=== PATIENT | female | born 1935 | race Caucasian/White ===

== ENCOUNTER 2017-03-22 10:17 | Inpatient (IN) | payer MEDICARE ==
[~2017-03-22] VITALS: Ht 162.6 cm; Wt 59.9 kg
[2017-03-22] MEDS ORDERED: CARV3.12 PO (10:32)
[2017-03-22] MEDS ORDERED: LISI20TA PO (10:32)
[2017-03-22] MEDS ORDERED: ALLO100T PO (10:32)
[2017-03-22] MEDS ORDERED: FAMO20TA PO (10:32)
[2017-03-22] MEDS ORDERED: SANT250O8 TOP (10:32)
[2017-03-22] MEDS ORDERED: MAGN64TASA PO (10:32)
[2017-03-22] MEDS ORDERED: ONDANSETRON 4MG/2ML VIAL (J2405) IV ONE (10:45)
[2017-03-22] MEDS ORDERED: MORPHINE 2 MG/ML 1ML SYRINGE IV PRN ×2 (10:45→13:45)
[2017-03-22 10:54] LABS: BASO # 0.1 10^3/uL (0.0-0.2); BASO % 0.7 % (0.0-1.0); EOS # 0.1 10^3/uL (0.0-0.50); IMMATURE GRANULOCYTE % 0.1 % (0-0); LYMPH # 0.9 10^3/uL (1.5-4.5); LYMPH % 12.7 % (24.0-44.0); MEAN CORPUSCULAR HGB CONC 32.1 g/dl (32.0-36.5); MEAN CORPUSCULAR VOLUME 99.5 fl (80.0-96.0); MONO # 0.7 10^3/uL (0.0-0.8); MONO % 9.9 % (0.0-5.0); NEUTROPHILS # 5.1 10^3/uL (1.8-7.7); NEUTROPHILS % 75.6 % (36.0-66.0); PLATELET COUNT, AUTOMATED 283 10^3/uL (150-450); RED CELL DISTRIBUTION WIDTH 14.6 % (11.5-14.5); WHITE BLOOD COUNT 6.8 10^3/uL (4.0-10.0)
[2017-03-22 11:12] LABS: INR 0.99
[2017-03-22 11:23] LABS: ANION GAP 4 MEQ/L (8-16); BLOOD UREA NITROGEN 21 MG/DL (7-18); CALCIUM LEVEL 9.1 MG/DL (8.8-10.2); CARBON DIOXIDE LEVEL 34 MEQ/L (21-32); CHLORIDE LEVEL 100 MEQ/L (98-107); CREATININE FOR GFR 0.81 MG/DL (0.55-1.02); GLOMERULAR FILTRATION RATE > 60.0 (>32); GLUCOSE, FASTING 150 MG/DL (83-110); POTASSIUM SERUM 4.2 MEQ/L (3.5-5.1); SODIUM LEVEL 138 MEQ/L (136-145)
--- NOTE | 2017-03-22 11:30 | REP ---
Chest x-ray: Single AP view. History: Trauma. Comparison study: April 02, 2007. Findings: The lungs are well inflated and free of infiltrate. The heart is enlarged. Aorta is calcific and somewhat tortuous. There are old healed rib fractures noted bilaterally. There is diffuse osteoporosis. Pulmonary vasculature is not increased. There is no evidence of pleural effusion, infiltrate, or pulmonary edema. Impression: Moderate cardiac enlargement. Diffuse osteoporosis, old healed rib fractures bilaterally, and thoracolumbar scoliotic curve. Signed by Thien Alvarado MD 03/22/2017 03:50 P
[2017-03-22] MEDS ORDERED: ACET1TAB17 PO (11:44)
[2017-03-22] MEDS ORDERED: ADVI200C PO (11:44)
--- NOTE | 2017-03-22 11:46 | REP ---
Pelvis/left hip: Three views. History: Trauma. Findings: AP view of the pelvis and AP and lateral views of the left hip demonstrate a basicervical fracture of the left hip in varus. Bony pelvic ring is intact. No other fracture is seen. There is diffuse osteopenia. Degenerative changes are seen at the lumbosacral junction. Impression: Basicervical fracture left hip in varus. Signed by Thien Alvarado MD 03/22/2017 03:50 P
[2017-03-22] MEDS ORDERED: METOPROLOL TART 25 MG TABLET PO SCH (12:00)
[2017-03-22] MEDS ORDERED: METOPROLOL TART 25 MG TABLET PO ONE (12:30)
--- NOTE | 2017-03-22 12:43 | HPEPDOC ---
[facility] Medical History & Physical Date of Admission Mar 22, 2017 History and Physical ATTENDING: Dr. Eastman PCP: Alfredo Pedersen MD CC: S/P Fall HPI: 82yoF with a past medical history significant for unsteady gait, pt has a walker, who states she was ambulating to the bathroom from the living room without her walker this AM at 09:20 and fell. Denies dizziness, lightheadedness , LOC. Pt states she hit the left side of her head when she fell, no pain currently. EKG in ED noted to be Afib with RVR. No known h/o Afib. No reported palpitations. Denies any fevers, chills, weakness, fatigue, GUAD[place]AMA, CP, SOB, cough, palpitations, abdominal pain, N/V/D or changes in bowel or bladder habits. 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 Pt is able to do ADLs on her own and dress on her own. Has had help with laundry, cooking, cleaning. She does not do her own shopping. Walks around her home. Upon presentation to the hospital the patient was found to have left hip fracture, thus the hospitalist team was consulted. PMHx: HTN HLD COPD GERD Gout hypomagnesemia unsteady gait/walker decreased hearing/aids osteoporosis/Scoliosis insomnia Chronic wound Rt ankle. Uses Santyl. Following with Keerthi. Wound Care mgmt appt pending. H/O Atrial arrhythmia per chart H/O alcohol use, none currently PSHX: EGD/colonoscopy 2007. Gastritis/ Hyperplastic polyp. Reindl SOCHX: Resides in: [facility] Marital Status: single, lives alone Kids: 2 Employment: retired Tobacco use: 1 ppd x 60 years, has cut down to 4 per day ETOH: denies Illicit Drugs: Denies Recent travel: denies Advanced directives: HCP Sister Carolyne Bee [phone] FAMHX: Siblings: Alive, well Children: Alive, well ROS: As noted in HPI, otherwise 11pt ROS of systems reviewed and remarkable only for Rt ankle wound that was previously addressed as per Dr Pendleton. She was referred to Wound Clinic, appt pending. Pt has been applying Santyl to wound as per Podiatry. Recently her VIDEO MACHINES MECHANIC noticed an open wound on the right heel as well. She belives it is from rubbing her foot in bed. Pt has erythema of her great toes B/ L, pt attributes this to Gout and states they wax and wane and has been chronic. PE: GEN: 82yoF, appears stated age. Thin appearing. No acute distress. Alert and oriented x 3. Pleasant, interactive. HEENT: Normocephalic, atraumatic. Pupils are equal, round, and reactive to light. Extraocular movements are intact. No nystagmus appreciated. Sclera are nonicteric. Conjunctiva without injection. Nose midline. Nasal turbinates without bogginess. No facial asymmetry. Moist mucous membranes. Dentition fair. Pharynx pink and moist, no cobblestoning. Neck supple, trachea midline. No lymphadenopathy or thyromegaly appreciated. CHEST: +S1, +S2 tachycardic LUNGS: Clear to auscultation bilaterally. No wheezes, rales, or rhonchi. Breathing appears symmetric and easy. Patient is speaking in full sentences. No accessory muscle use. ABD: Flat, soft, non-tender, non-distended. +Bowel sounds throughout. No rebound or guarding. No costovertebral angle tenderness. EXT: No lower extremity edema appreciated. Erythema is noted of the great toes B /L. Open wound is noted at the lateral Rt ankle with yellowish drainage and wound of Rt heel. Small Skin tears noted Left forearm. SKIN: [place], dry, warm.No rashes. NEURO: Alert and oriented x 3. Cranial nerves III-XII are intact. No focal deficits appreciated. CXR: Moderate cardiac enlargement. Diffuse osteoporosis, old healed rib fractures bilaterally, and thoracolumbar scoliotic curve XR hip Basicervical fracture left hip in varus Femur XR There is an intertrochanteric fracture of the left hip. There is no dislocation. No other fracture of the left femur is identified. There is diffuse demineralization. There is osteoarthritis at the knee. EKG: A fib PVC, RVR 111 bpm, mod IVCD. A&P: 82yoF with a past medical history significant for unsteady gait, pt has a walker, who states she was ambulating to the bathroom from the living room without her walker this AM at 09:20 and fell. Denies dizziness, lightheadedness , LOC. EKG in ED noted to be Afib with RVR. No known h/o Afib. No reported palpitations. 1. The patient will be admitted to PCU for at least [address] Eastman's service. Pt is discussed with Dr Pool. 2. S/P Fall/Left hip fracture. Orthopedics, Dr Holt consulted and will evaluate Pt. Activity level <4 METS. TTE pending. Serial CIP/Troponin pending. CT head pending. Preoperative clearance pending further testing at this time. 3. Afib with RVR. PCU/TM. Add TSH to labs. Serial CIP/Troponin. Request TTE. (request any previous records from PCP/prevous TTE) Lopressor po 25mg x 1 dose in ED. Continue Lopressor 25 mg Q6 with hold parameters for rate control. No anticoagulation at this time. [id number] score 4. 4. HTN. Hold HCTZ, Hold ACEI. Lopressor po x 1 dose 25 mg in ED. Continue with po Lopressor 25 mg Q6 with hold parameters. BP 118/87. 5. HLD. Update fasting lipids. No meds as outpt. 6. Gout. Cont allopurinol. Add uric acid level. 7. GERD. Cont Pepcid. 8. hypomagnesemia. Cont supplement. Add level to admission labs. 9. Chronic Rt Ankle wound. Pt uses Santyl on wound. Seen by podiatry previously. Wound care mgmt consult requested. DVT prophylaxis. SQ heparin Q8 The patient is a Full code Subsequently, Dr Pool spoke with Dr Mayfield re Pt's preoperative clearance. Dr Mayfield feels the Pt can proceed with surgical procedure at this time, Surgical risk would be considered moderate. STAT CIP/Troponin x 1 now. No additional recommendations to reduce the pt's perioperative risk at this time. TTE could be completed after surgical procedure. Pt made NPO, IVF x 50cc/hr, SQ heparin d/cd. Orthopedic svc notified. Vital Signs Vital Signs Date Time Temp Pulse Resp B/P (MAP) Pulse Ox O2 Delivery O2 Flow Rate FiO2 03/22/17 11:55 18 03/22/17 11:47 108 91 03/22/17 11:41 118/87 (97) 03/22/17 10:30 98.3 Room Air Laboratory Data Labs 24H Laboratory Tests 2 03/22/17 10:39: Immature Granulocyte % (Auto) 0.1H, White Blood Count 6.8, Red Blood Count 4.10 , Hemoglobin 13.1, Hematocrit 40.8, Mean Corpuscular Volume 99.5H, Mean Corpuscular Hemoglobin 32.0, Mean Corpuscular Hemoglobin Concent 32.1, Red Cell Distribution Width 14.6H, Platelet Count 283, Neutrophils (%) (Auto) 75.6H, Lymphocytes (%) (Auto) 12.7L, Monocytes (%) (Auto) 9.9H, Eosinophils (%) (Auto) 1.0, Basophils (%) (Auto) 0.7, Neutrophils # (Auto) 5.1, Lymphocytes # (Auto) 0.9L, Monocytes # (Auto) 0.7, Eosinophils # (Auto) 0.1, Basophils # (Auto) 0.1, Immature Granulocyte # (Auto) 0.0, Nucleated Red Blood Cells % (auto) 0.0, Prothrombin Time 13.2, Prothromb Time International Ratio 0.99, Activated Partial Thromboplast Time 30.7, Anion Gap 4L, Glomerular Filtration Rate > 60.0 , Blood Urea Nitrogen 21H, Creatinine 0.81, Sodium Level 138, Potassium Level 4.2, Chloride Level 100, Carbon Dioxide Level 34H, Calcium Level 9.1, Total Creatine Kinase 118, Creatine Kinase MB 3.6, Creatine Kinase MB Relative Index 3.05, Troponin I 0.07 CBC/BMP Laboratory Tests 03/22/17 10:39 Red Blood Count 4.10, Mean Corpuscular Volume 99.5 H, Mean Corpuscular Hemoglobin 32.0, Mean Corpuscular Hemoglobin Concent 32.1, Red Cell Distribution Width 14.6 H, Neutrophils (%) (Auto) 75.6 H, Lymphocytes (%) (Auto ) 12.7 L, Monocytes (%) (Auto) 9.9 H, Eosinophils (%) (Auto) 1.0, Basophils (%) (Auto) 0.7, Neutrophils # (Auto) 5.1, Lymphocytes # (Auto) 0.9 L, Monocytes # ( Auto) 0.7, Eosinophils # (Auto) 0.1, Basophils # (Auto) 0.1, Calcium Level 9.1, Total Creatine Kinase 118 Home Medications Scheduled (Lisinopril/Hydrochlorothi 20-12.5 mg) 1 Tab Tab, 1 TAB PO DAILY Allopurinol (Allopurinol) 100 Mg Tab, 100 MG PO DAILY Carvedilol (Carvedilol) 3.125 Mg Tab, 3.125 MG PO BID Collagenase (Santyl) 250 Unit/Gm Oin, 1 DOSE TOP DAILY APPLIES TO WOUND ON RIGHT ANKLE Magnesium Chloride (Mag64) 64 Mg Tabcr, 64 MG PO BID Scheduled PRN (Advil Pm 200-25 mg) 1 Cap Cap, 1 CAP PO QHS PRN for PAIN Acetaminophen (Acetaminophen) 325 Mg Tab, 650 MG PO Q6H PRN for PAIN Famotidine (Pepcid) 20 Mg Tab, 20 MG PO BID PRN for HEARTBURN Allergies Coded Allergies: Clarithromycin (Verified Allergy, Unknown, 09/18/12) Stella Cheatham Mar 22, 2017 12:42
--- NOTE | 2017-03-22 13:22 | REP ---
Left femur four views AP and lateral projections: There is an intertrochanteric fracture of the left hip. There is no dislocation. No other fracture of the left femur is identified. There is diffuse demineralization. There is osteoarthritis at the knee. Signed by Roberth Pace MD 03/22/2017 01:13 P
[2017-03-22 13:42] LABS: MAGNESIUM LEVEL 1.9 MG/DL (1.8-2.4)
[2017-03-22] MEDS ORDERED: HEPARIN SOD (PORCINE) 5000 UNITS/ML VIAL SC SCH (14:00)
--- NOTE | 2017-03-22 14:11 | REP ---
CT Head without contrast HISTORY: Fall COMPARISON: None Areas of decreased attenuation are present in the periventricular white matter. This represents small-vessel ischemic disease. There is no intraparenchymal hemorrhage, acute infarct, mass or midline shift. The ventricular system and cortical sulci as well as subarachnoid space in the posterior fossa are dilated consistent with mild volume loss. There is no extra cerebral collection. There is no fracture. The visualized sinuses are clear. Mucosal thickening is present in the right mastoid air cells. IMPRESSION: 1. Small vessel ischemic disease. 2. Mild volume loss. Signed by Monty Sung MD 03/22/2017 02:03 P
[2017-03-22] MEDS ORDERED: NS 1,000 ML IV SCH (14:39)
[2017-03-22 15:24] LABS: AST/SGOT 29 U/L (15-37)
[2017-03-22 15:25] LABS: ALBUMIN 3.1 GM/DL (3.2-5.2); ALKALINE PHOSPHATASE 96 U/L (45-117); ALT/SGPT 27 U/L (12-78); BILIRUBIN,DIRECT 0.2 MG/DL (0.0-0.2); BILIRUBIN,TOTAL 0.4 MG/DL (0.2-1.0); CHOLESTEROL LEVEL 168 MG/DL (<200); TOTAL PROTEIN 6.2 GM/DL (6.4-8.2); TRIGLYCERIDES LEVEL 76 MG/DL (<150); URIC ACID 6.8 MG/DL (2.6-6.0)
[2017-03-22 17:25] VITALS: BP 136/79
[2017-03-22] MEDS: METOPROLOL TART 25 MG TABLET PO SCH (18:02)
[2017-03-22] MEDS ORDERED: DIGOXIN INJ 0.5 MG/2 ML AMP (J1160) IV STA (19:35)
[2017-03-22 20:00] VITALS: BP 93/54
[2017-03-22 20:35] VITALS: BP 98/56
[2017-03-22] MEDS: DOCUSATE SODIUM 100 MG CAP PO SCH (20:50)
[2017-03-22] MEDS ORDERED: MAGNESIUM CHLORIDE 64 MG TABCR (SLO MAG) PO SCH (21:00)
[2017-03-22 21:55] VITALS: BP 100/60
[2017-03-22] MEDS: PERCOCET 5MG/325MG TAB PO PRN (22:00)
[2017-03-22 23:59] VITALS: BP 91/53
[2017-03-23] VITALS (14 sets, daily range): BP systolic 88–121; BP diastolic 40–70; O2SAT 93–98
[2017-03-23] MEDS: PERCOCET 5MG/325MG TAB PO PRN ×3 (04:13→22:26)
--- NOTE | 2017-03-23 05:37 | ECGEPIP ---
Stationary ECG Study [facility] - ED Test Date: 2017-03-22 Pat Name: GIN DEVINE Department: Room: - Gender: F Business Support: tonio : 1935 Requested By: Ricco Vaughan Order Number: [id number] Reading MD: Ricco Mari Measurements Intervals [place] Rate: 111 P: PA: 0 QRS: 76 QRSD: 114 T: 66 QT: 300 QTc: 409 Interpretive Statements ATRIAL FIBRILLATION WITH RAPID VENTRICULAR RESPONSE WITH ABERRANT CONDUCTION OR VENTRICULAR PREMATURE COMPLEXES MODERATE INTRAVENTRICULAR CONDUCTION DELAY NO PRIORS Electronically Signed On 03-23-2017 5:37:04 EDT by Ricco Mari
[2017-03-23 05:43] LABS: BASO % 0.7 % (0.0-1.0); EOS % 0.3 % (0.0-3.0); IMMATURE GRANULOCYTE % 0.3 % (0-0); LYMPH % 16.4 % (24.0-44.0); MEAN CORPUSCULAR HEMOGLOBIN 31.5 pg (27.0-33.0); MEAN CORPUSCULAR HGB CONC 31.4 g/dl (32.0-36.5); MEAN CORPUSCULAR VOLUME 100.3 fl (80.0-96.0); MONO # 0.7 10^3/uL (0.0-0.8); MONO % 12.2 % (0.0-5.0); NEUTROPHILS # 4.2 10^3/uL (1.8-7.7); NEUTROPHILS % 70.1 % (36.0-66.0); PLATELET COUNT, AUTOMATED 234 10^3/uL (150-450); RED CELL DISTRIBUTION WIDTH 14.4 % (11.5-14.5)
[2017-03-23] MEDS: METOPROLOL TART 25 MG TABLET PO SCH ×4 (06:00→18:00)
[2017-03-23 06:16] LABS: ALBUMIN 2.6 GM/DL (3.2-5.2); ALBUMIN/GLOBULIN RATIO 0.81 (1.00-1.93); ALKALINE PHOSPHATASE 74 U/L (45-117); ALT/SGPT 22 U/L (12-78); ANION GAP 7 MEQ/L (8-16); AST/SGOT 25 U/L (15-37); BILIRUBIN,TOTAL 0.5 MG/DL (0.2-1.0); BLOOD UREA NITROGEN 26 MG/DL (7-18); CALCIUM LEVEL 8.5 MG/DL (8.8-10.2); CARBON DIOXIDE LEVEL 26 MEQ/L (21-32); CHLORIDE LEVEL 102 MEQ/L (98-107); CREATININE FOR GFR 0.85 MG/DL (0.55-1.02); GLOMERULAR FILTRATION RATE > 60.0 (>32); GLUCOSE, FASTING 87 MG/DL (83-110); MAGNESIUM LEVEL 1.7 MG/DL (1.8-2.4); POTASSIUM SERUM 4.9 MEQ/L (3.5-5.1); SODIUM LEVEL 135 MEQ/L (136-145); TOTAL PROTEIN 5.8 GM/DL (6.4-8.2)
[2017-03-23] MEDS: DIGOXIN 0.125 MG TAB PO SCH (07:52)
[2017-03-23] MEDS ORDERED: ceFAZolin 2 GM/D5W 50 ML IV BAG (J0690) As Ordered ONE (08:29)
[2017-03-23] MEDS: hydroCHLOROthiazide 12.5 MG CAPSULE PO SCH (09:00)
[2017-03-23] MEDS: LISINOPRIL 20 MG TAB PO SCH (09:00)
[2017-03-23] MEDS ORDERED: PHENYLEPHRINE INJ 10MG/ML VIAL (J2370) As Ordered ONE (09:24)
[2017-03-23] MEDS ORDERED: KETAMINE HCL 200 MG/20 ML VIAL As Ordered ONE (09:24)
[2017-03-23] MEDS ORDERED: fentaNYL 100 MCG/2 ML INJECTION (J3010) As Ordered ONE ×2 (09:24→10:32)
[2017-03-23] MEDS ORDERED: MIDAZOLAM INJ 2 MG/2 ML VIAL (J2250) As Ordered ONE (09:24)
[2017-03-23] MEDS ORDERED: dexameTHASONE 4 MG/ML 1ML VIAL (J1100) As Ordered ONE (09:24)
[2017-03-23] MEDS ORDERED: ONDANSETRON 4MG/2ML VIAL (J2405) As Ordered ONE (09:25)
[2017-03-23] MEDS ORDERED: ETOMIDATE INJ 20MG/10ML VIAL As Ordered ONE (09:26)
[2017-03-23] MEDS ORDERED: ROCURONIUM BROMIDE 50 MG/5 ML VIAL/SYRINGE As Ordered ONE (09:26)
[2017-03-23] MEDS ORDERED: NEOSTIGMINE 10 MG/10 ML VIAL (J2710) As Ordered ONE (09:45)
[2017-03-23] MEDS ORDERED: GLYCOPYRROLATE INJ 0.2 MG/ML 2 ML VIAL As Ordered ONE (09:45)
[2017-03-23] MEDS: fentaNYL 100 MCG/2 ML INJECTION (J3010) IV PRN ×4 (10:34→11:15)
[2017-03-23] MEDS ORDERED: LR 1,000 ML IV SCH (10:45)
[2017-03-23] MEDS ORDERED: ONDANSETRON 4MG/2ML VIAL (J2405) IV PRN ×2 (10:45→11:15)
[2017-03-23] MEDS ORDERED: PERCOCET 5MG/325MG TAB As Ordered ONE (10:50)
--- NOTE | 2017-03-23 11:07 | REP ---
REASON: ORIF previously described hip fracture. 15 images were obtained along with 2 minutes and 26 seconds of fluoroscopy time provided to Dr. Osmany Holt for left hip ORIF. The alignment is near anatomical. The tip of the lag screw does not breech the joint space. Signed by Brandon Samayoa DO 03/23/2017 11:21 A
[2017-03-23] MEDS: LR 1,000 ML IV SCH ×2 (11:15→20:02)
--- NOTE | 2017-03-23 13:41 | ECHO ---
DATE OF PROCEDURE: 03/22/2017 DATE OF : 1935 AGE: 82 REFERRING PROVIDER: Dr. Felicia Pool PATIENT LOCATION: Room 3223 REASON FOR THE ECHOCARDIOGRAM: Abnormal EKG. 2D MEASUREMENTS: IVS: 0.9 cm LV: 3.6 cm LVPW: 0.9 cm LA: 4.4 cm Aorta: 2.4 cm IVC: 2.2 cm DOPPLER MEASUREMENTS: Peak velocity across the aortic valve: 0.83 m/s Peak velocity across the LVOT: 0.45 m/s Mitral E: 0.69 Maximum tricuspid valve velocity: 3.3 m/s 2D COMMENTS: 1. Normal left ventricular size, wall thickness, and normal global left ventricular systolic function. The estimated left ventricular systolic ejection fraction is 65-70%. 2. Mildly enlarged left atrium. The right atrium appeared to be moderately enlarged. Normal right ventricle. 3. The atrial septum appeared to be normal without evidence of defect or shunt. 4. Normal aortic root. 5. No pericardial effusion seen. 6. Mildly calcified aortic valve with normal leaflet excursion. Mildly calcified mitral annulus. Could not rule out prolapse of the posterior mitral valve leaflet. Normal tricuspid valve. The pulmonic valve appeared to be normal in limited views. The proximal pulmonary artery branches were not well visualized. 7. The inferior vena cava was dilated, central venous pressure is probably elevated. DOPPLER: It detects moderately severe mitral regurgitation and severe tricuspid regurgitation. The calculated pulmonary artery systolic pressure varied between 50-60 mmHg. Assessment of the left ventricular diastolic function was limited, patient seems to be in atrial fibrillation during the test but with a controlled ventricular rate. IMPRESSION: 1. Normal global left ventricular systolic function. 2. Aortic valve sclerosis without stenosis or aortic regurgitation. 3. Moderately severe mitral regurgitation with mildly enlarged left atrium. Could not rule out prolapse of the posterior mitral valve leaflet. The mitral valve annulus is also mildly calcified. 4. Severe tricuspid regurgitation with dilated right atrium and moderately severe pulmonary hypertension. 5. There were features of elevated central venous pressure. MTDD
[2017-03-23] MEDS: DOCUSATE SODIUM 100 MG CAP PO SCH ×2 (14:02→20:02)
[2017-03-23] MEDS: ALLOPURINOL 100 MG TAB PO SCH (14:02)
--- NOTE | 2017-03-23 15:44 | CR ---
DATE OF CONSULTATION: 03/23/2017 CHIEF COMPLAINT: Left hip fracture. HISTORY OF PRESENT ILLNESS: Geraldine is an 82-year-old walker ambulator who suffered a mechanical fall on 03/22/2017 and landed on her left side. She had immediate pain and was unable to bear weight. She was brought to [facility], where x-rays revealed a displaced hip fracture. She was found to be in new-onset atrial fibrillation and was admitted to the medical team. As of yesterday afternoon she had been evaluated by the hospitalist and cardiology, and the regulatory submissions specialist had stated to the hospitalist that she was medically optimized and could get an echocardiogram postoperatively. PAST MEDICAL HISTORY: 1. Hypertension. 2. High cholesterol. 3. Chronic obstructive pulmonary disease (COPD). 4. Acid reflux. 5. Gout. PAST SURGICAL HISTORY: 1. Gout tophus debridement, right ankle. 2. Colonoscopy. SOCIAL HISTORY: Patient lives alone in [place]. Her sister was at bedside. Patient smokes four cigarettes a day. Does not abuse alcohol or illicit drugs. Healthcare proxy is her sister, Corin Bee, phone number . For the patient's allergies and medications, please see the patient intake. REVIEW OF SYSTEMS: Please see the patient's intake. PHYSICAL EXAMINATION: Reveal a well-appearing female in no distress. Alert and oriented times three. NEUROLOGIC: Appropriate mood and pleasant affect. CARDIOVASCULAR: Dorsalis pedis pulse 2+ with an irregular rate. PULMONARY: Regular nonlabored breathing. SKIN: Skin in left foot reveals gouty tophi in the foot. Skin at the knee reveals a healed remote laceration over the patella and medial soft tissues. Skin at the hip is intact. MUSCULOSKELETAL: Patient's left leg is significantly shortened and externally rotated. She has severe tenderness to palpation at the greater trochanter. Log roll deferred. No tenderness at the knee. RADIOLOGY: X-rays of the hip and femur were obtained, available for my review. There is a displaced 3-part intertrochanteric femur fracture. ASSESSMENT AND PLAN: Geraldine is an 82-year-old female with left proximal femur fracture. She has been admitted to the hospitalist and deemed medically optimized. Plan is to proceed with surgery in the morning, on 03/23/2017.
[2017-03-23] MEDS ORDERED: FAMOTIDINE 20 MG TAB PO PRN (17:00)
--- NOTE | 2017-03-23 17:03 | IPNPDOC ---
Subjective Date Seen The patient was seen on 03/23/17. Subjective Chief Complaint/HPI Patient seen and examined at bedside. If that she is feeling relatively comfortable following surgery this morning. Denies any acute complaints this time. Objective Physical Examination General Exam: Positive: Alert, Cooperative, No Acute Distress ENT Exam: Positive: Atraumatic, Mucous membr. moist/pink Neck Exam: Negative: JVD Chest Exam: Positive: Clear to auscultation, Normal air movement Heart Exam: Positive: Irregular Rhythm Telemetry: Positive: Atrial fibrillation Abdomen Exam: Positive: Soft, Negative: Tenderness Extremity Exam: Positive: Other (Left hip wrapped in surgical dressing. ROM limited 2/2 recent surgery. Patient noted to have gauze/dressing on right foot.) Psych Exam: Positive: Oriented x 3 Assessment /Plan Plan/VTE VTE Prophylaxis Ordered?: Yes Plan Left Hip fracture 2/2 Fall, s/p Repair DVT Prophylaxis and Pain Mgmt as per Ortho Atrial Fibrillation Rate Controlled on Metoprolol 25mg q6h The patient will need to be on Anticoagulation, however we will start AC with input from Orthopedic surgery--once the patient is stable from a post-operative perspective 2D ECHO notable for preserved EF HTN. Cont Lisinopril, HCTZ with holding parameters Gout Cont allopurinol GERD Cont Pepcid. Chronic Rt Ankle wound Wound Care on board DVT prophylaxis As per Ortho Dispo--pending PT eval. VS, I&O, 24H, Fishbone Vital Signs/I&O Vital Signs Date Time Temp Pulse Resp B/P (MAP) Pulse Ox O2 Delivery O2 Flow Rate FiO2 03/23/17 16:18 97.6 84 20 121/56 (77) 98 Nasal Cannula 1.0 I&O- Last 24 Hours up to 6 AM 03/24/17 06:00 Intake Total 1275 ml Output Total 230 ml Balance 1045 ml Laboratory Data 24H LABS Laboratory Tests 2 03/22/17 18:02: Total Creatine Kinase 145, Creatine Kinase MB 5.0H, Creatine Kinase MB Relative Index 3.44, Troponin I 0.20#H 03/23/17 02:02: Total Creatine Kinase 107, Creatine Kinase MB 2.8, Creatine Kinase MB Relative Index 2.61, Troponin I 0.12#H 03/23/17 05:31: Immature Granulocyte % (Auto) 0.3H, White Blood Count 6.0, Red Blood Count 3.59L , Hemoglobin 11.3L, Hematocrit 36.0, Mean Corpuscular Volume 100.3H, Mean Corpuscular Hemoglobin 31.5, Mean Corpuscular Hemoglobin Concent 31.4L, Red Cell Distribution Width 14.4, Platelet Count 234, Neutrophils (%) (Auto) 70.1H, Lymphocytes (%) (Auto) 16.4L, Monocytes (%) (Auto) 12.2H, Eosinophils (%) (Auto ) 0.3, Basophils (%) (Auto) 0.7, Neutrophils # (Auto) 4.2, Lymphocytes # (Auto) 1.0L, Monocytes # (Auto) 0.7, Eosinophils # (Auto) 0.0, Basophils # (Auto) 0.0, Immature Granulocyte # (Auto) 0.0, Nucleated Red Blood Cells % (auto) 0.0, Anion Gap 7L, Glomerular Filtration Rate > 60.0, Blood Urea Nitrogen 26H, Creatinine 0.85, Sodium Level 135L, Potassium Level 4.9, Chloride Level 102, Carbon Dioxide Level 26, Calcium Level 8.5L, Aspartate Amino Transf (AST/SGOT) 25, Alanine Aminotransferase (ALT/SGPT) 22, Alkaline Phosphatase 74, Total Bilirubin 0.5, Total Protein 5.8L, Albumin 2.6L, Magnesium Level 1.7L, Albumin/ Globulin Ratio 0.81L 03/23/17 11:53: Total Creatine Kinase 160, Creatine Kinase MB 3.9H, Creatine Kinase MB Relative Index 2.43, Troponin I 0.10 CBC/BMP Laboratory Tests 03/23/17 05:31 Red Blood Count 3.59 L, Mean Corpuscular Volume 100.3 H, Mean Corpuscular Hemoglobin 31.5, Mean Corpuscular Hemoglobin Concent 31.4 L, Red Cell Distribution Width 14.4, Neutrophils (%) (Auto) 70.1 H, Lymphocytes (%) (Auto) 16.4 L, Monocytes (%) (Auto) 12.2 H, Eosinophils (%) (Auto) 0.3, Basophils (%) ( Auto) 0.7, Neutrophils # (Auto) 4.2, Lymphocytes # (Auto) 1.0 L, Monocytes # ( Auto) 0.7, Eosinophils # (Auto) 0.0, Basophils # (Auto) 0.0, Calcium Level 8.5 L , Aspartate Amino Transf (AST/SGOT) 25, Alanine Aminotransferase (ALT/SGPT) 22, Alkaline Phosphatase 74, Total Bilirubin 0.5, Total Protein 5.8 L, Albumin 2.6 L YADIRA LAMAR MD Mar 23, 2017 17:03
[2017-03-24] VITALS (12 sets, daily range): BP systolic 84–120; BP diastolic 42–84; O2SAT 93–97
[2017-03-24] MEDS: PERCOCET 5MG/325MG TAB PO PRN ×2 (03:34→10:27)
[2017-03-24 05:42] LABS: BASO % 0.1 % (0.0-1.0); EOS % 0.1 % (0.0-3.0); IMMATURE GRANULOCYTE % 0.4 % (0-0); LYMPH # 0.9 10^3/uL (1.5-4.5); LYMPH % 11.9 % (24.0-44.0); MEAN CORPUSCULAR HEMOGLOBIN 31.7 pg (27.0-33.0); MEAN CORPUSCULAR HGB CONC 31.5 g/dl (32.0-36.5); MEAN CORPUSCULAR VOLUME 100.6 fl (80.0-96.0); MONO % 13.6 % (0.0-5.0); NEUTROPHILS # 5.7 10^3/uL (1.8-7.7); NEUTROPHILS % 73.9 % (36.0-66.0); PLATELET COUNT, AUTOMATED 235 10^3/uL (150-450); RED CELL DISTRIBUTION WIDTH 14.4 % (11.5-14.5); WHITE BLOOD COUNT 7.7 10^3/uL (4.0-10.0)
[2017-03-24 06:02] LABS: ALBUMIN 2.2 GM/DL (3.2-5.2); ALBUMIN/GLOBULIN RATIO 0.69 (1.00-1.93); ALKALINE PHOSPHATASE 67 U/L (45-117); ALT/SGPT 19 U/L (12-78); ANION GAP 4 MEQ/L (8-16); AST/SGOT 23 U/L (15-37); BILIRUBIN,TOTAL 0.2 MG/DL (0.2-1.0); BLOOD UREA NITROGEN 23 MG/DL (7-18); CALCIUM LEVEL 8.5 MG/DL (8.8-10.2); CARBON DIOXIDE LEVEL 32 MEQ/L (21-32); CHLORIDE LEVEL 101 MEQ/L (98-107); CREATININE FOR GFR 0.75 MG/DL (0.55-1.02); GLOMERULAR FILTRATION RATE > 60.0 (>32); GLUCOSE, FASTING 125 MG/DL (83-110); MAGNESIUM LEVEL 1.7 MG/DL (1.8-2.4); POTASSIUM SERUM 4.6 MEQ/L (3.5-5.1); SODIUM LEVEL 137 MEQ/L (136-145); TOTAL PROTEIN 5.4 GM/DL (6.4-8.2)
[2017-03-24] MEDS: METOPROLOL TART 25 MG TABLET PO SCH ×3 (06:48→12:00)
[2017-03-24] MEDS: DOCUSATE SODIUM 100 MG CAP PO SCH ×2 (08:57→21:35)
[2017-03-24] MEDS: ALLOPURINOL 100 MG TAB PO SCH (08:57)
[2017-03-24] MEDS: LISINOPRIL 20 MG TAB PO SCH (08:57)
[2017-03-24] MEDS: hydroCHLOROthiazide 12.5 MG CAPSULE PO SCH (08:58)
[2017-03-24] MEDS: DIGOXIN 0.125 MG TAB PO SCH (08:58)
[2017-03-24] MEDS: MIRALAX *UNIT DOSE* 17GM PACKET PO SCH (08:58)
[2017-03-24] MEDS ORDERED: ENOXAPARIN 30 MG/0.3 ML SYR (J1650) SC SCH (09:00)
--- NOTE | 2017-03-24 10:11 | IPNPDOC ---
Subjective Date Seen The patient was seen on 03/24/17. Subjective Chief Complaint/HPI Patient seen and examined at the bedside. States she is feeling well, and that the pain in her left hip is still well controlled. Denies any acute complaints or overnight events. Objective Physical Examination General Exam: Positive: Alert, Cooperative, No Acute Distress ENT Exam: Positive: Atraumatic, Mucous membr. moist/pink Neck Exam: Negative: JVD Chest Exam: Positive: Clear to auscultation, Normal air movement Heart Exam: Positive: Irregular Rhythm Telemetry: Positive: Atrial fibrillation Abdomen Exam: Positive: Soft, Negative: Tenderness Extremity Exam: Positive: Other (Left hip wrapped in surgical dressing. ROM limited 2/2 recent surgery. Patient noted to have gauze/dressing on right foot.) Psych Exam: Positive: Oriented x 3 Assessment /Plan Plan/VTE VTE Prophylaxis Ordered?: Yes Plan Atrial Fibrillation Rate Controlled on Metoprolol 25mg q6h I did discuss the need for AC with Ortho this morning, and the patient can be started on AC from their post-operative perspective I also discussed the need for AC with the patient this AM, who states that she would like to discuss it with her family first--Risks, Benefits, and Alternative therapies were discussed with the patient who verbalized understanding of the same, and notes that she makes her own health care decisions. We will start the patient on Eliquis 2.5mg BID if she decides to choose AC-- discussed with Dr. Loyd who agrees 2D ECHO notable for preserved EF, moderate MR Left Hip fracture 2/2 Fall, s/p Repair Pain Mgmt as per Ortho HTN. Cont Lisinopril, HCTZ with holding parameters Gout Cont allopurinol GERD Cont Pepcid. Chronic Rt Ankle wound Wound Care on board DVT prophylaxis Lovenox SC for now Dispo--pending PT eval. VS, I&O, 24H, Fishbone Vital Signs/I&O Vital Signs Date Time Temp Pulse Resp B/P (MAP) Pulse Ox O2 Delivery O2 Flow Rate FiO2 03/24/17 08:58 90 03/24/17 08:57 114/64 03/24/17 08:25 98.2 19 95 Nasal Cannula 1.0 I&O- Last 24 Hours up to 6 AM 03/25/17 06:00 Intake Total 0 ml Output Total 0 ml Balance 0 ml Laboratory Data 24H LABS Laboratory Tests 2 03/23/17 11:53: Total Creatine Kinase 160, Creatine Kinase MB 3.9H, Creatine Kinase MB Relative Index 2.43, Troponin I 0.10 03/24/17 04:56: Immature Granulocyte % (Auto) 0.4H, White Blood Count 7.7, Red Blood Count 3.09L , Hemoglobin 9.8L, Hematocrit 31.1L, Mean Corpuscular Volume 100.6H, Mean Corpuscular Hemoglobin 31.7, Mean Corpuscular Hemoglobin Concent 31.5L, Red Cell Distribution Width 14.4, Platelet Count 235, Neutrophils (%) (Auto) 73.9H, Lymphocytes (%) (Auto) 11.9L, Monocytes (%) (Auto) 13.6H, Eosinophils (%) (Auto ) 0.1, Basophils (%) (Auto) 0.1, Neutrophils # (Auto) 5.7, Lymphocytes # (Auto) 0.9L, Monocytes # (Auto) 1.0H, Eosinophils # (Auto) 0.0, Basophils # (Auto) 0.0 , Immature Granulocyte # (Auto) 0.0, Nucleated Red Blood Cells % (auto) 0.0, Anion Gap 4L, Glomerular Filtration Rate > 60.0, Blood Urea Nitrogen 23H, Creatinine 0.75, Sodium Level 137, Potassium Level 4.6, Chloride Level 101, Carbon Dioxide Level 32, Calcium Level 8.5L, Aspartate Amino Transf (AST/SGOT) 23, Alanine Aminotransferase (ALT/SGPT) 19, Alkaline Phosphatase 67, Total Bilirubin 0.2#, Total Protein 5.4L, Albumin 2.2L, Magnesium Level 1.7L, Albumin/ Globulin Ratio 0.69L CBC/BMP Laboratory Tests 03/24/17 04:56 Red Blood Count 3.09 L, Mean Corpuscular Volume 100.6 H, Mean Corpuscular Hemoglobin 31.7, Mean Corpuscular Hemoglobin Concent 31.5 L, Red Cell Distribution Width 14.4, Neutrophils (%) (Auto) 73.9 H, Lymphocytes (%) (Auto) 11.9 L, Monocytes (%) (Auto) 13.6 H, Eosinophils (%) (Auto) 0.1, Basophils (%) ( Auto) 0.1, Neutrophils # (Auto) 5.7, Lymphocytes # (Auto) 0.9 L, Monocytes # ( Auto) 1.0 H, Eosinophils # (Auto) 0.0, Basophils # (Auto) 0.0, Calcium Level 8.5 L, Aspartate Amino Transf (AST/SGOT) 23, Alanine Aminotransferase (ALT/SGPT ) 19, Alkaline Phosphatase 67, Total Bilirubin 0.2 #, Total Protein 5.4 L, Albumin 2.2 L YADIRA LAAMR MD Mar 24, 2017 10:11
[2017-03-24] MEDS ORDERED: ENOXAPARIN 30 MG/0.3 ML SYR (J1650) SC ONE (10:15)
--- NOTE | 2017-03-24 11:39 | RO ---
DATE OF PROCEDURE: 03/23/2017 PREOPERATIVE DIAGNOSIS: Left three-part proximal femur fracture. POSTOPERATIVE DIAGNOSIS: Left three-part proximal femur fracture. PROCEDURE: Open reduction, internal fixation left femur with a cephalomedullary nail. SURGEON: Dr. Osmany Holt HOUSEFELLOW: None ANESTHESIA: General. IV FLUIDS: Lactated Ringers. ESTIMATED BLOOD LOSS: 50 mL. IMPLANTS: Synthes intermediate TFN 235 x 11, 125 degree neck angle, 90 mm helical blade, 36 mm distal locking screw. Closure sandi. INDICATIONS: Geraldine is an 82-year-old female who suffered a mechanical fall on 03/22/2017. X-rays revealed a displaced three-part proximal femur fracture. She was admitted to the hospitalist service and medically optimized. Had a discussion with her about the risks and benefits of open reduction, internal fixation with a cephalomedullary nail as well as the rationale for nonoperative treatment and we both agreed to proceed with surgery. Patient was completely alert and her healthcare proxy, her sister was present was present for that conversation as well. She understood the risks included but were not limited to bleeding, infection, damage to adjacent neurovascular structure, deep vein thrombosis (DVT)/pulmonary embolism (PE), stiffness, malunion, nonunion, hardware irritation, hardware failure, stiffness, weakness, failure to return to pre-injury activity level, risk of anesthesia including , and need for additional surgery. Written informed consent obtained. DESCRIPTION OF PROCEDURE: The patient was identified in the preoperative holding area and the left leg signed by myself. She was brought to the operating room, where a Lockwood catheter was placed. General anesthesia was induced. She was transferred supine onto the fracture table. All bony prominences well padded. The left leg was placed into the traction boot and secured with coban. The right leg was well padded and secured to the central beam. Preliminary time-out performed per hospital protocol. She received appropriate IV antibiotics within 1 hour of incision. I then proceeded with a preliminary closed reduction with traction, internal rotation and adduction. Successful reduction confirmed on AP and lateral views. There was extensive comminution. Again, this is a three-part fracture. The left leg was then prepped and draped in the normal sterile fashion. Prior to incision, a time-out was performed in which myself and all operating room (OR) staff confirmed the patient's name, medical record number, date of , and the correct side, site and procedure. A 3 cm longitudinal incision was made with a #10 blade just proximal to the tip of the greater trochanter. Electrocautery for hemostasis. Curved Kellogg scissors to open the tensor fascia to gain access to the greater trochanter. With palpation there was extensive comminution of the greater trochanter. A threaded guidewire was placed at the appropriate start point and confirmed on AP and lateral views using fluoroscopy. The guidewire was advanced by hand down to the lesser trochanter and again position confirmed on C-arm both views. The opening reamer was then used over the threaded guidewire to create an opening of the proximal femur. The patient did have some issues with hypotension on induction, and therefore, I elected the patient proceed with an intermediate nail instead of a long nail. The ball-tip guidewire was placed down the femur and after confirming appropriate position on both views the 12.5 cannulated reamer was placed. I then seated the 11 x 235 intermediate TFN over the guidewire. Checking position on AP and lateral views there was some loss of reduction so the guidewire was removed and then I used the al to carefully rasp out some bone from the basicervical fragment, which was getting kicked off as the nail was passed. The nail was passed. The nail was replaced slowly with position and reduction maintained on AP and lateral views using fluoroscopy. The test architect handle was used to assist with the reduction. Then, the guidewire was placed through the targeting arm for the helical blade. A size 90 helical blade was felt to be most important. Reamer was used over the guidewire and then the helical blade was malleted into position. Appropriate position of that blade confirmed on AP, lateral and oblique views. The nail was locked proximally and then position rechecked and deemed to be a successful reduction. The targeting arm was then used to place a single static distal interlocking screw per routine. There was excellent bite on that screw. Final position with the targeting arm removed showed successful open reduction, internal fixation with an intermediate cephalomedullary nail. All incisions were extensively irrigated. There was very little blood loss, 50 mL at most. Deep fascia was closed with [id number] #0 Vicryl sutures, superficial fascia with #2-0 Vicryl and then sandi for the skin. Sterile bandage applied. All counts correct times two. Complications none. DISPOSITION: The patient was extubated and transferred to the postanesthesia care unit (PACU) in stable condition. She will remain under the care of the hospitalist service. 24 hours of antibiotic prophylaxis and she will need deep venous thrombosis (DVT) prophylaxis starting postoperative day #1.
--- NOTE | 2017-03-24 11:41 | REP ---
REASON: Followup fracture. COMPARISON: 2 days ago. The intramedullary roly is seen affixing a previously described left hip fracture. The tip does not breech the hip joint space. Alignment is near anatomical. The bone are demineralized and the edges of the fracture are fully defined. I cannot rule out the possibility of a pathologic fracture. I do not know the patient's history. IMPRESSION: As above. Signed by Brandon Samayoa DO 03/24/2017 10:00 A
[2017-03-24] MEDS ORDERED: NS 500 ML IV ONE (13:45)
[2017-03-24] MEDS: LR 1,000 ML IV SCH (16:30)
[2017-03-24] MEDS: ACETAMINOPHEN TAB 650MG DOSE (2X325MG) PO PRN (21:36)
[2017-03-25] VITALS: BP 106/56
[2017-03-25 04:00] VITALS: BP 111/65
[2017-03-25 05:20] LABS: BASO % 0.3 % (0.0-1.0); EOS # 0.1 10^3/uL (0.0-0.50); EOS % 1.9 % (0.0-3.0); IMMATURE GRANULOCYTE % 0.6 % (0-0); LYMPH # 1.5 10^3/uL (1.5-4.5); LYMPH % 21.8 % (24.0-44.0); MEAN CORPUSCULAR HEMOGLOBIN 31.9 pg (27.0-33.0); MEAN CORPUSCULAR HGB CONC 31.5 g/dl (32.0-36.5); MEAN CORPUSCULAR VOLUME 101.4 fl (80.0-96.0); MONO # 0.6 10^3/uL (0.0-0.8); MONO % 9.2 % (0.0-5.0); NEUTROPHILS # 4.6 10^3/uL (1.8-7.7); NEUTROPHILS % 66.2 % (36.0-66.0); PLATELET COUNT, AUTOMATED 237 10^3/uL (150-450); RED CELL DISTRIBUTION WIDTH 14.6 % (11.5-14.5)
[2017-03-25] MEDS: LR 1,000 ML IV SCH (05:38)
[2017-03-25 05:49] LABS: ALBUMIN 2.2 GM/DL (3.2-5.2); ALBUMIN/GLOBULIN RATIO 0.71 (1.00-1.93); ALKALINE PHOSPHATASE 68 U/L (45-117); ALT/SGPT 19 U/L (12-78); ANION GAP 3 MEQ/L (8-16); AST/SGOT 36 U/L (15-37); BILIRUBIN,TOTAL 0.3 MG/DL (0.2-1.0); BLOOD UREA NITROGEN 26 MG/DL (7-18); CALCIUM LEVEL 8.3 MG/DL (8.8-10.2); CARBON DIOXIDE LEVEL 33 MEQ/L (21-32); CHLORIDE LEVEL 103 MEQ/L (98-107); CREATININE FOR GFR 0.67 MG/DL (0.55-1.02); GLOMERULAR FILTRATION RATE > 60.0 (>32); GLUCOSE, FASTING 103 MG/DL (83-110); MAGNESIUM LEVEL 1.7 MG/DL (1.8-2.4); POTASSIUM SERUM 4.5 MEQ/L (3.5-5.1); SODIUM LEVEL 139 MEQ/L (136-145); TOTAL PROTEIN 5.3 GM/DL (6.4-8.2)
[2017-03-25 07:47] VITALS: BP 119/60
[2017-03-25] MEDS ORDERED: MAG SULF 1GM/100ML (MAG RUN) 1 GM in APPROPRIATE DILUENT 1 EA IV ONE (08:30)
[2017-03-25] MEDS: DOCUSATE SODIUM 100 MG CAP PO SCH ×2 (09:48→20:21)
[2017-03-25] MEDS: ALLOPURINOL 100 MG TAB PO SCH (09:48)
[2017-03-25] MEDS: METOPROLOL TART 25 MG TABLET PO SCH ×2 (09:49→21:00)
[2017-03-25] MEDS: MIRALAX *UNIT DOSE* 17GM PACKET PO SCH (09:55)
[2017-03-25] MEDS: ACETAMINOPHEN TAB 650MG DOSE (2X325MG) PO PRN ×2 (09:59→20:21)
[2017-03-25] MEDS ORDERED: ENOXAPARIN 30 MG/0.3 ML SYR (J1650) SC ONE (11:00)
[2017-03-25 12:17] VITALS: BP 90/55
[2017-03-25] MEDS ORDERED: SLF 3 ML SYR IV PRN (14:30)
--- NOTE | 2017-03-25 15:05 | IPNPDOC ---
Subjective Date Seen The patient was seen on 03/25/17. Subjective Chief Complaint/HPI Patient seen and examined at the bedside. States that she is feeling well, denies any acute complaints at this time. Objective Physical Examination General Exam: Positive: Alert, Cooperative, No Acute Distress ENT Exam: Positive: Atraumatic, Mucous membr. moist/pink Neck Exam: Negative: JVD Chest Exam: Positive: Clear to auscultation, Normal air movement Heart Exam: Positive: Irregular Rhythm Telemetry: Positive: Atrial fibrillation Abdomen Exam: Positive: Soft, Negative: Tenderness Extremity Exam: Positive: Other (Left hip wrapped in surgical dressing. ROM limited 2/2 recent surgery. Patient noted to have gauze/dressing on right foot.) Psych Exam: Positive: Oriented x 3 Assessment /Plan Plan/VTE VTE Prophylaxis Ordered?: Yes Plan Atrial Fibrillation Rate Controlled on Metoprolol 25mg BID I did discuss the need for AC with Ortho, and the patient can be started on AC from their post-operative perspective I also discussed the need for AC with the patient this AM, and her brother Lucas Lindo--We will consider starting Eliquis 2.5mg BID if hemodynamically stable tomorrow 2D ECHO notable for preserved EF, moderate MR Macrocytic Anemia Patient's baseline Hgb ~13 However, over the last few days this has drifted downward to 9.1 this AM---no overt source of bleeding noted, no black colored or tarry stools Likely a combination of aggressive IVF hydration and Intraoperative Blood Loss Will repeat an H&H this evening Occult Stool Blood ordered We will start AC once we can get stability of the patient's Hgb level here Left Hip fracture 2/2 Fall, s/p Repair Pain Mgmt as per Ortho HTN. Cont Lisinopril, HCTZ on hold 07/19 borderline low B/P on 03/24--may restart if B/ P begins to become elevated Gout Cont allopurinol GERD Cont Pepcid. Chronic Rt Ankle wound Wound Care on board DVT prophylaxis Lovenox SC dose for today ordered--Will hold 1010 am dose in case the patient is started on Eliquis. Dispo--Patient will likely require Rehab on D/C. VS, I&O, 24H, Fishbone Vital Signs/I&O Vital Signs Date Time Temp Pulse Resp B/P (MAP) Pulse Ox O2 Delivery O2 Flow Rate FiO2 03/25/17 12:17 97.0 78 18 90/55 (67) 96 Nasal Cannula 2.0 I&O- Last 24 Hours up to 6 AM 03/26/17 06:00 Intake Total 1000 ml Output Total 400 ml Balance 600 ml Laboratory Data 24H LABS Laboratory Tests 2 03/25/17 05:11: Immature Granulocyte % (Auto) 0.6H, White Blood Count 7.0, Red Blood Count 2.85L , Hemoglobin 9.1L, Hematocrit 28.9L, Mean Corpuscular Volume 101.4H, Mean Corpuscular Hemoglobin 31.9, Mean Corpuscular Hemoglobin Concent 31.5L, Red Cell Distribution Width 14.6H, Platelet Count 237, Neutrophils (%) (Auto) 66.2H , Lymphocytes (%) (Auto) 21.8L, Monocytes (%) (Auto) 9.2H, Eosinophils (%) (Auto ) 1.9, Basophils (%) (Auto) 0.3, Neutrophils # (Auto) 4.6, Lymphocytes # (Auto) 1.5, Monocytes # (Auto) 0.6, Eosinophils # (Auto) 0.1, Basophils # (Auto) 0.0, Immature Granulocyte # (Auto) 0.0, Nucleated Red Blood Cells % (auto) 0.0, Anion Gap 3L, Glomerular Filtration Rate > 60.0, Blood Urea Nitrogen 26H, Creatinine 0.67, Sodium Level 139, Potassium Level 4.5, Chloride Level 103, Carbon Dioxide Level 33H, Calcium Level 8.3L, Aspartate Amino Transf (AST/SGOT) 36, Alanine Aminotransferase (ALT/SGPT) 19, Alkaline Phosphatase 68, Total Bilirubin 0.3, Total Protein 5.3L, Albumin 2.2L, Magnesium Level 1.7L, Albumin/ Globulin Ratio 0.71L CBC/BMP Laboratory Tests 03/25/17 05:11 Red Blood Count 2.85 L, Mean Corpuscular Volume 101.4 H, Mean Corpuscular Hemoglobin 31.9, Mean Corpuscular Hemoglobin Concent 31.5 L, Red Cell Distribution Width 14.6 H, Neutrophils (%) (Auto) 66.2 H, Lymphocytes (%) (Auto ) 21.8 L, Monocytes (%) (Auto) 9.2 H, Eosinophils (%) (Auto) 1.9, Basophils (%) (Auto) 0.3, Neutrophils # (Auto) 4.6, Lymphocytes # (Auto) 1.5, Monocytes # ( Auto) 0.6, Eosinophils # (Auto) 0.1, Basophils # (Auto) 0.0, Calcium Level 8.3 L , Aspartate Amino Transf (AST/SGOT) 36, Alanine Aminotransferase (ALT/SGPT) 19, Alkaline Phosphatase 68, Total Bilirubin 0.3, Total Protein 5.3 L, Albumin 2.2 L YADIRA LAMAR MD Mar 25, 2017 15:05
[2017-03-25 15:56] VITALS: BP 104/55
[2017-03-25 20:00] VITALS: BP 93/55
[2017-03-25] MEDS: SLF 3 ML SYR IV SCH (20:21)
[2017-03-25] MEDS: PERCOCET 5MG/325MG TAB PO PRN (21:17)
[2017-03-25] MEDS ORDERED: NS 500 ML IV ONE (22:30)
[2017-03-26] VITALS: BP_SYST 88; BP_SYST 92; BP_DIAS 50; BP_DIAS 51
[2017-03-26 04:00] VITALS: BP 109/58
[2017-03-26] MEDS: SLF 3 ML SYR IV SCH ×3 (04:45→20:44)
[2017-03-26 05:47] LABS: BASO % 0.4 % (0.0-1.0); EOS # 0.1 10^3/uL (0.0-0.50); EOS % 1.6 % (0.0-3.0); IMMATURE GRANULOCYTE % 0.5 % (0-0); LYMPH # 1.8 10^3/uL (1.5-4.5); LYMPH % 22.3 % (24.0-44.0); MEAN CORPUSCULAR HEMOGLOBIN 31.7 pg (27.0-33.0); MEAN CORPUSCULAR HGB CONC 31.2 g/dl (32.0-36.5); MEAN CORPUSCULAR VOLUME 101.7 fl (80.0-96.0); MONO # 0.6 10^3/uL (0.0-0.8); MONO % 7.9 % (0.0-5.0); NEUTROPHILS # 5.5 10^3/uL (1.8-7.7); NEUTROPHILS % 67.3 % (36.0-66.0); PLATELET COUNT, AUTOMATED 260 10^3/uL (150-450); RED CELL DISTRIBUTION WIDTH 14.7 % (11.5-14.5); WHITE BLOOD COUNT 8.1 10^3/uL (4.0-10.0)
[2017-03-26 06:14] LABS: ALBUMIN 2.2 GM/DL (3.2-5.2); ALBUMIN/GLOBULIN RATIO 0.67 (1.00-1.93); ALKALINE PHOSPHATASE 70 U/L (45-117); ALT/SGPT 23 U/L (12-78); ANION GAP 4 MEQ/L (8-16); AST/SGOT 70 U/L (15-37); BILIRUBIN,TOTAL 0.4 MG/DL (0.2-1.0); BLOOD UREA NITROGEN 19 MG/DL (7-18); CALCIUM LEVEL 8.3 MG/DL (8.8-10.2); CARBON DIOXIDE LEVEL 31 MEQ/L (21-32); CHLORIDE LEVEL 104 MEQ/L (98-107); CREATININE FOR GFR 0.54 MG/DL (0.55-1.02); GLOMERULAR FILTRATION RATE > 60.0 (>32); GLUCOSE, FASTING 98 MG/DL (83-110); MAGNESIUM LEVEL 1.7 MG/DL (1.8-2.4); POTASSIUM SERUM 4.3 MEQ/L (3.5-5.1); SODIUM LEVEL 139 MEQ/L (136-145); TOTAL PROTEIN 5.5 GM/DL (6.4-8.2)
[2017-03-26] MEDS: PERCOCET 5MG/325MG TAB PO PRN ×2 (06:20→20:43)
[2017-03-26] MEDS ORDERED: MAGNESIUM OXIDE 400 MG TAB (MAG-OX) PO ONE (07:00)
[2017-03-26 08:00] VITALS: BP 115/58
[2017-03-26] MEDS: MIRALAX *UNIT DOSE* 17GM PACKET PO SCH (09:00)
[2017-03-26] MEDS: METOPROLOL TART 25 MG TABLET PO SCH ×2 (09:00→20:44)
[2017-03-26] MEDS: ALLOPURINOL 100 MG TAB PO SCH (10:40)
[2017-03-26] MEDS: APIXABAN 2.5 MG TAB (ELIQUIS) PO SCH ×2 (10:40→20:43)
[2017-03-26] MEDS: DOCUSATE SODIUM 100 MG CAP PO SCH ×2 (10:40→20:43)
[2017-03-26 11:41] VITALS: BP 99/55
[2017-03-26] MEDS ORDERED: COLA100C5 PO (12:34)
[2017-03-26] MEDS ORDERED: PERCOCET PO (12:34)
[2017-03-26] MEDS ORDERED: MAPA325T3 PO (12:34)
[2017-03-26] MEDS ORDERED: METO25TA4 PO (12:34)
[2017-03-26] MEDS ORDERED: PEG1POW PO (12:34)
[2017-03-26] MEDS ORDERED: ELIQ2.5T PO (12:34)
--- NOTE | 2017-03-26 12:46 | DS.PDOC ---
Discharge Summary General Date of Admission Mar 22, 2017 at 14:00 Date of Discharge Mar Primary Care Physician: MALLORIE BENAVIDEZ M.D. Attending Physician: NITHIN FLORES DO Specialist/Consultants Involve: TIARRA VASQUEZ MD Discharge Summary PROCEDURES PERFORMED DURING STAY: Open reduction, internal fixation left femur with a cephalomedullary nail... Complications: none ADMITTING DIAGNOSES/DISCHARGE DIAGNOSES: 1. Left three part proximal femur fracture 2. 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 Uses Santyl. Following with [facility]. Wound Care mgmt appt pending. 14.H/O alcohol use, none currently HOSPITAL COURSE: 2yoF with a past medical history significant for unsteady gait , pt has a walker, who states she was ambulating to the bathroom from the living room without her walker this AM at 09:20 and fell. Denies dizziness, lightheadedness, LOC. Pt states she hit the left side of her head when she fell , no pain currently. EKG in ED noted to be Afib with RVR. No known h/o Afib. No reported palpitations. Denies any fevers, chills, weakness, fatigue, GUADARRAMA, CP, SOB, cough, palpitations, abdominal pain, N/V/D or changes in bowel or bladder habits. 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 Pt is able to do ADLs on her own and dress on her own. Has had help with laundry, cooking, cleaning. She does not do her own shopping. Walks around her home. Upon presentation to the hospital the patient was found to have left hip fracture, thus the hospitalist team was consulted.. DISCHARGE MEDICATIONS: Please see below. ALLERGIES: Please see below. PHYSICAL EXAMINATION ON DISCHARGE: VITAL SIGNS: Please see below. GENERAL: No acute distress, pleasant, alertt HEENT: [PERRLA. Throat clear. Neck supple, no adenopathy or JVd CARDIOVASCULAR EXAMINATION: Irregular but rate controlled RESPIRATORY EXAMINATION: Clear to auscultation ABDOMINAL EXAMINATION: Soft, nontender EXTREMITIES: No edema, no calf tenderness SKIN: Unremarkable NEUROLOGICAL EXAMINATION: Cranial nerves II through XII grossly intact. No motor sensory deficits PSYCHIATRIC EXAMINATION: Negative LABORATORY DATA: Please see below. ACTIVITY: As tolerated. DIET: Regular. DISCHARGE condition: Stable DISPOSITION: Discharged PMR DISCHARGE INSTRUCTIONS: Ok to d/c to pmr. Continue with PT/OT and rehab. Regular Diet, Activity as tolerated. will need PCP follow up with Dr. Benavidez one week after discharge. DISCHARGE CONDITION: Stable. TIME SPENT ON DISCHARGE: Greater than 35 minutes. Vital Signs/I&Os Vital Signs Date Time Temp Pulse Resp B/P (MAP) Pulse Ox O2 Delivery O2 Flow Rate FiO2 03/26/17 11:41 97.2 91 18 99/55 (70) 94 Nasal Cannula 2.0 Laboratory Data Labs 24H Laboratory Tests 2 03/25/17 22:25: Magnesium Level 1.9 03/26/17 05:26: Magnesium Level 1.7L, Immature Granulocyte % (Auto) 0.5H, White Blood Count 8.1 , Red Blood Count 2.87L, Hemoglobin 9.1L, Hematocrit 29.2L, Mean Corpuscular Volume 101.7H, Mean Corpuscular Hemoglobin 31.7, Mean Corpuscular Hemoglobin Concent 31.2L, Red Cell Distribution Width 14.7H, Platelet Count 260, Neutrophils (%) (Auto) 67.3H, Lymphocytes (%) (Auto) 22.3L, Monocytes (%) (Auto ) 7.9H, Eosinophils (%) (Auto) 1.6, Basophils (%) (Auto) 0.4, Neutrophils # ( Auto) 5.5, Lymphocytes # (Auto) 1.8, Monocytes # (Auto) 0.6, Eosinophils # (Auto ) 0.1, Basophils # (Auto) 0.0, Immature Granulocyte # (Auto) 0.0, Nucleated Red Blood Cells % (auto) 0.0, Anion Gap 4L, Glomerular Filtration Rate > 60.0, Blood Urea Nitrogen 19H, Creatinine 0.54L, Sodium Level 139, Potassium Level 4.3 , Chloride Level 104, Carbon Dioxide Level 31, Calcium Level 8.3L, Aspartate Amino Transf (AST/SGOT) 70H, Alanine Aminotransferase (ALT/SGPT) 23, Alkaline Phosphatase 70, Total Bilirubin 0.4, Total Protein 5.5L, Albumin 2.2L, Albumin/ Globulin Ratio 0.67L CBC/BMP Laboratory Tests 03/25/17 16:50 03/26/17 05:26 Red Blood Count 2.87 L, Mean Corpuscular Volume 101.7 H, Mean Corpuscular Hemoglobin 31.7, Mean Corpuscular Hemoglobin Concent 31.2 L, Red Cell Distribution Width 14.7 H, Neutrophils (%) (Auto) 67.3 H, Lymphocytes (%) (Auto ) 22.3 L, Monocytes (%) (Auto) 7.9 H, Eosinophils (%) (Auto) 1.6, Basophils (%) (Auto) 0.4, Neutrophils # (Auto) 5.5, Lymphocytes # (Auto) 1.8, Monocytes # ( Auto) 0.6, Eosinophils # (Auto) 0.1, Basophils # (Auto) 0.0, Calcium Level 8.3 L , Aspartate Amino Transf (AST/SGOT) 70 H, Alanine Aminotransferase (ALT/SGPT) 23 , Alkaline Phosphatase 70, Total Bilirubin 0.4, Total Protein 5.5 L, Albumin 2.2 L Discharge Medications Scheduled (Lisinopril/Hydrochlorothi 20-12.5 mg) 1 Tab Tab, 1 TAB PO DAILY, (Reported) Allopurinol (Allopurinol) 100 Mg Tab, 100 MG PO DAILY, (Reported) Apixaban Base (Eliquis) 2.5 Mg Tab, 2.5 MG PO BID Collagenase (Santyl) 250 Unit/Gm Oin, 1 DOSE TOP DAILY, (Reported) APPLIES TO WOUND ON RIGHT ANKLE Docusate Sodium (Colace) 100 Mg Cap, 100 MG PO BID Magnesium Chloride (Mag64) 64 Mg Tabcr, 64 MG PO BID, (Reported) Metoprolol Tartrate (Metoprolol Tartrate) 25 Mg Tab, 25 MG PO BID Polyethylene Glycol (Peg 3350) 1 Pkt Pow, 1 PKT PO DAILY Scheduled PRN Acetaminophen (Acetaminophen) 325 Mg Tab, 650 MG PO Q6H PRN for PAIN, (Reported) Acetaminophen (Mapap) 325 Mg Tab, 650 MG PO Q4HP PRN for MILD PAIN OR FEVER Famotidine (Pepcid) 20 Mg Tab, 20 MG PO BID PRN for HEARTBURN, (Reported) Oxycodone/Acetaminophen (Percocet 5MG/325MG Tablet) 1 Tab Tab, 1 TAB PO Q4HP PRN for MODERATE PAIN (PS 5-7) Allergies Coded Allergies: Clarithromycin (Verified Allergy, Unknown, 09/18/12) NITHIN FLORES DO Mar 26, 2017 12:45
[2017-03-26] MEDS ORDERED: MAG SULF 1GM/100ML (MAG RUN) 1 GM in APPROPRIATE DILUENT 1 EA IV ONE (14:00)
[2017-03-26 15:46] VITALS: BP 119/60
[2017-03-26 20:00] VITALS: BP 122/59
[2017-03-27] VITALS: BP 104/58
[2017-03-27 04:00] VITALS: BP 112/58
[2017-03-27] MEDS: SLF 3 ML SYR IV SCH (06:16)
[2017-03-27 06:26] VITALS: O2SAT 93
[2017-03-27 07:15] LABS: BASO % 0.4 % (0.0-1.0); EOS # 0.2 10^3/uL (0.0-0.50); EOS % 1.9 % (0.0-3.0); IMMATURE GRANULOCYTE % 0.6 % (0-0); LYMPH # 2.5 10^3/uL (1.5-4.5); LYMPH % 29.8 % (24.0-44.0); MEAN CORPUSCULAR HEMOGLOBIN 31.6 pg (27.0-33.0); MEAN CORPUSCULAR HGB CONC 31.3 g/dl (32.0-36.5); MONO # 0.6 10^3/uL (0.0-0.8); MONO % 7.5 % (0.0-5.0); NEUTROPHILS % 59.8 % (36.0-66.0); PLATELET COUNT, AUTOMATED 295 10^3/uL (150-450); WHITE BLOOD COUNT 8.4 10^3/uL (4.0-10.0)
[2017-03-27 07:20] LABS: ADD MANUAL DIFFER NO; DIFF SLIDE NUMBER 18
[2017-03-27 07:29] LABS: ALBUMIN 2.2 GM/DL (3.2-5.2); ALBUMIN/GLOBULIN RATIO 0.65 (1.00-1.93); ALKALINE PHOSPHATASE 74 U/L (45-117); ALT/SGPT 21 U/L (12-78); ANION GAP 4 MEQ/L (8-16); AST/SGOT 43 U/L (15-37); BILIRUBIN,TOTAL 0.6 MG/DL (0.2-1.0); BLOOD UREA NITROGEN 19 MG/DL (7-18); CALCIUM LEVEL 8.8 MG/DL (8.8-10.2); CARBON DIOXIDE LEVEL 32 MEQ/L (21-32); CHLORIDE LEVEL 103 MEQ/L (98-107); CREATININE FOR GFR 0.47 MG/DL (0.55-1.02); GLOMERULAR FILTRATION RATE > 60.0 (>32); GLUCOSE, FASTING 98 MG/DL (83-110); MAGNESIUM LEVEL 1.9 MG/DL (1.8-2.4); POTASSIUM SERUM 4.2 MEQ/L (3.5-5.1); SODIUM LEVEL 139 MEQ/L (136-145); TOTAL PROTEIN 5.6 GM/DL (6.4-8.2)
[2017-03-27 08:00] VITALS: BP 127/61
[2017-03-27] MEDS ORDERED: MOM 30ML SUSPENSION UDC PO PRN (08:30)
[2017-03-27] MEDS ORDERED: BISACODYL 5 MG TAB PO PRN (08:30)
[2017-03-27] MEDS: DOCUSATE SODIUM 100 MG CAP PO SCH (08:32)
[2017-03-27] MEDS: ALLOPURINOL 100 MG TAB PO SCH (08:32)
[2017-03-27 08:33] VITALS: BP 127/61
[2017-03-27] MEDS: METOPROLOL TART 25 MG TABLET PO SCH (08:33)
[2017-03-27] MEDS: APIXABAN 2.5 MG TAB (ELIQUIS) PO SCH (08:33)
[2017-03-27] MEDS: MIRALAX *UNIT DOSE* 17GM PACKET PO SCH (08:33)
[2017-03-27] MEDS: PERCOCET 5MG/325MG TAB PO PRN (10:32)
--- NOTE | 2017-03-27 15:28 | IPNPDOC ---
Date Seen The patient was seen on 03/26/17. Progress Note SUBJECTIVE: Patient is a 82-year-old female resting comfortably. Had a short run of nonsustained V. tach. She was asymptomatic with but we had noticed that she had a low magnesium level. We had anticipated initially sending her to PMR for rehabilitation. However, that's been placed on hold for 24 hours to watch her on telemetry and monitor magnesium level. Again, she has no complaints of chest pain, palpitations, lightheadedness, dizziness, shortness of breath, productive sputum, cough or hemoptysis. No nausea or vomiting. And she is tolerating by mouth intake. OBJECTIVE PHYSICAL EXAMINATION: VITAL SIGNS: Please see below. GENERAL: No acute distress HEENT: PERRLA. No JVD. Throat is clear CARDIOVASCULAR: Regular rate and rhythm. RESPIRATORY: Clear to auscultation bilaterally. ABDOMINAL: Soft, anteroseptal positive bowel sounds, masses or rebound EXTREMITIES: No edema, no calf tenderness NEUROLOGICAL: Cranial nerves II through XII grossly intact. No motor sensory deficits PSYCHOLOGICAL: Negative LABORATORY DATA: Please see below. MICROBIOLOGY: Please see below. DVT prophylaxis ordered?: Yes ASSESSMENT AND PLAN: This is a [82-year-old female status post femoral hip fracture who is moving towards further rehabilitation through PMR. PROBLEMS: 1. Nonsustained asymptomatic ventricular tachycardia: He demonstrates hypomagnesemia. We'll supplement this. Again, she was asymptomatic. We'll watch on telemetry overnight. 2. Atrial Fibrillation: Rate Controlled on Metoprolol 25mg BID, anticoagulated with Eliquis 2.5 mg twice a day 3. Macrocytic Anemia: Stable 4. Left Hip fracture 2/2 Fall, s/p Repair Pain Mgmt and physical therapy as per Ortho 5.HTN: Cont Lisinopril, HCTZ , will resume on discharge 6.Gout: Stable Cont allopurinol 7.GERD: Stable Cont Pepcid. 8. Chronic Rt Ankle wound Wound Care on board 9. DVT prophylaxis: Eliquis 2.5 mg twice a day DISPOSITION: Patient will likely require Rehab on D/C. . VS, I&O, 24H, Fishbone Vital Signs/I&O Vital Signs Date Time Temp Pulse Resp B/P (MAP) Pulse Ox O2 Delivery O2 Flow Rate FiO2 03/27/17 11:12 18 03/27/17 08:33 128 127/61 10/11/17 08:00 97.5 92 Nasal Cannula 0.5 I&O- Last 24 Hours up to 6 AM 03/28/17 05:59 Intake Total 480 ml Output Total 0 ml Balance 480 ml Laboratory Data 24H LABS Laboratory Tests 2 03/26/17 15:58: Magnesium Level 2.3 03/27/17 06:54: Magnesium Level 1.9, Immature Granulocyte % (Auto) 0.6H, White Blood Count 8.4, Red Blood Count 2.91L, Hemoglobin 9.2L, Hematocrit 29.4L, Mean Corpuscular Volume 101.0H, Mean Corpuscular Hemoglobin 31.6, Mean Corpuscular Hemoglobin Concent 31.3L, Red Cell Distribution Width 15.0H, Platelet Count 295, Neutrophils (%) (Auto) 59.8, Lymphocytes (%) (Auto) 29.8, Monocytes (%) (Auto) 7.5H, Eosinophils (%) (Auto) 1.9, Basophils (%) (Auto) 0.4, Neutrophils # (Auto ) 5.0, Lymphocytes # (Auto) 2.5, Monocytes # (Auto) 0.6, Eosinophils # (Auto) 0.2, Basophils # (Auto) 0.0, Immature Granulocyte # (Auto) 0.1H, Nucleated Red Blood Cells % (auto) 0.0, Anion Gap 4L, Glomerular Filtration Rate > 60.0, Blood Urea Nitrogen 19H, Creatinine 0.47L, Sodium Level 139, Potassium Level 4.2 , Chloride Level 103, Carbon Dioxide Level 32, Calcium Level 8.8, Aspartate Amino Transf (AST/SGOT) 43H, Alanine Aminotransferase (ALT/SGPT) 21, Alkaline Phosphatase 74, Total Bilirubin 0.6, Total Protein 5.6L, Albumin 2.2L, Albumin/ Globulin Ratio 0.65L CBC/BMP Laboratory Tests 03/27/17 06:54 Red Blood Count 2.91 L, Mean Corpuscular Volume 101.0 H, Mean Corpuscular Hemoglobin 31.6, Mean Corpuscular Hemoglobin Concent 31.3 L, Red Cell Distribution Width 15.0 H, Neutrophils (%) (Auto) 59.8, Lymphocytes (%) (Auto) 29.8, Monocytes (%) (Auto) 7.5 H, Eosinophils (%) (Auto) 1.9, Basophils (%) ( Auto) 0.4, Neutrophils # (Auto) 5.0, Lymphocytes # (Auto) 2.5, Monocytes # (Auto ) 0.6, Eosinophils # (Auto) 0.2, Basophils # (Auto) 0.0, Calcium Level 8.8, Aspartate Amino Transf (AST/SGOT) 43 H, Alanine Aminotransferase (ALT/SGPT) 21, Alkaline Phosphatase 74, Total Bilirubin 0.6, Total Protein 5.6 L, Albumin 2.2 L NIHTIN FLORES DO Mar 27, 2017 15:28
[2017-04-15] MEDS ORDERED: TORS10TA3 PO (10:04)
[2017-04-15] MEDS ORDERED: SANT250O8 TOP (10:04)
[2017-04-15] MEDS ORDERED: PERCOCET PO (10:04)
[2017-04-17] MEDS ORDERED: COLA100C5 PO (21:52)
[2017-04-17] MEDS ORDERED: PEPC1TAB4 PO (21:52)
[2017-04-17] MEDS ORDERED: TORS10TA3 PO (21:52)
[2017-04-17] MEDS ORDERED: MAGN64TASA PO (21:52)
[2017-04-17] MEDS ORDERED: LISI20TA PO (21:52)
[2017-04-17] MEDS ORDERED: ELIQ2.5T PO (21:52)
[2017-04-17] MEDS ORDERED: OXYC1TAB23 PO (21:52)
[2017-04-17] MEDS ORDERED: ALLO100T PO (21:52)
[2017-04-17] MEDS ORDERED: SANT250O8 TOP (21:52)
[2017-04-17] MEDS ORDERED: MIRA33504 PO (21:52)
[2017-04-17] MEDS ORDERED: TYLE325T5 PO (21:52)
[2017-04-23] MEDS ORDERED: LISI-538 PO (10:16)
[2017-04-23] MEDS ORDERED: ELIQ5TAB PO (10:16)
[2017-04-23] MEDS ORDERED: FURO40TA2 PO (10:16)
== END 2017-03-27 11:35 | DRG 481 ==
LOC: M ED 10:17 → EDBD 10:17 → M ED INP 14:00 → M PCU 17:22
PROVIDERS: ADMIT Internal Medicine; ATTEND Hospitalist
PROC: 0QS706Z Reposition Left Upper Femur with Intramedullary Internal Fixation Device, Open Approach (ICD-10-PCS; principal; 2017-03-23 08:00)
DX: S72.142A Displaced intertrochanteric fracture of left femur, initial encounter for closed fracture (principal); I47.2 Ventricular tachycardia; D64.9 Anemia, unspecified; I10 Essential (primary) hypertension; E78.5 Hyperlipidemia, unspecified; J44.9 Chronic obstructive pulmonary disease, unspecified; K21.9 Gastro-esophageal reflux disease without esophagitis; E83.42 Hypomagnesemia; R26.81 Unsteadiness on feet; M10.072 Idiopathic gout, left ankle and foot; M81.0 Age-related osteoporosis without current pathological fracture; I48.91 Unspecified atrial fibrillation; H91.93 Unspecified hearing loss, bilateral; G47.00 Insomnia, unspecified; F17.210 Nicotine dependence, cigarettes, uncomplicated; M10.9 Gout, unspecified; Z88.1 Allergy status to other antibiotic agents; Z79.899 Other long term (current) drug therapy; W01.0XXA Fall on same level from slipping, tripping and stumbling without subsequent striking against object, initial encounter; Y92.009 Unspecified place in unspecified non-institutional (private) residence as the place of occurrence of the external cause; Y99.8 Other external cause status

== ENCOUNTER → 2017-05-01 | Outpatient (REF) ==
[~2017-05-01] MED LIST: ACET1TAB17 PO; ADVI200C PO; ALLO100T PO; CARV3.12 PO; COLA100C5 PO; ELIQ2.5T PO; ELIQ5TAB PO; FAMO20TA PO; FURO40TA2 PO; LISI-538 PO; LISI20TA PO; MAGN64TASA PO; MAPA325T3 PO; METO25TA4 PO; MIRA33504 PO; OXYC1TAB23 PO; PEG1POW PO; PEPC1TAB4 PO; PERCOCET PO; SANT250O8 TOP; TORS10TA3 PO; TYLE325T5 PO
[2017-05-01 11:15] LABS: MEAN CORPUSCULAR HEMOGLOBIN 30.6 pg (27.0-33.0); MEAN CORPUSCULAR HGB CONC 30.2 g/dl (32.0-36.5); MEAN CORPUSCULAR VOLUME 101.4 fl (80.0-96.0); PLATELET COUNT, AUTOMATED 398 10^3/uL (150-450); WHITE BLOOD COUNT 7.8 10^3/uL (4.0-10.0)
[2017-05-01 11:42] LABS: CALCIUM LEVEL 9.1 MG/DL (8.8-10.2); CREATININE FOR GFR 0.95 MG/DL (0.55-1.02); POTASSIUM SERUM 4.5 MEQ/L (3.5-5.1)
== END ==
DX: I50.9 Heart failure, unspecified (principal)

== ENCOUNTER 2017-05-30 13:02 | Emergency (ER) | payer MEDICARE, OTHER ==
[~2017-05-30] VITALS: Ht 170.2 cm; Wt 53.6 kg
[2017-05-30] MEDS ORDERED: METO1TAB32 (13:10)
[2017-05-30] MEDS ORDERED: TORS10TA3 (13:10)
[2017-05-30] MEDS ORDERED: NS 500 ML IV ONE (14:00)
[2017-05-30 15:04] LABS: BASO # 0.1 10^3/uL (0.0-0.2); BASO % 0.4 % (0.0-1.0); EOS # 0.1 10^3/uL (0.0-0.50); EOS % 0.4 % (0.0-3.0); IMMATURE GRANULOCYTE % 0.3 % (0-0); LYMPH # 1.1 10^3/uL (1.5-4.5); LYMPH % 9.7 % (24.0-44.0); MEAN CORPUSCULAR HGB CONC 32.8 g/dl (32.0-36.5); MEAN CORPUSCULAR VOLUME 94.5 fl (80.0-96.0); MONO # 0.6 10^3/uL (0.0-0.8); MONO % 5.5 % (0.0-5.0); NEUTROPHILS # 9.6 10^3/uL (1.8-7.7); NEUTROPHILS % 83.7 % (36.0-66.0); PLATELET COUNT, AUTOMATED 315 10^3/uL (150-450); RED CELL DISTRIBUTION WIDTH 15.1 % (11.5-14.5); WHITE BLOOD COUNT 11.5 10^3/uL (4.0-10.0)
--- NOTE | 2017-05-30 15:34 | REP ---
CT CERVICAL SPINE: CT cervical spine performed in the axial plane with sagittal and coronal reconstruction images. There is no compression fracture. There is no prevertebral soft tissue swelling. There is mild retrolisthesis of C4 and C5 which appears to be due to posterior facet arthropathy. There is mild diffuse spurring. There is mild to moderate disc space narrowing with subchondral sclerosis at C3-4, C4-5 and C5-6. There is diffuse narrowing, sclerosis and spurring at the posterior facet joints. There is curvature toward the left. There appears to be spinal stenosis of a mild to moderate degree at the C4-5 level. There is opacification of right mastoid air cells compatible with mastoiditis. IMPRESSION: Degenerative changes. No evidence of acute fracture or dislocation. Signed by Roberth Saba MD 05/30/2017 04:55 P
--- NOTE | 2017-05-30 16:00 | REP ---
PORTABLE CHEST: AP portable view of the chest is performed. Comparison made with prior study 04/17/2017 as well as other prior exams. There is scattered interstitial fibrotic change bilaterally without definite acute infiltrate. There is no pneumothorax. There is mild cardiomegaly. There is mild calcification and tortuosity of the thoracic aorta. The mediastinal silhouette is unremarkable and unchanged. There are degenerative changes of the shoulders bilaterally. IMPRESSION: Chronic changes and mild cardiomegaly. No acute pulmonary disease. Signed by Roberth Saba MD 05/30/2017 04:57 P
[2017-05-30 16:37] LABS: ALBUMIN 3.6 GM/DL (3.2-5.2); ALBUMIN/GLOBULIN RATIO 0.97 (1.00-1.93); ALKALINE PHOSPHATASE 130 U/L (45-117); ALT/SGPT 24 U/L (12-78); ANION GAP 9 MEQ/L (8-16); AST/SGOT 31 U/L (7-37); BILIRUBIN,DIRECT 0.2 MG/DL (0.0-0.2); BILIRUBIN,TOTAL 0.5 MG/DL (0.2-1.0); BLOOD UREA NITROGEN 25 MG/DL (7-18); CALCIUM LEVEL 8.9 MG/DL (8.8-10.2); CARBON DIOXIDE LEVEL 28 MEQ/L (21-32); CHLORIDE LEVEL 99 MEQ/L (98-107); CREATININE FOR GFR 0.84 MG/DL (0.55-1.02); GLOMERULAR FILTRATION RATE > 60.0 (>32); GLUCOSE, FASTING 95 MG/DL (83-110); POTASSIUM SERUM 3.7 MEQ/L (3.5-5.1); SODIUM LEVEL 136 MEQ/L (136-145); TOTAL PROTEIN 7.3 GM/DL (6.4-8.2)
[2017-05-30 18:10] VITALS: BP 109/56
--- NOTE | 2017-05-30 20:13 | ECGEPIP ---
Stationary ECG Study [facility] - ED Test Date: 2017-05-30 Pat Name: GIN DEVINE Department: Room: - Gender: F Civil Engineering Assistant: [email or web address] : 1935 Requested By: JAME Giron Order Number: [id number] Reading MD: Ricco Mari Measurements Intervals [place] Rate: 100 P: [place]: 0 QRS: 63 QRSD: 90 T: -3 QT: 348 QTc: 449 Interpretive Statements ATRIAL FIBRILLATION WITH RAPID VENTRICULAR RESPONSE NSTTW ABNORMALITIES RATE CHANGE COMPARED TO 04/17/17 Electronically Signed On 05-30-2017 20:13:20 EST by Ricco Mari
--- NOTE | 2017-05-31 08:01 | REP ---
CT of the brain without IV contrast: Comparisons 03/22/2017. There is no subdural or epidural hematoma. There is no intraparenchymal or subarachnoid hemorrhage. There is no focal edema, mass effect or midline shift. The ventricles and sulci are diffusely dilated, unchanged, compatible with chronic diffuse volume loss. Impression: No subdural or epidural or other intracranial hemorrhage. No acute infarct. No mass. Diffuse volume loss. No change from the prior study. Signed by Roberth Pace MD 05/31/2017 07:53 A
== END 2017-05-30 18:18 | disposition home or self-care (01) ==
LOC: M ED 13:02
DX: I48.91 Unspecified atrial fibrillation (principal); S00.03XA Contusion of scalp, initial encounter; W19.XXXA Unspecified fall, initial encounter; Y92.009 Unspecified place in unspecified non-institutional (private) residence as the place of occurrence of the external cause; Y93.89 Activity, other specified; Y99.8 Other external cause status; J44.9 Chronic obstructive pulmonary disease, unspecified; I10 Essential (primary) hypertension; E78.5 Hyperlipidemia, unspecified; Z79.01 Long term (current) use of anticoagulants; Z79.899 Other long term (current) drug therapy; Z88.1 Allergy status to other antibiotic agents

== ENCOUNTER 2017-06-11 14:47 | Emergency (ER) | payer MEDICARE ==
[2017-06-11 20:14] LABS: BASO # 0.1 10^3/uL (0.0-0.2); BASO % 0.5 % (0.0-1.0); EOS # 0.2 10^3/uL (0.0-0.50); IMMATURE GRANULOCYTE # 0.1 10^3/uL (0-0); IMMATURE GRANULOCYTE % 0.5 % (0-0); LYMPH # 1.2 10^3/uL (1.5-4.5); LYMPH % 10.1 % (24.0-44.0); MEAN CORPUSCULAR HEMOGLOBIN 30.4 pg (27.0-33.0); MEAN CORPUSCULAR HGB CONC 32.3 g/dl (32.0-36.5); MONO # 0.9 10^3/uL (0.0-0.8); MONO % 8.1 % (0.0-5.0); NEUTROPHILS % 78.8 % (36.0-66.0); PLATELET COUNT, AUTOMATED 369 10^3/uL (150-450); RED CELL DISTRIBUTION WIDTH 14.8 % (11.5-14.5); WHITE BLOOD COUNT 11.4 10^3/uL (4.0-10.0)
[2017-06-11] MEDS: VANCOMYCIN HCL 750 MG, VIAL MATE ADAPTER 1 EACH in D5W 250 ML IV (20:16)
[2017-06-11 20:28] LABS: INR 1.21
[2017-06-11 20:39] LABS: ALBUMIN 3.2 GM/DL (3.2-5.2); ALBUMIN/GLOBULIN RATIO 0.86 (1.00-1.93); ALKALINE PHOSPHATASE 140 U/L (45-117); ALT/SGPT 21 U/L (12-78); ANION GAP 8 MEQ/L (8-16); AST/SGOT 42 U/L (7-37); BILIRUBIN,DIRECT < 0.1 MG/DL (0.0-0.2); BILIRUBIN,TOTAL 0.5 MG/DL (0.2-1.0); BLOOD UREA NITROGEN 23 MG/DL (7-18); CALCIUM LEVEL 8.7 MG/DL (8.8-10.2); CARBON DIOXIDE LEVEL 29 MEQ/L (21-32); CHLORIDE LEVEL 100 MEQ/L (98-107); CREATININE FOR GFR 0.74 MG/DL (0.55-1.02); GLOMERULAR FILTRATION RATE > 60.0 (>32); GLUCOSE, FASTING 93 MG/DL (83-110); POTASSIUM SERUM 4.9 MEQ/L (3.5-5.1); SODIUM LEVEL 137 MEQ/L (136-145); TOTAL PROTEIN 6.9 GM/DL (6.4-8.2)
[2017-06-11 20:39] LABS: LACTIC ACID SEPSIS PROTOCOL 1.2 MMOL/L (0.4-2.0)
[2017-06-11 20:44] LABS: ERYTHROCYTE SEDIMENTATION RATE 36 mm/hr (0-30)
== END 2017-06-11 22:02 | disposition home or self-care (01) ==
LOC: M ED 14:47
DX: L03.116 Cellulitis of left lower limb (principal); L97.529 Non-pressure chronic ulcer of other part of left foot with unspecified severity; I48.91 Unspecified atrial fibrillation; I50.9 Heart failure, unspecified; I11.0 Hypertensive heart disease with heart failure; J45.909 Unspecified asthma, uncomplicated; J44.9 Chronic obstructive pulmonary disease, unspecified; K74.60 Unspecified cirrhosis of liver; M10.9 Gout, unspecified; Z79.01 Long term (current) use of anticoagulants; Z79.899 Other long term (current) drug therapy; Z79.2 Long term (current) use of antibiotics; Z87.81 Personal history of (healed) traumatic fracture
CPT/HCPCS: J3370

== ENCOUNTER 2017-10-05 17:36 | Inpatient (IN) | payer MEDICARE ==
[2017-10-05] MEDS: NS 500 ML IV (18:30)
[2017-10-05 18:45] LABS: BASO # 0.1 10^3/uL (0.0-0.2); BASO % 0.3 % (0.0-1.0); HEMATOCRIT 44.8 % (36.0-47.0); HEMOGLOBIN 14.5 g/dl (12.0-15.5); IMMATURE GRANULOCYTE % 0.6 % (0-3.0); LYMPH # 1.2 10^3/uL (1.5-4.5); LYMPH % 6.3 % (24.0-44.0); MEAN CORPUSCULAR HEMOGLOBIN 30.2 pg (27.0-33.0); MEAN CORPUSCULAR HGB CONC 32.4 g/dl (32.0-36.5); MEAN CORPUSCULAR VOLUME 93.3 fl (80.0-96.0); MONO # 0.8 10^3/uL (0.0-0.8); MONO % 4.4 % (0.0-5.0); NEUTROPHILS # 16.5 10^3/uL (1.8-7.7); NEUTROPHILS % 88.4 % (36.0-66.0); PLATELET COUNT, AUTOMATED 197 10^3/uL (150-450); WHITE BLOOD COUNT 18.7 10^3/uL (4.0-10.0)
[2017-10-05] MEDS: CEFTAROLINE FOSAMIL 600 MG in D5W MINI-BAG PLUS 50 ML IV (19:04)
[2017-10-05] MEDS: IPRATROPIUM 0.5MG/ALBUTEROL 2.5MG INH SOL UD 3ML (DUONEB)(J7620) NEB (19:13)
[2017-10-05 19:16] LABS: ALBUMIN 3.1 GM/DL (3.2-5.2); ALBUMIN/GLOBULIN RATIO 0.78 (1.00-1.93); ALKALINE PHOSPHATASE 101 U/L (45-117); ALT/SGPT 19 U/L (12-78); ANION GAP 8 MEQ/L (8-16); AST/SGOT 30 U/L (7-37); BILIRUBIN,DIRECT 0.1 MG/DL (0.0-0.2); BILIRUBIN,TOTAL 0.5 MG/DL (0.2-1.0); BLOOD UREA NITROGEN 21 MG/DL (7-18); CARBON DIOXIDE LEVEL 28 MEQ/L (21-32); CHLORIDE LEVEL 100 MEQ/L (98-107); CREATININE FOR GFR 0.92 MG/DL (0.55-1.30); GLOMERULAR FILTRATION RATE > 60.0 (>32); GLUCOSE, FASTING 100 MG/DL (70-100); POTASSIUM SERUM 3.8 MEQ/L (3.5-5.1); SODIUM LEVEL 136 MEQ/L (136-145); TOTAL PROTEIN 7.1 GM/DL (6.4-8.2)
[2017-10-05 19:19] LABS: LACTIC ACID SEPSIS PROTOCOL 2.2 MMOL/L (0.4-2.0)
[2017-10-05] MEDS ORDERED: BISACODYL 5 MG TAB PO (20:00)
[2017-10-05] MEDS ORDERED: KETOROLAC 30 MG/ML VIAL (J1885) IV (20:00)
[2017-10-05] MEDS ORDERED: ONDANSETRON 4MG/2ML VIAL (J2405) IV (20:00)
[2017-10-05] MEDS ORDERED: ALBUTEROL SULFATE 2.5 MG/0.5 ML INH NEB SOLN NEB (21:15)
[2017-10-05] MEDS: SENOKOT S TAB PO (22:39)
[2017-10-05] MEDS: FAMOTIDINE 20 MG TAB PO (22:40)
[2017-10-05] MEDS: APIXABAN 2.5 MG TAB (ELIQUIS) PO (22:40)
[2017-10-05] MEDS: ACETAMINOPHEN TAB 650MG DOSE (2X325MG) PO (22:40)
[2017-10-05] MEDS: MAGNESIUM CHLORIDE 64 MG TABCR (SLO MAG) PO (22:47)
[2017-10-06] MEDS: CEFTAROLINE FOSAMIL 600 MG in D5W MINI-BAG PLUS 50 ML IV ×2 (05:55→18:03)
[2017-10-06] MEDS: FAMOTIDINE 20 MG TAB PO ×2 (08:26→21:26)
[2017-10-06] MEDS: MAGNESIUM CHLORIDE 64 MG TABCR (SLO MAG) PO ×2 (08:26→21:26)
[2017-10-06] MEDS: SENOKOT S TAB PO ×2 (08:26→21:00)
[2017-10-06] MEDS: APIXABAN 2.5 MG TAB (ELIQUIS) PO ×2 (08:26→21:26)
[2017-10-06] MEDS: COMBIVENT RESPIMAT 100-20MCG INHALER 4GM INH ×2 (08:37→19:39)
[2017-10-07] MEDS: CEFTAROLINE FOSAMIL 600 MG in D5W MINI-BAG PLUS 50 ML IV ×2 (05:34→17:18)
[2017-10-07 06:48] LABS: BASO % 0.3 % (0.0-1.0); EOS # 0.1 10^3/uL (0.0-0.50); EOS % 1.6 % (0.0-3.0); HEMATOCRIT 38.9 % (36.0-47.0); IMMATURE GRANULOCYTE % 0.1 % (0-3.0); LYMPH # 1.1 10^3/uL (1.5-4.5); LYMPH % 14.8 % (24.0-44.0); MEAN CORPUSCULAR HEMOGLOBIN 29.7 pg (27.0-33.0); MEAN CORPUSCULAR HGB CONC 31.9 g/dl (32.0-36.5); MEAN CORPUSCULAR VOLUME 93.1 fl (80.0-96.0); MONO # 0.7 10^3/uL (0.0-0.8); NEUTROPHILS # 5.6 10^3/uL (1.8-7.7); NEUTROPHILS % 74.2 % (36.0-66.0); PLATELET COUNT, AUTOMATED 196 10^3/uL (150-450); RED BLOOD COUNT 4.18 10^6/uL (4.00-5.40); WHITE BLOOD COUNT 7.5 10^3/uL (4.0-10.0)
[2017-10-07 06:54] LABS: HEMOGLOBIN 12.4 g/dl (12.0-15.5)
[2017-10-07 07:12] LABS: ANION GAP 6 MEQ/L (8-16); BLOOD UREA NITROGEN 17 MG/DL (7-18); CARBON DIOXIDE LEVEL 29 MEQ/L (21-32); CHLORIDE LEVEL 106 MEQ/L (98-107); CREATININE FOR GFR 0.73 MG/DL (0.55-1.30); GLOMERULAR FILTRATION RATE > 60.0 (>32); GLUCOSE, FASTING 101 MG/DL (70-100); MAGNESIUM LEVEL 1.9 MG/DL (1.8-2.4); POTASSIUM SERUM 3.5 MEQ/L (3.5-5.1); SODIUM LEVEL 141 MEQ/L (136-145)
[2017-10-07] MEDS: COMBIVENT RESPIMAT 100-20MCG INHALER 4GM INH ×2 (07:15→21:10)
[2017-10-07] MEDS: FAMOTIDINE 20 MG TAB PO ×2 (09:32→20:42)
[2017-10-07] MEDS: APIXABAN 2.5 MG TAB (ELIQUIS) PO ×2 (09:32→20:42)
[2017-10-07] MEDS: SENOKOT S TAB PO ×2 (09:32→20:43)
[2017-10-07] MEDS: MAGNESIUM CHLORIDE 64 MG TABCR (SLO MAG) PO ×2 (09:33→20:42)
[2017-10-07] MEDS: ACETAMINOPHEN 500 MG TAB PO ×2 (09:54→20:43)
[2017-10-07] MEDS: FUROSEMIDE 20 MG TAB PO (13:03)
[2017-10-08] MEDS: CEFTAROLINE FOSAMIL 600 MG in D5W MINI-BAG PLUS 50 ML IV ×2 (05:37→17:32)
[2017-10-08 06:47] LABS: BASO % 0.3 % (0.0-1.0); EOS # 0.2 10^3/uL (0.0-0.50); EOS % 1.8 % (0.0-3.0); HEMATOCRIT 39.7 % (36.0-47.0); HEMOGLOBIN 12.6 g/dl (12.0-15.5); IMMATURE GRANULOCYTE % 0.3 % (0-3.0); LYMPH # 1.2 10^3/uL (1.5-4.5); LYMPH % 13.4 % (24.0-44.0); MEAN CORPUSCULAR HEMOGLOBIN 29.4 pg (27.0-33.0); MEAN CORPUSCULAR HGB CONC 31.7 g/dl (32.0-36.5); MEAN CORPUSCULAR VOLUME 92.5 fl (80.0-96.0); MONO # 0.9 10^3/uL (0.0-0.8); MONO % 10.3 % (0.0-5.0); NEUTROPHILS # 6.5 10^3/uL (1.8-7.7); NEUTROPHILS % 73.9 % (36.0-66.0); PLATELET COUNT, AUTOMATED 219 10^3/uL (150-450); RED BLOOD COUNT 4.29 10^6/uL (4.00-5.40); RED CELL DISTRIBUTION WIDTH 13.9 % (11.5-14.5); WHITE BLOOD COUNT 8.7 10^3/uL (4.0-10.0)
[2017-10-08 07:03] LABS: ANION GAP 3 MEQ/L (8-16); BLOOD UREA NITROGEN 18 MG/DL (7-18); CALCIUM LEVEL 8.6 MG/DL (8.8-10.2); CARBON DIOXIDE LEVEL 31 MEQ/L (21-32); CHLORIDE LEVEL 106 MEQ/L (98-107); GLOMERULAR FILTRATION RATE > 60.0 (>32); GLUCOSE, FASTING 96 MG/DL (70-100); MAGNESIUM LEVEL 1.8 MG/DL (1.8-2.4); POTASSIUM SERUM 3.7 MEQ/L (3.5-5.1); SODIUM LEVEL 140 MEQ/L (136-145)
[2017-10-08] MEDS: COMBIVENT RESPIMAT 100-20MCG INHALER 4GM INH ×2 (07:53→22:44)
[2017-10-08] MEDS: APIXABAN 2.5 MG TAB (ELIQUIS) PO ×2 (08:47→20:34)
[2017-10-08] MEDS: SENOKOT S TAB PO ×2 (08:48→20:35)
[2017-10-08] MEDS: FUROSEMIDE 20 MG TAB PO (08:48)
[2017-10-08] MEDS: MAGNESIUM CHLORIDE 64 MG TABCR (SLO MAG) PO ×2 (08:48→20:34)
[2017-10-08] MEDS: FAMOTIDINE 20 MG TAB PO ×2 (08:48→20:34)
[2017-10-08] MEDS ORDERED: ISOVUE-370 76% 100ML VIAL (Q9967) As Ordered (16:49)
[2017-10-08] MEDS: ACETAMINOPHEN 500 MG TAB PO (20:35)
[2017-10-09] MEDS: CEFTAROLINE FOSAMIL 600 MG in D5W MINI-BAG PLUS 50 ML IV ×2 (05:36→17:48)
[2017-10-09 07:57] LABS: BASO % 0.4 % (0.0-1.0); EOS # 0.2 10^3/uL (0.0-0.50); EOS % 1.8 % (0.0-3.0); HEMATOCRIT 39.3 % (36.0-47.0); HEMOGLOBIN 12.7 g/dl (12.0-15.5); IMMATURE GRANULOCYTE % 0.5 % (0-3.0); LYMPH # 1.4 10^3/uL (1.5-4.5); LYMPH % 12.9 % (24.0-44.0); MEAN CORPUSCULAR HEMOGLOBIN 30.1 pg (27.0-33.0); MEAN CORPUSCULAR HGB CONC 32.3 g/dl (32.0-36.5); MEAN CORPUSCULAR VOLUME 93.1 fl (80.0-96.0); MONO # 1.4 10^3/uL (0.0-0.8); MONO % 13.4 % (0.0-5.0); NEUTROPHILS # 7.6 10^3/uL (1.8-7.7); PLATELET COUNT, AUTOMATED 222 10^3/uL (150-450); RED BLOOD COUNT 4.22 10^6/uL (4.00-5.40); RED CELL DISTRIBUTION WIDTH 13.8 % (11.5-14.5); WHITE BLOOD COUNT 10.7 10^3/uL (4.0-10.0)
[2017-10-09 08:23] LABS: ANION GAP 7 MEQ/L (8-16); BLOOD UREA NITROGEN 17 MG/DL (7-18); CALCIUM LEVEL 8.6 MG/DL (8.8-10.2); CARBON DIOXIDE LEVEL 31 MEQ/L (21-32); CHLORIDE LEVEL 104 MEQ/L (98-107); CREATININE FOR GFR 0.66 MG/DL (0.55-1.30); GLOMERULAR FILTRATION RATE > 60.0 (>32); GLUCOSE, FASTING 97 MG/DL (70-100); POTASSIUM SERUM 3.2 MEQ/L (3.5-5.1); SODIUM LEVEL 142 MEQ/L (136-145)
[2017-10-09] MEDS: COMBIVENT RESPIMAT 100-20MCG INHALER 4GM INH (08:24)
[2017-10-09] MEDS: APIXABAN 2.5 MG TAB (ELIQUIS) PO ×2 (09:12→21:27)
[2017-10-09] MEDS: POTASSIUM CHLORIDE 10 MEQ SR TABLET PO (09:12)
[2017-10-09] MEDS: SENOKOT S TAB PO ×2 (09:12→21:27)
[2017-10-09] MEDS: FAMOTIDINE 20 MG TAB PO ×2 (09:12→21:27)
[2017-10-09] MEDS: FUROSEMIDE 20 MG TAB PO (09:12)
[2017-10-09] MEDS: MAGNESIUM CHLORIDE 64 MG TABCR (SLO MAG) PO ×2 (09:12→21:27)
[2017-10-09] MEDS: ACETAMINOPHEN 500 MG TAB PO (21:28)
[2017-10-10] MEDS: COMBIVENT RESPIMAT 100-20MCG INHALER 4GM INH ×3 (00:07→21:19)
[2017-10-10] MEDS: CEFTAROLINE FOSAMIL 600 MG in D5W MINI-BAG PLUS 50 ML IV ×2 (05:29→17:11)
[2017-10-10 06:45] LABS: BASO # 0.1 10^3/uL (0.0-0.2); BASO % 0.5 % (0.0-1.0); EOS # 0.2 10^3/uL (0.0-0.50); EOS % 2.4 % (0.0-3.0); HEMATOCRIT 37.8 % (36.0-47.0); HEMOGLOBIN 12.3 g/dl (12.0-15.5); LYMPH # 1.6 10^3/uL (1.5-4.5); LYMPH % 16.9 % (24.0-44.0); MEAN CORPUSCULAR HEMOGLOBIN 29.9 pg (27.0-33.0); MEAN CORPUSCULAR HGB CONC 32.5 g/dl (32.0-36.5); MONO % 10.3 % (0.0-5.0); NEUTROPHILS # 6.6 10^3/uL (1.8-7.7); NEUTROPHILS % 68.9 % (36.0-66.0); PLATELET COUNT, AUTOMATED 245 10^3/uL (150-450); RED BLOOD COUNT 4.11 10^6/uL (4.00-5.40); RED CELL DISTRIBUTION WIDTH 13.6 % (11.5-14.5); WHITE BLOOD COUNT 9.6 10^3/uL (4.0-10.0)
[2017-10-10 07:08] LABS: ANION GAP 4 MEQ/L (8-16); BLOOD UREA NITROGEN 18 MG/DL (7-18); CALCIUM LEVEL 8.5 MG/DL (8.8-10.2); CARBON DIOXIDE LEVEL 31 MEQ/L (21-32); CHLORIDE LEVEL 106 MEQ/L (98-107); CREATININE FOR GFR 0.67 MG/DL (0.55-1.30); GLOMERULAR FILTRATION RATE > 60.0 (>32); GLUCOSE, FASTING 99 MG/DL (70-100); MAGNESIUM LEVEL 2.1 MG/DL (1.8-2.4); POTASSIUM SERUM 3.3 MEQ/L (3.5-5.1); SODIUM LEVEL 141 MEQ/L (136-145)
[2017-10-10] MEDS: FUROSEMIDE 20 MG TAB PO (09:00)
[2017-10-10] MEDS: MAGNESIUM CHLORIDE 64 MG TABCR (SLO MAG) PO ×2 (09:52→19:55)
[2017-10-10] MEDS: SENOKOT S TAB PO ×2 (09:53→19:56)
[2017-10-10] MEDS: APIXABAN 2.5 MG TAB (ELIQUIS) PO ×2 (09:53→19:56)
[2017-10-10] MEDS: FAMOTIDINE 20 MG TAB PO ×2 (09:53→19:56)
[2017-10-10] MEDS: POTASSIUM CHLORIDE 10 MEQ SR TABLET PO ×2 (09:53→16:15)
[2017-10-10] MEDS ORDERED: MIDAZOLAM INJ 2 MG/2 ML VIAL (J2250) As Ordered (12:06)
[2017-10-10] MEDS ORDERED: HEPARIN 1,000 UNITS/ML 10ML VIAL (FOR RADIOLOGY& DIALYSIS ONLY) As Ordered (12:06)
[2017-10-10] MEDS ORDERED: ISOVUE-300 61% 50ML VIAL (Q9967) As Ordered (12:06)
[2017-10-10] MEDS ORDERED: fentaNYL 100 MCG/2 ML INJECTION (J3010) As Ordered (12:07)
[2017-10-10] MEDS ORDERED: SODIUM CHLORIDE 0.9% INJ 10 ML SYR IV (16:00)
[2017-10-10] MEDS: ACETAMINOPHEN 500 MG TAB PO ×2 (16:12→21:58)
[2017-10-10] MEDS: SODIUM CHLORIDE 0.9% INJ 10 ML SYR IV (17:11)
[2017-10-11] MEDS: SODIUM CHLORIDE 0.9% INJ 10 ML SYR IV ×2 (05:32→17:57)
[2017-10-11] MEDS: CEFTAROLINE FOSAMIL 600 MG in D5W MINI-BAG PLUS 50 ML IV ×2 (05:32→17:57)
[2017-10-11] MEDS: ACETAMINOPHEN 500 MG TAB PO ×3 (05:33→21:02)
[2017-10-11 05:51] LABS: BASO % 0.4 % (0.0-1.0); EOS # 0.4 10^3/uL (0.0-0.50); EOS % 4.1 % (0.0-3.0); HEMATOCRIT 33.7 % (36.0-47.0); HEMOGLOBIN 10.8 g/dl (12.0-15.5); IMMATURE GRANULOCYTE % 0.7 % (0-3.0); LYMPH # 1.3 10^3/uL (1.5-4.5); MEAN CORPUSCULAR VOLUME 93.6 fl (80.0-96.0); MONO # 0.8 10^3/uL (0.0-0.8); NEUTROPHILS % 70.8 % (36.0-66.0); PLATELET COUNT, AUTOMATED 243 10^3/uL (150-450); RED CELL DISTRIBUTION WIDTH 13.6 % (11.5-14.5); WHITE BLOOD COUNT 8.5 10^3/uL (4.0-10.0)
[2017-10-11 06:16] LABS: ANION GAP 2 MEQ/L (8-16); BLOOD UREA NITROGEN 13 MG/DL (7-18); CALCIUM LEVEL 8.5 MG/DL (8.8-10.2); CARBON DIOXIDE LEVEL 33 MEQ/L (21-32); CHLORIDE LEVEL 107 MEQ/L (98-107); CREATININE FOR GFR 0.61 MG/DL (0.55-1.30); GLOMERULAR FILTRATION RATE > 60.0 (>32); GLUCOSE, FASTING 93 MG/DL (70-100); SODIUM LEVEL 142 MEQ/L (136-145)
[2017-10-11] MEDS: FUROSEMIDE 20 MG TAB PO (09:51)
[2017-10-11] MEDS: FAMOTIDINE 20 MG TAB PO ×2 (09:51→21:02)
[2017-10-11] MEDS: SENOKOT S TAB PO ×2 (09:52→21:00)
[2017-10-11] MEDS: POTASSIUM CHLORIDE 10 MEQ SR TABLET PO (09:52)
[2017-10-11] MEDS: APIXABAN 2.5 MG TAB (ELIQUIS) PO ×2 (09:53→21:02)
[2017-10-11] MEDS: MAGNESIUM CHLORIDE 64 MG TABCR (SLO MAG) PO ×2 (09:53→21:02)
[2017-10-11] MEDS: COMBIVENT RESPIMAT 100-20MCG INHALER 4GM INH (19:50)
[2017-10-11] MEDS: KETOROLAC TROMETHAMINE 10 MG TAB PO (23:36)
[2017-10-12] MEDS: SODIUM CHLORIDE 0.9% INJ 10 ML SYR IV ×2 (05:06→17:30)
[2017-10-12] MEDS: CEFTAROLINE FOSAMIL 600 MG in D5W MINI-BAG PLUS 50 ML IV ×2 (05:09→17:30)
[2017-10-12 05:24] LABS: BASO % 0.3 % (0.0-1.0); EOS # 0.6 10^3/uL (0.0-0.50); EOS % 7.8 % (0.0-3.0); HEMATOCRIT 32.9 % (36.0-47.0); HEMOGLOBIN 10.5 g/dl (12.0-15.5); LYMPH # 1.3 10^3/uL (1.5-4.5); LYMPH % 17.4 % (24.0-44.0); MEAN CORPUSCULAR HEMOGLOBIN 29.8 pg (27.0-33.0); MEAN CORPUSCULAR HGB CONC 31.9 g/dl (32.0-36.5); MEAN CORPUSCULAR VOLUME 93.5 fl (80.0-96.0); MONO # 0.7 10^3/uL (0.0-0.8); NEUTROPHILS # 4.7 10^3/uL (1.8-7.7); NEUTROPHILS % 64.5 % (36.0-66.0); PLATELET COUNT, AUTOMATED 249 10^3/uL (150-450); RED BLOOD COUNT 3.52 10^6/uL (4.00-5.40); RED CELL DISTRIBUTION WIDTH 13.6 % (11.5-14.5); WHITE BLOOD COUNT 7.3 10^3/uL (4.0-10.0)
[2017-10-12 05:58] LABS: ANION GAP 1 MEQ/L (8-16); BLOOD UREA NITROGEN 15 MG/DL (7-18); C REACTIVE PROTEIN QUANTITATIV 9.25 MG/DL (0.00-0.30); CALCIUM LEVEL 8.2 MG/DL (8.8-10.2); CARBON DIOXIDE LEVEL 33 MEQ/L (21-32); CHLORIDE LEVEL 107 MEQ/L (98-107); CREATININE FOR GFR 0.75 MG/DL (0.55-1.30); GLOMERULAR FILTRATION RATE > 60.0 (>32); GLUCOSE, FASTING 88 MG/DL (70-100); MAGNESIUM LEVEL 1.9 MG/DL (1.8-2.4); POTASSIUM SERUM 4.1 MEQ/L (3.5-5.1); SODIUM LEVEL 141 MEQ/L (136-145)
[2017-10-12] MEDS: COMBIVENT RESPIMAT 100-20MCG INHALER 4GM INH ×2 (07:33→21:37)
[2017-10-12] MEDS: FAMOTIDINE 20 MG TAB PO ×2 (09:02→20:31)
[2017-10-12] MEDS: APIXABAN 2.5 MG TAB (ELIQUIS) PO ×2 (09:02→20:31)
[2017-10-12] MEDS: FUROSEMIDE 20 MG TAB PO (09:03)
[2017-10-12] MEDS: POTASSIUM CHLORIDE 10 MEQ SR TABLET PO (09:03)
[2017-10-12] MEDS: MAGNESIUM CHLORIDE 64 MG TABCR (SLO MAG) PO ×2 (09:04→20:32)
[2017-10-12] MEDS: SENOKOT S TAB PO ×2 (09:04→20:31)
[2017-10-12] MEDS: ACETAMINOPHEN 500 MG TAB PO ×2 (13:49→22:25)
[2017-10-13] MEDS: CEFTAROLINE FOSAMIL 600 MG in D5W MINI-BAG PLUS 50 ML IV ×2 (05:13→17:16)
[2017-10-13 05:21] LABS: BASO % 0.1 % (0.0-1.0); EOS # 0.5 10^3/uL (0.0-0.50); EOS % 5.9 % (0.0-3.0); HEMATOCRIT 33.5 % (36.0-47.0); HEMOGLOBIN 10.7 g/dl (12.0-15.5); IMMATURE GRANULOCYTE % 1.2 % (0-3.0); LYMPH # 1.1 10^3/uL (1.5-4.5); LYMPH % 13.6 % (24.0-44.0); MEAN CORPUSCULAR HEMOGLOBIN 29.7 pg (27.0-33.0); MEAN CORPUSCULAR HGB CONC 31.9 g/dl (32.0-36.5); MEAN CORPUSCULAR VOLUME 93.1 fl (80.0-96.0); MONO # 0.6 10^3/uL (0.0-0.8); MONO % 7.2 % (0.0-5.0); NEUTROPHILS # 5.6 10^3/uL (1.8-7.7); PLATELET COUNT, AUTOMATED 256 10^3/uL (150-450); RED CELL DISTRIBUTION WIDTH 13.5 % (11.5-14.5); WHITE BLOOD COUNT 7.7 10^3/uL (4.0-10.0)
[2017-10-13] MEDS: SODIUM CHLORIDE 0.9% INJ 10 ML SYR IV ×2 (06:24→17:16)
[2017-10-13 06:42] LABS: ANION GAP 5 MEQ/L (8-16); BLOOD UREA NITROGEN 14 MG/DL (7-18); C REACTIVE PROTEIN QUANTITATIV 8.46 MG/DL (0.00-0.30); CALCIUM LEVEL 8.3 MG/DL (8.8-10.2); CARBON DIOXIDE LEVEL 30 MEQ/L (21-32); CHLORIDE LEVEL 105 MEQ/L (98-107); CREATININE FOR GFR 0.79 MG/DL (0.55-1.30); GLOMERULAR FILTRATION RATE > 60.0 (>32); GLUCOSE, FASTING 93 MG/DL (70-100); POTASSIUM SERUM 4.5 MEQ/L (3.5-5.1); SODIUM LEVEL 140 MEQ/L (136-145)
[2017-10-13] MEDS: ACETAMINOPHEN 500 MG TAB PO ×3 (07:40→20:42)
[2017-10-13] MEDS: COMBIVENT RESPIMAT 100-20MCG INHALER 4GM INH ×2 (07:45→21:00)
[2017-10-13] MEDS: MAGNESIUM CHLORIDE 64 MG TABCR (SLO MAG) PO ×2 (09:40→20:42)
[2017-10-13] MEDS: APIXABAN 2.5 MG TAB (ELIQUIS) PO ×2 (09:41→20:41)
[2017-10-13] MEDS: FAMOTIDINE 20 MG TAB PO ×2 (09:41→20:42)
[2017-10-13] MEDS: SENOKOT S TAB PO ×2 (09:41→20:39)
[2017-10-13] MEDS: FUROSEMIDE 20 MG TAB PO (09:41)
[2017-10-13] MEDS: POTASSIUM CHLORIDE 10 MEQ SR TABLET PO (09:42)
[2017-10-14] MEDS: CEFTAROLINE FOSAMIL 600 MG in D5W MINI-BAG PLUS 50 ML IV (05:23)
[2017-10-14] MEDS: SODIUM CHLORIDE 0.9% INJ 10 ML SYR IV (05:23)
[2017-10-14] MEDS: ACETAMINOPHEN 500 MG TAB PO (05:24)
[2017-10-14 06:41] LABS: HEMOGLOBIN 11.1 g/dl (12.0-15.5); MEAN CORPUSCULAR HEMOGLOBIN 30.5 pg (27.0-33.0); MEAN CORPUSCULAR HGB CONC 32.6 g/dl (32.0-36.5); MEAN CORPUSCULAR VOLUME 93.4 fl (80.0-96.0); PLATELET COUNT, AUTOMATED 247 10^3/uL (150-450); RED BLOOD COUNT 3.64 10^6/uL (4.00-5.40); RED CELL DISTRIBUTION WIDTH 13.7 % (11.5-14.5); WHITE BLOOD COUNT 9.1 10^3/uL (4.0-10.0)
[2017-10-14 07:07] LABS: ANION GAP 4 MEQ/L (8-16); BLOOD UREA NITROGEN 13 MG/DL (7-18); CALCIUM LEVEL 8.1 MG/DL (8.8-10.2); CARBON DIOXIDE LEVEL 31 MEQ/L (21-32); CHLORIDE LEVEL 106 MEQ/L (98-107); CREATININE FOR GFR 0.79 MG/DL (0.55-1.30); GLOMERULAR FILTRATION RATE > 60.0 (>32); GLUCOSE, FASTING 101 MG/DL (70-100); POTASSIUM SERUM 4.6 MEQ/L (3.5-5.1); SODIUM LEVEL 141 MEQ/L (136-145)
[2017-10-14] MEDS: COMBIVENT RESPIMAT 100-20MCG INHALER 4GM INH (07:10)
[2017-10-14] MEDS: FAMOTIDINE 20 MG TAB PO (08:46)
[2017-10-14] MEDS: APIXABAN 2.5 MG TAB (ELIQUIS) PO (08:46)
[2017-10-14] MEDS: MAGNESIUM CHLORIDE 64 MG TABCR (SLO MAG) PO (08:46)
[2017-10-14] MEDS: SENOKOT S TAB PO (08:46)
[2017-10-14] MEDS: POTASSIUM CHLORIDE 10 MEQ SR TABLET PO (08:46)
[2017-10-14] MEDS: FUROSEMIDE 20 MG TAB PO (08:46)
== END 2017-10-14 13:14 | disposition home health service (06) | DRG 580 ==
LOC: M PCU 10-13 19:37 → M ED 17:36 → M ED INP 19:51 → M MS5PR 22:10
PROC: 02HV33Z Insertion of Infusion Device into Superior Vena Cava, Percutaneous Approach (ICD-10-PCS; principal; 2017-10-10)
PROC: 047L3DZ Dilation of Left Femoral Artery with Intraluminal Device, Percutaneous Approach (ICD-10-PCS; 2017-10-10)
PROC: [UNRECOGNIZED PROCEDURE] (2017-10-10)
PROC: 047Q3DZ Dilation of Left Anterior Tibial Artery with Intraluminal Device, Percutaneous Approach (ICD-10-PCS; 2017-10-10)
PROC: 047U3DZ Dilation of Left Peroneal Artery with Intraluminal Device, Percutaneous Approach (ICD-10-PCS; 2017-10-10)
PROC: 047N3DZ Dilation of Left Popliteal Artery with Intraluminal Device, Percutaneous Approach (ICD-10-PCS; 2017-10-10)
PROC: B410YZZ Fluoroscopy of Abdominal Aorta using Other Contrast (ICD-10-PCS; 2017-10-10)
DX: L03.116 Cellulitis of left lower limb (principal); E87.2 Acidosis; M1A.0711 Idiopathic chronic gout, right ankle and foot, with tophus (tophi); J44.9 Chronic obstructive pulmonary disease, unspecified; I48.2 Chronic atrial fibrillation; I10 Essential (primary) hypertension; I34.1 Nonrheumatic mitral (valve) prolapse; I27.29 Other secondary pulmonary hypertension; E83.42 Hypomagnesemia; K21.9 Gastro-esophageal reflux disease without esophagitis; L89.620 Pressure ulcer of left heel, unstageable; M41.9 Scoliosis, unspecified; I73.9 Peripheral vascular disease, unspecified; E78.5 Hyperlipidemia, unspecified; E87.6 Hypokalemia; I50.810 Right heart failure, unspecified; F17.210 Nicotine dependence, cigarettes, uncomplicated; Z79.01 Long term (current) use of anticoagulants; Z79.899 Other long term (current) drug therapy; Z88.1 Allergy status to other antibiotic agents

== ENCOUNTER → 2017-10-17 | Outpatient (REF) | payer MEDICARE ==
[2017-10-17 18:32] LABS: URIC ACID 8.2 MG/DL (2.6-6.0)
== END ==
LOC: M LAB REF 16:49
DX: L89.620 Pressure ulcer of left heel, unstageable (principal); M10.9 Gout, unspecified
CPT/HCPCS: 84550

== ENCOUNTER → 2017-10-31 | Outpatient (CLI) | payer MEDICARE | LOC: M RAD 10:10 | DX: I87.2 Venous insufficiency (chronic) (peripheral) (principal); I87.393 Chronic venous hypertension (idiopathic) with other complications of bilateral lower extremity | CPT/HCPCS: 93971 ==

== ENCOUNTER 2018-01-03 09:54 | Inpatient (IN) | payer MEDICARE ==
[2018-01-03 10:59] LABS: BASO % 0.3 % (0.0-1.0); EOS # 0.1 10^3/uL (0.0-0.50); HEMATOCRIT 41.8 % (36.0-47.0); HEMOGLOBIN 12.7 g/dl (12.0-15.5); IMMATURE GRANULOCYTE % 0.3 % (0-3.0); LYMPH % 10.4 % (24.0-44.0); MEAN CORPUSCULAR HEMOGLOBIN 29.5 pg (27.0-33.0); MEAN CORPUSCULAR HGB CONC 30.4 g/dl (32.0-36.5); MONO % 10.7 % (0.0-5.0); NEUTROPHILS # 7.1 10^3/uL (1.8-7.7); NEUTROPHILS % 77.3 % (36.0-66.0); PLATELET COUNT, AUTOMATED 329 10^3/uL (150-450); RED BLOOD COUNT 4.31 10^6/uL (4.00-5.40); WHITE BLOOD COUNT 9.2 10^3/uL (4.0-10.0)
[2018-01-03 11:08] LABS: INR 1.25; PROTHROMBIN TIME 15.9 SECONDS (12.1-14.4)
[2018-01-03 11:23] LABS: LACTIC ACID SEPSIS PROTOCOL 1.2 MMOL/L (0.4-2.0)
[2018-01-03 11:29] LABS: ALT/SGPT 17 U/L (12-78); ANION GAP 7 MEQ/L (8-16); AST/SGOT 20 U/L (7-37); BLOOD UREA NITROGEN 15 MG/DL (7-18); CALCIUM LEVEL 9.1 MG/DL (8.8-10.2); CARBON DIOXIDE LEVEL 34 MEQ/L (21-32); CHLORIDE LEVEL 100 MEQ/L (98-107); CPK CREATINE PHOSPHOKINASE 38 U/L (26-192); CREATININE FOR GFR 0.63 MG/DL (0.55-1.30); GLOMERULAR FILTRATION RATE > 60.0 (>32); GLUCOSE, FASTING 98 MG/DL (70-100); SODIUM LEVEL 141 MEQ/L (136-145)
[2018-01-03 11:30] LABS: ALBUMIN 2.9 GM/DL (3.2-5.2); ALBUMIN/GLOBULIN RATIO 0.69 (1.00-1.93); ALKALINE PHOSPHATASE 100 U/L (45-117); BILIRUBIN,DIRECT 0.2 MG/DL (0.0-0.2); BILIRUBIN,TOTAL 0.7 MG/DL (0.2-1.0); LIPASE 102 U/L (73-393); MAGNESIUM LEVEL 1.9 MG/DL (1.8-2.4); TOTAL PROTEIN 7.1 GM/DL (6.4-8.2); TROPONIN I < 0.02 NG/ML (< 0.10)
[2018-01-03 11:35] LABS: CK-MB VALUE MASS 1.6 NG/ML (<3.6); MB/CK RELATIVE INDEX 4.21 (< OR =4); NT-PRO BNP 2917 PG/ML (<450)
[2018-01-03] MEDS: methylPREDNISolone INJ 125 MG/2 ML VIAL (J2930) IV (12:44)
[2018-01-03] MEDS: MOXIFLOXACIN HCL 400 MG in APPROPRIATE DILUENT 1 EA IV (12:45)
[2018-01-03] MEDS: IPRATROPIUM 0.5MG/ALBUTEROL 2.5MG INH SOL UD 3ML (DUONEB)(J7620) NEB ×4 (12:52→22:55)
[2018-01-03] MEDS ORDERED: BISACODYL 5 MG TAB PO (13:15)
[2018-01-03] MEDS ORDERED: ONDANSETRON 4MG/2ML VIAL (J2405) IV (13:15)
[2018-01-03] MEDS ORDERED: METOCLOPRAMIDE INJ 10MG/2ML VIAL (J2765) IV (14:00)
[2018-01-03] MEDS: ALLOPURINOL 300 MG TAB PO (16:33)
[2018-01-03] MEDS: FUROSEMIDE 40 MG TAB PO (16:33)
[2018-01-03] MEDS: FORMOTEROL FUMARATE 20 MCG/2 ML INHALATION SOLUTION (PERFOROMIST) INH (20:00)
[2018-01-03] MEDS: BUDESONIDE 0.5 MG/2 ML INHALATION SUSPENSION INH (20:00)
[2018-01-03] MEDS: FAMOTIDINE 20 MG TAB PO (20:05)
[2018-01-03] MEDS: SENOKOT S TAB PO (20:05)
[2018-01-03] MEDS: APIXABAN 2.5 MG TAB (ELIQUIS) PO (20:05)
[2018-01-03] MEDS: methylPREDNISolone INJ 40 MG/1 ML VIAL (J2920) IV (21:36)
[2018-01-03] MEDS: MAGNESIUM CHLORIDE 64 MG TABCR (SLO MAG) PO (21:47)
[2018-01-04] MEDS: methylPREDNISolone INJ 40 MG/1 ML VIAL (J2920) IV ×3 (05:47→22:35)
[2018-01-04] MEDS: FORMOTEROL FUMARATE 20 MCG/2 ML INHALATION SOLUTION (PERFOROMIST) INH ×2 (07:33→20:05)
[2018-01-04] MEDS: BUDESONIDE 0.5 MG/2 ML INHALATION SUSPENSION INH ×2 (07:33→20:05)
[2018-01-04] MEDS: IPRATROPIUM 0.5MG/ALBUTEROL 2.5MG INH SOL UD 3ML (DUONEB)(J7620) NEB ×2 (08:00→16:08)
[2018-01-04] MEDS: SENOKOT S TAB PO ×2 (09:00→20:40)
[2018-01-04] MEDS: ALLOPURINOL 300 MG TAB PO (09:08)
[2018-01-04] MEDS: APIXABAN 2.5 MG TAB (ELIQUIS) PO ×2 (09:08→20:40)
[2018-01-04] MEDS: FAMOTIDINE 20 MG TAB PO ×2 (09:08→20:40)
[2018-01-04] MEDS: FUROSEMIDE 40 MG TAB PO (09:08)
[2018-01-04] MEDS: MAGNESIUM CHLORIDE 64 MG TABCR (SLO MAG) PO ×2 (10:22→20:40)
[2018-01-04] MEDS: MOXIFLOXACIN HCL 400 MG in APPROPRIATE DILUENT 1 EA IV (13:53)
[2018-01-04 17:46] LABS: BASO % 0.1 % (0.0-1.0); HEMATOCRIT 39.7 % (36.0-47.0); HEMOGLOBIN 12.2 g/dl (12.0-15.5); IMMATURE GRANULOCYTE % 0.3 % (0-3.0); LYMPH # 0.6 10^3/uL (1.5-4.5); LYMPH % 5.9 % (24.0-44.0); MEAN CORPUSCULAR HGB CONC 30.7 g/dl (32.0-36.5); MEAN CORPUSCULAR VOLUME 94.3 fl (80.0-96.0); MONO # 0.2 10^3/uL (0.0-0.8); MONO % 2.5 % (0.0-5.0); NEUTROPHILS # 8.9 10^3/uL (1.8-7.7); NEUTROPHILS % 91.2 % (36.0-66.0); PLATELET COUNT, AUTOMATED 301 10^3/uL (150-450); RED BLOOD COUNT 4.21 10^6/uL (4.00-5.40); WHITE BLOOD COUNT 9.7 10^3/uL (4.0-10.0)
[2018-01-04 18:04] LABS: ANION GAP 11 MEQ/L (8-16); BLOOD UREA NITROGEN 23 MG/DL (7-18); CALCIUM LEVEL 8.6 MG/DL (8.8-10.2); CARBON DIOXIDE LEVEL 28 MEQ/L (21-32); CHLORIDE LEVEL 102 MEQ/L (98-107); CREATININE FOR GFR 1.14 MG/DL (0.55-1.30); GLOMERULAR FILTRATION RATE 48.6 (>32); GLUCOSE, FASTING 205 MG/DL (70-100); MAGNESIUM LEVEL 1.8 MG/DL (1.8-2.4); POTASSIUM SERUM 4.1 MEQ/L (3.5-5.1); SODIUM LEVEL 141 MEQ/L (136-145)
[2018-01-04 18:05] LABS: ERYTHROCYTE SEDIMENTATION RATE 44 mm/hr (0-30)
[2018-01-04] MEDS: METOPROLOL TART 25 MG TABLET PO (20:41)
[2018-01-05] MEDS: methylPREDNISolone INJ 40 MG/1 ML VIAL (J2920) IV (06:04)
[2018-01-05 06:20] LABS: HEMATOCRIT 36.1 % (36.0-47.0); HEMOGLOBIN 11.3 g/dl (12.0-15.5); MEAN CORPUSCULAR HEMOGLOBIN 28.9 pg (27.0-33.0); MEAN CORPUSCULAR HGB CONC 31.3 g/dl (32.0-36.5); MEAN CORPUSCULAR VOLUME 92.3 fl (80.0-96.0); PLATELET COUNT, AUTOMATED 326 10^3/uL (150-450); RED BLOOD COUNT 3.91 10^6/uL (4.00-5.40); WHITE BLOOD COUNT 10.3 10^3/uL (4.0-10.0)
[2018-01-05 06:49] LABS: ANION GAP 8 MEQ/L (8-16); BLOOD UREA NITROGEN 30 MG/DL (7-18); CALCIUM LEVEL 8.6 MG/DL (8.8-10.2); CARBON DIOXIDE LEVEL 31 MEQ/L (21-32); CHLORIDE LEVEL 102 MEQ/L (98-107); CHOLESTEROL LEVEL 168 MG/DL (<200); CHOLESTEROL RISK RATIO 2.181 (<5); CREATININE FOR GFR 0.92 MG/DL (0.55-1.30); GLOMERULAR FILTRATION RATE > 60.0 (>32); GLUCOSE, FASTING 153 MG/DL (70-100); HDL CHOLESTEROL 77 MG/DL (>40); LDL CHOLESTEROL 78.2 MG/DL (<100); MAGNESIUM LEVEL 2.1 MG/DL (1.8-2.4); NON-HDL-C 91 MG/DL; POTASSIUM SERUM 4.2 MEQ/L (3.5-5.1); SODIUM LEVEL 141 MEQ/L (136-145); TRIGLYCERIDES LEVEL 64 MG/DL (<150)
[2018-01-05] MEDS: FORMOTEROL FUMARATE 20 MCG/2 ML INHALATION SOLUTION (PERFOROMIST) INH ×2 (07:33→19:52)
[2018-01-05] MEDS: IPRATROPIUM 0.5MG/ALBUTEROL 2.5MG INH SOL UD 3ML (DUONEB)(J7620) NEB ×3 (07:33→14:53)
[2018-01-05] MEDS: BUDESONIDE 0.5 MG/2 ML INHALATION SUSPENSION INH ×2 (07:33→19:52)
[2018-01-05] MEDS: ALLOPURINOL 300 MG TAB PO (08:44)
[2018-01-05] MEDS: predniSONE 20 MG TAB PO ×2 (08:44→20:40)
[2018-01-05] MEDS: METOPROLOL TART 25 MG TABLET PO ×2 (08:45→20:42)
[2018-01-05] MEDS: FAMOTIDINE 20 MG TAB PO ×2 (08:45→20:40)
[2018-01-05] MEDS: TORSEMIDE 20 MG TAB PO (08:45)
[2018-01-05] MEDS: APIXABAN 2.5 MG TAB (ELIQUIS) PO ×2 (08:46→20:40)
[2018-01-05] MEDS: SENOKOT S TAB PO ×2 (08:46→20:42)
[2018-01-05] MEDS: MAGNESIUM CHLORIDE 64 MG TABCR (SLO MAG) PO ×2 (08:46→20:40)
[2018-01-05] MEDS: ALBUTEROL SULFATE 2.5 MG/0.5 ML INH NEB SOLN NEB (11:38)
[2018-01-05] MEDS: MOXIFLOXACIN HCL 400 MG in APPROPRIATE DILUENT 1 EA IV (12:18)
[2018-01-06 05:55] LABS: HEMATOCRIT 36.8 % (36.0-47.0); HEMOGLOBIN 11.3 g/dl (12.0-15.5); MEAN CORPUSCULAR HEMOGLOBIN 28.6 pg (27.0-33.0); MEAN CORPUSCULAR HGB CONC 30.7 g/dl (32.0-36.5); MEAN CORPUSCULAR VOLUME 93.2 fl (80.0-96.0); PLATELET COUNT, AUTOMATED 293 10^3/uL (150-450); RED BLOOD COUNT 3.95 10^6/uL (4.00-5.40); RED CELL DISTRIBUTION WIDTH 16.1 % (11.5-14.5); WHITE BLOOD COUNT 9.9 10^3/uL (4.0-10.0)
[2018-01-06 06:12] LABS: ANION GAP 5 MEQ/L (8-16); BLOOD UREA NITROGEN 45 MG/DL (7-18); CALCIUM LEVEL 8.6 MG/DL (8.8-10.2); CARBON DIOXIDE LEVEL 34 MEQ/L (21-32); CHLORIDE LEVEL 103 MEQ/L (98-107); CREATININE FOR GFR 1.06 MG/DL (0.55-1.30); GLOMERULAR FILTRATION RATE 52.8 (>32); GLUCOSE, FASTING 156 MG/DL (70-100); MAGNESIUM LEVEL 2.2 MG/DL (1.8-2.4); POTASSIUM SERUM 4.4 MEQ/L (3.5-5.1); SODIUM LEVEL 142 MEQ/L (136-145)
[2018-01-06] MEDS: BUDESONIDE 0.5 MG/2 ML INHALATION SUSPENSION INH ×2 (07:39→21:01)
[2018-01-06] MEDS: FORMOTEROL FUMARATE 20 MCG/2 ML INHALATION SOLUTION (PERFOROMIST) INH ×2 (07:39→21:01)
[2018-01-06] MEDS: IPRATROPIUM 0.5MG/ALBUTEROL 2.5MG INH SOL UD 3ML (DUONEB)(J7620) NEB ×4 (07:40→23:58)
[2018-01-06] MEDS: SENOKOT S TAB PO ×2 (09:00→22:03)
[2018-01-06] MEDS: predniSONE 20 MG TAB PO (09:41)
[2018-01-06] MEDS: ALLOPURINOL 300 MG TAB PO (09:41)
[2018-01-06] MEDS: APIXABAN 2.5 MG TAB (ELIQUIS) PO ×2 (09:41→22:02)
[2018-01-06] MEDS: TORSEMIDE 20 MG TAB PO (09:41)
[2018-01-06] MEDS: FAMOTIDINE 20 MG TAB PO ×2 (09:41→22:02)
[2018-01-06] MEDS: MAGNESIUM CHLORIDE 64 MG TABCR (SLO MAG) PO ×2 (09:42→22:03)
[2018-01-06] MEDS: METOPROLOL TART 25 MG TABLET PO ×2 (09:42→22:02)
[2018-01-06] MEDS: ALBUTEROL SULFATE 2.5 MG/0.5 ML INH NEB SOLN NEB (11:38)
[2018-01-06] MEDS: MOXIFLOXACIN HCL 400 MG in APPROPRIATE DILUENT 1 EA IV (12:16)
[2018-01-07 06:32] LABS: HEMATOCRIT 37.2 % (36.0-47.0); HEMOGLOBIN 11.5 g/dl (12.0-15.5); MEAN CORPUSCULAR HEMOGLOBIN 28.8 pg (27.0-33.0); MEAN CORPUSCULAR HGB CONC 30.9 g/dl (32.0-36.5); PLATELET COUNT, AUTOMATED 282 10^3/uL (150-450); WHITE BLOOD COUNT 9.6 10^3/uL (4.0-10.0)
[2018-01-07 06:47] LABS: ANION GAP 6 MEQ/L (8-16); BLOOD UREA NITROGEN 44 MG/DL (7-18); CALCIUM LEVEL 8.1 MG/DL (8.8-10.2); CARBON DIOXIDE LEVEL 33 MEQ/L (21-32); CHLORIDE LEVEL 104 MEQ/L (98-107); CREATININE FOR GFR 1.02 MG/DL (0.55-1.30); GLOMERULAR FILTRATION RATE 55.2 (>32); GLUCOSE, FASTING 119 MG/DL (70-100); MAGNESIUM LEVEL 2.1 MG/DL (1.8-2.4); POTASSIUM SERUM 3.7 MEQ/L (3.5-5.1); SODIUM LEVEL 143 MEQ/L (136-145)
[2018-01-07] MEDS: IPRATROPIUM 0.5MG/ALBUTEROL 2.5MG INH SOL UD 3ML (DUONEB)(J7620) NEB ×2 (08:00→14:49)
[2018-01-07 08:25] LABS: C REACTIVE PROTEIN QUANTITATIV 1.57 MG/DL (0.00-0.30)
[2018-01-07] MEDS: BUDESONIDE 0.5 MG/2 ML INHALATION SUSPENSION INH ×2 (08:34→20:03)
[2018-01-07] MEDS: FORMOTEROL FUMARATE 20 MCG/2 ML INHALATION SOLUTION (PERFOROMIST) INH ×2 (08:34→20:03)
[2018-01-07] MEDS: APIXABAN 2.5 MG TAB (ELIQUIS) PO ×2 (09:20→22:26)
[2018-01-07] MEDS: ALLOPURINOL 300 MG TAB PO (09:21)
[2018-01-07] MEDS: FAMOTIDINE 20 MG TAB PO ×2 (09:21→22:26)
[2018-01-07] MEDS: predniSONE 20 MG TAB PO (09:21)
[2018-01-07] MEDS: METOPROLOL TART 25 MG TABLET PO ×2 (09:23→22:26)
[2018-01-07] MEDS: SENOKOT S TAB PO ×2 (09:23→21:00)
[2018-01-07] MEDS: MAGNESIUM CHLORIDE 64 MG TABCR (SLO MAG) PO ×2 (09:24→22:27)
[2018-01-07] MEDS: MOXIFLOXACIN 400 MG TAB PO (11:08)
[2018-01-08] MEDS: ALBUTEROL SULFATE 2.5 MG/0.5 ML INH NEB SOLN NEB (01:55)
[2018-01-08] MEDS: MOXIFLOXACIN 400 MG TAB PO (05:57)
[2018-01-08 06:56] LABS: HEMATOCRIT 38.6 % (36.0-47.0); HEMOGLOBIN 11.8 g/dl (12.0-15.5); MEAN CORPUSCULAR HEMOGLOBIN 28.6 pg (27.0-33.0); MEAN CORPUSCULAR HGB CONC 30.6 g/dl (32.0-36.5); MEAN CORPUSCULAR VOLUME 93.5 fl (80.0-96.0); PLATELET COUNT, AUTOMATED 277 10^3/uL (150-450); RED BLOOD COUNT 4.13 10^6/uL (4.00-5.40)
[2018-01-08] MEDS: BUDESONIDE 0.5 MG/2 ML INHALATION SUSPENSION INH ×2 (07:08→19:43)
[2018-01-08] MEDS: FORMOTEROL FUMARATE 20 MCG/2 ML INHALATION SOLUTION (PERFOROMIST) INH ×2 (07:08→19:43)
[2018-01-08] MEDS: IPRATROPIUM 0.5MG/ALBUTEROL 2.5MG INH SOL UD 3ML (DUONEB)(J7620) NEB ×3 (07:08→15:06)
[2018-01-08 07:16] LABS: BLOOD UREA NITROGEN 38 MG/DL (7-18); GLUCOSE, FASTING 99 MG/DL (70-100)
[2018-01-08 07:17] LABS: ANION GAP 4 MEQ/L (8-16); CALCIUM LEVEL 8.6 MG/DL (8.8-10.2); CARBON DIOXIDE LEVEL 34 MEQ/L (21-32); CHLORIDE LEVEL 105 MEQ/L (98-107); GLOMERULAR FILTRATION RATE > 60.0 (>32); MAGNESIUM LEVEL 2.4 MG/DL (1.8-2.4); SODIUM LEVEL 143 MEQ/L (136-145)
[2018-01-08] MEDS: MAGNESIUM CHLORIDE 64 MG TABCR (SLO MAG) PO ×2 (09:28→20:18)
[2018-01-08] MEDS: FAMOTIDINE 20 MG TAB PO ×2 (09:28→20:18)
[2018-01-08] MEDS: APIXABAN 2.5 MG TAB (ELIQUIS) PO ×2 (09:29→20:18)
[2018-01-08] MEDS: METOPROLOL TART 25 MG TABLET PO ×2 (09:29→20:18)
[2018-01-08] MEDS: predniSONE 20 MG TAB PO (09:30)
[2018-01-08] MEDS: ALLOPURINOL 300 MG TAB PO (09:30)
[2018-01-08] MEDS: SENOKOT S TAB PO ×2 (09:30→20:18)
[2018-01-09] MEDS: IPRATROPIUM 0.5MG/ALBUTEROL 2.5MG INH SOL UD 3ML (DUONEB)(J7620) NEB ×2 (00:43→07:10)
[2018-01-09] MEDS: MOXIFLOXACIN 400 MG TAB PO (05:24)
[2018-01-09 06:29] LABS: HEMATOCRIT 40.2 % (36.0-47.0); HEMOGLOBIN 12.1 g/dl (12.0-15.5); MEAN CORPUSCULAR HEMOGLOBIN 28.5 pg (27.0-33.0); MEAN CORPUSCULAR HGB CONC 30.1 g/dl (32.0-36.5); MEAN CORPUSCULAR VOLUME 94.8 fl (80.0-96.0); PLATELET COUNT, AUTOMATED 255 10^3/uL (150-450); RED BLOOD COUNT 4.24 10^6/uL (4.00-5.40); RED CELL DISTRIBUTION WIDTH 16.2 % (11.5-14.5); WHITE BLOOD COUNT 8.8 10^3/uL (4.0-10.0)
[2018-01-09 06:42] LABS: ANION GAP 6 MEQ/L (8-16); BLOOD UREA NITROGEN 35 MG/DL (7-18); CALCIUM LEVEL 8.4 MG/DL (8.8-10.2); CARBON DIOXIDE LEVEL 30 MEQ/L (21-32); CHLORIDE LEVEL 105 MEQ/L (98-107); CREATININE FOR GFR 0.89 MG/DL (0.55-1.30); GLOMERULAR FILTRATION RATE > 60.0 (>32); GLUCOSE, FASTING 104 MG/DL (70-100); MAGNESIUM LEVEL 2.3 MG/DL (1.8-2.4); SODIUM LEVEL 141 MEQ/L (136-145)
[2018-01-09] MEDS: BUDESONIDE 0.5 MG/2 ML INHALATION SUSPENSION INH (07:10)
[2018-01-09] MEDS: FORMOTEROL FUMARATE 20 MCG/2 ML INHALATION SOLUTION (PERFOROMIST) INH (07:10)
[2018-01-09] MEDS: FAMOTIDINE 20 MG TAB PO (09:12)
[2018-01-09] MEDS: APIXABAN 2.5 MG TAB (ELIQUIS) PO (09:12)
[2018-01-09] MEDS: SENOKOT S TAB PO (09:12)
[2018-01-09] MEDS: ALLOPURINOL 300 MG TAB PO (09:12)
[2018-01-09] MEDS: MAGNESIUM CHLORIDE 64 MG TABCR (SLO MAG) PO (09:12)
[2018-01-09] MEDS: METOPROLOL TART 25 MG TABLET PO (09:12)
[2018-01-09] MEDS: predniSONE 20 MG TAB PO (09:12)
== END 2018-01-09 13:08 | disposition home health service (06) | DRG 194 ==
LOC: M ED 09:54 → M ED INP 13:10 → M MSPAV 16:21
DX: J18.9 Pneumonia, unspecified organism (principal); J44.0 Chronic obstructive pulmonary disease with (acute) lower respiratory infection; J44.1 Chronic obstructive pulmonary disease with (acute) exacerbation; I50.32 Chronic diastolic (congestive) heart failure; I50.810 Right heart failure, unspecified; I27.20 Pulmonary hypertension, unspecified; I48.91 Unspecified atrial fibrillation; M1A.9XX1 Chronic gout, unspecified, with tophus (tophi); I11.0 Hypertensive heart disease with heart failure; I87.2 Venous insufficiency (chronic) (peripheral); Z66 Do not resuscitate; E83.42 Hypomagnesemia; K21.9 Gastro-esophageal reflux disease without esophagitis; E78.5 Hyperlipidemia, unspecified; F17.210 Nicotine dependence, cigarettes, uncomplicated; Z79.01 Long term (current) use of anticoagulants; Z79.899 Other long term (current) drug therapy; Z88.1 Allergy status to other antibiotic agents

== ENCOUNTER 2018-01-12 10:06 | Inpatient (IN) | payer MEDICARE ==
[2018-01-12 11:11] LABS: VENOUS BASE EXCESS 4.1 (-2.0-2.0); VENOUS HCO3 29.7 MEQ/L (23.0-27.0); VENOUS O2 SATURATION 85.9 % (60.0-80.0); VENOUS PARTIAL PRESSURE CO2 48.3 mmHg (38.0-50.0); VENOUS PARTIAL PRESSURE O2 52.7 mmHg (30.0-50.0); VENOUS PH 7.407 UNITS (7.330-7.430); VENOUS STANDARD HCO3 27.9 MEQ/L; VENOUS TOTAL CO2 31.2 MEQ/L (24.0-28.0)
[2018-01-12 11:13] LABS: BASO % 0.1 % (0.0-1.0); EOS % 0.2 % (0.0-3.0); HEMATOCRIT 39.4 % (36.0-47.0); HEMOGLOBIN 12.4 g/dl (12.0-15.5); LYMPH # 1.9 10^3/uL (1.5-4.5); LYMPH % 11.8 % (24.0-44.0); MEAN CORPUSCULAR HEMOGLOBIN 29.4 pg (27.0-33.0); MEAN CORPUSCULAR HGB CONC 31.5 g/dl (32.0-36.5); MEAN CORPUSCULAR VOLUME 93.4 fl (80.0-96.0); MONO % 6.2 % (0.0-5.0); NEUTROPHILS % 80.7 % (36.0-66.0); PLATELET COUNT, AUTOMATED 271 10^3/uL (150-450); RED BLOOD COUNT 4.22 10^6/uL (4.00-5.40); WHITE BLOOD COUNT 16.1 10^3/uL (4.0-10.0)
[2018-01-12 11:23] LABS: INR 1.35; PROTHROMBIN TIME 16.9 SECONDS (12.1-14.4)
[2018-01-12 11:37] LABS: ALBUMIN 3.1 GM/DL (3.2-5.2); ALBUMIN/GLOBULIN RATIO 1.03 (1.00-1.93); ALKALINE PHOSPHATASE 78 U/L (45-117); ALT/SGPT 55 U/L (12-78); ANION GAP 8 MEQ/L (8-16); AST/SGOT 42 U/L (7-37); BILIRUBIN,DIRECT 0.2 MG/DL (0.0-0.2); BILIRUBIN,TOTAL 0.7 MG/DL (0.2-1.0); BLOOD UREA NITROGEN 25 MG/DL (7-18); CALCIUM LEVEL 8.2 MG/DL (8.8-10.2); CARBON DIOXIDE LEVEL 31 MEQ/L (21-32); CHLORIDE LEVEL 103 MEQ/L (98-107); CPK CREATINE PHOSPHOKINASE 100 U/L (26-192); CREATININE FOR GFR 1.05 MG/DL (0.55-1.30); GLOMERULAR FILTRATION RATE 53.4 (>32); GLUCOSE, FASTING 130 MG/DL (70-100); SODIUM LEVEL 142 MEQ/L (136-145); TOTAL PROTEIN 6.1 GM/DL (6.4-8.2); TROPONIN I < 0.02 NG/ML (< 0.10)
[2018-01-12 11:42] LABS: CK-MB VALUE MASS 2.8 NG/ML (<3.6); NT-PRO BNP 4676 PG/ML (<450)
[2018-01-12 11:48] LABS: LACTIC ACID SEPSIS PROTOCOL 3.7 MMOL/L (0.4-2.0)
[2018-01-12] MEDS: IPRATROPIUM 0.5MG/ALBUTEROL 2.5MG INH SOL UD 3ML (DUONEB)(J7620) NEB ×3 (12:41→20:00)
[2018-01-12 12:59] LABS: C REACTIVE PROTEIN QUANTITATIV 0.93 MG/DL (0.00-0.30)
[2018-01-12] MEDS ORDERED: IPRATROPIUM 0.5MG/ALBUTEROL 2.5MG INH SOL UD 3ML (DUONEB)(J7620) NEB (13:15)
[2018-01-12] MEDS ORDERED: ONDANSETRON 4MG/2ML VIAL (J2405) IV (13:15)
[2018-01-12] MEDS: FUROSEMIDE 40 MG/4 ML VIAL (J1940) IV ×3 (14:16→23:25)
[2018-01-12 16:12] LABS: CK-MB VALUE MASS 2.5 NG/ML (<3.6); CPK CREATINE PHOSPHOKINASE 71 U/L (26-192); MB/CK RELATIVE INDEX 3.52 (< OR =4); TROPONIN I < 0.02 NG/ML (< 0.10)
[2018-01-12] MEDS: SENOKOT S TAB PO (20:06)
[2018-01-12] MEDS: FAMOTIDINE 20 MG TAB PO (20:08)
[2018-01-12] MEDS: METOPROLOL TART 25 MG TABLET PO (20:09)
[2018-01-12] MEDS: APIXABAN 2.5 MG TAB (ELIQUIS) PO (20:09)
[2018-01-12] MEDS: VITAMIN D 1,000 INTERNATIONAL UNITS TABLET PO (20:09)
[2018-01-12] MEDS: MAGNESIUM CHLORIDE 64 MG TABCR (SLO MAG) PO (20:43)
[2018-01-12] MEDS: SYMBICORT 80/4.5MCG INHALER 6GM INH (21:03)
[2018-01-12 21:59] LABS: CK-MB VALUE MASS 2.1 NG/ML (<3.6); CPK CREATINE PHOSPHOKINASE 62 U/L (26-192); MB/CK RELATIVE INDEX 3.38 (< OR =4); TROPONIN I < 0.02 NG/ML (< 0.10)
[2018-01-13] MEDS: IPRATROPIUM 0.5MG/ALBUTEROL 2.5MG INH SOL UD 3ML (DUONEB)(J7620) NEB ×4 (01:25→20:00)
[2018-01-13 05:08] LABS: HEMATOCRIT 39.7 % (36.0-47.0); HEMOGLOBIN 12.6 g/dl (12.0-15.5); MEAN CORPUSCULAR HEMOGLOBIN 29.1 pg (27.0-33.0); MEAN CORPUSCULAR HGB CONC 31.7 g/dl (32.0-36.5); MEAN CORPUSCULAR VOLUME 91.7 fl (80.0-96.0); PLATELET COUNT, AUTOMATED 255 10^3/uL (150-450); RED BLOOD COUNT 4.33 10^6/uL (4.00-5.40); RED CELL DISTRIBUTION WIDTH 16.8 % (11.5-14.5); WHITE BLOOD COUNT 15.7 10^3/uL (4.0-10.0)
[2018-01-13] MEDS: ACETAMINOPHEN TAB 650MG DOSE (2X325MG) PO ×2 (05:20→21:32)
[2018-01-13 05:31] LABS: ANION GAP 7 MEQ/L (8-16); BLOOD UREA NITROGEN 22 MG/DL (7-18); C REACTIVE PROTEIN QUANTITATIV 0.98 MG/DL (0.00-0.30); CALCIUM LEVEL 8.8 MG/DL (8.8-10.2); CARBON DIOXIDE LEVEL 39 MEQ/L (21-32); CHLORIDE LEVEL 98 MEQ/L (98-107); CREATININE FOR GFR 0.98 MG/DL (0.55-1.30); GLOMERULAR FILTRATION RATE 57.8 (>32); GLUCOSE, FASTING 90 MG/DL (70-100); MAGNESIUM LEVEL 1.9 MG/DL (1.8-2.4); NT-PRO BNP 3353 PG/ML (<450); POTASSIUM SERUM 3.1 MEQ/L (3.5-5.1); SODIUM LEVEL 144 MEQ/L (136-145)
[2018-01-13] MEDS: FUROSEMIDE 40 MG/4 ML VIAL (J1940) IV (06:25)
[2018-01-13] MEDS: SYMBICORT 80/4.5MCG INHALER 6GM INH ×2 (07:12→20:20)
[2018-01-13] MEDS: MAGNESIUM CHLORIDE 64 MG TABCR (SLO MAG) PO ×2 (10:06→21:31)
[2018-01-13] MEDS: VITAMIN D 1,000 INTERNATIONAL UNITS TABLET PO ×2 (10:07→21:30)
[2018-01-13] MEDS: POTASSIUM CHLORIDE 10 MEQ SR TABLET PO (10:07)
[2018-01-13] MEDS: SPIRONOLACTONE 12.5MG PER 1/2 TABLET PO (10:07)
[2018-01-13] MEDS: ALLOPURINOL 300 MG TAB PO (10:08)
[2018-01-13] MEDS: METOPROLOL TART 25 MG TABLET PO ×2 (10:08→21:30)
[2018-01-13] MEDS: predniSONE 50 MG TAB PO (10:08)
[2018-01-13] MEDS: SENOKOT S TAB PO ×3 (10:08→21:30)
[2018-01-13] MEDS: FAMOTIDINE 20 MG TAB PO ×2 (10:08→21:30)
[2018-01-13] MEDS ORDERED: SLF 3 ML SYR IV (12:30)
[2018-01-13] MEDS: FUROSEMIDE 20 MG/2 ML VIAL (J1940) IV (16:47)
[2018-01-13] MEDS: SLF 3 ML SYR IV ×2 (16:47→21:32)
[2018-01-14] MEDS: IPRATROPIUM 0.5MG/ALBUTEROL 2.5MG INH SOL UD 3ML (DUONEB)(J7620) NEB ×4 (01:20→20:00)
[2018-01-14] MEDS: SLF 3 ML SYR IV ×3 (05:01→22:00)
[2018-01-14 05:57] LABS: HEMATOCRIT 36.1 % (36.0-47.0); HEMOGLOBIN 11.5 g/dl (12.0-15.5); MEAN CORPUSCULAR HEMOGLOBIN 28.8 pg (27.0-33.0); MEAN CORPUSCULAR HGB CONC 31.9 g/dl (32.0-36.5); MEAN CORPUSCULAR VOLUME 90.5 fl (80.0-96.0); PLATELET COUNT, AUTOMATED 253 10^3/uL (150-450); RED BLOOD COUNT 3.99 10^6/uL (4.00-5.40); RED CELL DISTRIBUTION WIDTH 16.8 % (11.5-14.5); WHITE BLOOD COUNT 16.6 10^3/uL (4.0-10.0)
[2018-01-14 06:19] LABS: ANION GAP 10 MEQ/L (8-16); BLOOD UREA NITROGEN 29 MG/DL (7-18); C REACTIVE PROTEIN QUANTITATIV 3.58 MG/DL (0.00-0.30); CALCIUM LEVEL 8.1 MG/DL (8.8-10.2); CARBON DIOXIDE LEVEL 33 MEQ/L (21-32); CHLORIDE LEVEL 96 MEQ/L (98-107); CREATININE FOR GFR 1.04 MG/DL (0.55-1.30); GLUCOSE, FASTING 130 MG/DL (70-100); MAGNESIUM LEVEL 2.2 MG/DL (1.8-2.4); NT-PRO BNP 1880 PG/ML (<450); POTASSIUM SERUM 3.9 MEQ/L (3.5-5.1); SODIUM LEVEL 139 MEQ/L (136-145)
[2018-01-14] MEDS: SYMBICORT 80/4.5MCG INHALER 6GM INH ×2 (07:15→20:38)
[2018-01-14] MEDS: SENOKOT S TAB PO ×3 (08:52→21:12)
[2018-01-14] MEDS: VITAMIN D 1,000 INTERNATIONAL UNITS TABLET PO ×2 (08:52→21:12)
[2018-01-14] MEDS: FAMOTIDINE 20 MG TAB PO ×2 (08:52→21:12)
[2018-01-14] MEDS: SPIRONOLACTONE 12.5MG PER 1/2 TABLET PO (08:52)
[2018-01-14] MEDS: predniSONE 50 MG TAB PO (08:52)
[2018-01-14] MEDS: ALLOPURINOL 300 MG TAB PO (08:52)
[2018-01-14] MEDS: MAGNESIUM CHLORIDE 64 MG TABCR (SLO MAG) PO ×2 (08:53→21:11)
[2018-01-14] MEDS: METOPROLOL TART 25 MG TABLET PO ×2 (08:53→21:12)
[2018-01-14] MEDS: FUROSEMIDE 20 MG/2 ML VIAL (J1940) IV ×2 (08:53→16:44)
[2018-01-14] MEDS: ACETAMINOPHEN TAB 650MG DOSE (2X325MG) PO (21:12)
[2018-01-15] MEDS: IPRATROPIUM 0.5MG/ALBUTEROL 2.5MG INH SOL UD 3ML (DUONEB)(J7620) NEB ×2 (01:18→07:40)
[2018-01-15] MEDS: SLF 3 ML SYR IV (05:23)
[2018-01-15 05:56] LABS: HEMATOCRIT 34.1 % (36.0-47.0); HEMOGLOBIN 10.9 g/dl (12.0-15.5); MEAN CORPUSCULAR HEMOGLOBIN 29.3 pg (27.0-33.0); MEAN CORPUSCULAR VOLUME 91.7 fl (80.0-96.0); PLATELET COUNT, AUTOMATED 252 10^3/uL (150-450); RED BLOOD COUNT 3.72 10^6/uL (4.00-5.40); RED CELL DISTRIBUTION WIDTH 16.7 % (11.5-14.5)
[2018-01-15 06:06] LABS: ANION GAP 6 MEQ/L (8-16); BLOOD UREA NITROGEN 36 MG/DL (7-18); C REACTIVE PROTEIN QUANTITATIV 1.93 MG/DL (0.00-0.30); CALCIUM LEVEL 8.4 MG/DL (8.8-10.2); CARBON DIOXIDE LEVEL 37 MEQ/L (21-32); CHLORIDE LEVEL 97 MEQ/L (98-107); CREATININE FOR GFR 0.96 MG/DL (0.55-1.30); GLOMERULAR FILTRATION RATE 59.2 (>32); GLUCOSE, FASTING 107 MG/DL (70-100); POTASSIUM SERUM 3.5 MEQ/L (3.5-5.1); SODIUM LEVEL 140 MEQ/L (136-145)
[2018-01-15] MEDS: SYMBICORT 80/4.5MCG INHALER 6GM INH (07:36)
[2018-01-15] MEDS: APIXABAN 5 MG TAB (ELIQUIS) PO (08:51)
[2018-01-15] MEDS: VITAMIN D 1,000 INTERNATIONAL UNITS TABLET PO (08:51)
[2018-01-15] MEDS: predniSONE 10 MG TAB PO (08:51)
[2018-01-15] MEDS: SPIRONOLACTONE 12.5MG PER 1/2 TABLET PO (08:51)
[2018-01-15] MEDS: ALLOPURINOL 300 MG TAB PO (08:51)
[2018-01-15] MEDS: SENOKOT S TAB PO (08:52)
[2018-01-15] MEDS: MAGNESIUM CHLORIDE 64 MG TABCR (SLO MAG) PO (08:52)
[2018-01-15] MEDS: FAMOTIDINE 20 MG TAB PO (08:52)
[2018-01-15] MEDS: METOPROLOL TART 25 MG TABLET PO (08:52)
[2018-01-15] MEDS: FUROSEMIDE 20 MG/2 ML VIAL (J1940) IV (08:53)
== END 2018-01-15 11:54 | disposition home health service (06) | DRG 293 ==
LOC: M MSPAV 01-14 16:12 → M ED 10:06 → M ED INP 13:06 → M PCU 16:33
DX: I11.0 Hypertensive heart disease with heart failure (principal); J44.9 Chronic obstructive pulmonary disease, unspecified; I27.20 Pulmonary hypertension, unspecified; I48.2 Chronic atrial fibrillation; M1A.9XX1 Chronic gout, unspecified, with tophus (tophi); I87.2 Venous insufficiency (chronic) (peripheral); I08.3 Combined rheumatic disorders of mitral, aortic and tricuspid valves; I50.813 Acute on chronic right heart failure; I50.31 Acute diastolic (congestive) heart failure; M19.90 Unspecified osteoarthritis, unspecified site; E83.42 Hypomagnesemia; M41.9 Scoliosis, unspecified; E87.6 Hypokalemia; K21.9 Gastro-esophageal reflux disease without esophagitis; H91.93 Unspecified hearing loss, bilateral; E78.5 Hyperlipidemia, unspecified; Z87.891 Personal history of nicotine dependence; Z79.01 Long term (current) use of anticoagulants; Z79.899 Other long term (current) drug therapy; Z88.1 Allergy status to other antibiotic agents; Z87.81 Personal history of (healed) traumatic fracture

== ENCOUNTER → 2018-01-21 | Outpatient (REF) | payer MEDICARE ==
[2018-01-21 19:25] LABS: URIC ACID 5.1 MG/DL (2.6-6.0)
== END ==
LOC: M LAB REF 16:57
DX: M10.9 Gout, unspecified (principal)
CPT/HCPCS: 84550

== ENCOUNTER 2018-02-01 12:29 | Emergency (ER) | payer MEDICARE | END 2018-02-01 14:15 | disposition home or self-care (01) | LOC: M ED 12:29 | DX: Z04.8 Encounter for examination and observation for other specified reasons (principal); J44.9 Chronic obstructive pulmonary disease, unspecified; I50.9 Heart failure, unspecified; E78.9 Disorder of lipoprotein metabolism, unspecified; I25.10 Atherosclerotic heart disease of native coronary artery without angina pectoris; Z79.899 Other long term (current) drug therapy; Z79.01 Long term (current) use of anticoagulants; Z88.1 Allergy status to other antibiotic agents | CPT/HCPCS: 71046 ==

== ENCOUNTER → 2018-04-24 | Outpatient (REF) | payer MEDICARE | LOC: M LAB REF 13:58 | DX: L89.623 Pressure ulcer of left heel, stage 3 (principal) | CPT/HCPCS: 88304 ==

== ENCOUNTER 2018-05-03 13:06 | Emergency (ER) | payer MEDICARE | END 2018-05-03 14:40 | disposition home or self-care (01) | LOC: M ED 13:06 | DX: S81.812A Laceration without foreign body, left lower leg, initial encounter (principal); W22.8XXA Striking against or struck by other objects, initial encounter; Y92.89 Other specified places as the place of occurrence of the external cause; I48.91 Unspecified atrial fibrillation; I50.9 Heart failure, unspecified; I11.0 Hypertensive heart disease with heart failure; I34.0 Nonrheumatic mitral (valve) insufficiency; J44.9 Chronic obstructive pulmonary disease, unspecified; E78.5 Hyperlipidemia, unspecified; K21.9 Gastro-esophageal reflux disease without esophagitis; M10.9 Gout, unspecified; Z87.891 Personal history of nicotine dependence; Z88.1 Allergy status to other antibiotic agents; Z79.899 Other long term (current) drug therapy | CPT/HCPCS: 93005 ==

== ENCOUNTER → 2018-05-15 | Outpatient (CLI) | payer MEDICARE | LOC: M RAD 12:22 | DX: L89.624 Pressure ulcer of left heel, stage 4 (principal); I70.244 Atherosclerosis of native arteries of left leg with ulceration of heel and midfoot | CPT/HCPCS: 93926 ==

== ENCOUNTER 2018-06-17 20:25 | Emergency (ER) | payer MEDICARE ==
[~2018-06-17] VITALS: Ht 162.6 cm; Wt 62.7 kg
[~2018-06-17 20:25] MED LIST changes: -ACET1TAB17 PO; +ACET1TAB55 PO; +ACET30TAB PO; +ADVI1CAP2 PO; -ADVI200C PO; +ALBU83IN INH; +ALDA25TA2 PO; +DOXY100C37 PO; +KEFL500C17 PO; +LASI20TA PO; +LASI40TA PO; +METO1TAB32; +METO1TAB87 PO; +PATIENT COMMENTS; -PEPC1TAB4 PO; +PEPC1TAB5 PO; +PRED10TA2 PO; +SYMB80INH INH; +TORS10TA3; +TRAM50TA2 PO; +VENTAER INH; +VITA100066 PO; +ZYLO300T6 PO
[2018-06-17] MEDS ORDERED: MIRA3350 PO (20:50)
[2018-06-17] MEDS ORDERED: CVS5TAB13 PO (20:50)
[2018-06-17] MEDS ORDERED: IPRATROPIUM 0.5MG/ALBUTEROL 2.5MG INH SOL UD 3ML (DUONEB)(J7620) NEB ONE (21:00)
[2018-06-17 21:30] LABS: BASO % 0.5 % (0.0-1.0); EOS # 0.1 10^3/uL (0.0-0.50); EOS % 1.3 % (0.0-3.0); HEMATOCRIT 35.9 % (36.0-47.0); HEMOGLOBIN 11.1 g/dl (12.0-15.5); LYMPH # 1.7 10^3/uL (1.5-4.5); LYMPH % 22.5 % (24.0-44.0); MEAN CORPUSCULAR HGB CONC 30.9 g/dl (32.0-36.5); MEAN CORPUSCULAR VOLUME 93.7 fl (80.0-96.0); MONO # 0.9 10^3/uL (0.0-0.8); MONO % 11.3 % (0.0-5.0); NEUTROPHILS # 4.9 10^3/uL (1.8-7.7); NEUTROPHILS % 64.3 % (36.0-66.0); PLATELET COUNT, AUTOMATED 320 10^3/uL (150-450); RED BLOOD COUNT 3.83 10^6/uL (4.00-5.40); WHITE BLOOD COUNT 7.6 10^3/uL (4.0-10.0)
[2018-06-17 21:31] LABS: ABG BASE EXCESS -0.6 (-2.0-2.0); ABG HCO3 24.6 MEQ/L (22.0-26.0); ABG O2 SATURATION 96.6 % (95.0-99.0); ABG PARTIAL PRESSURE CO2 42.7 mmHg (35.0-45.0); ABG PARTIAL PRESSURE O2 87.9 mmHg (75.0-100.0); ABG TOTAL CO2 25.9 MEQ/L (23.0-31.0); ABG pH (ARTERIAL) 7.379 UNITS (7.350-7.450)
[2018-06-17 22:01] LABS: INFLUENZA A AMPLIFICATION NEGATIVE (NEGATIVE); INFLUENZA B AMPLIFICATION NEGATIVE (NEGATIVE)
[2018-06-17 22:12] LABS: CALCIUM LEVEL 8.6 MG/DL (8.8-10.2); CREATININE FOR GFR 1.35 MG/DL (0.55-1.30); GLOMERULAR FILTRATION RATE 39.9 (>32); POTASSIUM SERUM 4.3 MEQ/L (3.5-5.1); TROPONIN I 0.02 NG/ML (< 0.10)
[2018-06-17] MEDS ORDERED: predniSONE 20 MG TAB PO ONE (22:15)
[2018-06-17] MEDS ORDERED: FUROSEMIDE 40 MG/4 ML VIAL (J1940) IV ONE (22:30)
[2018-06-17] MEDS ORDERED: LASI20TA PO (23:19)
[2018-06-17 23:55] VITALS: BP 106/55
--- NOTE | 2018-06-18 08:11 | REP ---
Clinical: Cough and dyspnea. Comparison: 02/01/2018. Findings: Stable cardiomegaly and diffuse chronic interstitial changes. Linear plate-like fibroatelectatic changes in the left lower lung zone is nonspecific and represents a change from prior examination. No further consolidation, effusion, or pneumothorax identified. Skeletal structures demonstrate stable degenerative changes. Impression: Linear fibroatelectatic changes in the left lower lung zone. Electronically Signed by Juan Miguel Jensen MD 06/18/2018 08:02 A
--- NOTE | 2018-06-18 17:03 | ECGEPIP ---
Stationary ECG Study [place] - ED Test Date: 2018-06-17 Pat Name: GIN DEVINE Department: Room: - Gender: F Print Machine Operator: [email or web address] : 1935 Requested By: GIO WALKER Order Number: [id number] Reading MD: Jil Tyson Measurements Intervals [place] Rate: 77 P: [place]: 0 QRS: 83 QRSD: 93 T: 62 QT: 400 QTc: 453 Interpretive Statements ATRIAL FIBRILLATION LOW QRS VOLTAGE IN EXTREMITY LEADS INCOMPLETE RIGHT BUNDLE BRANCH BLOCK MINIMAL ST DEPRESSION ABNORMAL RHYTHM ECG SIMILAR 05/03/18 Electronically Signed On 06-18-2018 17:03:06 EST by Jil Tyson
== END 2018-06-17 23:57 | disposition home or self-care (01) ==
LOC: M ED 20:25
DX: J44.1 Chronic obstructive pulmonary disease with (acute) exacerbation (principal); I50.9 Heart failure, unspecified; I48.91 Unspecified atrial fibrillation; I10 Essential (primary) hypertension; F17.210 Nicotine dependence, cigarettes, uncomplicated

== ENCOUNTER 2018-06-19 10:38 | Inpatient (IN) | payer MEDICARE ==
[~2018-06-19] VITALS: Ht 162.6 cm; Wt 58.6 kg
[~2018-06-19 10:38] MED LIST changes: +CVS5TAB13 PO; -LASI20TA PO; +LASI20TA3 PO; -LASI40TA PO; +LASI40TA9 PO; +MIRA3350 PO
[2018-06-19] MEDS ORDERED: methylPREDNISolone INJ 125 MG/2 ML VIAL (J2930) IV ONE (11:00)
[2018-06-19] MEDS ORDERED: METAL LOCK LOOP XX ONE (11:15)
[2018-06-19 11:25] LABS: ABG BASE EXCESS -2.7 (-2.0-2.0); ABG HCO3 22.9 MEQ/L (22.0-26.0); ABG O2 SATURATION 92.7 % (95.0-99.0); ABG PARTIAL PRESSURE CO2 42.7 mmHg (35.0-45.0); ABG PARTIAL PRESSURE O2 69.9 mmHg (75.0-100.0); ABG STANDARD HCO3 22.1 MEQ/L (22.0-26.0); ABG TOTAL CO2 24.2 MEQ/L (23.0-31.0); ABG pH (ARTERIAL) 7.347 UNITS (7.350-7.450)
[2018-06-19] MEDS: IPRATROPIUM 0.5MG/ALBUTEROL 2.5MG INH SOL UD 3ML (DUONEB)(J7620) NEB PRN ×2 (11:26→11:32)
[2018-06-19 11:33] LABS: BASO % 0.3 % (0.0-1.0); EOS # 0.1 10^3/uL (0.0-0.50); EOS % 0.5 % (0.0-3.0); HEMATOCRIT 38.2 % (36.0-47.0); HEMOGLOBIN 11.8 g/dl (12.0-15.5); LYMPH # 2.1 10^3/uL (1.5-4.5); LYMPH % 21.3 % (24.0-44.0); MEAN CORPUSCULAR HEMOGLOBIN 28.8 pg (27.0-33.0); MEAN CORPUSCULAR HGB CONC 30.9 g/dl (32.0-36.5); MEAN CORPUSCULAR VOLUME 93.2 fl (80.0-96.0); MONO % 9.9 % (0.0-5.0); NEUTROPHILS # 6.6 10^3/uL (1.8-7.7); NEUTROPHILS % 67.6 % (36.0-66.0); PLATELET COUNT, AUTOMATED 342 10^3/uL (150-450); WHITE BLOOD COUNT 9.8 10^3/uL (4.0-10.0)
[2018-06-19 11:58] LABS: INFLUENZA A AMPLIFICATION NEGATIVE (NEGATIVE); INFLUENZA B AMPLIFICATION NEGATIVE (NEGATIVE)
[2018-06-19 12:11] LABS: CALCIUM LEVEL 8.7 MG/DL (8.8-10.2); CREATININE FOR GFR 1.8 MG/DL (0.55-1.30); GLOMERULAR FILTRATION RATE 28.6 (>32); MB/CK RELATIVE INDEX 5.67 (< OR =4); POTASSIUM SERUM 4.8 MEQ/L (3.5-5.1); THYROID STIMULATING HORMONE 3.96 uIU/ML (0.358-3.740); TROPONIN I 0.03 NG/ML (< 0.10)
--- NOTE | 2018-06-19 12:30 | REP ---
Chest one-view HISTORY: Cough Comparison: 06/17/2018 An increase in interstitial markings is present in the lungs consistent with chronic interstitial change. Linear density is present in the left lower lobe consistent with atelectasis or scar. There is blunting of the left costophrenic angle due to a small pleural effusion. The cardiac silhouette is enlarged. The pulmonary vasculature is prominent. The pulmonary vasculature is normal in appearance. Impression: 1. Chronic interstitial change. 2. Left lower lobe atelectasis or scar. 3. Small left pleural effusion. 4. Cardiomegaly. Electronically Signed by Monty Sung MD 06/19/2018 12:21 P
[2018-06-19] MEDS ORDERED: TRAM50TA2 PO (13:14)
[2018-06-19] MEDS ORDERED: SPIR-10 PO (13:14)
[2018-06-19] MEDS ORDERED: FURO20TA2 PO (13:14)
[2018-06-19] MEDS ORDERED: ELIQ5TAB PO (13:14)
[2018-06-19] MEDS ORDERED: BISACODYL 10 MG SUPP PR PRN (14:30)
[2018-06-19] MEDS ORDERED: ALBUTEROL SULFATE 2.5 MG/0.5 ML INH NEB SOLN NEB PRN (14:45)
[2018-06-19] MEDS: IPRATROPIUM 0.5MG/ALBUTEROL 2.5MG INH SOL UD 3ML (DUONEB)(J7620) NEB SCH (15:28)
[2018-06-19 16:36] VITALS: BP 109/59
[2018-06-19] MEDS: SYMBICORT 80/4.5MCG INHALER 6GM INH SCH (18:28)
[2018-06-19] MEDS: methylPREDNISolone INJ 40 MG/1 ML VIAL (J2920) IV SCH (20:59)
[2018-06-19] MEDS: METOPROLOL TART 25 MG TABLET PO SCH (21:00)
[2018-06-19] MEDS: DOCUSATE SODIUM 100 MG CAP PO SCH (21:00)
[2018-06-19] MEDS: APIXABAN 5 MG TAB (ELIQUIS) PO SCH (21:00)
[2018-06-19] MEDS ORDERED: HEPARIN SOD (PORCINE) 5000 UNITS/ML VIAL SC SCH (21:00)
[2018-06-19 22:00] VITALS: BP 106/54
[2018-06-19] MEDS: traMADol 50 MG TAB PO PRN (22:21)
[2018-06-20] MEDS: IPRATROPIUM 0.5MG/ALBUTEROL 2.5MG INH SOL UD 3ML (DUONEB)(J7620) NEB SCH ×4 (01:45→23:59)
[2018-06-20 06:00] VITALS: BP 99/55
[2018-06-20] MEDS: SYMBICORT 80/4.5MCG INHALER 6GM INH SCH ×2 (07:47→20:00)
[2018-06-20 08:01] LABS: HEMATOCRIT 35.7 % (36.0-47.0); LYMPH # 0.7 10^3/uL (1.5-4.5); LYMPH % 8.2 % (24.0-44.0); MEAN CORPUSCULAR HEMOGLOBIN 28.7 pg (27.0-33.0); MEAN CORPUSCULAR HGB CONC 30.8 g/dl (32.0-36.5); MEAN CORPUSCULAR VOLUME 93.2 fl (80.0-96.0); MONO # 0.3 10^3/uL (0.0-0.8); MONO % 3.5 % (0.0-5.0); NEUTROPHILS # 7.8 10^3/uL (1.8-7.7); NEUTROPHILS % 87.8 % (36.0-66.0); PLATELET COUNT, AUTOMATED 343 10^3/uL (150-450); RED BLOOD COUNT 3.83 10^6/uL (4.00-5.40); WHITE BLOOD COUNT 8.9 10^3/uL (4.0-10.0)
[2018-06-20 08:27] LABS: CALCIUM LEVEL 8.6 MG/DL (8.8-10.2); CREATININE FOR GFR 1.84 MG/DL (0.55-1.30); GLOMERULAR FILTRATION RATE 27.9 (>32); POTASSIUM SERUM 4.6 MEQ/L (3.5-5.1)
--- NOTE | 2018-06-20 08:56 | ECGEPIP ---
Stationary ECG Study [facility] - ED Test Date: 2018-06-19 Pat Name: GIN DEVINE Department: Room: - Gender: F Privacy Specialist: av : [id number] Requested By: Ricco Vaughan Order Number: [id number] Reading MD: Jil Tyson Measurements Intervals [place] Rate: 69 P: FL: 0 QRS: 87 QRSD: 101 T: -2 QT: 417 QTc: 449 Interpretive Statements ATRIAL FIBRILLATION INCOMPLETE RIGHT BUNDLE BRANCH BLOCK NSTTW ABNORMALITY DECREASED RATE 06/17/18 21:03 Electronically Signed On 06-20-2018 8:56:07 EST by Jil Tyson
[2018-06-20] MEDS: ALLOPURINOL 300 MG TAB PO SCH (09:00)
[2018-06-20] MEDS ORDERED: FUROSEMIDE 40 MG TAB PO SCH (09:00)
[2018-06-20] MEDS: SPIRONOLACTONE 25 MG TAB PO SCH (09:00)
--- NOTE | 2018-06-20 09:20 | HPE ---
DATE OF ADMISSION: 06/19/2018 PRIMARY CARE PROVIDER: Lokesh Pedersen CHIEF COMPLAINT: Increasing shortness of breath with wheezing for the past six days. Hypoxia noted in 79% to 80% range. PAST MEDICAL HISTORY: Chronic obstructive pulmonary disease (COPD) not on home oxygen. Gout. Hypertension. There is a history of heart failure. Chronic left lower extremity heel wound. Follows at the wound clinic with Dr. Kenney. Pulmonary hypertension with chronic right-sided heart failure. Chronic bilateral pedal edema. Atrial fibrillation on Eliquis. Severe mitral regurgitation. Gouty tophi. Osteoarthritis. Kyphoscoliosis. Gastroesophageal reflux disease (GERD). Dyslipidemia. HISTORY OF PRESENT ILLNESS: This is an 83-year-old female who lives at [facility] and has [id number] nurses and aides support 07/01. She was first noted to have difficulty in breathing and wheezing over the past week that began about six days ago. The patient was brought to the emergency room on the first june. Was discharged with a nebulizer solution and an increased dose of Lasix because it was thought that patient may be having congestive heart failure. The patient was using the nebulizer as well as an increased dose of Lasix at home without any improvement. From yesterday the patient has been very weak and tired and mostly sleeping. Patient has been short of breath and wheezy so was brought back to the emergency room today. She was also noted to be hypoxic yesterday with oxygen saturation in 79% to 80's at per her nurse. They tried nebulizers and different respiratory exercises with a slight improvement in oxygen saturation at 82% to 83% at home but she continues to be short of breath so was brought to the emergency room for evaluation in the emergency department (ED). At first however the patient was euvolemic and her shortness of breath was mostly due to COPD exacerbation. The patient received methylprednisone nebulizers and patient was put on supplemental oxygen with significant improvement in respiratory status. During my interview, the patient denied any shortness of breath. Said that she is feeling better after putting on the oxygen and getting the nebulizer treatment. The patient is admitted to the hospital service for COPD exacerbation and hypoxia. PAST SURGICAL HISTORY: Left femur fracture surgery in 2017. Open reduction and internal fixation of right ankle. Esophagogastroduodenoscopy (EGD) and a colonoscopy. Multiple scrapings of the tophi by Dr. Stillerman. FAMILY HISTORY: Family history not significant. SOCIAL HISTORY: The patient lives at [facility] and has 07/01 care by nurses and aides. The patient recently quit smoking last year. Does not use alcohol or recreational drugs. At baseline the patient ambulates with a walker. HOME MEDICATIONS: - acetaminophen 650 mg by mouth every 6 hours as needed pain - albuterol sulfate 1 respule by nebulizer four times a day as needed shortness of breath - albuterol metered-dose inhaler (MDI) 2 puff inhalation four times a day as needed shortness of breath - allopurinol 300 mg by mouth daily - Eliquis 5 mg by mouth twice a day - Symbicort 80/4.5 two puffs inhalation twice a day - cholecalciferol 1000 units by mouth twice a day - Colace 100 mg by mouth twice a day - famotidine 20 mg by mouth twice a day as needed - Lasix 40 mg by mouth daily - magnesium chloride 64 mg by mouth twice a day - melatonin 5 mg by mouth at bedtime - metoprolol 25 mg by mouth twice a day - MiraLAX as needed constipation - spironolactone 25 mg by mouth daily - tramadol 50 mg by mouth at bedtime as needed pain REVIEW OF SYSTEMS: A ten-point review of system is negative except for that mentioned in history of present illness. PHYSICAL EXAMINATION: Vital Signs: Temperature 97.1, pulse in 60s. The patient was in atrial fibrillation (AFib), respiratory rate 20, blood pressure 124/58, pulse oximetry 94% with 2 liters nasal cannula. General: Patient awake, alert, and oriented x3 lying down n bed in no acute distress. HEENT: Normocephalic, atraumatic. Moist mucous membranes. Anicteric eyes. Chest: Bilateral diffuse crackles. No wheezing heard. Overall poor air entry. Cardiovascular: S1, S2, irregular. No rub, murmur or gallop. Abdomen: Soft, nontender, bowel sounds present. Extremities: Bilateral edema with chronic venous stasis changes. There is an open ulcer at the left heel. LABORATORY DATA: White blood cell (WBC) 9.8, hemoglobin 11.8, platelets 342. Sodium 137, potassium 4.8, chloride 104, bicarbonate 23, BUN 54, creatinine 1.8. Lactate 2.6. Calcium 8.7. Cardiac enzymes are negative. Brain natriuretic peptide (BNP) 2789. Thyroid-stimulating hormone (TSH) is 3.96. Blood gas showed pH of 7.34, pCO2 42, PO2 of 69. Influenza was negative. IMAGING: Chest x-ray showed chronic interstitial changes, left lower lobe atelectasis or scar, small left pleural effusion and cardiomegaly. Electrocardiogram (EKG): Atrial fibrillation. Rate controlled in 60s. ASSESSMENT: This is an 83-year-old female with the above past medical history admitted for hypoxia thought to be related to chronic obstructive pulmonary disease (COPD) exacerbation. PLAN: Hypoxia. Will continue with oxygen supplementation. Will continue treatment for COPD. The patient does have chronic interstitial changes in the lungs so we may not be able to get her off oxygen during this hospitalization. COPD exacerbation. Will continue the patient on budesonide, formoterol, DuoNebs, albuterol as needed and methylprednisone. A history of pulmonary hypertension and right-sided heart failure. Will continue with home dose of Lasix. Atrial fibrillation. Rate is controlled. Will continue with Eliquis. Gout. Will continue with allopurinol. History of constipation. Will continue with Colace and Dulcolax suppositories as needed. Chronic left heel wound. Will consult wound care and follow Dr. Kenney's outpatient order for dressing change. Deep vein thrombosis (DVT) prophylaxis. The patient is on Eliquis. Severe mitral regurgitation. Will continue with Lasix.
[2018-06-20] MEDS: methylPREDNISolone INJ 40 MG/1 ML VIAL (J2920) IV SCH ×2 (11:10→19:52)
[2018-06-20] MEDS: APIXABAN 5 MG TAB (ELIQUIS) PO SCH ×2 (11:10→19:53)
[2018-06-20] MEDS: DOCUSATE SODIUM 100 MG CAP PO SCH ×2 (11:10→19:53)
[2018-06-20] MEDS: METOPROLOL TART 25 MG TABLET PO SCH ×2 (11:10→19:53)
[2018-06-20 14:00] VITALS: BP 111/67
[2018-06-20 18:09] VITALS: BP 117/58
[2018-06-20] MEDS: traMADol 50 MG TAB PO PRN (19:52)
[2018-06-20 22:00] VITALS: BP 105/55
[2018-06-21 06:00] VITALS: BP 145/67
[2018-06-21 06:41] LABS: BASO % 0.1 % (0.0-1.0); HEMATOCRIT 34.8 % (36.0-47.0); HEMOGLOBIN 10.9 g/dl (12.0-15.5); LYMPH # 0.5 10^3/uL (1.5-4.5); LYMPH % 4.1 % (24.0-44.0); MEAN CORPUSCULAR HEMOGLOBIN 28.7 pg (27.0-33.0); MEAN CORPUSCULAR HGB CONC 31.3 g/dl (32.0-36.5); MEAN CORPUSCULAR VOLUME 91.6 fl (80.0-96.0); MONO # 0.5 10^3/uL (0.0-0.8); MONO % 3.7 % (0.0-5.0); NEUTROPHILS # 11.3 10^3/uL (1.8-7.7); NEUTROPHILS % 91.5 % (36.0-66.0); PLATELET COUNT, AUTOMATED 305 10^3/uL (150-450); WHITE BLOOD COUNT 12.4 10^3/uL (4.0-10.0)
[2018-06-21 07:10] LABS: CALCIUM LEVEL 8.7 MG/DL (8.8-10.2); CREATININE FOR GFR 1.86 MG/DL (0.55-1.30); GLOMERULAR FILTRATION RATE 27.5 (>32); POTASSIUM SERUM 4.6 MEQ/L (3.5-5.1)
[2018-06-21] MEDS: IPRATROPIUM 0.5MG/ALBUTEROL 2.5MG INH SOL UD 3ML (DUONEB)(J7620) NEB SCH ×2 (07:49→16:00)
[2018-06-21] MEDS: SYMBICORT 80/4.5MCG INHALER 6GM INH SCH ×2 (07:49→21:20)
--- NOTE | 2018-06-21 08:51 | IPNPDOC ---
Text Note Date of Service The patient was seen on 06/20/18. NOTE Subjective: patient feels good today. Sa her. ys still having intermittent SOb but the oxygen is helping. No fever or chills. denied chest pain or coughing. PHYSICAL EXAMINATION: Vital Signs:As below General: Patient awake, alert, and oriented x3 lying down n bed in no acute distress. HEENT: Normocephalic, atraumatic. Moist mucous membranes. Anicteric eyes. Chest: Bilateral diffuse crackles. No wheezing heard. Overall poor air entry. Cardiovascular: S1, S2, irregular. No rub, murmur or gallop. Abdomen: Soft, nontender, bowel sounds present. Extremities: Bilateral edema with chronic venous stasis changes. There is an open ulcer at the left heel. Labs and Radiology: Reviewed ASSESSMENT AND PLAN: This is an 83-year-old female who lives at [facility] and has nurses and aides support 07/01 with PMH of COPD, Gout.,Hypertension.,CHF, Chronic left lower extremity heel wound. Follows at the wound clinic with Dr. Kenney. Pulmonary hypertension with chronic right- sided heart failure. Chronic bilateral pedal edema, Atrial fibrillation on Eliquis., Severe mitral regurgitation., Gouty tophi., Osteoarthritis., Kyphoscoliosis., Gastroesophageal reflux disease (GERD).,Dyslipidemia came to the ED for SOB and HYpoxia. She was first noted to have difficulty in breathing and wheezing over the past week that began about six days ago. The patient was brought to the emergency room on the first june. Was discharged with a nebulizer solution and an increased dose of Lasix because it was thought that patient may be having congestive heart failure. The patient was using the nebulizer as well as an increased dose of Lasix at home without any improvement. From yesterday the patient has been very weak and tired and mostly sleeping. Patient has been short of breath and wheezy so was brought back to the emergency room today. She was also noted to be hypoxic yesterday with oxygen saturation in 79% to 80's at per her nurse. Hypoxia. Will continue with oxygen supplementation. Will continue treatment for COPD. The patient does have chronic interstitial changes in the lungs so we may not be able to get her off oxygen during this hospitalization. COPD exacerbation. Will continue the patient on budesonide, formoterol, DuoNebs, albuterol as needed and methylprednisone. ALYSSA Patient's diuretic was recently increased for CHF exacerbation. Patient on presentation looked dry so we may have over diuresed her will hold lasix for now. She is clinically euvolemic though has some chronic edema which is due to her right heart failure and venous stasis and we we may never be able to get rid of this fluid. A history of pulmonary hypertension and right-sided heart failure. Will continue with home dose of Lasix on discharge. At present patient is euvolemic and also has ALYSSA. Atrial fibrillation. Rate is controlled. Will continue with Eliquis. Gout. Will continue with allopurinol. History of constipation. Will continue with Colace and Dulcolax suppositories as needed. Chronic left heel wound. Will consult wound care and follow Dr. Kenney's outpatient order for dressing change. Deep vein thrombosis (DVT) prophylaxis. The patient is on Eliquis. Severe mitral regurgitation. Will continue with Lasix. VS,Fishbone, I+O VS, Fishbone, I+O Laboratory Tests 06/20/18 07:52 Red Blood Count 3.83 L, Mean Corpuscular Volume 93.2, Mean Corpuscular Hemoglobin 28.7, Mean Corpuscular Hemoglobin Concent 30.8 L, Red Cell Distribution Width 16.9 H, Neutrophils (%) (Auto) 87.8 H, Lymphocytes (%) (Auto) 8.2 L, Monocytes (%) (Auto) 3.5, Eosinophils (%) (Auto) 0.0, Basophils (%) (Auto) 0.0, Neutrophils # (Auto) 7.8 H, Lymphocytes # (Auto) 0.7 L, Monocytes # (Auto) 0.3, Eosinophils # (Auto) 0.0, Basophils # (Auto) 0.0, Calcium Level 8.6 L Vital Signs Date Time Temp Pulse Resp B/P (MAP) Pulse Ox O2 Delivery O2 Flow Rate FiO2 06/20/18 22:06 2.0 06/20/18 22:00 98.0 64 20 105/55 (61) 89 Nasal Cannula I&O- Last 24 Hours up to 6 AM 06/20/18 06:00 Intake Total 1080 ml Output Total 0 ml Balance 1080 ml HUMBERTO ARANGO MD Jun 20, 2018 22:47
[2018-06-21] MEDS: METOPROLOL TART 25 MG TABLET PO SCH ×2 (09:04→20:15)
[2018-06-21] MEDS: ALLOPURINOL 300 MG TAB PO SCH (09:04)
[2018-06-21] MEDS: DOCUSATE SODIUM 100 MG CAP PO SCH ×2 (09:04→20:14)
[2018-06-21] MEDS: SPIRONOLACTONE 25 MG TAB PO SCH (09:04)
[2018-06-21] MEDS: APIXABAN 5 MG TAB (ELIQUIS) PO SCH ×2 (09:04→20:14)
[2018-06-21] MEDS: methylPREDNISolone INJ 40 MG/1 ML VIAL (J2920) IV SCH ×2 (09:04→20:14)
--- NOTE | 2018-06-21 12:39 | IPNPDOC ---
Text Note Date of Service The patient was seen on 06/21/18. NOTE Subjective: Patient feels good today. She still having intermittent SOb with w heezing but the oxygen is helping. No fever or chills. denied chest pain or coughing. Patient is a current smoker smokes about 5 cigarettes per day. PHYSICAL EXAMINATION: Vital Signs:As below General: Patient awake, alert, and oriented x3 lying down n bed in no acute distress. HEENT: Normocephalic, atraumatic. Moist mucous membranes. Anicteric eyes. Chest: Bilateral diffuse crackles. diffuse wheezing heard today. Overall poor air entry. Cardiovascular: S1, S2, irregular. No rub or gallop, a systolic murmur heard. Abdomen: Soft, nontender, bowel sounds present. Extremities: Bilateral edema with chronic venous stasis changes. There is an open ulcer at the left heel. Labs and Radiology: Reviewed ASSESSMENT AND PLAN: This is an 83-year-old female who lives at [facility] and has nurses and aides support 07/01 with PMH of COPD, Gout.,Hypertension.,CHF, Chronic left lower extremity heel wound. Follows at the wound clinic with Dr. Kenney. Pulmonary hypertension with chronic right- sided heart failure. Chronic bilateral pedal edema, Atrial fibrillation on Eliquis., Severe mitral regurgitation., Gouty tophi., Osteoarthritis., Kyphoscoliosis., Gastroesophageal reflux disease (GERD).,Dyslipidemia came to the ED for SOB and HYpoxia. She was first noted to have difficulty in breathing and wheezing over the past week that began about six days ago. The patient was brought to the emergency room on the first june. Was discharged with a nebulizer solution and an increased dose of Lasix because it was thought that patient may be having congestive heart failure. The patient was using the nebulizer as well as an increased dose of Lasix at home without any improvement. From yesterday the patient has been very weak and tired and mostly sleeping. Patient has been short of breath and wheezy so was brought back to the emergency room today. She was also noted to be hypoxic yesterday with oxygen saturation in 79% to 80's at per her nurse. Hypoxia. Will continue with oxygen supplementation. Will continue treatment for COPD. The patient does have chronic interstitial changes in the lungs so we may not be able to get her off oxygen during this hospitalization. will probably need 24 x 7 oxygen at this point. COPD exacerbation. Will continue the patient on budesonide, formoterol, DuoNebs, albuterol as needed and methylprednisone. ALYSSA today with increased pedal edema with oozing of fluid. will give lasix 1 dose. may have to accept some reanl impairment to maintain euvolemic status. Pulmonary hypertension and chronic right-sided heart failure. pedal edema seems increased today. Will continue with home dose of Lasix on discharge. will give iv lasix today. Atrial fibrillation. Rate is controlled. Will continue with Eliquis. Gout. Will continue with allopurinol. History of constipation. Will continue with Colace and Dulcolax suppositories as needed. Chronic left heel wound. from [facility]. Will consult wound care and follow Dr. Kenney's outpatient order for dressing change. Deep vein thrombosis (DVT) prophylaxis. The patient is on Eliquis. Severe mitral regurgitation. will give lasix VS,Fishbone, I+O VS, Fishbone, I+O Laboratory Tests 06/21/18 06:19 Red Blood Count 3.80 L, Mean Corpuscular Volume 91.6, Mean Corpuscular Hemoglobin 28.7, Mean Corpuscular Hemoglobin Concent 31.3 L, Red Cell Distribution Width 16.8 H, Neutrophils (%) (Auto) 91.5 H, Lymphocytes (%) (Auto) 4.1 L, Monocytes (%) (Auto) 3.7, Eosinophils (%) (Auto) 0.0, Basophils (%) (Auto) 0.1, Neutrophils # (Auto) 11.3 H, Lymphocytes # (Auto) 0.5 L, Monocytes # (Auto) 0.5, Eosinophils # (Auto) 0.0, Basophils # (Auto) 0.0, Calcium Level 8.7 L Vital Signs Date Time Temp Pulse Resp B/P (MAP) Pulse Ox O2 Delivery O2 Flow Rate FiO2 06/21/18 09:45 2.0 06/21/18 09:04 60 145/67 06/21/18 06:00 97.1 20 97 Room Air I&O- Last 24 Hours up to 6 AM 06/21/18 06:00 Intake Total 1800 ml Output Total 200 ml Balance 1600 ml HUMBERTO ARANGO MD Jun 21, 2018 12:39
[2018-06-21] MEDS ORDERED: FUROSEMIDE 20 MG/2 ML VIAL (J1940) IV ONE (13:00)
[2018-06-21 14:00] VITALS: BP 102/51
[2018-06-21] MEDS: traMADol 50 MG TAB PO PRN (20:15)
[2018-06-21 22:00] VITALS: BP 114/65
[2018-06-22] MEDS: IPRATROPIUM 0.5MG/ALBUTEROL 2.5MG INH SOL UD 3ML (DUONEB)(J7620) NEB SCH ×5 (00:14→23:45)
[2018-06-22 06:00] VITALS: BP 120/62
[2018-06-22 06:46] LABS: BASO % 0.1 % (0.0-1.0); HEMATOCRIT 34.6 % (36.0-47.0); LYMPH # 0.4 10^3/uL (1.5-4.5); LYMPH % 4.5 % (24.0-44.0); MEAN CORPUSCULAR HEMOGLOBIN 28.2 pg (27.0-33.0); MEAN CORPUSCULAR HGB CONC 31.8 g/dl (32.0-36.5); MEAN CORPUSCULAR VOLUME 88.7 fl (80.0-96.0); MONO # 0.4 10^3/uL (0.0-0.8); MONO % 4.7 % (0.0-5.0); NEUTROPHILS # 8.3 10^3/uL (1.8-7.7); NEUTROPHILS % 90.4 % (36.0-66.0); PLATELET COUNT, AUTOMATED 309 10^3/uL (150-450); WHITE BLOOD COUNT 9.2 10^3/uL (4.0-10.0)
[2018-06-22 07:15] LABS: CALCIUM LEVEL 8.7 MG/DL (8.8-10.2); CREATININE FOR GFR 1.91 MG/DL (0.55-1.30); GLOMERULAR FILTRATION RATE 26.7 (>32); POTASSIUM SERUM 4.8 MEQ/L (3.5-5.1)
[2018-06-22] MEDS: SYMBICORT 80/4.5MCG INHALER 6GM INH SCH ×2 (08:55→20:35)
[2018-06-22] MEDS: APIXABAN 5 MG TAB (ELIQUIS) PO SCH ×2 (09:11→20:39)
[2018-06-22] MEDS: methylPREDNISolone INJ 40 MG/1 ML VIAL (J2920) IV SCH ×2 (09:11→20:39)
[2018-06-22] MEDS: SPIRONOLACTONE 25 MG TAB PO SCH (09:11)
[2018-06-22] MEDS: ALLOPURINOL 300 MG TAB PO SCH (09:11)
[2018-06-22] MEDS: DOCUSATE SODIUM 100 MG CAP PO SCH ×2 (09:11→20:38)
[2018-06-22] MEDS: METOPROLOL TART 25 MG TABLET PO SCH ×2 (09:12→20:39)
[2018-06-22 09:28] VITALS: BP 139/79
[2018-06-22] MEDS ORDERED: ONDANSETRON 4MG/2ML VIAL (J2405) IV PRN (12:45)
[2018-06-22 14:00] VITALS: BP 118/56
[2018-06-22 20:00] VITALS: BP 114/65
--- NOTE | 2018-06-22 21:01 | IPNPDOC ---
Text Note Date of Service The patient was seen on 06/22/18. NOTE Subjective: Patient not feeling well today. Having nausea and poor appetite. She still having intermittent SOB with wheezing but the oxygen is helping. No fever or chills. denied chest pain or coughing. Patient is a current smoker smokes about 5 cigarettes per day. Today refusing to get out of bed. PHYSICAL EXAMINATION: Vital Signs:As below General: Patient awake, alert, and oriented x3 lying down n bed in no acute distress. HEENT: Normocephalic, atraumatic. Moist mucous membranes. Anicteric eyes. Chest: Bilateral diffuse crackles. diffuse wheezing heard today. Overall poor air entry. Cardiovascular: S1, S2, irregular. No rub or gallop, a systolic murmur heard. Abdomen: Soft, nontender, bowel sounds present. Extremities: Bilateral edema with chronic venous stasis changes. There is an open ulcer at the left heel. Labs and Radiology: Reviewed ASSESSMENT AND PLAN: This is an 83-year-old female who lives at [facility] and has nurses and aides support 07/01 with PMH of COPD, Gout.,Hypertension.,CHF, Chronic left lower extremity heel wound. Follows at the wound clinic with Dr. Kenney. Pulmonary hypertension with chronic right- sided heart failure. Chronic bilateral pedal edema, Atrial fibrillation on Eliquis., Severe mitral regurgitation., Gouty tophi., Osteoarthritis., Kyphoscoliosis., Gastroesophageal reflux disease (GERD).,Dyslipidemia came to the ED for SOB and Hypoxia. She was first noted to have difficulty in breathing and wheezing over the past week that began about six days ago. The patient was brought to the emergency room on the first june. Was discharged with a nebulizer solution and an increased dose of Lasix because it was thought that patient may be having congestive heart failure. The patient was using the nebulizer as well as an increased dose of Lasix at home without any improvement. From yesterday the patient has been very weak and tired and mostly sleeping. Patient has been short of breath and wheezy so was brought back to the emergency room today. She was also noted to be hypoxic yesterday with oxygen saturation in 79% to 80's at per her nurse. Hypoxia. Will continue with oxygen supplementation. Will continue treatment for COPD. The patient does have chronic interstitial changes in the lungs so we may not be able to get her off oxygen during this hospitalization. will probably need 24 x 7 oxygen at this point. COPD exacerbation. Will continue the patient on budesonide, formoterol, DuoNebs, albuterol as needed and methylprednisone. ALYSSA Creatinine worsened today. Will nto be able to get the pedal edema off completely due to the worsening real function. may have to accept some renal impairment to maintain acceptable volume status. Moderate to severe Pulmonary hypertension and chronic right-sided heart failure. Has persistent pedal edema. I dont think we will be able to get rid of the edema completely Will continue with home dose of Lasix on discharge. Atrial fibrillation. Rate is controlled. Will continue with Eliquis. Gout. Will continue with allopurinol. History of constipation. Will continue with Colace and Dulcolax suppositories as needed. Chronic left heel wound. from gouty tophi. Will consult wound care and follow Dr. Kenney's outpatient order for dressing change. Deep vein thrombosis (DVT) prophylaxis. The patient is on Eliquis. Severe mitral regurgitation. will give lasix VS,Fishbone, I+O VS, Fishbone, I+O Laboratory Tests 06/22/18 06:20 Red Blood Count 3.90 L, Mean Corpuscular Volume 88.7, Mean Corpuscular Hemoglobin 28.2, Mean Corpuscular Hemoglobin Concent 31.8 L, Red Cell Distribution Width 17.0 H, Neutrophils (%) (Auto) 90.4 H, Lymphocytes (%) (Auto) 4.5 L, Monocytes (%) (Auto) 4.7, Eosinophils (%) (Auto) 0.0, Basophils (%) (Auto) 0.1, Neutrophils # (Auto) 8.3 H, Lymphocytes # (Auto) 0.4 L, Monocytes # (Auto) 0.4, Eosinophils # (Auto) 0.0, Basophils # (Auto) 0.0, Calcium Level 8.7 L Vital Signs Date Time Temp Pulse Resp B/P (MAP) Pulse Ox O2 Delivery O2 Flow Rate FiO2 06/22/18 20:39 62 114/65 06/22/18 14:00 97.7 21 90 Nasal Cannula 2.0 I&O- Last 24 Hours up to 6 AM 06/22/18 06:00 Intake Total 1320 ml Output Total 500 ml Balance 820 ml RAYREBEKAHHUMBERTO MD Jun 22, 2018 21:01
[2018-06-22 22:00] VITALS: BP 114/65
[2018-06-23] MEDS: IPRATROPIUM 0.5MG/ALBUTEROL 2.5MG INH SOL UD 3ML (DUONEB)(J7620) NEB SCH ×5 (02:41→21:29)
[2018-06-23 06:11] LABS: BASO % 0.1 % (0.0-1.0); HEMATOCRIT 34.2 % (36.0-47.0); HEMOGLOBIN 11.1 g/dl (12.0-15.5); LYMPH # 0.4 10^3/uL (1.5-4.5); LYMPH % 3.9 % (24.0-44.0); MEAN CORPUSCULAR HEMOGLOBIN 28.5 pg (27.0-33.0); MEAN CORPUSCULAR HGB CONC 32.5 g/dl (32.0-36.5); MEAN CORPUSCULAR VOLUME 87.9 fl (80.0-96.0); MONO # 0.4 10^3/uL (0.0-0.8); MONO % 3.7 % (0.0-5.0); NEUTROPHILS # 9.5 10^3/uL (1.8-7.7); NEUTROPHILS % 91.9 % (36.0-66.0); PLATELET COUNT, AUTOMATED 283 10^3/uL (150-450); RED BLOOD COUNT 3.89 10^6/uL (4.00-5.40); WHITE BLOOD COUNT 10.4 10^3/uL (4.0-10.0)
[2018-06-23 06:41] LABS: CALCIUM LEVEL 8.9 MG/DL (8.8-10.2); CREATININE FOR GFR 1.56 MG/DL (0.55-1.30); GLOMERULAR FILTRATION RATE 33.7 (>32); POTASSIUM SERUM 6.3 MEQ/L (3.5-5.1)
[2018-06-23] MEDS ORDERED: FUROSEMIDE 40 MG/4 ML VIAL (J1940) IV ONE (08:00)
[2018-06-23] MEDS: DOCUSATE SODIUM 100 MG CAP PO SCH ×2 (09:51→21:41)
[2018-06-23] MEDS: METOPROLOL TART 25 MG TABLET PO SCH ×2 (09:51→21:41)
[2018-06-23] MEDS: SENOKOT S TAB PO SCH ×2 (09:51→21:41)
[2018-06-23] MEDS: ALLOPURINOL 300 MG TAB PO SCH (09:51)
[2018-06-23] MEDS: APIXABAN 5 MG TAB (ELIQUIS) PO SCH ×2 (09:51→21:41)
[2018-06-23] MEDS: methylPREDNISolone INJ 40 MG/1 ML VIAL (J2920) IV SCH ×2 (09:52→21:41)
[2018-06-23] MEDS: SYMBICORT 80/4.5MCG INHALER 6GM INH SCH (11:10)
--- NOTE | 2018-06-23 13:52 | IPNPDOC ---
Text Note Date of Service The patient was seen on 06/23/18. NOTE Subjective: Patient not feeling well today. She is moaning and groaning in bed cannot say what is bothering her just says not feeling well. Continues to have intermittent cough. She did say she walked to the bathroom with her walker. She still having intermittent SOB with wheezing but the oxygen is helping. No fever or chills. Patient is a current smoker smokes about 5 cigarettes per day. PHYSICAL EXAMINATION: Vital Signs:As below General: Patient awake, alert, and oriented x3 lying down n bed in no acute distress. HEENT: Normocephalic, atraumatic. Moist mucous membranes. Anicteric eyes. Chest: Bilateral diffuse crackles. diffuse wheezing heard today. Overall poor air entry. Cardiovascular: S1, S2, irregular. No rub or gallop, a systolic murmur heard. Abdomen: Soft, nontender, bowel sounds present. Extremities: Bilateral edema with chronic venous stasis changes. There is an open ulcer at the left heel. Labs and Radiology: Reviewed ASSESSMENT AND PLAN: This is an 83-year-old female who lives at [facility] and has nurses and aides support 07/01 with PMH of COPD, Gout.,Hypertension.,CHF, Chronic left lower extremity heel wound. Follows at the wound clinic with Dr. Kenney. Pulmonary hypertension with chronic right- sided heart failure. Chronic bilateral pedal edema, Atrial fibrillation on Eliquis., Severe mitral regurgitation., Gouty tophi., Osteoarthritis., Kyphoscoliosis., Gastroesophageal reflux disease (GERD).,Dyslipidemia came to the ED for SOB and Hypoxia. She was first noted to have difficulty in breathing and wheezing over the past week that began about six days ago. The patient was brought to the emergency room on the first june. Was discharged with a nebulizer solution and an increased dose of Lasix because it was thought that patient may be having congestive heart failure. The patient was using the nebulizer as well as an increased dose of Lasix at home without any improvement. From yesterday the patient has been very weak and tired and mostly sleeping. Patient has been short of breath and wheezy so was brought back to the emergency room today. She was also noted to be hypoxic yesterday with oxygen saturation in 79% to 80's at per her nurse. Chronic hypoxic respiratory failure due to COPD, and chronic interstitial changes in the lungs continue oxygen supplementation. COPD exacerbation. Will continue the patient on budesonide, formoterol, DuoNebs, albuterol as needed and methylprednisone. Hyperkalemia will stop spironolactone and give a dose of lasix recheck K was normal ALYSSA Creatinine worsened today. Will nto be able to get the pedal edema off completely due to the worsening real function. may have to accept some renal impairment to maintain acceptable volume status. Moderate to severe Pulmonary hypertension and chronic right-sided heart failure. Has persistent pedal edema. I dont think we will be able to get rid of the edema completely Will continue with home dose of Lasix on discharge. Atrial fibrillation. Rate is controlled. Will continue with Eliquis. Gout. Will continue with allopurinol. History of constipation. Will continue with Colace and Dulcolax suppositories as needed. Chronic left heel wound. from gouty tophi. Will consult wound care and follow Dr. Kenney's outpatient order for dressing change. Deep vein thrombosis (DVT) prophylaxis. The patient is on Eliquis. Severe mitral regurgitation. Lasix as needed after daily assessment. VS,Fishbone, I+O VS, Fishbone, I+O Laboratory Tests 06/23/18 05:19 Red Blood Count 3.89 L, Mean Corpuscular Volume 87.9, Mean Corpuscular Hemoglobin 28.5, Mean Corpuscular Hemoglobin Concent 32.5, Red Cell Distribution Width 16.9 H, Neutrophils (%) (Auto) 91.9 H, Lymphocytes (%) (Auto) 3.9 L, Monocytes (%) (Auto) 3.7, Eosinophils (%) (Auto) 0.0, Basophils (%) (Auto) 0.1, Neutrophils # (Auto) 9.5 H, Lymphocytes # (Auto) 0.4 L, Monocytes # (Auto) 0.4, Eosinophils # (Auto) 0.0, Basophils # (Auto) 0.0, Calcium Level 8.9 06/23/18 12:20 Vital Signs Date Time Temp Pulse Resp B/P (MAP) Pulse Ox O2 Delivery O2 Flow Rate FiO2 06/23/18 09:51 68 120/76 06/23/18 06:00 97.9 20 90 Nasal Cannula 2.0 l I&O- Last 24 Hours up to 6 AM 06/23/18 05:59 Intake Total 380 ml Output Total 870 ml Balance -490 ml HUMBERTO ARANGO MD Jun 23, 2018 13:52
[2018-06-23 14:00] VITALS: BP 117/68
--- NOTE | 2018-06-23 20:36 | ECGEPIP ---
Stationary ECG Study [facility] Test Date: 2018-06-23 Pat Name: GIN DEVINE Department: Room: H1140-27 Gender: F [employer]: MACY : 1935 Requested By: AIME ROBERTS Order Number: [id number] Reading MD: Chris Mayfield Measurements Intervals [place] Rate: 70 P: ID: 0 QRS: 102 QRSD: 94 T: 221 QT: 362 QTc: 391 Interpretive Statements ATRIAL FIBRILLATION Indeterminate QRS axis LOW QRS VOLTAGE IN EXTREMITY LEADS RV conduction delay Nonspecific ST-T abnormalities Electronically Signed On 06-23-2018 20:36:43 EST by Chris Mayfield
[2018-06-23 22:00] VITALS: BP 137/62
[2018-06-24] MEDS: IPRATROPIUM 0.5MG/ALBUTEROL 2.5MG INH SOL UD 3ML (DUONEB)(J7620) NEB SCH ×6 (01:46→23:38)
[2018-06-24 06:00] VITALS: BP 132/61
[2018-06-24 06:38] LABS: BASO % 0.1 % (0.0-1.0); HEMATOCRIT 34.3 % (36.0-47.0); LYMPH % 1.3 % (24.0-44.0); MEAN CORPUSCULAR HGB CONC 32.1 g/dl (32.0-36.5); MEAN CORPUSCULAR VOLUME 90.5 fl (80.0-96.0); MONO # 0.7 10^3/uL (0.0-0.8); MONO % 5.1 % (0.0-5.0); PLATELET COUNT, AUTOMATED 334 10^3/uL (150-450); RED BLOOD COUNT 3.79 10^6/uL (4.00-5.40); WHITE BLOOD COUNT 12.9 10^3/uL (4.0-10.0)
--- NOTE | 2018-06-24 06:50 | IPNPDOC ---
Date Seen The patient was seen on 06/24/18. Progress Note Subjective: Patient is hard of hearing, and says that she walked up and down yesterday with sob. labs still pending. Continues to have intermittent cough. She did say she walked to the bathroom with her walker. She still having intermittent SOB with wheezing but the oxygen is helping. No fever or chills. Patient is a current smoker smokes about 5 cigarettes per day. PHYSICAL EXAMINATION: Vital Signs:As below General: Patient awake, alert, and oriented x3 lying down n bed in no acute distress. HEENT: Normocephalic, atraumatic. Moist mucous membranes. Anicteric eyes. Chest: Bilateral diffuse crackles. diffuse wheezing heard today. Overall poor air entry. Cardiovascular: S1, S2, irregular. No rub or gallop, a systolic murmur heard. Abdomen: Soft, nontender, bowel sounds present. Extremities: Bilateral edema with chronic venous stasis changes. There is an open ulcer at the left heel. Labs and Radiology: Reviewed ASSESSMENT AND PLAN: This is an 83-year-old female who lives at [facility] and has nurses and aides support 07/01 with PMH of COPD, Gout.,Hypertension.,CHF, Chronic left lower extremity heel wound. Follows at the wound clinic with Dr. Kenney. Pulmonary hypertension with chronic right- sided heart failure. Chronic bilateral pedal edema, Atrial fibrillation on Eliquis., Severe mitral regurgitation., Gouty tophi., Osteoarthritis., K yphoscoliosis., Gastroesophageal reflux disease (GERD).,Dyslipidemia came to the ED for SOB and Hypoxia. She was first noted to have difficulty in breathing and wheezing over the past week that began about six days ago. The patient was brought to the emergency room on the first june. Was discharged with a nebulizer solution and an increased dose of Lasix because it was thought that patient may be having congestive heart failure. The patient was using the nebulizer as well as an increased dose of Lasix at home without any improvement. From yesterday the patient has been very weak and tired and mostly sleeping. Patient has been short of breath and wheezy so was brought back to the emergency room today. She was also noted to be hypoxic yesterday with oxygen saturation in 79% to 80's at per her nurse. Chronic hypoxic respiratory failure due to COPD, and chronic interstitial changes in the lungs continue oxygen supplementation. COPD exacerbation. Will continue the patient on budesonide, formoterol, DuoNebs, albuterol as needed and methylprednisone. Hyperkalemia will stop spironolactone and give a dose of lasix recheck K was normal ALYSSA Creatinine worsened today. Will nto be able to get the pedal edema off completely due to the worsening real function. may have to accept some renal impairment to maintain acceptable volume status. Moderate to severe Pulmonary hypertension and chronic right-sided heart failure. Has persistent pedal edema. I dont think we will be able to get rid of the edema completely Will continue with home dose of Lasix on discharge. Atrial fibrillation. Rate is controlled. Will continue with Eliquis. Gout. Will continue with allopurinol. History of constipation. Will continue with Colace and Dulcolax suppositories as needed. Chronic left heel wound. from gouty tophi. Will consult wound care and follow Dr. Kenney's outpatient order for dressing change. Deep vein thrombosis (DVT) prophylaxis. The patient is on Eliquis. Severe mitral regurgitation. Lasix as needed after daily assessment. VS, I&O, 24H, Fishbone Vital Signs/I&O Vital Signs Date Time Temp Pulse Resp B/P (MAP) Pulse Ox O2 Delivery O2 Flow Rate FiO2 06/24/18 00:00 2.0 06/23/18 22:00 98.7 78 20 137/62 (87) 92 Room Air I&O- Last 24 Hours up to 6 AM 06/24/18 06:00 Intake Total 600 ml Output Total 1000 ml Balance -400 ml Laboratory Data 24H LABS Laboratory Tests 2 06/24/18 06:12: CBC/BMP Laboratory Tests 06/23/18 12:20 Microbiology Microbiology 06/19/18 Blood Culture - Preliminary, Resulted No Growth after 72 hours. All specime... 06/19/18 Blood Culture - Preliminary, Resulted No Growth after 72 hours. All specime... TYSON GOMEZ MD Jun 24, 2018 06:40
[2018-06-24 06:53] LABS: LYMPH # 0.2 10^3/uL (1.5-4.5)
[2018-06-24] MEDS: SYMBICORT 80/4.5MCG INHALER 6GM INH SCH (07:15)
[2018-06-24 07:53] LABS: CREATININE FOR GFR 1.45 MG/DL (0.55-1.30); GLOMERULAR FILTRATION RATE 36.7 (>32); POTASSIUM SERUM 4.9 MEQ/L (3.5-5.1)
[2018-06-24] MEDS: APIXABAN 5 MG TAB (ELIQUIS) PO SCH ×2 (08:42→20:47)
[2018-06-24] MEDS: methylPREDNISolone INJ 40 MG/1 ML VIAL (J2920) IV SCH ×2 (08:42→20:48)
[2018-06-24] MEDS: SENOKOT S TAB PO SCH ×2 (08:43→20:47)
[2018-06-24] MEDS: METOPROLOL TART 25 MG TABLET PO SCH ×2 (08:43→20:47)
[2018-06-24] MEDS: ALLOPURINOL 300 MG TAB PO SCH (08:43)
[2018-06-24] MEDS: DOCUSATE SODIUM 100 MG CAP PO SCH ×2 (08:43→20:47)
[2018-06-24 14:00] VITALS: BP 134/65
[2018-06-24 22:00] VITALS: BP 133/66
[2018-06-24] MEDS: traMADol 50 MG TAB PO PRN (22:48)
[2018-06-25] MEDS: SYMBICORT 80/4.5MCG INHALER 6GM INH SCH ×3 (02:21→19:57)
[2018-06-25] MEDS: IPRATROPIUM 0.5MG/ALBUTEROL 2.5MG INH SOL UD 3ML (DUONEB)(J7620) NEB SCH ×5 (02:21→19:57)
[2018-06-25 06:00] VITALS: BP 140/69
[2018-06-25 06:17] LABS: BASO % 0.1 % (0.0-1.0); HEMATOCRIT 33.7 % (36.0-47.0); HEMOGLOBIN 10.6 g/dl (12.0-15.5); LYMPH % 1.7 % (24.0-44.0); MEAN CORPUSCULAR HEMOGLOBIN 28.9 pg (27.0-33.0); MEAN CORPUSCULAR HGB CONC 31.5 g/dl (32.0-36.5); MEAN CORPUSCULAR VOLUME 91.8 fl (80.0-96.0); MONO # 0.8 10^3/uL (0.0-0.8); MONO % 5.5 % (0.0-5.0); NEUTROPHILS # 12.6 10^3/uL (1.8-7.7); NEUTROPHILS % 92.3 % (36.0-66.0); PLATELET COUNT, AUTOMATED 245 10^3/uL (150-450); RED BLOOD COUNT 3.67 10^6/uL (4.00-5.40); WHITE BLOOD COUNT 13.6 10^3/uL (4.0-10.0)
[2018-06-25 06:50] LABS: CALCIUM LEVEL 8.6 MG/DL (8.8-10.2); CREATININE FOR GFR 1.17 MG/DL (0.55-1.30); POTASSIUM SERUM 5.6 MEQ/L (3.5-5.1)
[2018-06-25 07:15] LABS: LYMPH # 0.2 10^3/uL (1.5-4.5)
[2018-06-25] MEDS ORDERED: SOD POLYSTYRENE SULFONATE SUSP 15 GM/60 ML UD PO ONE (08:00)
[2018-06-25] MEDS ORDERED: CALCIUM GLUCONATE 1,000 MG in D5W MINI-BAG PLUS 100 ML IV ONE (08:00)
[2018-06-25] MEDS: SODIUM BICARBONATE 325 MG TAB PO SCH ×4 (08:44→21:22)
[2018-06-25] MEDS: ALLOPURINOL 300 MG TAB PO SCH (08:45)
[2018-06-25] MEDS: METOPROLOL TART 25 MG TABLET PO SCH ×2 (08:45→21:23)
[2018-06-25] MEDS: APIXABAN 5 MG TAB (ELIQUIS) PO SCH ×2 (08:45→21:21)
[2018-06-25] MEDS: methylPREDNISolone INJ 40 MG/1 ML VIAL (J2920) IV SCH ×2 (08:45→21:25)
[2018-06-25] MEDS: DOCUSATE SODIUM 100 MG CAP PO SCH ×3 (09:00→21:22)
[2018-06-25] MEDS: SENOKOT S TAB PO SCH ×3 (09:00→21:22)
--- NOTE | 2018-06-25 11:54 | IPNPDOC ---
Date Seen The patient was seen on 06/25/18. Progress Note Subjective: Pt still c/o sob despite iv solumedrol. Per RN, pt may be dc to [facility] once medically stable. no c/o chest pain, cough, fever or chills. still c/o graham. no pnd or orthopnea. PHYSICAL EXAMINATION: Vital Signs:As below General: Patient awake, alert, and oriented x3 lying down n bed in no acute distress. HEENT: Normocephalic, atraumatic. Moist mucous membranes. Anicteric eyes. Chest: Bilateral diffuse crackles. diffuse wheezing heard today. Overall poor air entry. Cardiovascular: S1, S2, irregular. No rub or gallop, a systolic murmur heard. Abdomen: Soft, nontender, bowel sounds present. Extremities: Bilateral edema with chronic venous stasis changes. There is an open ulcer at the left heel. Labs and Radiology: Reviewed ASSESSMENT AND PLAN: This is an 83-year-old female who lives at [facility] and has nurses and aides support 07/01 with PMH of COPD, Gout.,Hypertension.,CHF, Chronic left lower extremity heel wound. Follows at the wound clinic with Dr. Kenney. Pulmonary hypertension with chronic right- sided heart failure. Chronic bilateral pedal edema, Atrial fibrillation on Eliquis., Severe mitral regurgitation., Gouty tophi., Osteoarthritis., Kyphoscoliosis., Gastroesophageal reflux disease (GERD).,Dyslipidemia came to the ED for SOB and Hypoxia. She was first noted to have difficulty in breathing and wheezing over the past week that began about six days ago. The patient was brought to the emergency room on the first june. Was discharged with a nebulizer solution and an increased dose of Lasix because it was thought that patient may be having congestive heart failure. The patient was using the nebulizer as well as an increased dose of Lasix at home without any improvement. From yesterday the patient has been very weak and tired and mostly sleeping. Patient has been short of breath and wheezy so was brought back to the emergency room today. She was also noted to be hypoxic yesterday with oxygen saturation in 79% to 80's at per her nurse. Chronic hypoxic respiratory failure due to COPD, and chronic interstitial changes in the lungs continue oxygen supplementation. COPD exacerbation. Will continue the patient on budesonide, formoterol, DuoNebs, albuterol as needed and methylprednisone. Hyperkalemia will stop spironolactone and give a dose of lasix recheck K was normal ALYSSA Creatinine worsened today. Will nto be able to get the pedal edema off completely due to the worsening real function. may have to accept some renal impairment to maintain acceptable volume status. Moderate to severe Pulmonary hypertension and chronic right-sided heart failure. Has persistent pedal edema. I dont think we will be able to get rid of the edema completely Will continue with home dose of Lasix on discharge. Atrial fibrillation. Rate is controlled. Will continue with Eliquis. Gout. Will continue with allopurinol. History of constipation. Will continue with Colace and Dulcolax suppositories as needed. Chronic left heel wound. from gouty tophi. Will consult wound care and follow Dr. Kenney's outpatient order for dressing change. Deep vein thrombosis (DVT) prophylaxis. The patient is on Eliquis. Severe mitral regurgitation. Lasix as needed after daily assessment. disposition: pending clinical improvment. possible dc saturday. VS, I&O, 24H, [facility] Vital Signs/I&O Vital Signs Date Time Temp Pulse Resp B/P (MAP) Pulse Ox O2 Delivery O2 Flow Rate FiO2 06/25/18 06:00 98.5 84 17 140/69 (92) 93 Nasal Cannula 2.0 I&O- Last 24 Hours up to 6 AM 06/25/18 05:59 Intake Total 360 ml Output Total 1350 ml Balance -990 ml Laboratory Data 24H LABS Laboratory Tests 2 06/24/18 07:18: Anion Gap 9, Glomerular Filtration Rate 36.7, Blood Urea Nitrogen 62H, Creatinine 1.45H, Sodium Level 136, Potassium Level 4.9, Chloride Level 101, Carbon Dioxide Level 26, Calcium Level 9.0 06/25/18 05:58: Anion Gap 9, Glomerular Filtration Rate 47.0, Blood Urea Nitrogen 54H, Creatinine 1.17, Sodium Level 134L, Potassium Level 5.6H, Chloride Level 106, Carbon Dioxide Level 19L, Calcium Level 8.6L CBC/BMP Laboratory Tests 06/24/18 07:18 Calcium Level 9.0 06/25/18 05:58 Calcium Level 8.6 L Microbiology Microbiology 06/19/18 Blood Culture - Final, Complete NO GROWTH AFTER 5 DAYS 06/19/18 Blood Culture - Final, Complete NO GROWTH AFTER 5 DAYS TYSON GOMEZ MD Jun 25, 2018 07:13
[2018-06-25 13:14] LABS: CREATININE FOR GFR 1.28 MG/DL (0.55-1.30); GLOMERULAR FILTRATION RATE 42.4 (>32); POTASSIUM SERUM 4.2 MEQ/L (3.5-5.1)
[2018-06-25 14:00] VITALS: BP 137/69
[2018-06-25] MEDS: traMADol 50 MG TAB PO PRN (21:21)
[2018-06-25 22:00] VITALS: BP 129/61
[2018-06-26] MEDS: RAMELTEON 8 MG TAB (ROZEREM) PO PRN ×2 (01:19→19:59)
[2018-06-26] MEDS: IPRATROPIUM 0.5MG/ALBUTEROL 2.5MG INH SOL UD 3ML (DUONEB)(J7620) NEB SCH ×6 (04:00→20:00)
[2018-06-26 06:00] VITALS: BP 97/73
[2018-06-26 06:17] LABS: BASO % 0.1 % (0.0-1.0); HEMATOCRIT 33.9 % (36.0-47.0); HEMOGLOBIN 10.4 g/dl (12.0-15.5); LYMPH % 1.4 % (24.0-44.0); MEAN CORPUSCULAR HEMOGLOBIN 28.3 pg (27.0-33.0); MEAN CORPUSCULAR HGB CONC 30.7 g/dl (32.0-36.5); MEAN CORPUSCULAR VOLUME 92.4 fl (80.0-96.0); MONO # 0.6 10^3/uL (0.0-0.8); NEUTROPHILS # 11.2 10^3/uL (1.8-7.7); NEUTROPHILS % 93.1 % (36.0-66.0); PLATELET COUNT, AUTOMATED 214 10^3/uL (150-450); RED BLOOD COUNT 3.67 10^6/uL (4.00-5.40)
[2018-06-26 06:35] LABS: CALCIUM LEVEL 8.4 MG/DL (8.8-10.2); CREATININE FOR GFR 1.01 MG/DL (0.55-1.30); GLOMERULAR FILTRATION RATE 55.7 (>32); POTASSIUM SERUM 5.6 MEQ/L (3.5-5.1)
[2018-06-26 06:55] LABS: LYMPH # 0.2 10^3/uL (1.5-4.5)
[2018-06-26] MEDS ORDERED: SOD POLYSTYRENE SULFONATE SUSP 15 GM/60 ML UD PO ONE (07:00)
[2018-06-26] MEDS ORDERED: predniSONE 20 MG TAB PO ONE (07:00)
[2018-06-26] MEDS ORDERED: CALCIUM GLUCONATE 1,000 MG in D5W MINI-BAG PLUS 100 ML IV ONE (07:00)
--- NOTE | 2018-06-26 07:29 | IPNPDOC ---
Date Seen The patient was seen on 06/26/18. Progress Note Subjective: Remains persistently hyperkalemic despite kayexalate on 06/25/18. Per RN, pt may be dc to [facility] once medically stable. despite low bp this morning, and holding parameters on metoprolol, pt denies dizziness, lightheadedness. no c/o chest pain, cough, fever or chills. still c/o graham. no pnd or orthopnea. solumedrol discontinued, on po prednisone with plans for dc on Saturday. Per RN,pt desaturated yesterday with ambulation but [id number] this morning and recent acute kidney injury creatinine 1.4 with discontinuation of lasix. cxr and bnp pending this morning. PHYSICAL EXAMINATION: Vital Signs:As below General: Patient awake, alert, and oriented x3 lying down n bed in no acute distress. HEENT: Normocephalic, atraumatic. Moist mucous membranes. Anicteric eyes. Chest: Bilateral diffuse cracklesdiminished. Overall poor air entry. Cardiovascular: S1, S2, irregular. No rub or gallop, a systolic murmur heard. Abdomen: Soft, nontender, bowel sounds present. Extremities: Bilateral edema with chronic venous stasis changes. There is an open ulcer at the left heel. Labs and Radiology: Reviewed ASSESSMENT AND PLAN: This is an 83-year-old female who lives at [facility] and has nurses and aides support 07/01 with PMH of COPD, Gout.,Hypertension.,CHF, Chronic left lower extremity heel wound. Follows at the wound clinic with Dr. Kenney. Pulmonary hypertension with chronic right- sided heart failure. Chronic bilateral pedal edema, Atrial fibrillation on Eliquis., Severe mitral regurgitation., Gouty tophi., Osteoarthritis., Kyphoscoliosis., Gastroesophageal reflux disease (GERD).,Dyslipidemia came to the ED for SOB and Hypoxia. She was first noted to have difficulty in breathing and wheezing over the past week that began about six days ago. The patient was brought to the emergency room on the first june. Was discharged with a nebulizer solution and an increased dose of Lasix because it was thought that patient may be having congestive heart failure. The patient was using the nebulizer as well as an increased dose of Lasix at home without any improvement. From yesterday the patient has been very weak and tired and mostly sleeping. Patient has been short of breath and wheezy so was brought back to the emergency room today. She was also noted to be hypoxic yesterday with oxygen saturation in 79% to 80's at per her nurse. Chronic hypoxic respiratory failure due to COPD, and chronic interstitial changes in the lungs, pulmonary hypertension continue oxygen supplementation. Per RN,pt desaturated yesterday with ambulation but [id number] this morning and recent acute kidney injury creatinine 1.4 with discontinuation of lasix. cxr and bnp pending this morning. COPD exacerbation. Will continue the patient on budesonide, formoterol, DuoNebs, albuterol as needed. s/p methylprednisone. on prednisone Hyperkalemia will stop spironolactone and s/p kayexalate. low potassium diet. recheck K was normal Steroid-induced leukocytosis s/p solumedrol. no signs of acute infection. on po prednisone. will do a slow taper as outpt. ALYSSA, resolved. Will nto be able to get the pedal edema off completely due to the worsening real function. may have to accept some renal impairment to maintain acceptable volume status. Moderate to severe Pulmonary hypertension and chronic right-sided heart failure. Has persistent pedal edema. I dont think we will be able to get rid of the edema completely Will continue with home dose of Lasix on discharge. Atrial fibrillation. Rate is controlled. Will continue with Eliquis. Gout. Will continue with allopurinol. History of constipation. Will continue with Colace and Dulcolax suppositories as needed. Chronic left heel wound. from gouty tophi. Will consult wound care and follow Dr. Kenney's outpatient order for dressing change. Deep vein thrombosis (DVT) prophylaxis. The patient is on Eliquis. Severe mitral regurgitation. Lasix as needed after daily assessment. disposition: pending clinical improvment. possible dc saturday. VS, I&O, 24H, Fishbone Vital Signs/I&O Vital Signs Date Time Temp Pulse Resp B/P (MAP) Pulse Ox O2 Delivery O2 Flow Rate FiO2 06/26/18 06:00 97.5 91 18 97/73 (81) 94 Nasal Cannula 2.0 I&O- Last 24 Hours up to 6 AM 06/26/18 06:00 Intake Total 1490 ml Output Total 850 ml Balance 640 ml Laboratory Data 24H LABS Laboratory Tests 2 06/25/18 12:31: Anion Gap 8, Glomerular Filtration Rate 42.4, Blood Urea Nitrogen 52H, Creatinine 1.28, Sodium Level 138, Potassium Level 4.2#, Chloride Level 103, Carbon Dioxide Level 27, Calcium Level 9.0 06/26/18 05:51: Anion Gap 4L, Glomerular Filtration Rate 55.7, Blood Urea Nitrogen 42H, Creatinine 1.01, Sodium Level 136, Potassium Level 5.6H, Chloride Level 104, Carbon Dioxide Level 28, Calcium Level 8.4L, Immature Granulocyte % (Auto) 0.4, White Blood Count 12.0H, Red Blood Count 3.67L, Hemoglobin 10.4L, Hematocrit 33.9L, Mean Corpuscular Volume 92.4, Mean Corpuscular Hemoglobin 28.3, Mean Corpuscular Hemoglobin Concent 30.7L, Red Cell Distribution Width 17.9H, Platelet Count 214, Neutrophils (%) (Auto) 93.1H, Lymphocytes (%) (Auto) 1.4L, Monocytes (%) (Auto) 5.0, Eosinophils (%) (Auto) 0.0, Basophils (%) (Auto) 0.1, Neutrophils # (Auto) 11.2H, Lymphocytes # (Auto) 0.2L, Monocytes # (Auto) 0.6, Eosinophils # (Auto) 0.0, Basophils # (Auto) 0.0, Nucleated Red Blood Cells % (auto) 2.7H CBC/BMP Laboratory Tests 06/25/18 07:31 06/25/18 12:31 Calcium Level 9.0 06/26/18 05:51 Calcium Level 8.4 L, Red Blood Count 3.67 L, Mean Corpuscular Volume 92.4, Mean Corpuscular Hemoglobin 28.3, Mean Corpuscular Hemoglobin Concent 30.7 L, Red Cell Distribution Width 17.9 H, Neutrophils (%) (Auto) 93.1 H, Lymphocytes (%) (Auto) 1.4 L, Monocytes (%) (Auto) 5.0, Eosinophils (%) (Auto) 0.0, Basophils (%) (Auto) 0.1, Neutrophils # (Auto) 11.2 H, Lymphocytes # (Auto) 0.2 L, Monocytes # (Auto) 0.6, Eosinophils # (Auto) 0.0, Basophils # (Auto) 0.0 Microbiology Microbiology 06/19/18 Blood Culture - Final, Complete NO GROWTH AFTER 5 DAYS 06/19/18 Blood Culture - Final, Complete NO GROWTH AFTER 5 DAYS TYSON GOMEZ MD Jun 26, 2018 07:04
[2018-06-26] MEDS: SENOKOT S TAB PO SCH ×2 (08:04→20:03)
[2018-06-26] MEDS: DOCUSATE SODIUM 100 MG CAP PO SCH ×2 (08:04→20:03)
[2018-06-26] MEDS: METOPROLOL TART 25 MG TABLET PO SCH (08:05)
[2018-06-26] MEDS: APIXABAN 5 MG TAB (ELIQUIS) PO SCH ×2 (08:47→20:01)
[2018-06-26] MEDS: ALLOPURINOL 300 MG TAB PO SCH (08:50)
[2018-06-26] MEDS: SYMBICORT 80/4.5MCG INHALER 6GM INH SCH ×2 (08:57→20:09)
--- NOTE | 2018-06-26 09:17 | REP ---
CHEST X-RAY: Two views. HISTORY: Shortness of breath. Question CHF. COMPARISON STUDY: June 19, 2018. FINDINGS: Moderate cardiomegaly is again observed unchanged. The lungs are hyperinflated overall with flattening of the hemidiaphragms and an increase in the AP diameter of the chest consistent with COPD. This is also unchanged. There are small bilateral pleural effusions visible blunting the posterior pleural angles on both sides. On the lateral radiograph. This is a new finding compared with prior lateral study from February 01, 2018. The aorta is tortuous and calcific as before. There is a band of linear fibrosis in the left inferior perihilar region which is unchanged. IMPRESSION: Moderate cardiomegaly persists unchanged. There are new small bilateral pleural effusions consistent with CHF pattern. No pulmonary edema seen. No focal infiltrate. Linear fibrosis left inferior perihilar region. Hyperinflation consistent with COPD. Electronically Signed by Thien Alvarado MD 06/26/2018 09:32 A
[2018-06-26 14:00] VITALS: BP 137/74
[2018-06-26] MEDS ORDERED: FUROSEMIDE 20 MG/2 ML VIAL (J1940) IV ONE (20:00)
[2018-06-26] MEDS: traMADol 50 MG TAB PO PRN (20:03)
[2018-06-26 21:39] LABS: CALCIUM LEVEL 8.2 MG/DL (8.8-10.2); CREATININE FOR GFR 1.28 MG/DL (0.55-1.30); GLOMERULAR FILTRATION RATE 42.4 (>32); POTASSIUM SERUM 3.3 MEQ/L (3.5-5.1)
[2018-06-26 22:00] VITALS: BP 137/69
[2018-06-27 00:43] VITALS: BP 119/64
[2018-06-27] MEDS: FUROSEMIDE 20 MG/2 ML VIAL (J1940) IV SCH ×4 (00:43→20:00)
[2018-06-27 06:00] VITALS: BP 140/77
[2018-06-27] MEDS ORDERED: PRED10TA2 PO (06:39)
[2018-06-27] MEDS ORDERED: POTASSIUM CHLORIDE 10 MEQ SR TABLET PO ONE ×2 (06:45→08:00)
[2018-06-27] MEDS ORDERED: predniSONE 20 MG TAB PO ONE (06:45)
[2018-06-27 07:02] LABS: BASO % 0.1 % (0.0-1.0); HEMATOCRIT 37.5 % (36.0-47.0); HEMOGLOBIN 11.8 g/dl (12.0-15.5); LYMPH # 0.6 10^3/uL (1.5-4.5); LYMPH % 3.5 % (24.0-44.0); MEAN CORPUSCULAR HEMOGLOBIN 28.3 pg (27.0-33.0); MEAN CORPUSCULAR HGB CONC 31.5 g/dl (32.0-36.5); MEAN CORPUSCULAR VOLUME 89.9 fl (80.0-96.0); MONO # 1.4 10^3/uL (0.0-0.8); MONO % 8.1 % (0.0-5.0); NEUTROPHILS # 15.4 10^3/uL (1.8-7.7); NEUTROPHILS % 87.3 % (36.0-66.0); PLATELET COUNT, AUTOMATED 192 10^3/uL (150-450); RED BLOOD COUNT 4.17 10^6/uL (4.00-5.40); WHITE BLOOD COUNT 17.6 10^3/uL (4.0-10.0)
[2018-06-27] MEDS: IPRATROPIUM 0.5MG/ALBUTEROL 2.5MG INH SOL UD 3ML (DUONEB)(J7620) NEB SCH ×4 (07:16→19:32)
[2018-06-27] MEDS: SYMBICORT 80/4.5MCG INHALER 6GM INH SCH ×2 (07:16→19:32)
[2018-06-27 07:25] LABS: CALCIUM LEVEL 8.8 MG/DL (8.8-10.2); CREATININE FOR GFR 0.99 MG/DL (0.55-1.30); MAGNESIUM LEVEL 1.7 MG/DL (1.8-2.4); POTASSIUM SERUM 2.9 MEQ/L (3.5-5.1)
--- NOTE | 2018-06-27 08:05 | REP ---
Portable chest x-ray: Single view. History: Short of breath. Rule out CHF. Comparison study: June 26, 2018. Findings: There is moderate to marked cardiomegaly unchanged. Pulmonary vascular and interstitial markings are increased suggestive of interstitial edema. Today's view is exposed at a somewhat lesser level of inspiration than the previous study. No definite focal infiltrate. I suspect small bilateral pleural effusions. Impression: CHF pattern. Marked cardiomegaly unchanged. Suspect small bilateral effusions. Interstitial markings are increased which may reflect mild interstitial edema. Multiple old healed rib fractures bilaterally. Electronically Signed by Thien Alvarado MD 06/27/2018 07:56 A
[2018-06-27] MEDS: DOCUSATE SODIUM 100 MG CAP PO SCH ×2 (08:18→20:00)
[2018-06-27] MEDS: ALLOPURINOL 300 MG TAB PO SCH (08:18)
[2018-06-27] MEDS: SENOKOT S TAB PO SCH ×2 (08:18→20:00)
[2018-06-27] MEDS: APIXABAN 5 MG TAB (ELIQUIS) PO SCH ×2 (08:18→20:00)
[2018-06-27 12:07] VITALS: BP 133/66
--- NOTE | 2018-06-27 12:51 | IPNPDOC ---
Date Seen The patient was seen on 06/27/18. Progress Note Subjective: Pt responded well to iv lasix last night due to decompensated CHF. improved sob,this morning, but repeat CXR: CHF. pt denies chest pain pressure tightness, lightheadedness, dizziness, palpitations. no nausea, sense of impending doom, diaphoresis. creatinine is stable. discharge postponed due to acute CHF exacerbation which requires further diuresis. possible dc plans saturday if improved and back to baseline. rapid prednisone taper as well. PHYSICAL EXAMINATION: Vital Signs:As below General: Patient awake, alert, and oriented x3 lying down n bed in no acute distress. HEENT: Normocephalic, atraumatic. Moist mucous membranes. Anicteric eyes. Chest: Bilateral diffuse cracklesdiminished. Overall poor air entry. Cardiovascular: S1, S2, irregular. No rub or gallop, a systolic murmur heard. Abdomen: Soft, nontender, bowel sounds present. Extremities: Bilateral edema with chronic venous stasis changes. There is an open ulcer at the left heel. Labs and Radiology: Reviewed ASSESSMENT AND PLAN: This is an 83-year-old female who lives at [facility] and has nurses and aides support 07/01 with PMH of COPD, Gout.,Hypertension.,CHF, Chronic left lower extremity heel wound. Follows at the wound clinic with Dr. Kenney. Pulmonary hypertension with chronic right- sided heart failure. Chronic bilateral pedal edema, Atrial fibrillation on Eliquis., Severe mitral regurgitation., Gouty tophi., Osteoarthritis., Kyphoscoliosis., Gastroesophageal reflux disease (GERD).,Dyslipidemia came to the ED for SOB and Hypoxia. She was first noted to have difficulty in breathing and wheezing over the past week that began about six days ago. The patient was brought to the emergency room on the first june. Was discharged with a nebulizer solution and an increased dose of Lasix because it was thought that patient may be having congestive heart failure. The patient was using the nebulizer as well as an increased dose of Lasix at home without any improvement. From yesterday the patient has been very weak and tired and mostly sleeping. Patient has been short of breath and wheezy so was brought back to the emergency room today. She was also noted to be hypoxic yesterday with oxygen saturation in 79% to 80's at per her nurse. Chronic hypoxic respiratory failure due to COPD, decompensated CHF and chronic interstitial changes in the lungs, pulmonary hypertension continue oxygen supplementation. Per RN,pt desaturated 06/25/18 with ambulation but [id number] 06/26/18 and recent acute kidney injury creatinine 1.4 with discontinuation of lasix. 06/26/18 cxr however showed chf and pt was diuresed with net negative balance from 06/26-06/27/18 with clinical improvement and creatinine stable . repeat cxr 06/27/18: chf. pt denies chest pain pressure tightness, lightheadedness, dizziness, palpitations. no nausea, sense of impending doom, diaphoresis. creatinine is stable. discharge postponed due to acute CHF exacerbation which requires further diuresis. possible dc plans saturday if improved and back to baseline. rapid prednisone taper as well. COPD exacerbation. Will continue the patient on budesonide, formoterol, DuoNebs, albuterol as needed. s/p methylprednisone. on prednisone Hyperkalemia,resolved pt advised to refrain from eating bananas for now. will stop spironolactone and s/p kayexalate. low potassium diet. Hypokalemia due to lasix supplemented. Steroid-induced leukocytosis s/p solumedrol. no signs of acute infection. on po prednisone. will do a slow taper as outpt. ALYSSA, resolved. Will nto be able to get the pedal edema off completely due to the worsening real function. may have to accept some renal impairment to maintain acceptable volume status. Moderate to severe Pulmonary hypertension and chronic right-sided heart failure. Has persistent pedal edema. I dont think we will be able to get rid of the edema completely Will continue with home dose of Lasix on discharge. Atrial fibrillation. Rate is controlled. Will continue with Eliquis. Gout. Will continue with allopurinol. History of constipation. Will continue with Colace and Dulcolax suppositories as needed. Chronic left heel wound. from gouty tophi. Will consult wound care and follow Dr. Kenney's outpatient order for dressing change. Deep vein thrombosis (DVT) prophylaxis. The patient is on Eliquis. Severe mitral regurgitation. Lasix as needed after daily assessment. disposition: discharge postponed until saturday due to decompensated chf. VS, I&O, 24H, Fishbone Vital Signs/I&O Vital Signs Date Time Temp Pulse Resp B/P (MAP) Pulse Ox O2 Delivery O2 Flow Rate FiO2 06/27/18 12:07 99 133/66 (88) 06/27/18 07:58 2.5 06/27/18 06:00 97.4 20 94 Room Air I&O- Last 24 Hours up to 6 AM 06/27/18 06:00 Intake Total 1360 ml Output Total 3850 ml Balance -2490 ml Laboratory Data 24H LABS Laboratory Tests 2 06/26/18 21:00: Anion Gap 12, Glomerular Filtration Rate 42.4, Blood Urea Nitrogen 38H, Creatinine 1.28, Sodium Level 136, Potassium Level 3.3#L, Chloride Level 103, Carbon Dioxide Level 21, Calcium Level 8.2L 06/27/18 06:39: Anion Gap 9, Glomerular Filtration Rate 57.0, Blood Urea Nitrogen 30H, Creatinine 0.99, Sodium Level 140, Potassium Level 2.9*L, Chloride Level 97L, Carbon Dioxide Level 34H, Calcium Level 8.8, Immature Granulocyte % (Auto) 1.0, White Blood Count 17.6H, Red Blood Count 4.17, Hemoglobin 11.8L, Hematocrit 37.5, Mean Corpuscular Volume 89.9, Mean Corpuscular Hemoglobin 28.3, Mean Corpuscular Hemoglobin Concent 31.5L, Red Cell Distribution Width 17.6H, Platelet Count 192, Neutrophils (%) (Auto) 87.3H, Lymphocytes (%) (Auto) 3.5L, Monocytes (%) (Auto) 8.1H, Eosinophils (%) (Auto) 0.0, Basophils (%) (Auto) 0.1, Neutrophils # (Auto) 15.4H, Lymphocytes # (Auto) 0.6L, Monocytes # (Auto) 1.4H, Eosinophils # (Auto) 0.0, Basophils # (Auto) 0.0, Nucleated Red Blood Cells % (auto) 1.2H, Magnesium Level 1.7L, [id number] Natriuretic Peptide 3290H CBC/BMP Laboratory Tests 06/26/18 21:00 Calcium Level 8.2 L 06/27/18 06:39 Calcium Level 8.8, Red Blood Count 4.17, Mean Corpuscular Volume 89.9, Mean Corpuscular Hemoglobin 28.3, Mean Corpuscular Hemoglobin Concent 31.5 L, Red Cell Distribution Width 17.6 H, Neutrophils (%) (Auto) 87.3 H, Lymphocytes (%) (Auto) 3.5 L, Monocytes (%) (Auto) 8.1 H, Eosinophils (%) (Auto) 0.0, Basophils (%) (Auto) 0.1, Neutrophils # (Auto) 15.4 H, Lymphocytes # (Auto) 0.6 L, Monocytes # (Auto) 1.4 H, Eosinophils # (Auto) 0.0, Basophils # (Auto) 0.0 Microbiology Microbiology 06/19/18 Blood Culture - Final, Complete NO GROWTH AFTER 5 DAYS 06/19/18 Blood Culture - Final, Complete NO GROWTH AFTER 5 DAYS TYSON GOMEZ MD Jun 27, 2018 12:51
[2018-06-27 14:00] VITALS: BP 164/91
[2018-06-27 14:39] LABS: CALCIUM LEVEL 8.6 MG/DL (8.8-10.2); CREATININE FOR GFR 1.21 MG/DL (0.55-1.30); GLOMERULAR FILTRATION RATE 45.2 (>32); POTASSIUM SERUM 3.4 MEQ/L (3.5-5.1)
[2018-06-27] MEDS: RAMELTEON 8 MG TAB (ROZEREM) PO PRN (20:00)
[2018-06-27] MEDS: traMADol 50 MG TAB PO PRN (20:01)
[2018-06-27 22:00] VITALS: BP 132/64
[2018-06-28 00:46] LABS: CALCIUM LEVEL 8.2 MG/DL (8.8-10.2); CREATININE FOR GFR 1.08 MG/DL (0.55-1.30); GLOMERULAR FILTRATION RATE 51.6 (>32); POTASSIUM SERUM 2.8 MEQ/L (3.5-5.1)
[2018-06-28] MEDS ORDERED: POTASSIUM CHLORIDE 10 MEQ SR TABLET PO ONE ×2 (01:15→02:15)
[2018-06-28] MEDS: FUROSEMIDE 20 MG/2 ML VIAL (J1940) IV SCH (03:23)
[2018-06-28] MEDS: IPRATROPIUM 0.5MG/ALBUTEROL 2.5MG INH SOL UD 3ML (DUONEB)(J7620) NEB SCH ×5 (04:00→14:59)
[2018-06-28 06:00] VITALS: BP 136/68
[2018-06-28 06:45] LABS: BASO % 0.1 % (0.0-1.0); EOS % 0.1 % (0.0-3.0); HEMOGLOBIN 11.3 g/dl (12.0-15.5); LYMPH # 0.9 10^3/uL (1.5-4.5); LYMPH % 6.5 % (24.0-44.0); MEAN CORPUSCULAR HEMOGLOBIN 28.2 pg (27.0-33.0); MEAN CORPUSCULAR HGB CONC 31.4 g/dl (32.0-36.5); MEAN CORPUSCULAR VOLUME 89.8 fl (80.0-96.0); MONO # 1.1 10^3/uL (0.0-0.8); NEUTROPHILS # 11.9 10^3/uL (1.8-7.7); NEUTROPHILS % 84.7 % (36.0-66.0); PLATELET COUNT, AUTOMATED 218 10^3/uL (150-450); RED BLOOD COUNT 4.01 10^6/uL (4.00-5.40); WHITE BLOOD COUNT 14.1 10^3/uL (4.0-10.0)
[2018-06-28 07:10] LABS: BLOOD UREA NITROGEN 25 MG/DL (7-18); CALCIUM LEVEL 8.5 MG/DL (8.8-10.2); CARBON DIOXIDE LEVEL 39 MEQ/L (21-32); CHLORIDE LEVEL 96 MEQ/L (98-107); CREATININE FOR GFR 0.94 MG/DL (0.55-1.30); GLOMERULAR FILTRATION RATE > 60.0 (>32); GLUCOSE, FASTING 92 MG/DL (70-100); POTASSIUM SERUM 3.7 MEQ/L (3.5-5.1); SODIUM LEVEL 141 MEQ/L (136-145)
[2018-06-28] MEDS: SYMBICORT 80/4.5MCG INHALER 6GM INH SCH (07:24)
[2018-06-28 07:40] LABS: MAGNESIUM LEVEL 1.4 MG/DL (1.8-2.4)
[2018-06-28] MEDS: SENOKOT S TAB PO SCH ×2 (09:30→20:45)
[2018-06-28] MEDS: DOCUSATE SODIUM 100 MG CAP PO SCH ×2 (09:30→20:46)
[2018-06-28] MEDS: ALLOPURINOL 300 MG TAB PO SCH (09:30)
[2018-06-28] MEDS: APIXABAN 5 MG TAB (ELIQUIS) PO SCH ×2 (09:30→20:46)
[2018-06-28] MEDS: METOPROLOL TART 25 MG TABLET PO SCH ×2 (09:32→20:48)
--- NOTE | 2018-06-28 09:44 | IPNPDOC ---
Date Seen The patient was seen on 06/28/18. Progress Note Subjective: Pt had afib with rvr after metoprolol was held to allow enough blood pressure to diurese with lasix. Pt however denies any palpitations, lightheadedness overnight, and states improved sob. she has remained net negative balance for the past 48hrs with normal creatinine. Systolic pressure is high enough to resume rate control meds for afib. no c/o chest pain or pressure. no dizziness. no other issues overnight. PHYSICAL EXAMINATION: Vital Signs:As below General: Patient awake, alert, and oriented x3 lying down n bed in no acute distress. HEENT: Normocephalic, atraumatic. Moist mucous membranes. Anicteric eyes. Chest: Bilateral diffuse cracklesdiminished. Overall poor air entry. Cardiovascular: S1, S2, irregular. No rub or gallop, a systolic murmur heard. Abdomen: Soft, nontender, bowel sounds present. Extremities: Bilateral edema with chronic venous stasis changes. There is an open ulcer at the left heel. Labs and Radiology: Reviewed ASSESSMENT AND PLAN: This is an 83-year-old female who lives at [facility] and has nurses and aides support 07/01 with PMH of COPD, Gout.,Hypertension.,CHF, Chronic left lower extremity heel wound. Follows at the wound clinic with Dr. Kenney. Pulmonary hypertension with chronic right- sided heart failure. Chronic bilateral pedal edema, Atrial fibrillation on Eliquis., Severe mitral regurgitation., Gouty tophi., Osteoarthritis., Kyphoscoliosis., Gastroesophageal reflux disease (GERD).,Dyslipidemia came to the ED for SOB and Hypoxia. She was first noted to have difficulty in breathing and wheezing over the past week that began about six days ago. The patient was brought to the emergency room on the first june. Was discharged with a nebulizer solution and an increased dose of Lasix because it was thought that patient may be having congestive heart failure. The patient was using the nebulizer as well as an increased dose of Lasix at home without any improvement. From yesterday the patient has been very weak and tired and mostly sleeping. Patient has been short of breath and wheezy so was brought back to the emergency room today. She was also noted to be hypoxic yesterday with oxygen saturation in 79% to 80's at per her nurse. Chronic hypoxic respiratory failure due to COPD, decompensated CHF and chronic interstitial changes in the lungs, pulmonary hypertension continue oxygen supplementation. Per RN,pt desaturated 06/25/18 with ambulation but [id number] 06/26/18 and recent acute kidney injury creatinine 1.4 with discontinuation of lasix. 06/26/18 cxr however showed chf and pt was diuresed with net negative balance from 06/26-06/27/18 with clinical improvement and creatinine stable . repeat cxr 06/27/18: chf. pt denies chest pain pressure tightness, lightheadedness, dizziness, palpitations. no nausea, sense of impending doom, diaphoresis. creatinine is stable. discharge postponed due to acute CHF exacerbation which requires further diuresis. possible dc plans saturday if improved and back to baseline. rapid prednisone taper as well. COPD exacerbation. Will continue the patient on budesonide, formoterol, DuoNebs, albuterol as needed. s/p methylprednisone. on prednisone Hyperkalemia,resolved pt advised to refrain from eating bananas for now. will stop spironolactone and s/p kayexalate. low potassium diet. Hypokalemia due to lasix supplemented. Steroid-induced leukocytosis s/p solumedrol. no signs of acute infection. on po prednisone. will do a slow taper as outpt. ALYSSA, resolved. Will nto be able to get the pedal edema off completely due to the worsening real function. may have to accept some renal impairment to maintain acceptable volume status. Moderate to severe Pulmonary hypertension and chronic right-sided heart failure. Has persistent pedal edema. I dont think we will be able to get rid of the edema completely Will continue with home dose of Lasix on discharge. Atrial fibrillation. Rate is uncontrolled. Will continue with Eliquis. metoprolol resumed. Gout. Will continue with allopurinol. History of constipation. Will continue with Colace and Dulcolax suppositories as needed. Chronic left heel wound. from gouty tophi. Will consult wound care and follow Dr. Kenney's outpatient order for dressing change. Deep vein thrombosis (DVT) prophylaxis. The patient is on Eliquis. Severe mitral regurgitation. Lasix as needed after daily assessment. disposition: discharge postponed until saturday due to decompensated chf and afib w rvr. VS, I&O, 24H, Fishbone Vital Signs/I&O Vital Signs Date Time Temp Pulse Resp B/P (MAP) Pulse Ox O2 Delivery O2 Flow Rate FiO2 06/28/18 09:32 112 123/61 06/28/18 06:40 2.5 06/28/18 06:00 97.4 20 94 Room Air I&O- Last 24 Hours up to 6 AM 06/28/18 06:00 Intake Total 1400 ml Output Total 2800 ml Balance -1400 ml Laboratory Data 24H LABS Laboratory Tests 2 06/27/18 13:52: Anion Gap 12, Glomerular Filtration Rate 45.2, Blood Urea Nitrogen 27H, Creatinine 1.21, Sodium Level 140, Potassium Level 3.4L, Chloride Level 96L, Carbon Dioxide Level 32, Calcium Level 8.6L 06/27/18 23:54: Anion Gap 9, Glomerular Filtration Rate 51.6, Blood Urea Nitrogen 26H, Creatinine 1.08, Sodium Level 142, Potassium Level 2.8*L, Chloride Level 96L, Carbon Dioxide Level 37H, Calcium Level 8.2L 06/28/18 06:22: Anion Gap 6L, Glomerular Filtration Rate > 60.0, Blood Urea Nitrogen 25H, Creatinine 0.94, Sodium Level 141, Potassium Level 3.7#, Chloride Level 96L, Carbon Dioxide Level 39H, Calcium Level 8.5L, Immature Granulocyte % (Auto) 0.6, White Blood Count 14.1H, Red Blood Count 4.01, Hemoglobin 11.3L, Hematocrit 36.0, Mean Corpuscular Volume 89.8, Mean Corpuscular Hemoglobin 28.2, Mean Corpuscular Hemoglobin Concent 31.4L, Red Cell Distribution Width 18.2H, Thomas telet Count 218, Neutrophils (%) (Auto) 84.7H, Lymphocytes (%) (Auto) 6.5L, Monocytes (%) (Auto) 8.0H, Eosinophils (%) (Auto) 0.1, Basophils (%) (Auto) 0.1, Neutrophils # (Auto) 11.9H, Lymphocytes # (Auto) 0.9L, Monocytes # (Auto) 1.1H, Eosinophils # (Auto) 0.0, Basophils # (Auto) 0.0, Nucleated Red Blood Cells % (auto) 1.2H, Magnesium Level 1.4L CBC/BMP Laboratory Tests 06/27/18 13:52 Calcium Level 8.6 L 06/27/18 23:54 Calcium Level 8.2 L 06/28/18 06:22 Calcium Level 8.5 L, Red Blood Count 4.01, Mean Corpuscular Volume 89.8, Mean Corpuscular Hemoglobin 28.2, Mean Corpuscular Hemoglobin Concent 31.4 L, Red Cell Distribution Width 18.2 H, Neutrophils (%) (Auto) 84.7 H, Lymphocytes (%) (Auto) 6.5 L, Monocytes (%) (Auto) 8.0 H, Eosinophils (%) (Auto) 0.1, Basophils (%) (Auto) 0.1, Neutrophils # (Auto) 11.9 H, Lymphocytes # (Auto) 0.9 L, Monocytes # (Auto) 1.1 H, Eosinophils # (Auto) 0.0, Basophils # (Auto) 0.0 Microbiology Microbiology 06/19/18 Blood Culture - Final, Complete NO GROWTH AFTER 5 DAYS 06/19/18 Blood Culture - Final, Complete NO GROWTH AFTER 5 DAYS TYSON GOMEZ MD Jun 28, 2018 09:44
[2018-06-28] MEDS: MAG SULF 1GM/100ML (MAG RUN) 1 GM in APPROPRIATE DILUENT 1 EA IV SCH ×2 (11:09→12:00)
[2018-06-28 13:01] LABS: BLOOD UREA NITROGEN 23 MG/DL (7-18); CALCIUM LEVEL 8.1 MG/DL (8.8-10.2); CARBON DIOXIDE LEVEL 40 MEQ/L (21-32); CHLORIDE LEVEL 93 MEQ/L (98-107); CREATININE FOR GFR 0.92 MG/DL (0.55-1.30); GLOMERULAR FILTRATION RATE > 60.0 (>32); GLUCOSE, FASTING 119 MG/DL (70-100); POTASSIUM SERUM 3.7 MEQ/L (3.5-5.1); SODIUM LEVEL 139 MEQ/L (136-145)
[2018-06-28 14:00] VITALS: BP 132/61
[2018-06-28] MEDS ORDERED: FUROSEMIDE 20 MG/2 ML VIAL (J1940) IV SCH (17:00)
[2018-06-28 17:14] VITALS: BP 114/61
[2018-06-28 18:58] LABS: BLOOD UREA NITROGEN 19 MG/DL (7-18); CARBON DIOXIDE LEVEL 38 MEQ/L (21-32); CHLORIDE LEVEL 93 MEQ/L (98-107); CREATININE FOR GFR 0.94 MG/DL (0.55-1.30); GLOMERULAR FILTRATION RATE > 60.0 (>32); GLUCOSE, FASTING 135 MG/DL (70-100); POTASSIUM SERUM 3.4 MEQ/L (3.5-5.1); SODIUM LEVEL 137 MEQ/L (136-145)
[2018-06-28] MEDS: RAMELTEON 8 MG TAB (ROZEREM) PO PRN (20:45)
[2018-06-28] MEDS: traMADol 50 MG TAB PO PRN (20:46)
[2018-06-28 22:00] VITALS: BP 116/61
[2018-06-28 23:58] LABS: BLOOD UREA NITROGEN 18 MG/DL (7-18); CALCIUM LEVEL 7.7 MG/DL (8.8-10.2); CARBON DIOXIDE LEVEL 41 MEQ/L (21-32); CHLORIDE LEVEL 92 MEQ/L (98-107); CREATININE FOR GFR 0.82 MG/DL (0.55-1.30); GLOMERULAR FILTRATION RATE > 60.0 (>32); GLUCOSE, FASTING 101 MG/DL (70-100); POTASSIUM SERUM 3.3 MEQ/L (3.5-5.1); SODIUM LEVEL 138 MEQ/L (136-145)
[2018-06-29] MEDS: SYMBICORT 80/4.5MCG INHALER 6GM INH SCH ×3 (00:23→21:18)
[2018-06-29] MEDS: IPRATROPIUM 0.5MG/ALBUTEROL 2.5MG INH SOL UD 3ML (DUONEB)(J7620) NEB SCH ×7 (00:23→20:00)
[2018-06-29 05:57] LABS: BASO % 0.1 % (0.0-1.0); EOS # 0.2 10^3/uL (0.0-0.50); EOS % 1.6 % (0.0-3.0); HEMATOCRIT 33.1 % (36.0-47.0); HEMOGLOBIN 10.5 g/dl (12.0-15.5); LYMPH # 0.9 10^3/uL (1.5-4.5); LYMPH % 9.3 % (24.0-44.0); MEAN CORPUSCULAR HEMOGLOBIN 28.4 pg (27.0-33.0); MEAN CORPUSCULAR HGB CONC 31.7 g/dl (32.0-36.5); MEAN CORPUSCULAR VOLUME 89.5 fl (80.0-96.0); MONO # 0.7 10^3/uL (0.0-0.8); MONO % 6.8 % (0.0-5.0); NEUTROPHILS # 8.2 10^3/uL (1.8-7.7); NEUTROPHILS % 81.8 % (36.0-66.0); PLATELET COUNT, AUTOMATED 174 10^3/uL (150-450)
[2018-06-29 06:00] VITALS: BP 116/61
[2018-06-29 06:19] LABS: BLOOD UREA NITROGEN 17 MG/DL (7-18); CALCIUM LEVEL 7.8 MG/DL (8.8-10.2); CARBON DIOXIDE LEVEL 40 MEQ/L (21-32); CHLORIDE LEVEL 93 MEQ/L (98-107); CREATININE FOR GFR 0.69 MG/DL (0.55-1.30); GLOMERULAR FILTRATION RATE > 60.0 (>32); GLUCOSE, FASTING 96 MG/DL (70-100); POTASSIUM SERUM 3.5 MEQ/L (3.5-5.1); SODIUM LEVEL 138 MEQ/L (136-145)
[2018-06-29] MEDS ORDERED: FUROSEMIDE 20 MG/2 ML VIAL (J1940) IV ONE (07:00)
[2018-06-29] MEDS ORDERED: POTASSIUM CHLORIDE 10 MEQ SR TABLET PO ONE (07:00)
[2018-06-29 07:06] LABS: MAGNESIUM LEVEL 1.6 MG/DL (1.8-2.4)
[2018-06-29] MEDS: DOCUSATE SODIUM 100 MG CAP PO SCH ×2 (07:50→20:12)
[2018-06-29] MEDS: SENOKOT S TAB PO SCH ×2 (07:50→20:12)
[2018-06-29] MEDS: ALLOPURINOL 300 MG TAB PO SCH (07:50)
[2018-06-29] MEDS: APIXABAN 5 MG TAB (ELIQUIS) PO SCH ×2 (07:50→20:12)
[2018-06-29] MEDS: METOPROLOL TART 25 MG TABLET PO SCH ×2 (07:50→20:14)
--- NOTE | 2018-06-29 08:20 | REP ---
Portable chest x-ray: Sitting AP view. History: Shortness of breath. Question CHF. Comparison study: June 27, 2018. Findings: Cardiomegaly is observed as before. Today's views exposed at a better level of inspiration. There is linear fibrosis in the left inferior perihilar region which is unchanged from July 06, 2018 and three July 06, 2018. Interstitial markings remain somewhat prominent consistent with some degree of fibrosis. No pleural effusion is seen. No new infiltrate is noted. Impression: Cardiomegaly. Linear fibrosis left inferior perihilar region. Diffuse Rahul prominent interstitial markings suggestive of fibrosis. Electronically Signed by Thien Alvarado MD 06/29/2018 08:11 A
[2018-06-29 13:23] LABS: BLOOD UREA NITROGEN 17 MG/DL (7-18); CARBON DIOXIDE LEVEL 40 MEQ/L (21-32); CHLORIDE LEVEL 90 MEQ/L (98-107); CREATININE FOR GFR 0.82 MG/DL (0.55-1.30); GLOMERULAR FILTRATION RATE > 60.0 (>32); GLUCOSE, FASTING 166 MG/DL (70-100); MAGNESIUM LEVEL 1.7 MG/DL (1.8-2.4); SODIUM LEVEL 138 MEQ/L (136-145)
[2018-06-29 14:00] VITALS: BP 97/52
--- NOTE | 2018-06-29 18:06 | IPNPDOC ---
Date Seen The patient was seen on 06/29/18. Progress Note Subjective: Today, no c/o chest pain or pressure. no dizziness. no other issues overnight. She continues to have occasional dry cough without sputum. no fever or chills. Pt had afib with rvr 06/27/18 after metoprolol was held to allow enough blood pressure to diurese with lasix. Pt however denied any palpitations, lightheadedness on 06/28/18, and stated improved sob. she has remained net negative balance for the past 72hrs with normal creatinine. Resumed rate control meds for afib on 06/28/18. PHYSICAL EXAMINATION: Vital Signs:As below General: Patient awake, alert, and oriented x3 lying down n bed in no acute distress. HEENT: Normocephalic, atraumatic. Moist mucous membranes. Anicteric eyes. Chest: Bilateral diffuse cracklesdiminished. Overall poor air entry. Cardiovascular: S1, S2, irregular. No rub or gallop, a systolic murmur heard. Abdomen: Soft, nontender, bowel sounds present. Extremities: Bilateral edema with chronic venous stasis changes. There is an open ulcer at the left heel. Labs and Radiology: Reviewed ASSESSMENT AND PLAN: This is an 83-year-old female who lives at [facility] and has nurses and aides support 07/01 with PMH of COPD, Gout.,Hypertension.,CHF, Chronic left lower extremity heel wound. Follows at the wound clinic with Dr. Kenney. Pulmonary hypertension with chronic right- sided heart failure. Chronic bilateral pedal edema, Atrial fibrillation on Eliquis., Severe mitral regurgitation., Gouty tophi., Osteoarthritis., Kyphoscoliosis., Gastroesophageal reflux disease (GERD).,Dyslipidemia came to the ED for SOB and Hypoxia. She was first noted to have difficulty in breathing and wheezing over the past week that began about six days ago. The patient was brought to the emergency room on the first june. Was discharged with a nebulizer solution and an increased dose of Lasix because it was thought that patient may be having congestive heart failure. The patient was using the nebulizer as well as an increased dose of Lasix at home without any improvement. From yesterday the patient has been very weak and tired and mostly sleeping. Patient has been short of breath and wheezy so was brought back to the emergency room today. She was also noted to be hypoxic yesterday with oxygen saturation in 79% to 80's at per her nurse. Chronic hypoxic respiratory failure due to COPD, decompensated CHF and chronic interstitial changes in the lungs, pulmonary hypertension continue oxygen supplementation. Per RN,pt desaturated 06/25/18 with ambulation but [id number] 06/26/18 and recent acute kidney injury creatinine 1.4 with discontinuation of lasix. 06/26/18 cxr however showed chf and pt was diuresed with net negative balance from 06/26-06/27/18 with clinical improvement and creatinine stable . repeat cxr 06/27/18: chf. pt denies chest pain pressure tightness, lightheadedness, dizziness, palpitations. no nausea, sense of impending doom, diaphoresis. creatinine is stable. discharge postponed due to acute CHF exacerbation which requires further diuresis. possible dc plans saturday if improved and back to baseline. rapid prednisone taper as well. decompensated CHF, diastolic dysfunction Per RN,pt desaturated 06/25/18 with ambulation but [id number] 06/26/18 and recent acute kidney injury creatinine 1.4 with discontinuation of lasix. 06/26/18 cxr however showed chf and pt was diuresed with net negative balance from 06/26-06/27/18 with clinical improvement and creatinine stable . repeat cxr 06/27/18: chf. pt denies chest pain pressure tightness, lightheadedness, dizziness, palpitations. no nausea, sense of impending doom, diaphoresis. creatinine is stable. discharge postponed due to acute CHF exacerbation which requires further diuresis. possible dc plans saturday if improved and back to baseline. rapid prednisone taper as well. COPD exacerbation. Will continue the patient on budesonide, formoterol, DuoNebs, albuterol as needed. s/p methylprednisone. on prednisone Hyperkalemia,resolved pt advised to refrain from eating bananas for now. will stop spironolactone and s/p kayexalate. low potassium diet. Hypokalemia due to lasix supplemented. Steroid-induced leukocytosis s/p solumedrol. no signs of acute infection. on po prednisone. will do a slow taper as outpt. ALYSSA, resolved. Will nto be able to get the pedal edema off completely due to the worsening real function. may have to accept some renal impairment to maintain acceptable volume status. Moderate to severe Pulmonary hypertension and chronic right-sided heart failure. Has persistent pedal edema. I dont think we will be able to get rid of the edema completely Will continue with home dose of Lasix on discharge. Atrial fibrillation. Rate is uncontrolled. Will continue with Eliquis. metoprolol resumed. Gout. Will continue with allopurinol. History of constipation. Will continue with Colace and Dulcolax suppositories as needed. Chronic left heel wound. from gouty tophi. Will consult wound care and follow Dr. Kenney's outpatient order for dressing change. Deep vein thrombosis (DVT) prophylaxis. The patient is on Eliquis. Severe mitral regurgitation. Lasix as needed after daily assessment. disposition: discharge postponed until saturday due to decompensated chf and afib w rvr. VS, I&O, 24H, Fishbone Vital Signs/I&O Vital Signs Date Time Temp Pulse Resp B/P (MAP) Pulse Ox O2 Delivery O2 Flow Rate FiO2 06/29/18 14:00 98.3 75 18 97/52 (67) 94 Nasal Cannula 2.0 I&O- Last 24 Hours up to 6 AM 06/29/18 06:00 Intake Total 2840 ml Output Total 950 ml Balance 1890 ml Laboratory Data 24H LABS Laboratory Tests 2 06/28/18 18:05: Anion Gap 6L, Glomerular Filtration Rate > 60.0, Blood Urea Nitrogen 19H, Creatinine 0.94, Sodium Level 137, Potassium Level 3.4L, Chloride Level 93L, Carbon Dioxide Level 38H, Calcium Level 8.0L 06/28/18 23:33: Anion Gap 5L, Glomerular Filtration Rate > 60.0, Blood Urea Nitrogen 18, Creatinine 0.82, Sodium Level 138, Potassium Level 3.3L, Chloride Level 92L, Carbon Dioxide Level 41H, Calcium Level 7.7L 06/29/18 05:36: Anion Gap 5L, Glomerular Filtration Rate > 60.0, Blood Urea Nitrogen 17, Creatinine 0.69, Sodium Level 138, Potassium Level 3.5, Chloride Level 93L, Carbon Dioxide Level 40H, Calcium Level 7.8L, Immature Granulocyte % (Auto) 0.4, White Blood Count 10.0, Red Blood Count 3.70L, Hemoglobin 10.5L, Hematocrit 33.1L, Mean Corpuscular Volume 89.5, Mean Corpuscular Hemoglobin 28.4, Mean Corpuscular Hemoglobin Concent 31.7L, Red Cell Distribution Width 18.1H, Platelet Count 174, Neutrophils (%) (Auto) 81.8H, Lymphocytes (%) (Auto) 9.3L, Monocytes (%) (Auto) 6.8H, Eosinophils (%) (Auto) 1.6, Basophils (%) (Auto) 0.1, Neutrophils # (Auto) 8.2H, Lymphocytes # (Auto) 0.9L, Monocytes # (Auto) 0.7, Eosinophils # (Auto) 0.2, Basophils # (Auto) 0.0, Nucleated Red Blood Cells % (auto) 0.4H, Magnesium Level 1.6L 06/29/18 12:44: Anion Gap 8, Glomerular Filtration Rate > 60.0, Blood Urea Nitrogen 17, Creatinine 0.82, Sodium Level 138, Potassium Level 4.0, Chloride Level 90L, Carbon Dioxide Level 40H, Calcium Level 8.0L, Magnesium Level 1.7L CBC/BMP Laboratory Tests 06/28/18 18:05 Calcium Level 8.0 L 06/28/18 23:33 Calcium Level 7.7 L 06/29/18 05:36 Calcium Level 7.8 L, Red Blood Count 3.70 L, Mean Corpuscular Volume 89.5, Mean Corpuscular Hemoglobin 28.4, Mean Corpuscular Hemoglobin Concent 31.7 L, Red Cell Distribution Width 18.1 H, Neutrophils (%) (Auto) 81.8 H, Lymphocytes (%) (Auto) 9.3 L, Monocytes (%) (Auto) 6.8 H, Eosinophils (%) (Auto) 1.6, Basophils (%) (Auto) 0.1, Neutrophils # (Auto) 8.2 H, Lymphocytes # (Auto) 0.9 L, Monocytes # (Auto) 0.7, Eosinophils # (Auto) 0.2, Basophils # (Auto) 0.0 06/29/18 12:44 Calcium Level 8.0 L Microbiology Microbiology 06/19/18 Blood Culture - Final, Complete NO GROWTH AFTER 5 DAYS 06/19/18 Blood Culture - Final, Complete NO GROWTH AFTER 5 DAYS TYSON GOMEZ MD Jun 29, 2018 18:06
[2018-06-29 19:29] LABS: BLOOD UREA NITROGEN 19 MG/DL (7-18); CALCIUM LEVEL 7.9 MG/DL (8.8-10.2); CARBON DIOXIDE LEVEL 40 MEQ/L (21-32); CHLORIDE LEVEL 92 MEQ/L (98-107); CREATININE FOR GFR 0.87 MG/DL (0.55-1.30); GLOMERULAR FILTRATION RATE > 60.0 (>32); GLUCOSE, FASTING 149 MG/DL (70-100); MAGNESIUM LEVEL 1.5 MG/DL (1.8-2.4); POTASSIUM SERUM 3.7 MEQ/L (3.5-5.1); SODIUM LEVEL 140 MEQ/L (136-145)
[2018-06-29] MEDS: RAMELTEON 8 MG TAB (ROZEREM) PO PRN (20:12)
[2018-06-29] MEDS: traMADol 50 MG TAB PO PRN (20:12)
[2018-06-29 22:00] VITALS: BP 123/58
[2018-06-30 00:06] LABS: BLOOD UREA NITROGEN 19 MG/DL (7-18); CARBON DIOXIDE LEVEL 40 MEQ/L (21-32); CHLORIDE LEVEL 90 MEQ/L (98-107); CREATININE FOR GFR 0.76 MG/DL (0.55-1.30); GLOMERULAR FILTRATION RATE > 60.0 (>32); GLUCOSE, FASTING 118 MG/DL (70-100); POTASSIUM SERUM 3.6 MEQ/L (3.5-5.1); SODIUM LEVEL 135 MEQ/L (136-145)
[2018-06-30] MEDS: IPRATROPIUM 0.5MG/ALBUTEROL 2.5MG INH SOL UD 3ML (DUONEB)(J7620) NEB SCH ×3 (00:24→08:00)
[2018-06-30 06:00] VITALS: BP 133/69
[2018-06-30 06:27] LABS: EOS # 0.1 10^3/uL (0.0-0.50); HEMATOCRIT 34.3 % (36.0-47.0); HEMOGLOBIN 10.4 g/dl (12.0-15.5); LYMPH # 0.9 10^3/uL (1.5-4.5); LYMPH % 7.8 % (24.0-44.0); MEAN CORPUSCULAR HEMOGLOBIN 28.3 pg (27.0-33.0); MEAN CORPUSCULAR HGB CONC 30.3 g/dl (32.0-36.5); MEAN CORPUSCULAR VOLUME 93.2 fl (80.0-96.0); MONO # 0.7 10^3/uL (0.0-0.8); MONO % 6.4 % (0.0-5.0); NEUTROPHILS # 9.5 10^3/uL (1.8-7.7); NEUTROPHILS % 84.4 % (36.0-66.0); PLATELET COUNT, AUTOMATED 158 10^3/uL (150-450); RED BLOOD COUNT 3.68 10^6/uL (4.00-5.40); WHITE BLOOD COUNT 11.2 10^3/uL (4.0-10.0)
[2018-06-30 06:52] LABS: BLOOD UREA NITROGEN 19 MG/DL (7-18); CALCIUM LEVEL 8.1 MG/DL (8.8-10.2); CARBON DIOXIDE LEVEL 41 MEQ/L (21-32); CHLORIDE LEVEL 91 MEQ/L (98-107); CREATININE FOR GFR 0.83 MG/DL (0.55-1.30); GLOMERULAR FILTRATION RATE > 60.0 (>32); GLUCOSE, FASTING 140 MG/DL (70-100); POTASSIUM SERUM 3.8 MEQ/L (3.5-5.1); SODIUM LEVEL 136 MEQ/L (136-145)
--- NOTE | 2018-06-30 07:24 | DS.PDOC ---
Discharge Summary General Date of Admission Jun 19, 2018 at 14:19 Date of Discharge 06/30/18 discharged to [facility] Discharge Summary DISCHARGE DIAGNOSES: ACUTE COPD EXACERBATION ACUTE KIDNEY INJURY DUE TO LASIX DIURESIS ACUTE DECOMPENSATED CHF EXACERBATION, DIASTOLIC DYSFUNCTION ATRIAL FIBRILLATION WITH RAPID VENTRICULAR RESPONSE ELECTROLYTE ABNORMALITIES HYPOMAGNESEMIA HYPOKALEMIA DISCHARGE MEDS: PLS SEE BELOW DISCHARGE INSTRUCTIONS: STRICT I/O 2LITER FLUID RESTRICTION DAILY WEIGHT CALL MD IF >2LB WEIGHT GAIN (discharge weight: 58.6 kg) HISTORY OF PRESENTING ILLNESS: This is an 83-year-old female who lives at [facility] and has nurses and aides support 07/01 with PMH of COPD, Gout.,Hypertension.,CHF, Chronic left lower extremity heel wound. Follows at the wound clinic with Dr. Malina angela. Pulmonary hypertension with chronic right-sided heart failure. Chronic bilateral pedal edema, Atrial fibrillation on Eliquis., Severe mitral regurgitation., Gouty tophi., Osteoarthritis., Kyphoscoliosis., Gastroesophageal reflux disease (GERD).,Dyslipidemia came to the ED for SOB and Hypoxia. She was first noted to have difficulty in breathing and wheezing over the past week that began about six days ago. The patient was brought to the emergency room on the first june. Was discharged with a nebulizer solution and an increased dose of Lasix because it was thought that patient may be having congestive heart failure. The patient was using the nebulizer as well as an increased dose of Lasix at home without any improvement. From yesterday the patient has been very weak and tired and mostly sleeping. Patient has been short of breath and wheezy so was brought back to the emergency room today. She was also noted to be hypoxic yesterday with oxygen saturation in 79% to 80's at per her nurse. HOSPITAL COURSE: Chronic hypoxic respiratory failure due to COPD, decompensated CHF and chronic interstitial changes in the lungs, pulmonary hypertension continue oxygen supplementation. Per RN,pt desaturated 06/25/18 with ambulation but [id number] 06/26/18 and recent acute kidney injury creatinine 1.4 with discontinuation of lasix. 06/26/18 cxr however showed chf and pt was diuresed with net negative balance from 06/26-06/27/18 with clinical improvement and creatinine stable . repeat cxr 06/27/18: chf. pt denies chest pain pressure tightness, lightheadedness, dizziness, palp itations. no nausea, sense of impending doom, diaphoresis. creatinine is stable. discharge postponed due to acute CHF exacerbation which requires further diuresis. possible dc plans saturday if improved and back to baseline. rapid prednisone taper as well. decompensated CHF, diastolic dysfunction Per RN,pt desaturated 06/25/18 with ambulation but [id number] 06/26/18 and recent acute kidney injury creatinine 1.4 with discontinuation of lasix. 06/26/18 cxr however showed chf and pt was diuresed with net negative balance from 06/26-06/27/18 with clinical improvement and creatinine stable . repeat cxr 06/27/18: chf. pt denies chest pain pressure tightness, lightheadedness, dizziness, palpitations. no nausea, sense of impending doom, diaphoresis. creatinine is stable. discharge postponed due to acute CHF exacerbation which requires further diuresis. possible dc plans saturday if improved and back to baseline. rapid prednisone taper as well. Admission weight: 62.73kg Discharge weight: 58 kg COPD exacerbation. Will continue the patient on budesonide, formoterol, DuoNebs, albuterol as needed. s/p methylprednisone. on prednisone Hyperkalemia,resolved pt advised to refrain from eating bananas for now. will stop spironolactone and s/p kayexalate. low potassium diet. Hypokalemia due to lasix supplemented. Steroid-induced leukocytosis s/p solumedrol. no signs of acute infection. on po prednisone. will do a slow taper as outpt. ALYSSA, resolved. Will nto be able to get the pedal edema off completely due to the worsening real function. may have to accept some renal impairment to maintain acceptable volume status. Moderate to severe Pulmonary hypertension and chronic right-sided heart failure. Has persistent pedal edema. I dont think we will be able to get rid of the edema completely Will continue with home dose of Lasix on discharge. Atrial fibrillation. Rate is uncontrolled. Will continue with Eliquis. metoprolol resumed. Gout. Will continue with allopurinol. History of constipation. Will continue with Colace and Dulcolax suppositories as needed. Chronic left heel wound. from gouty tophi. Will consult wound care and follow Dr. Kenney's outpatient order for dressing change. Deep vein thrombosis (DVT) prophylaxis. The patient is on Eliquis. Severe mitral regurgitation. Lasix as needed after daily assessment. DISCHARGE PHYSICAL EXAMINATION: Vital Signs:As below General: Patient awake, alert, and oriented x3 lying down n bed in no acute distress. HEENT: Normocephalic, atraumatic. Moist mucous membranes. Anicteric eyes. Chest: Bilateral diffuse cracklesdiminished. Overall poor air entry. Cardiovascular: S1, S2, irregular. No rub or gallop, a systolic murmur heard. Abdomen: Soft, nontender, bowel sounds present. Extremities: Bilateral edema with chronic venous stasis changes. There is an open ulcer at the left heel. LABORATORY DATA, IMAGING STUDIES, MICROBIOLOGY: PLS SEE BELOW. CHEST X-RAY: Two views. HISTORY: Shortness of breath. Question CHF. COMPARISON STUDY: June 19, 2018. FINDINGS: Moderate cardiomegaly is again observed unchanged. The lungs are hyperinflated overall with flattening of the hemidiaphragms and an increase in the AP diameter of the chest consistent with COPD. This is also unchanged. There are small bilateral pleural effusions visible blunting the posterior pleural angles on both sides. On the lateral radiograph. This is a new finding compared with prior lateral study from February 01, 2018. The aorta is tortuous and calcific as before. There is a band of linear fibrosis in the left inferior perihilar region which is unchanged. IMPRESSION: Moderate cardiomegaly persists unchanged. There are new small bilateral pleural effusions consistent with CHF pattern. No pulmonary edema seen. No focal infiltrate. Linear fibrosis left inferior perihilar region. Hyperinflation consistent with COPD. Electronically Signed by Thien Alvarado MD 06/26/2018 09:32 A TIME SPENT ON DISCHARGE: 30MINUTES. Vital Signs/I&Os Vital Signs Date Time Temp Pulse Resp B/P (MAP) Pulse Ox O2 Delivery O2 Flow Rate FiO2 06/30/18 06:00 98.5 83 18 133/69 (90) 97 Nasal Cannula 2.0 I&O- Last 24 Hours up to 6 AM 06/30/18 06:00 Intake Total 820 ml Output Total 700 ml Balance 120 ml Laboratory Data Labs 24H Laboratory Tests 2 06/29/18 12:44: Anion Gap 8, Glomerular Filtration Rate > 60.0, Blood Urea Nitrogen 17, Crea tinine 0.82, Sodium Level 138, Potassium Level 4.0, Chloride Level 90L, Carbon Dioxide Level 40H, Calcium Level 8.0L, Magnesium Level 1.7L 06/29/18 18:36: Anion Gap 8, Glomerular Filtration Rate > 60.0, Blood Urea Nitrogen 19H, Creatinine 0.87, Sodium Level 140, Potassium Level 3.7, Chloride Level 92L, Carbon Dioxide Level 40H, Calcium Level 7.9L, Magnesium Level 1.5L 06/29/18 23:34: Anion Gap 5L, Glomerular Filtration Rate > 60.0, Blood Urea Nitrogen 19H, Creatinine 0.76, Sodium Level 135L, Potassium Level 3.6, Chloride Level 90L, Carbon Dioxide Level 40H, Calcium Level 8.0L 06/30/18 06:08: Anion Gap 4L, Glomerular Filtration Rate > 60.0, Blood Urea Nitrogen 19H, Creatinine 0.83, Sodium Level 136, Potassium Level 3.8, Chloride Level 91L, Carbon Dioxide Level 41H, Calcium Level 8.1L, Immature Granulocyte % (Auto) 0.4, White Blood Count 11.2H, Red Blood Count 3.68L, Hemoglobin 10.4L, Hematocrit 34.3L, Mean Corpuscular Volume 93.2, Mean Corpuscular Hemoglobin 28.3, Mean Corpuscular Hemoglobin Concent 30.3L, Red Cell Distribution Width 18.3H, Platelet Count 158, Neutrophils (%) (Auto) 84.4H, Lymphocytes (%) (Auto) 7.8L, Monocytes (%) (Auto) 6.4H, Eosinophils (%) (Auto) 1.0, Basophils (%) (Auto) 0.0, Neutrophils # (Auto) 9.5H, Lymphocytes # (Auto) 0.9L, Monocytes # (Auto) 0.7, Eosinophils # (Auto) 0.1, Basophils # (Auto) 0.0, Nucleated Red Blood Cells % (auto) 0.2H CBC/BMP Laboratory Tests 06/29/18 12:44 Calcium Level 8.0 L 06/29/18 18:36 Calcium Level 7.9 L 06/29/18 23:34 Calcium Level 8.0 L 06/30/18 06:08 Calcium Level 8.1 L, Red Blood Count 3.68 L, Mean Corpuscular Volume 93.2, Mean Corpuscular Hemoglobin 28.3, Mean Corpuscular Hemoglobin Concent 30.3 L, Red Cell Distribution Width 18.3 H, Neutrophils (%) (Auto) 84.4 H, Lymphocytes (%) (Auto) 7.8 L, Monocytes (%) (Auto) 6.4 H, Eosinophils (%) (Auto) 1.0, Basophils (%) (Auto) 0.0, Neutrophils # (Auto) 9.5 H, Lymphocytes # (Auto) 0.9 L, Monocytes # (Auto) 0.7, Eosinophils # (Auto) 0.1, Basophils # (Auto) 0.0 Discharge Medications Scheduled Allopurinol (Zyloprim) 300 Mg Tab, 300 MG PO DAILY, (Reported) Apixaban Base (Eliquis) 5 Mg Tab, 5 MG PO BID, (Reported) Budesonide/Formoterol (Symbicort 80-4.5 Mcg/Act) 60 Puff/Inhaler Aers, 2 PUFF INH BID, (Reported) Cholecalciferol (Vitamin D) 1,000 Unit Tab, 1,000 UNIT PO BID, (Reported) Docusate Sodium (Colace) 100 Mg Cap, 100 MG PO BID, (Reported) Furosemide (Furosemide) 20 Mg Tab, 40 MG PO DAILY, (Reported) 20MG DAILY, INCREASED TO 40MG FOR 10 DAYS STARTING 06/18/17 Magnesium Chloride (Mag64) 64 Mg Tabcr, 64 MG PO BID, (Reported) Melatonin (Cvs Melatonin) 5 Mg Tab, 5 MG PO QHS, (Reported) Metoprolol Tartrate (Metoprolol Tartrate) 25 Mg Tab, 25 MG PO BID, (Reported) Prednisone (Prednisone) 10 Mg Tab, 10 MG PO TAPER Take 4 tabs daily x 3 days, then 3 tabs daily x 3 days, then 2 tabs daily x 3 days, then 1 tab daily x 3 days and stop Scheduled PRN Acetaminophen (Tylenol) 325 Mg Tab, 650 MG PO Q6H PRN for PAIN, (Reported) Albuterol Sulfate (Albuterol Sulfate) 2.5 Mg/3 Ml Nebu, 1 NEB INH QID PRN for SHORTNESS OF BREATH, (Reported) Albuterol Sulfate (Ventolin Hfa) 108 Mcg/Act Aer, 2 PUFF INH QID PRN for SHORTNESS OF BREATH, (Reported) Famotidine (Pepcid) 20 Mg Tab, 20 MG PO BID PRN for HEARTBURN, (Reported) Polyethylene Glycol (Miralax) 1 Pow Pow, 17 GM PO DAILY PRN for CONSTIPATION, (Reported) dilute in 8 ounces of water or juice Tramadol HCl (Tramadol HCl) 50 Mg Tab, 50 MG PO QHS PRN for PAIN, (Reported) Allergies Coded Allergies: Clarithromycin (Verified Allergy, Intermediate, RASH, 06/17/18) TYSON GOMEZ MD Jun 30, 2018 07:21
[2018-06-30 08:07] VITALS: BP 133/69
[2018-06-30] MEDS: METOPROLOL TART 25 MG TABLET PO SCH (08:07)
[2018-06-30] MEDS: APIXABAN 5 MG TAB (ELIQUIS) PO SCH (08:07)
[2018-06-30] MEDS: ALLOPURINOL 300 MG TAB PO SCH (08:07)
[2018-06-30] MEDS: DOCUSATE SODIUM 100 MG CAP PO SCH (08:08)
[2018-06-30] MEDS: SENOKOT S TAB PO SCH (08:08)
[2018-06-30] MEDS: SYMBICORT 80/4.5MCG INHALER 6GM INH SCH (08:56)
[2018-06-30 08:58] VITALS: O2SAT 87
[2018-06-30 09:00] VITALS: O2SAT 98
== END 2018-06-30 11:00 | DRG 190 ==
LOC: EDBD 10:38 → M ED 10:38 → M ED INP 14:19 → M MS5PR 16:25
PROVIDERS: ADMIT Internal Medicine Nephrology; ATTEND General Practice
DX: J44.1 Chronic obstructive pulmonary disease with (acute) exacerbation (principal); I50.33 Acute on chronic diastolic (congestive) heart failure; N17.9 Acute kidney failure, unspecified; J96.11 Chronic respiratory failure with hypoxia; L97.429 Non-pressure chronic ulcer of left heel and midfoot with unspecified severity; I48.91 Unspecified atrial fibrillation; E83.42 Hypomagnesemia; I11.0 Hypertensive heart disease with heart failure; K21.9 Gastro-esophageal reflux disease without esophagitis; M1A.0721 Idiopathic chronic gout, left ankle and foot, with tophus (tophi); K59.00 Constipation, unspecified; I27.29 Other secondary pulmonary hypertension; I50.812 Chronic right heart failure; I87.2 Venous insufficiency (chronic) (peripheral); E87.5 Hyperkalemia; E87.6 Hypokalemia; I34.0 Nonrheumatic mitral (valve) insufficiency; M19.90 Unspecified osteoarthritis, unspecified site; E78.5 Hyperlipidemia, unspecified; M41.9 Scoliosis, unspecified; F17.210 Nicotine dependence, cigarettes, uncomplicated; Z79.01 Long term (current) use of anticoagulants; Z79.899 Other long term (current) drug therapy; Z79.891 Long term (current) use of opiate analgesic; D72.829 Elevated white blood cell count, unspecified; T38.0X5A Adverse effect of glucocorticoids and synthetic analogues, initial encounter

== ENCOUNTER → 2018-07-02 | Outpatient (REF) ==
[~2018-07-02] MED LIST changes: +FURO20TA2 PO; +SPIR-10 PO
[2018-07-02 14:34] LABS: HEMATOCRIT 30.9 % (36.0-47.0); HEMOGLOBIN 9.3 g/dl (12.0-15.5); MEAN CORPUSCULAR HEMOGLOBIN 28.3 pg (27.0-33.0); MEAN CORPUSCULAR HGB CONC 30.1 g/dl (32.0-36.5); MEAN CORPUSCULAR VOLUME 93.9 fl (80.0-96.0); PLATELET COUNT, AUTOMATED 122 10^3/uL (150-450); RED BLOOD COUNT 3.29 10^6/uL (4.00-5.40); WHITE BLOOD COUNT 12.1 10^3/uL (4.0-10.0)
[2018-07-02 15:11] LABS: CALCIUM LEVEL 7.8 MG/DL (8.8-10.2); CREATININE FOR GFR 1.12 MG/DL (0.55-1.30); GLOMERULAR FILTRATION RATE 49.5 (>32); POTASSIUM SERUM 3.6 MEQ/L (3.5-5.1)
== END ==
PROVIDERS: ATTEND Internal Medicine
DX: I48.91 Unspecified atrial fibrillation (principal); I50.9 Heart failure, unspecified

== ENCOUNTER → 2018-07-07 | Outpatient (REF) ==
[2018-07-07 11:47] LABS: HEMATOCRIT 32.4 % (36.0-47.0); HEMOGLOBIN 9.7 g/dl (12.0-15.5); MEAN CORPUSCULAR HEMOGLOBIN 29.2 pg (27.0-33.0); MEAN CORPUSCULAR HGB CONC 29.9 g/dl (32.0-36.5); MEAN CORPUSCULAR VOLUME 97.6 fl (80.0-96.0); PLATELET COUNT, AUTOMATED 118 10^3/uL (150-450); RED BLOOD COUNT 3.32 10^6/uL (4.00-5.40); WHITE BLOOD COUNT 10.3 10^3/uL (4.0-10.0)
[2018-07-07 12:13] LABS: BLOOD UREA NITROGEN 26 MG/DL (7-18); CALCIUM LEVEL 8.3 MG/DL (8.8-10.2); CARBON DIOXIDE LEVEL 33 MEQ/L (21-32); CHLORIDE LEVEL 95 MEQ/L (98-107); CREATININE FOR GFR 0.86 MG/DL (0.55-1.30); GLOMERULAR FILTRATION RATE > 60.0 (>32); GLUCOSE, FASTING 100 MG/DL (70-100); NT-PRO BNP 5164 PG/ML (<450); SODIUM LEVEL 137 MEQ/L (136-145)
--- NOTE | 2018-07-07 15:11 | REP ---
PORTABLE CHEST, ONE VIEW: HISTORY: Hypoxia. COMPARISON: 06/29/2018. A diffuse increase in interstitial markings is present in the lungs consistent with chronic interstitial fibrosis. Linear density is present in the left lower lobe consistent with scar. The cardiac silhouette is enlarged. The pulmonary vasculature is normal in appearance. Degenerative change is present in the shoulders. IMPRESSION: 1. Chronic interstitial fibrosis. 2. Left lower lobe scar. 3. Cardiomegaly. Electronically Signed by Monty Sung MD 07/07/2018 03:14 P
== END ==
PROVIDERS: ATTEND Internal Medicine
DX: J84.10 Pulmonary fibrosis, unspecified (principal); J98.4 Other disorders of lung; I51.7 Cardiomegaly

== ENCOUNTER 2018-07-09 23:59 | Inpatient (IN) | payer MEDICARE, OTHER ==
[~2018-07-09] VITALS: Ht 162.6 cm; Wt 62.4 kg
[2018-07-10] VITALS (14 sets, daily range): BP systolic 89–134; BP diastolic 52–76
[2018-07-10] MEDS ORDERED: ALBU83IN INH ×2 (00:43)
[2018-07-10] MEDS ORDERED: FURO40TA2 PO (00:43)
[2018-07-10] MEDS ORDERED: MELA5TAB17 PO (00:43)
[2018-07-10] MEDS ORDERED: PRED10TA2 PO (00:43)
[2018-07-10] MEDS ORDERED: TUBE5INJ ID (00:43)
[2018-07-10] MEDS ORDERED: DULC10SU2 PR (00:43)
[2018-07-10] MEDS ORDERED: ENEMENE4 PR (00:43)
[2018-07-10] MEDS ORDERED: MILK120011 PO (00:43)
[2018-07-10] MEDS: IPRATROPIUM 0.5MG/ALBUTEROL 2.5MG INH SOL UD 3ML (DUONEB)(J7620) NEB ONE ×2 (00:45→00:55)
[2018-07-10 00:51] LABS: BASO % 0.1 % (0.0-1.0); EOS % 0.2 % (0.0-3.0); HEMATOCRIT 36.1 % (36.0-47.0); HEMOGLOBIN 10.8 g/dl (12.0-15.5); LYMPH # 1.1 10^3/uL (1.5-4.5); LYMPH % 9.8 % (24.0-44.0); MEAN CORPUSCULAR HEMOGLOBIN 28.5 pg (27.0-33.0); MEAN CORPUSCULAR HGB CONC 29.9 g/dl (32.0-36.5); MEAN CORPUSCULAR VOLUME 95.3 fl (80.0-96.0); MONO # 0.4 10^3/uL (0.0-0.8); MONO % 3.6 % (0.0-5.0); NEUTROPHILS # 9.9 10^3/uL (1.8-7.7); NEUTROPHILS % 85.9 % (36.0-66.0); PLATELET COUNT, AUTOMATED 201 10^3/uL (150-450); RED BLOOD COUNT 3.79 10^6/uL (4.00-5.40); WHITE BLOOD COUNT 11.5 10^3/uL (4.0-10.0)
[2018-07-10 00:51] LABS: ABG BASE EXCESS 11.2 (-2.0-2.0); ABG HCO3 37.6 MEQ/L (22.0-26.0); ABG O2 SATURATION 89.3 % (95.0-99.0); ABG PARTIAL PRESSURE CO2 59.2 mmHg (35.0-45.0); ABG PARTIAL PRESSURE O2 57.7 mmHg (75.0-100.0); ABG STANDARD HCO3 34.7 MEQ/L (22.0-26.0); ABG TOTAL CO2 39.4 MEQ/L (23.0-31.0); ABG pH (ARTERIAL) 7.421 UNITS (7.350-7.450)
[2018-07-10 01:04] LABS: INR 1.61; PROTHROMBIN TIME 19.4 SECONDS (12.1-14.4)
[2018-07-10 01:18] LABS: ALBUMIN 3.4 GM/DL (3.2-5.2); BILIRUBIN,DIRECT 0.4 MG/DL (0.0-0.2); BILIRUBIN,TOTAL 0.9 MG/DL (0.2-1.0); CALCIUM LEVEL 8.7 MG/DL (8.8-10.2); CREATININE FOR GFR 1.1 MG/DL (0.55-1.30); GLOMERULAR FILTRATION RATE 50.5 (>32); MB/CK RELATIVE INDEX 5.28 (< OR =4); POTASSIUM SERUM 3.5 MEQ/L (3.5-5.1); THYROID STIMULATING HORMONE 2.89 uIU/ML (0.358-3.740); TOTAL PROTEIN 6.4 GM/DL (6.4-8.2); TROPONIN I 0.02 NG/ML (< 0.10)
[2018-07-10] MEDS ORDERED: ISOVUE-370 76% 100ML VIAL (Q9967) As Ordered ONE (01:25)
[2018-07-10] MEDS ORDERED: IPRATROPIUM 0.5MG/ALBUTEROL 2.5MG INH SOL UD 3ML (DUONEB)(J7620) NEB ONE ×2 (01:30→02:30)
--- NOTE | 2018-07-10 02:33 | REPVR ---
EXAM: CT Chest Without Contrast EXAM DATE/TIME: 07/10/2018 1:59 AM CLINICAL HISTORY: 83 years old, female; Signs and symptoms; Dyspnea and shortness of breath; Additional info: SOB TECHNIQUE: Axial computed tomography images of the chest without intravenous contrast. All CT scans at this facility use at least one of these dose optimization techniques: automated exposure control; mA and/or kV adjustment per patient size (includes targeted exams where dose is matched to clinical indication); or iterative reconstruction. Coronal and sagittal reformatted images were created and reviewed. MIP reconstructed images were created and reviewed. COMPARISON: CT Chest without contrast 01/12/2018 1:05 PM FINDINGS: Lungs: Minimal diffuse bullous change with scattered interstitial prominence and scar. Patchy bilateral pulmonary infiltrates with areas of consolidation, greatest in the right lower lobe and to a lesser degree right middle lobe. Pleural space: Minimal bilateral pleural effusions. Heart: Normal. No cardiomegaly. No pericardial effusion. Aorta: Normal. No aortic aneurysm. Lymph nodes: Small mediastinal nodes which are upper normal. Bones/joints: Degenerative changes of the shoulders. Old rib fractures bilaterally. Soft tissues: Unremarkable. Liver: Nodular surface of the liver. IMPRESSION: 1. Minimal bilateral pleural effusions which are similar to the prior study 01/12/2018. 2. Minimal diffuse bullous change with scattered interstitial prominence and scar. 3. Patchy bilateral pulmonary infiltrates with areas of consolidation, greatest in the right lower lobe and to a lesser degree right middle lobe which are new since the prior study and consistent with pneumonia. 4. Suggestion of hepatic cirrhosis which is similar. Electronically signed by: Jt Molina On 07/10/2018 02:33:17 AM
[2018-07-10] MEDS ORDERED: FUROSEMIDE 40 MG/4 ML VIAL (J1940) IV ONE (02:45)
[2018-07-10] MEDS ORDERED: VANCOMYCIN HCL 1,000 MG, VIAL MATE ADAPTER 1 EACH in D5W 250 ML IV ONE (02:45)
[2018-07-10] MEDS ORDERED: PIPERACILLIN/TAZOBACTAM SOD 3.375 GM in D5W MINI-BAG PLUS 50 ML IV ONE (02:45)
[2018-07-10] MEDS ORDERED: methylPREDNISolone INJ 125 MG/2 ML VIAL (J2930) IV ONE (02:45)
[2018-07-10 02:52] LABS: ABG BASE EXCESS 8.6 (-2.0-2.0); ABG HCO3 36.5 MEQ/L (22.0-26.0); ABG O2 SATURATION 84.3 % (95.0-99.0); ABG PARTIAL PRESSURE O2 54.5 mmHg (75.0-100.0); ABG TOTAL CO2 38.6 MEQ/L (23.0-31.0); ABG pH (ARTERIAL) 7.343 UNITS (7.350-7.450)
[2018-07-10 02:54] LABS: ABG PARTIAL PRESSURE CO2 68.7 mmHg (35.0-45.0)
[2018-07-10] MEDS ORDERED: ONDANSETRON 4MG/2ML VIAL (J2405) IV ONE (03:00)
[2018-07-10] MEDS ORDERED: ACETAMINOPHEN 325 MG TAB PO PRN (03:30)
[2018-07-10] MEDS ORDERED: ONDANSETRON 4MG/2ML VIAL (J2405) IV PRN (03:30)
[2018-07-10] MEDS ORDERED: FAMOTIDINE 20 MG TAB PO PRN (03:30)
[2018-07-10] MEDS ORDERED: IPRATROPIUM 0.5MG/ALBUTEROL 2.5MG INH SOL UD 3ML (DUONEB)(J7620) NEB SCH ×3 (04:00→12:00)
--- NOTE | 2018-07-10 04:22 | HPEPDOC ---
[facility] Medical History & Physical Date of Admission Jul 10, 2018 Other Provider Dictating/admitting Darrian Yeboah M.D. Attending Physician: YADIRA LAMAR MD History and Physical CHIEF COMPLAINT: Shortness of breath HISTORY OF PRESENT ILLNESS: Patient is an 83-year-old woman. She has medical history consistent with COPD, not on home oxygen, hypertension, gout, CHF, pulmonary hypertension with chronic right-sided heart failure, chronic bilateral pedal edema with chronic dermatitic skin changes, A. fib, on Eliquis, severe mitral regurg, gout, osteoarthritis, GERD, dyslipidemia. She reports increasing shortness of breath with wheezing for the past couple of days with occasional cough. Patient reports symptom persists and remains use of her breathing medications, hence her activated EMS and being brought to the emergency room to seek further attention. Patient was said to have had an O2 sat in the 50s and route to the hospital by EMS. She remained consistently O2 sat in the 80s on nonrebreather mask in the ER, although patient is DNR/DNI, she did agree to have BiPAP trial. At interview, patient was seen with mask and had commenced BiPAP. She however denies any fever, no chills. No palpitations or chest pains. No change in her bowel or urinary habits. No on November lower extremity swellings or pains. Patient had labs significant for elevated white count with left shift and a CT chest that is in keeping with pneumonia. On account of this, she received antibiotics, vancomycin and Zosyn. Hospitalist was called in for further evaluation and admission of patient to the ICU PAST MEDICAL HISTORY: Per HPI PAST SURGICAL HISTORY: 1. Left femoral fracture surgery in 2017 2. EGD and colonoscopy. 3. Open reduction and internal fixation of right knee. 4. Multiple scrapings of the tophi. SOCIAL HISTORY: Denies smoking, denies alcohol use. Denies illicit drug use. [place] and ambulates with a walker at baseline. FAMILY HISTORY: No significant ischemic heart disease in the family ALLERGIES: Please see below. REVIEW OF SYSTEMS: 12 point review of systems negative other than that described in the body of HPI. HOME MEDICATIONS: Please see below. PHYSICAL EXAMINATION: GENERAL APPEARANCE: Elderly woman, in some mild to moderate respiratory distres s. She is not pale, anicteric and afebrile HEENT: Atraumatic. Neck: Supple. LUNGS: Clear to auscultation bilaterally. CARDIOVASCULAR: Pulse is irregularly irregular, S1 and 2 heard, no murmurs, rubs or gallops. ABDOMEN: Obese, soft, not tender, not distended. Bowel sounds normoactive. MUSCULOSKELETAL: Apparently within normal limits. EXTREMITIES: No pedal edema, 2+ bilateral pedal pulses noted. NEUROLOGICAL: Awake, alert, oriented 3. PSYCHIATRIC: Normal affect LABORATORY DATA: See below. IMAGING: CT chest without contrast: IMPRESSION: 1. Minimal bilateral pleural effusions which are similar to the prior study 01/12/2018. 2. Minimal diffuse bullous change with scattered interstitial prominence and scar. 3. Patchy bilateral pulmonary infiltrates with areas of consolidation, greatest in the right lower lobe and to a lesser degree right middle lobe which are new since the prior study and consistent with pneumonia. 4. Suggestion of hepatic cirrhosis which is similar. MICROBIOLOGY: Please see below. ASSESSMENT: 83-year-old female with above-mentioned comorbidity brought in by EMS on account of shortness of breath and hypoxic respiratory failure. Exam shows patient in mild to moderate distress on non-rebreather mask and poor O2 saturation chest auscultation with wheezes and basal crackles. ABG consistent with a pH of 7.43, PCO2 68 and patient's not improving, PO2 54. CT chest on consistent with pneumonia. Although patient is DNR/DNI, she accepted a trial of BiPAP while getting treated for pneumonia. She will be admitted to the ICU for further care. DIAGNOSES: 1. Acute on chronic hypoxic respiratory failure. 2. COPD exacerbation 3. Pneumonia. 4. CHF. . PLAN: 1. I will admit patient to the ICU under care of Dr. Lamar 2. Acute on chronic hypoxic respiratory failure. Patient will continue the ICU on BiPAP. Pulmonary consult placed for Dr. Wong possibly repeat of ABG in the morning to assess treatment response. 3. COPD exacerbation, likely secondary to pneumonia. We'll continue antibiotics, Levaquin 500 mg every 24 hours. Follow blood cultures. Follow temperature trends. Follow CBC in the morning. Continue DuoNeb nebulizations every 6 hours continue with BiPAP. Continue Solu-Medrol 60 mg every 12 hours. 4. A. fib, rate controlled. Continue Eliquis and rate control meds. 5. Gout. We'll continue with allopurinol. 6. GI prophylaxis. Pantoprazole. 7. DVT prophylaxis. Continue on anticoagulation. 8. CHF. Continue Lasix. Follow daily BMP and adjust medication as indicated. 9. Will resume outpatient medication as soon as fully reconciled. 10. Further management to be per patient's clinical course. Vital Signs Vital Signs Date Time Temp Pulse Resp B/P (MAP) Pulse Ox O2 Delivery O2 Flow Rate FiO2 07/10/18 02:44 108 28 87 Non-Rebreather 15.0 07/10/18 02:39 163/74 (103) 07/10/18 00:04 97.9 Laboratory Data Labs 24H Laboratory Tests 2 07/10/18 00:32: Immature Granulocyte % (Auto) 0.4, White Blood Count 11.5H, Red Blood Count 3.79L, Hemoglobin 10.8L, Hematocrit 36.1, Mean Corpuscular Volume 95.3, Mean Corpuscular Hemoglobin 28.5, Mean Corpuscular Hemoglobin Concent 29.9L, Red Cell Distribution Width 21.2H, Platelet Count 201, Neutrophils (%) (Auto) 85.9H, Lymphocytes (%) (Auto) 9.8L, Monocytes (%) (Auto) 3.6, Eosinophils (%) (Auto) 0.2, Basophils (%) (Auto) 0.1, Neutrophils # (Auto) 9.9H, Lymphocytes # (Auto) 1.1L, Monocytes # (Auto) 0.4, Eosinophils # (Auto) 0.0, Basophils # (Auto) 0.0, Nucleated Red Blood Cells % (auto) 0.2H, Prothrombin Time 19.4H, Prothromb Time International Ratio 1.61, Anion Gap 11, Glomerular Filtration Rate 50.5, Calcium Level 8.7L, Aspartate Amino Transf (AST/SGOT) 36, Alanine Aminotransferase (ALT/SGPT) 50, Alkaline Phosphatase 127H, Total Bilirubin 0.9, Direct Bilirubin 0.4H, Total Creatine Kinase 72, Creatine Kinase MB 4.0H, Creatine Kinase MB Relative Index 5.28H, Troponin I 0.02, KV-Hgq-A-Type Natriuretic Peptide 5157H, Total Protein 6.4, Albumin 3.4, Albumin/Globulin Ratio 1.13, Thyroid Stimulating Hormone (TSH) 2.890 07/10/18 00:41: Blood Gas Bicarbonate Standard 34.7H, Arterial Blood pH 7.421, Arterial Blood Partial Pressure CO2 59.2H, Arterial Blood Partial Pressure O2 57.7L, Arterial Blood Total CO2 39.4H, Arterial Blood HCO3 37.6H, Arterial Blood Base Excess 11.2H, Arterial Blood Oxygen Saturation 89.3L 07/10/18 02:43: Blood Gas Bicarbonate Standard 32.0H, Arterial Blood pH 7.343L, Arterial Blood Partial Pressure CO2 68.7*H, Arterial Blood Partial Pressure O2 54.5L, Arterial Blood Total CO2 38.6H, Arterial Blood HCO3 36.5H, Arterial Blood Base Excess 8.6H, Arterial Blood Oxygen Saturation 84.3L CBC/BMP Laboratory Tests 07/10/18 00:32 Red Blood Count 3.79 L, Mean Corpuscular Volume 95.3, Mean Corpuscular Hemoglobin 28.5, Mean Corpuscular Hemoglobin Concent 29.9 L, Red Cell Distribution Width 21.2 H, Neutrophils (%) (Auto) 85.9 H, Lymphocytes (%) (Auto) 9.8 L, Monocytes (%) (Auto) 3.6, Eosinophils (%) (Auto) 0.2, Basophils (%) (Auto) 0.1, Neutrophils # (Auto) 9.9 H, Lymphocytes # (Auto) 1.1 L, Monocytes # (Auto) 0.4, Eosinophils # (Auto) 0.0, Basophils # (Auto) 0.0 Microbiology Microbiology 07/10/18 Blood Culture, Received Pending 07/10/18 Blood Culture, Received Pending 07/10/18 Respiratory Virus Panel (PCR) (MUSHTAQ) - Final, Complete Coronavirus Oc43 Home Medications Scheduled (Tubersol) 5 Unit/0.1 Ml Inj, 5 UNIT ID ASDIRECTED EVERY SATURDAY MORNING FOR 7 DAYS. FINISH DATE IS 07/14/18 Albuterol Sulfate (Albuterol Sulfate) 2.5 Mg/3 Ml Nebu, 2.5 MG INH QID Allopurinol (Zyloprim) 300 Mg Tab, 300 MG PO DAILY Apixaban Base (Eliquis) 5 Mg Tab, 5 MG PO BID Budesonide/Formoterol (Symbicort 80-4.5 Mcg/Act) 60 Puff/Inhaler Aers, 2 PUFF INH BID Cholecalciferol (Vitamin D) 1,000 Unit Tab, 1,000 UNIT PO BID Docusate Sodium (Colace) 100 Mg Cap, 100 MG PO BID Furosemide (Furosemide) 40 Mg Tab, 40 MG PO BID TAKES AT 0800 AND 1200 FOR 3 DAYS; START DATE: 07/09/18, FINISH DATE: 07/11/18 Magnesium Chloride (Mag64) 64 Mg Tabcr, 64 MG PO BID Melatonin (Melatonin) 5 Mg Tab, 5 MG PO QHS Metoprolol Tartrate (Metoprolol Tartrate) 25 Mg Tab, 25 MG PO BID HOLD IF AP<60 OR SBP<100 Prednisone (Prednisone) 10 Mg Tab, 10 MG PO TAPER 20MG FOR 3 DAYS, THEN 10MG FOR 3 DAYS. FINISHED 20MG DOSES, NEXT DOSE IS FIRST OF 10MG Scheduled PRN Acetaminophen (Tylenol) 325 Mg Tab, 650 MG PO Q4H PRN for PAIN / FEVER Albuterol Sulfate (Albuterol Sulfate) 2.5 Mg/3 Ml Nebu, 2.5 MG INH Q2H PRN for SHORTNESS OF BREATH Bisacodyl (Dulcolax) 10 Mg Sup, 10 MG VT DAILY PRN for CONSTIPATION Famotidine (Pepcid) 20 Mg Tab, 20 MG PO BID PRN for HEARTBURN Milk Of Magnesia (Milk of Magnesia) 1,200 Mg/15 Ml Judith, 30 ML PO DAILY PRN for CONSTIPATION Polyethylene Glycol (Miralax) 1 Pow Pow, 17 GM PO DAILY PRN for CONSTIPATION Sodium Phosphate/Biphosphate (Enema 7-19 gm/118Ml) 1 Mart Mart, 1 MART VT DAILY PRN for CONSTIPATION Tramadol HCl (Tramadol HCl) 50 Mg Tab, 50 MG PO QHS PRN for PAIN Allergies Coded Allergies: Clarithromycin (Verified Allergy, Intermediate, RASH, 06/17/18) DARRIAN YEBOAH MD Jul 10, 2018 03:48
[2018-07-10 05:18] LABS: BASO % 0.1 % (0.0-1.0); HEMATOCRIT 34.9 % (36.0-47.0); HEMOGLOBIN 10.6 g/dl (12.0-15.5); LYMPH # 0.4 10^3/uL (1.5-4.5); LYMPH % 5.4 % (24.0-44.0); MEAN CORPUSCULAR HEMOGLOBIN 28.2 pg (27.0-33.0); MEAN CORPUSCULAR HGB CONC 30.4 g/dl (32.0-36.5); MEAN CORPUSCULAR VOLUME 92.8 fl (80.0-96.0); MONO # 0.3 10^3/uL (0.0-0.8); MONO % 3.7 % (0.0-5.0); NEUTROPHILS # 6.2 10^3/uL (1.8-7.7); NEUTROPHILS % 90.2 % (36.0-66.0); PLATELET COUNT, AUTOMATED 180 10^3/uL (150-450); RED BLOOD COUNT 3.76 10^6/uL (4.00-5.40); WHITE BLOOD COUNT 6.8 10^3/uL (4.0-10.0)
[2018-07-10 05:53] LABS: CALCIUM LEVEL 8.5 MG/DL (8.8-10.2); CREATININE FOR GFR 1.15 MG/DL (0.55-1.30); POTASSIUM SERUM 2.6 MEQ/L (3.5-5.1)
[2018-07-10] MEDS ORDERED: LevoFLOXacin IV 500 MG in APPROPRIATE DILUENT 1 EA IV SCH (06:00)
[2018-07-10] MEDS ORDERED: PANTOPRAZOLE 40MG INJ (PROTONIX) (C9113) IV SCH (06:00)
[2018-07-10] MEDS: KCL 10MEQ/100ML SWI (KRUN) 10 MEQ in APPROPRIATE DILUENT 1 EA IV SCH ×4 (07:34→10:45)
[2018-07-10 08:06] LABS: ABG BASE EXCESS 10.8 (-2.0-2.0); ABG HCO3 37.2 MEQ/L (22.0-26.0); ABG O2 SATURATION 95.2 % (95.0-99.0); ABG PARTIAL PRESSURE CO2 59.9 mmHg (35.0-45.0); ABG PARTIAL PRESSURE O2 77.3 mmHg (75.0-100.0); ABG STANDARD HCO3 34.5 MEQ/L (22.0-26.0); ABG pH (ARTERIAL) 7.411 UNITS (7.350-7.450)
[2018-07-10 08:14] LABS: MAGNESIUM LEVEL 2.1 MG/DL (1.8-2.4)
[2018-07-10] MEDS: METOPROLOL TART 25 MG TABLET PO SCH ×2 (09:00→21:00)
[2018-07-10] MEDS ORDERED: POTASSIUM CHLORIDE 10% LIQ 20 MEQ/15 ML UDC PO ONE (09:00)
[2018-07-10] MEDS ORDERED: cefTRIAXone SOD 1 GM in D5W MINI-BAG PLUS 50 ML IV SCH (09:00)
[2018-07-10] MEDS: SYMBICORT 80/4.5MCG INHALER 6GM INH SCH ×2 (09:06→19:48)
[2018-07-10] MEDS ORDERED: ALBUTEROL 90 MCG/ACT 8GM HFA INHALER INH PRN (09:30)
--- NOTE | 2018-07-10 09:36 | REP ---
Portable chest x-ray: Single AP view. History: Hypoxemia. Comparison study: July 07, 2018. Findings: The patient is rotated to the right for the current exposure. Moderate cardiomegaly is observed. Small bilateral pleural effusions are seen as a new finding. Interstitial markings are somewhat more prominent. No focal infiltrate is seen. Multiple old healed rib fractures are noted bilaterally. Advanced degenerative changes are seen in the shoulders. There is marked diffuse osteoporosis. Electronically Signed by Thien Alvarado MD 07/10/2018 09:28 A
[2018-07-10] MEDS: MAGNESIUM CHLORIDE 64 MG TABCR (SLO MAG) PO SCH ×2 (09:38→20:59)
[2018-07-10] MEDS: ALLOPURINOL 300 MG TAB PO SCH (09:38)
[2018-07-10] MEDS: VITAMIN D 1,000 INTERNATIONAL UNITS TABLET PO SCH ×2 (09:39→21:00)
[2018-07-10] MEDS: DOCUSATE SODIUM 100 MG CAP PO SCH ×2 (09:39→21:00)
[2018-07-10] MEDS: FUROSEMIDE 40 MG TAB PO SCH ×2 (09:39→21:00)
[2018-07-10] MEDS: APIXABAN 5 MG TAB (ELIQUIS) PO SCH ×2 (09:39→21:00)
[2018-07-10] MEDS: TIOTROPIUM INHALER/CAPSULE (SPIRIVA) INH SCH (10:28)
--- NOTE | 2018-07-10 12:36 | CR ---
DATE OF SERVICE: 07/10/2018 NOTE: Asked by Dr. cMfarlane to emergently consult for noninvasive mechanical ventilation recommendations. At that time, I was told that she had a pH of 7.3 and a PCO2 of 69. I recommended starting on noninvasive mechanical ventilation with a setting of an inspiratory positive airway pressure (IPAP) of 12 and an expiratory positive airway pressure (EPAP) of 6 with recommendations to adjust the IPAP to reach a tidal volume of 350-450. When I went to place the orders, I saw that the arterial blood gas was actually 7.34 and, therefore, she truly did not require noninvasive mechanical ventilation. However, in reviewing her chart and seeing that she has a history of heart failure and right heart failure and was hypoxemic, I felt that she would benefit from the continuous positive airway pressure (CPAP) component and essentially converted the NIMV to bilevel therapy. A repeat arterial blood gas several hours after being on the bilevel device showed improved oxygenation and "normalization" of her PCO2. Ms. Estrada is an 83-year-old female with a past medical history of chronic obstructive pulmonary disease (COPD), hypertension, congestive heart failure (CHF), pulmonary hypertension with chronic right-sided heart failure, chronic bilateral pedal edema, atrial fibrillation, and severe mitral regurgitation, who had increasing shortness of breath, associated with wheezing for a couple of days, and an occasional cough. She became more acutely short of breath last evening and was brought to the emergency department. Reportedly, her saturations were in the 50th percentile by emergency medical services (EMS). She had oxygen saturations in the 80th percentile while on a nonrebreather in the emergency department. She was given nebulizations, corticosteroids, and antibiotics, as a chest CT scan had findings consistent with a pneumonic process, as well a Lasix. Despite these interventions, saturation remained in the 80th percentile, and arterial blood gas had shown a pO2 of 55 and a PCO2 of 69. Hence, the call for the noninvasive mechanical ventilation (NIMV), as noted above. Currently, Ms. Estrada is lying in bed with the full face mask in place. She indicates no discomfort. ALLERGIES: CLARITHROMYCIN. MEDICATIONS ON ADMISSION: - acetaminophen 325 mg by mouth every 4 hours as needed - albuterol nebulization four times a day and every 2 hours as needed - allopurinol 300 mg by mouth every day - Eliquis 5 mg by mouth twice a day - Dulcolax 10 mg per rectum (PA) as needed - Symbicort 80/4.5 two puffs twice a day - vitamin D 1000 units by mouth twice a day - Colace 100 mg by mouth twice a day - Pepcid 20 mg by mouth twice a day as needed - furosemide 40 mg by mouth twice a day - magnesium chloride 64 mg by mouth twice a day - melatonin 5 mg by mouth nightly - metoprolol 25 mg by mouth twice a day - milk of magnesia 30 mL by mouth daily as needed - MiraLAX 17 grams by mouth daily as needed - prednisone 10 mg by mouth taper (plan is for 3 more days and then off) - sodium phosphate/biphosphate enema PA daily as needed - tramadol 50 mg by mouth nightly as needed - Tubersol 5 units ID every Saturday morning for 7 days (finish date is 07/14/2018) PAST MEDICAL HISTORY: 1. COPD per chart. Do not know spirometric values. 2. Hypertension. 3. Gout. 4. CHF. 5. Pulmonary hypertension. 6. Chronic right-sided heart failure. 7. Chronic bilateral pedal edema. 8. Chronic dermatitic skin changes. 9. Atrial fibrillation. 10. Severe mitral regurgitation. 11. Osteoarthritis. 12. Gastroesophageal reflux disease (GERD). 13. Dyslipidemia. 14. Status post left femoral fracture surgery 07/2016. 15. Status post open reduction and internal fixation (ORIF) of right knee. 16. Multiple scrapings for tophi. 17. History of tobacco usage, quit three weeks ago. SOCIAL HISTORY: Ms. Estrada lives at [facility]. Ambulates with a walker at baseline, which she confirms. I do not know if she is still smoking, but per the review of [employer], she was smoking 4-5 cigarettes per day at that time, has a kbo-[id number]-dfo-day history for 60 years, giving her over [id number] history. She does not drink alcohol. No illicit drug usage. (Later she stated that she quit smoking three weeks ago). FAMILY HISTORY: No family history of ischemic heart disease. REVIEW OF SYSTEMS: What is obtainable is contained within the history of present illness (HPI), unobtainable at the present time secondary to full face mask and extreme hard of hearing in addition to us having to wear a mask in the room so we cannot effectively communicate with her. Full review of systems will be obtained after her clinical situation changes. PHYSICAL EXAMINATION: GENERAL: Ms. Estrada is lying in bed, in no acute distress and synchronous with the bilevel device. She has a full face mask in place. VITAL SIGNS: Temperature 98.1 which is her maximum temperature (Tmax), respiratory rate 18, blood pressure 94/53 with a mean arterial pressure (MAP) of 70, SpO2 95% on a bilevel device of 12/6 with a 6-liter bleed-in, pulse 92. HEENT: Anicteric. Pupils equal, round, and reactive to light (PERRL). Nares and oropharynx not examined secondary to full face mask. NECK: Supple, without jugular venous distention (JVD), without thyromegaly or masses. Trachea is midline. LYMPHATICS: Without cervical or supraclavicular lymphadenopathy. CHEST: Notable for kyphosis and increased AP diameter. LUNGS: Symmetric excursion, generalized diminished air entry. Absent breath sounds at the bases bilaterally with dullness to percussion over those regions. No significant rhonchi, crackle, or wheezes. Normal I:E. No accessory muscle usage or retractions. CARDIOVASCULAR: Regular rate and rhythm with a normal S1, S2. No murmur, rub, or gallop appreciated. Unable to appreciate point of maximal impulse (PMI). ABDOMEN: Normoactive bowel sounds, soft, nondistended, nontender. No hepatosplenomegaly or masses appreciated. EXTREMITIES: Warm and well-perfused without clubbing or cyanosis. Trace pedal edema bilaterally. Palpable pedal pulses. SKIN: There are several excoriated regions on her legs, particularly around the left knee. Per report, she also has a bruise underneath the arch of her left foot. She has bruises on her right hand where IVs have been placed. NEUROLOGIC: Alert and awake. She appears to appropriately interact, but again we cannot effectively question her because of her hard of hearing, bilevel device, and our need to wear masks, so she cannot lip-read. LABORATORY DATA: Initial complete blood count (CBC) in the emergency department showed a hemoglobin of 10.8, hematocrit 36.1, platelet count 201,000, white blood cell count 11,500, with a differential of 86% neutrophils and 10% lymphocytes. A repeat CBC this morning showed a hemoglobin of 10.6, hematocrit 34.9, platelet count 180,000, white blood cell count 680 with a differential of 90% neutrophils and 5% lymphocytes. Chemistries upon presentation showed a sodium of 138, potassium 3.5, chloride 95, bicarbonate 32, anion gap 11, BUN 29, creatinine 1.1, glucose 81, calcium 8.7, magnesium 2.1, total bilirubin 0.9, direct bilirubin 0.4, AST 36, ALT 50, alkaline phosphatase 127, CK 72, CK-MB 4.0, troponin I 0.02, BNP 5157, total protein 6.4, albumin 3.4, TSH 2.89. Repeat metabolic panel this morning showed a sodium of 140, potassium 2.6, chloride 96, bicarbonate 35, anion gap 9, BUN 31, creatinine 1.2, glucose 96, calcium 8.4. INR was 1.61. Viral panel positive for Coronavirus. Initial arterial blood gas on presentation was 7.42/59/58 with a measured saturation of 89% and a base excess of 11.2. I do not know how much oxygen that was drawn on. A repeat arterial blood gas on a nonrebreather was 7.34/69/55 with a measured saturation of 84%. A repeat blood gas this morning on a bilevel of 05/22 with a 6-liter bleed-in was 7.41/60/77 with a measured saturation of 95%. Base excess was 10.8. I reviewed her chest CT scan, as well as the report, from 06/30/2018. That CT scan showed enlarged cardiac silhouette, normal-appearing pulmonary vascular shadows. No mediastinal or hilar adenopathy. There are minimal emphysematous changes. There is also minimal fibrosis. There are bilateral pleural effusions, tiny on the right and small on the left. There were patchy infiltrates, but there was a region of consolidation with air bronchograms to the right lower lobe and to a lesser extent the right middle lobe. IMPRESSION: 1. Acute hypoxemic respiratory failure, as well as acute and chronic hypercapnic respiratory failure leading to bilevel therapy. Her biggest difficulty has been hypoxemia, not hypercapnia. 2. Right middle and lower lobe pneumonia. 3. Coronavirus. 4. History of chronic obstructive pulmonary disease per chart. I do not feel she has a significant COPD exacerbation. 5. Heart failure. Per chart, she has right heart failure. I do not know if she has systolic or diastolic failure. 6. Severe mitral regurgitation per chart. 7. Hypertension. 8. Acute kidney injury (baseline creatinine appears to be around 0.86). 9. Gastroesophageal reflux disease. 10. Gout. 11. Osteoarthritis. 12. History of significant tobacco usage recent cessation. 13. Deep venous thrombosis (DVT) prophylaxis. On anticoagulation with Eliquis. 14. Stress ulcer prophylaxis with proton pump inhibitor. RECOMMENDATIONS: 1. Will discontinue the bilevel device at this time. She does not need it and did not require it for hypercapnia, as her pH was 7.34. However, she likely benefited from it and may further require CPAP therapy. 2. Will try to supplement her oxygen with high flow if necessary to obtain SpO2 of 88% to 92%. Vapotherm would be an alternative. 3. Given the consolidated appearance of her right middle and right lower lobe infiltrates, I would continue antibiotics despite her positive coronavirus swab. 4. Given the location of these infiltrates, would need to consider aspiration. That can be better assessed after she is off the bilevel device. 5. I do not feel that she has a significant COPD exacerbation, if any exacerbation, at this time; and, therefore, would take her steroids back to just slightly higher than what she was on her previous taper. She was to be on prednisone 10 mg daily for 3 more days, and I would take her to 20 for 3 days and 10 for 3 days unless she clinically changes, arguing for an increased level. 6. Will obtain a chest x-ray so as to "compare apples to apples" to see if any of these changes may be residual from her admission in early June. Additionally, this will make it easier to follow her pneumonic changes as an outpatient to ensure their resolution. CRITICAL CARE TIME: 35 minutes, not including procedure time. JENNIFER
[2018-07-10] MEDS ORDERED: methylPREDNISolone INJ 125 MG/2 ML VIAL (J2930) IV SCH (14:00)
[2018-07-10] MEDS ORDERED: SLF 3 ML SYR IV PRN (14:45)
[2018-07-10 15:25] LABS: CALCIUM LEVEL 7.7 MG/DL (8.8-10.2); CREATININE FOR GFR 1.55 MG/DL (0.55-1.30); POTASSIUM SERUM 4.7 MEQ/L (3.5-5.1)
[2018-07-10] MEDS: ACETAMINOPHEN TAB 650MG DOSE (2X325MG) PO PRN (19:29)
[2018-07-10] MEDS: SLF 3 ML SYR IV SCH (21:01)
[2018-07-11] VITALS (7 sets, daily range): BP systolic 90–137; BP diastolic 50–58
[2018-07-11] MEDS: SLF 3 ML SYR IV SCH ×3 (06:00→20:12)
[2018-07-11] MEDS: LevoFLOXacin 250 MG TABLET PO SCH (06:54)
[2018-07-11] MEDS: TIOTROPIUM INHALER/CAPSULE (SPIRIVA) INH SCH (07:50)
[2018-07-11] MEDS: SYMBICORT 80/4.5MCG INHALER 6GM INH SCH ×2 (07:50→20:46)
[2018-07-11] MEDS: MAGNESIUM CHLORIDE 64 MG TABCR (SLO MAG) PO SCH ×2 (08:29→20:12)
[2018-07-11] MEDS: predniSONE 20 MG TAB PO SCH (08:29)
[2018-07-11] MEDS: APIXABAN 5 MG TAB (ELIQUIS) PO SCH ×2 (08:29→20:11)
[2018-07-11] MEDS: DOCUSATE SODIUM 100 MG CAP PO SCH ×2 (08:29→20:11)
[2018-07-11] MEDS: METOPROLOL TART 25 MG TABLET PO SCH ×2 (08:30→20:12)
[2018-07-11] MEDS: VITAMIN D 1,000 INTERNATIONAL UNITS TABLET PO SCH ×2 (08:30→20:11)
[2018-07-11] MEDS: ALLOPURINOL 300 MG TAB PO SCH (08:31)
[2018-07-11 09:02] LABS: HEMATOCRIT 32.4 % (36.0-47.0); HEMOGLOBIN 9.8 g/dl (12.0-15.5); MEAN CORPUSCULAR HEMOGLOBIN 29.4 pg (27.0-33.0); MEAN CORPUSCULAR HGB CONC 30.2 g/dl (32.0-36.5); MEAN CORPUSCULAR VOLUME 97.3 fl (80.0-96.0); PLATELET COUNT, AUTOMATED 223 10^3/uL (150-450); RED BLOOD COUNT 3.33 10^6/uL (4.00-5.40); WHITE BLOOD COUNT 12.6 10^3/uL (4.0-10.0)
[2018-07-11 09:24] LABS: CALCIUM LEVEL 8.4 MG/DL (8.8-10.2); CREATININE FOR GFR 1.48 MG/DL (0.55-1.30); GLOMERULAR FILTRATION RATE 35.9 (>32); POTASSIUM SERUM 4.2 MEQ/L (3.5-5.1)
--- NOTE | 2018-07-11 10:29 | ECGEPIP ---
Stationary ECG Study [facility] - ED Test Date: 2018-07-10 Pat Name: GIN DEVINE Department: Room: [place] [address] Gender: F [employer] Professor: TRUE : 1935 Requested By: AGAPITO Hudson Order Number: [id number] Reading MD: Jil Tyson Measurements Intervals Roe Rate: 92 P: MA: 0 QRS: 83 QRSD: 97 T: 7 QT: 345 QTc: 427 Interpretive Statements ATRIAL FIBRILLATION INCOMPLETE RIGHT BUNDLE BRANCH BLOCK MODERATE ST DEPRESSION INCREASED RATE 06/23/18 Electronically Signed On 07-11-2018 10:28:47 EST by Jil Tyson
--- NOTE | 2018-07-11 13:25 | IPNPDOC ---
Subjective Date Seen The patient was seen on 07/11/18. Subjective Chief Complaint/HPI Patient seen and examined at the bedside. Reports that her respiratory status is improving this morning. Her supplemental oxygen has been down titrated from 6 L via nasal cannula to 3L. Objective Physical Examination General Exam: Positive: Alert, Cooperative, No Acute Distress ENT Exam: Positive: Atraumatic, Mucous membr. moist/pink Chest Exam: Positive: Diminished Heart Exam: Positive: Rate Normal, Normal S1, Normal S2 Abdomen Exam: Positive: Soft; Negative: Tenderness Extremity Exam: Positive: Swelling (1+ pitting edema in the lower extremities bilaterally); Negative: Tenderness Psych Exam: Positive: Oriented x 3 Assessment /Plan Plan/VTE VTE Prophylaxis Ordered?: Yes Plan COPD Exacerbation 2/[address] Chest noted Cont inhaler therapy, serial nebs, IV steroids, and Levaquin as ordered Pulmonary input appreciated The patient's respiratory status continues to improve Hypoxemic/hypercapnic respiratory failure 2/2 above The patient's hypercapnia has improved, and she is off BiPAP The patient is not on supplemental oxygen at home, however she was requiring 6 L of oxygen this morning. We have tapered her down to 3 L via nasal cannula at this time. We will continue to down taper as tolerated. Acute Kidney Injury 2/2 Above Hold Nephrotoxins Encourage PO Hydration We will continue to monitor serum creatinine Hx of Congestive Heart Failure with Preserved EF ECHO from 12/2017 also notable for severe mitral regurgitation, severe left atrial dilatation, severe tricuspid regurgitation The patient does not appear to be significantly volume decompensated at this time Lasix on hold secondary to ALYSSA We will continue to monitor the patient's volume status History of atrial fibrillation Cont Metoprolol, Eliquis Gout Cont allopurinol Gastroesophageal reflux disease (GERD). Continue Pepcid DVT prophylaxis On Eliquis Dispo- pending clinical improvement, PT evaluation. VS, I&O, 24H, Fishbone Vital Signs/I&O Vital Signs Date Time Temp Pulse Resp B/P (MAP) Pulse Ox O2 Delivery O2 Flow Rate FiO2 07/11/18 12:00 97.9 86 16 90/50 (63) 90 High Flow Cannula 3.0 07/10/18 08:00 50 I&O- Last 24 Hours up to 6 AM 07/11/18 06:00 Intake Total 1980 ml Output Total 1800 ml Balance 180 ml Laboratory Data 24H LABS Laboratory Tests 2 07/10/18 14:03: Anion Gap 15, Glomerular Filtration Rate 34.0, Blood Urea Nitrogen 32H, Creatinine 1.55H, Sodium Level 136, Potassium Level 4.7#, Chloride Level 94L, Carbon Dioxide Level 27, Calcium Level 7.7L 07/10/18 20:50: 07/11/18 08:43: Anion Gap 7L, Glomerular Filtration Rate 35.9, Blood Urea Nitrogen 36H, Creatinine 1.48H, Sodium Level 135L, Potassium Level 4.2, Chloride Level 92L, Carbon Dioxide Level 36H, Calcium Level 8.4L, Nucleated Red Blood Cells % (auto) 0.0 CBC/BMP Laboratory Tests 07/10/18 14:03 Calcium Level 7.7 L 07/11/18 08:43 Calcium Level 8.4 L, Red Blood Count 3.33 L, Mean Corpuscular Volume 97.3 H, Mean Corpuscular Hemoglobin 29.4, Mean Corpuscular Hemoglobin Concent 30.2 L, Red Cell Distribution Width 20.8 H Microbiology Microbiology 07/10/18 Blood Culture - Preliminary, Resulted No growth after 24 hours . All specim... 07/10/18 Blood Culture - Preliminary, Resulted 07/10/18 Gram Stain - Final, Resulted 07/10/18 Sputum Culture - Preliminary, Resulted Staphylococcus Aureus 07/10/18 Respiratory Virus Panel (PCR) (MUSHTAQ) - Final, Complete Coronavirus Oc43 YADIRA LAMAR MD Jul 11, 2018 13:25
[2018-07-12] VITALS: BP 95/58
[2018-07-12 04:00] VITALS: BP 118/72
[2018-07-12 04:18] LABS: HEMATOCRIT 29.3 % (36.0-47.0); MEAN CORPUSCULAR HEMOGLOBIN 28.7 pg (27.0-33.0); MEAN CORPUSCULAR HGB CONC 30.7 g/dl (32.0-36.5); MEAN CORPUSCULAR VOLUME 93.3 fl (80.0-96.0); PLATELET COUNT, AUTOMATED 253 10^3/uL (150-450); RED BLOOD COUNT 3.14 10^6/uL (4.00-5.40)
[2018-07-12 04:40] LABS: CALCIUM LEVEL 8.3 MG/DL (8.8-10.2); CREATININE FOR GFR 1.18 MG/DL (0.55-1.30); GLOMERULAR FILTRATION RATE 46.6 (>32); POTASSIUM SERUM 4.8 MEQ/L (3.5-5.1)
[2018-07-12] MEDS: SLF 3 ML SYR IV SCH ×3 (06:00→22:00)
[2018-07-12] MEDS: LevoFLOXacin 250 MG TABLET PO SCH (06:34)
[2018-07-12 08:00] VITALS: BP 119/58
[2018-07-12] MEDS: APIXABAN 5 MG TAB (ELIQUIS) PO SCH ×2 (08:48→20:31)
[2018-07-12] MEDS: predniSONE 20 MG TAB PO SCH (08:48)
[2018-07-12] MEDS: VITAMIN D 1,000 INTERNATIONAL UNITS TABLET PO SCH ×2 (08:48→20:31)
[2018-07-12] MEDS: DOCUSATE SODIUM 100 MG CAP PO SCH ×2 (08:48→20:31)
[2018-07-12] MEDS: ALLOPURINOL 300 MG TAB PO SCH (08:48)
[2018-07-12] MEDS: MAGNESIUM CHLORIDE 64 MG TABCR (SLO MAG) PO SCH ×2 (08:55→20:31)
[2018-07-12] MEDS: METOPROLOL TART 25 MG TABLET PO SCH ×2 (08:56→20:31)
[2018-07-12 09:19] LABS: MAGNESIUM LEVEL 1.8 MG/DL (1.8-2.4)
[2018-07-12] MEDS: SYMBICORT 80/4.5MCG INHALER 6GM INH SCH ×2 (09:28→20:23)
[2018-07-12] MEDS: TIOTROPIUM INHALER/CAPSULE (SPIRIVA) INH SCH (09:28)
--- NOTE | 2018-07-12 14:51 | IPNPDOC ---
Subjective Date Seen The patient was seen on 07/12/18. Subjective Chief Complaint/HPI Patient seen and examined at the bedside. No acute overnight events noted. The patient states that her respiratory status is slowly improving. Her supplemental oxygen is continually being down tapered as tolerated. Patient awaiting physical therapy evaluation. Objective Physical Examination General Exam: Positive: Alert, Cooperative, No Acute Distress ENT Exam: Positive: Atraumatic, Mucous membr. moist/pink Chest Exam: Positive: Diminished Heart Exam: Positive: Rate Normal, Normal S1, Normal S2 Abdomen Exam: Positive: Soft; Negative: Tenderness Extremity Exam: Positive: Swelling (1+ pitting edema in the lower extremities bilaterally); Negative: Tenderness Psych Exam: Positive: Oriented x 3 Assessment /Plan Plan/VTE VTE Prophylaxis Ordered?: Yes Plan COPD Exacerbation 2/[address] Chest noted Cont inhaler therapy, serial nebs, PO steroids, and Levaquin as ordered Pulmonary input appreciated The patient's respiratory status continues to improve Hypoxemic/hypercapnic respiratory failure 2/2 above The patient's hypercapnia has improved, and she is off BiPAP We will continue to down taper supplemental oxygen as tolerated. Acute Kidney Injury 2/2 Above Hold Nephrotoxins Encourage PO Hydration We will continue to monitor serum creatinine Hx of Congestive Heart Failure with Preserved EF ECHO from 12/2017 also notable for severe mitral regurgitation, severe left a trial dilatation, severe tricuspid regurgitation The patient does not appear to be significantly volume decompensated at this time Lasix on hold secondary to ALYSSA--we will consider restarting diuretic therapy if renal function is stable tomorrow We will continue to monitor the patient's volume status History of atrial fibrillation Cont Metoprolol, Eliquis Gout Cont allopurinol Gastroesophageal reflux disease (GERD). Continue Pepcid DVT prophylaxis On Eliquis Dispo- pending clinical improvement, PT evaluation. VS, I&O, 24H, Fishbone Vital Signs/I&O Vital Signs Date Time Temp Pulse Resp B/P (MAP) Pulse Ox O2 Delivery O2 Flow Rate FiO2 07/12/18 08:56 87 118/72 07/12/18 08:00 3.0 07/12/18 08:00 97.4 21 92 High Flow Cannula 07/10/18 08:00 50 I&O- Last 24 Hours up to 6 AM 07/12/18 06:00 Intake Total 1120 ml Output Total 1375 ml Balance -255 ml Laboratory Data 24H LABS Laboratory Tests 2 07/12/18 04:09: Nucleated Red Blood Cells % (auto) 0.2H, Anion Gap 6L, Glomerular Filtration Rate 46.6, Blood Urea Nitrogen 42H, Creatinine 1.18, Sodium Level 132L, Potassium Level 4.8, Chloride Level 92L, Carbon Dioxide Level 34H, Calcium Level 8.3L, Magnesium Level 1.8 CBC/BMP Laboratory Tests 07/12/18 04:09 Red Blood Count 3.14 L, Mean Corpuscular Volume 93.3, Mean Corpuscular Hemoglobin 28.7, Mean Corpuscular Hemoglobin Concent 30.7 L, Red Cell Distribution Width 20.4 H, Calcium Level 8.3 L Microbiology Microbiology 07/10/18 Blood Culture - Preliminary, Resulted No Growth after 48 hours. All Specime... 07/10/18 Blood Culture - Final, Complete Haemophilus Influenzae 07/10/18 Gram Stain - Final, Complete 07/10/18 Sputum Culture - Final, Complete Staphylococcus Aureus 07/10/18 Respiratory Virus Panel (PCR) (MUSHTAQ) - Final, Complete Coronavirus Oc43 YADIRA LAMAR MD Jul 12, 2018 14:51
[2018-07-12] MEDS: ALBUTEROL SULFATE 2.5 MG/0.5 ML INH NEB SOLN NEB PRN (15:33)
[2018-07-12 16:00] VITALS: BP_SYST 100
[2018-07-12 20:00] VITALS: BP 113/73
[2018-07-13 04:00] VITALS: BP 92/53
[2018-07-13 04:32] LABS: HEMATOCRIT 35.6 % (36.0-47.0); HEMOGLOBIN 10.4 g/dl (12.0-15.5); MEAN CORPUSCULAR HEMOGLOBIN 28.7 pg (27.0-33.0); MEAN CORPUSCULAR HGB CONC 29.2 g/dl (32.0-36.5); MEAN CORPUSCULAR VOLUME 98.1 fl (80.0-96.0); PLATELET COUNT, AUTOMATED 284 10^3/uL (150-450); RED BLOOD COUNT 3.63 10^6/uL (4.00-5.40); WHITE BLOOD COUNT 10.2 10^3/uL (4.0-10.0)
[2018-07-13] MEDS: LevoFLOXacin 250 MG TABLET PO SCH (05:13)
[2018-07-13] MEDS: SLF 3 ML SYR IV SCH ×3 (05:15→21:45)
[2018-07-13 05:34] LABS: CALCIUM LEVEL 8.8 MG/DL (8.8-10.2); CREATININE FOR GFR 1.14 MG/DL (0.55-1.30); GLOMERULAR FILTRATION RATE 48.5 (>32); POTASSIUM SERUM 5.1 MEQ/L (3.5-5.1)
[2018-07-13] MEDS: SYMBICORT 80/4.5MCG INHALER 6GM INH SCH ×2 (07:56→20:07)
[2018-07-13] MEDS: TIOTROPIUM INHALER/CAPSULE (SPIRIVA) INH SCH (07:56)
[2018-07-13] MEDS: ALBUTEROL SULFATE 2.5 MG/0.5 ML INH NEB SOLN NEB PRN ×3 (07:56→23:48)
[2018-07-13 08:00] VITALS: BP 101/60
[2018-07-13] MEDS: VITAMIN D 1,000 INTERNATIONAL UNITS TABLET PO SCH ×2 (09:05→21:37)
[2018-07-13] MEDS: predniSONE 20 MG TAB PO SCH (09:05)
[2018-07-13] MEDS: ALLOPURINOL 300 MG TAB PO SCH (09:06)
[2018-07-13] MEDS: DOCUSATE SODIUM 100 MG CAP PO SCH ×2 (09:06→21:37)
[2018-07-13] MEDS: FUROSEMIDE 40 MG TAB PO SCH ×2 (09:06→17:35)
[2018-07-13] MEDS: APIXABAN 5 MG TAB (ELIQUIS) PO SCH ×2 (09:06→21:38)
[2018-07-13] MEDS: METOPROLOL TART 25 MG TABLET PO SCH ×2 (09:07→21:38)
[2018-07-13] MEDS: MAGNESIUM CHLORIDE 64 MG TABCR (SLO MAG) PO SCH ×2 (09:08→21:38)
--- NOTE | 2018-07-13 12:08 | IPNPDOC ---
Subjective Date Seen The patient was seen on 07/13/18. Subjective Chief Complaint/HPI Patient seen and examined at the bedside. Reports improvement of her respiratory and functional status. Patient encouraged to sit up in the chair today. We will continue to have the patient work with physical therapy. Objective Physical Examination General Exam: Positive: Alert, Cooperative, No Acute Distress ENT Exam: Positive: Atraumatic, Mucous membr. moist/pink Chest Exam: Positive: Diminished Heart Exam: Positive: Rate Normal, Normal S1, Normal S2 Abdomen Exam: Positive: Soft; Negative: Tenderness Extremity Exam: Positive: Swelling (1+ pitting edema in the lower extremities b ilaterally); Negative: Tenderness Psych Exam: Positive: Oriented x 3 Assessment /Plan Plan/VTE VTE Prophylaxis Ordered?: Yes Plan COPD Exacerbation 2/[address] Chest noted Cont inhaler therapy, serial nebs, PO steroids, and Levaquin as ordered Pulmonary input appreciated The patient's respiratory status continues to improve Hypercapnic respiratory failure 2/2 above The patient's hypercapnia has improved, and she is off BiPAP Acute on Chronic Hypoxia Patient requires 2L of oxygen at baseline, currently on 4L We will continue to down taper supplemental oxygen as tolerated. Acute Kidney Injury 2/2 Above, resolved Serum Cr at baseline Hx of Congestive Heart Failure with Preserved EF ECHO from 12/2017 also notable for severe mitral regurgitation, severe left atrial dilatation, severe tricuspid regurgitation Cont Lasix History of atrial fibrillation Cont Metoprolol, Eliquis Gout Cont allopurinol Gastroesophageal reflux disease (GERD). Continue Pepcid DVT prophylaxis On Eliquis Dispo- pending clinical improvement, functional optimization with PT. VS, I&O, 24H, Fishbone Vital Signs/I&O Vital Signs Date Time Temp Pulse Resp B/P (MAP) Pulse Ox O2 Delivery O2 Flow Rate FiO2 07/13/18 09:07 76 114/70 07/13/18 08:00 4.0 07/13/18 08:00 97.1 21 91 High Flow Cannula 07/10/18 08:00 50 I&O- Last 24 Hours up to 6 AM 07/13/18 06:00 Intake Total 1680 ml Output Total 745 ml Balance 935 ml Laboratory Data 24H LABS Laboratory Tests 2 07/13/18 04:21: Nucleated Red Blood Cells % (auto) 0.9H, Anion Gap 9, Glomerular Filtration Rate 48.5, Blood Urea Nitrogen 44H, Creatinine 1.14, Sodium Level 136, Potassium Level 5.1, Chloride Level 98, Carbon Dioxide Level 29, Calcium Level 8.8 CBC/BMP Laboratory Tests 07/13/18 04:21 Red Blood Count 3.63 L, Mean Corpuscular Volume 98.1 H, Mean Corpuscular Hemoglobin 28.7, Mean Corpuscular Hemoglobin Concent 29.2 L, Red Cell Distribution Width 20.6 H, Calcium Level 8.8 Microbiology Microbiology 07/10/18 Blood Culture - Preliminary, Resulted No Growth after 72 hours. All specime... 07/10/18 Blood Culture - Final, Complete Haemophilus Influenzae 07/10/18 Gram Stain - Final, Complete 07/10/18 Sputum Culture - Final, Complete Staphylococcus Aureus 07/10/18 Respiratory Virus Panel (PCR) (MUSHTAQ) - Final, Complete Coronavirus Oc43 YADIRA LAMAR MD Jul 13, 2018 12:08
[2018-07-13 14:57] VITALS: BP 105/53
[2018-07-13] MEDS: ACETAMINOPHEN TAB 650MG DOSE (2X325MG) PO PRN (21:39)
[2018-07-13 22:00] VITALS: BP 128/58
[2018-07-14] MEDS ORDERED: methylPREDNISolone INJ 40 MG/1 ML VIAL (J2920) IV ONE
[2018-07-14] MEDS: SLF 3 ML SYR IV SCH ×3 (00:12→20:54)
[2018-07-14] MEDS ORDERED: guaiFENesin SYRUP 200 MG/10 ML UDC PO ONE (00:15)
[2018-07-14] MEDS: LevoFLOXacin 250 MG TABLET PO SCH (05:21)
[2018-07-14 06:00] VITALS: BP 106/62
[2018-07-14 06:02] LABS: HEMATOCRIT 30.9 % (36.0-47.0); HEMOGLOBIN 9.5 g/dl (12.0-15.5); MEAN CORPUSCULAR HEMOGLOBIN 28.4 pg (27.0-33.0); MEAN CORPUSCULAR HGB CONC 30.7 g/dl (32.0-36.5); MEAN CORPUSCULAR VOLUME 92.2 fl (80.0-96.0); PLATELET COUNT, AUTOMATED 363 10^3/uL (150-450); RED BLOOD COUNT 3.35 10^6/uL (4.00-5.40); WHITE BLOOD COUNT 7.7 10^3/uL (4.0-10.0)
[2018-07-14 06:19] LABS: CALCIUM LEVEL 8.4 MG/DL (8.8-10.2); CREATININE FOR GFR 1.32 MG/DL (0.55-1.30); GLOMERULAR FILTRATION RATE 40.9 (>32); POTASSIUM SERUM 5.2 MEQ/L (3.5-5.1)
[2018-07-14] MEDS: TIOTROPIUM INHALER/CAPSULE (SPIRIVA) INH SCH (08:21)
[2018-07-14] MEDS: SYMBICORT 80/4.5MCG INHALER 6GM INH SCH ×2 (08:21→21:10)
[2018-07-14] MEDS ORDERED: guaiFENesin SYRUP 200 MG/10 ML UDC PO SCH (09:00)
[2018-07-14] MEDS: guaiFENesin SYRUP 200 MG/10 ML UDC PO PRN ×2 (09:50→20:54)
[2018-07-14] MEDS: ALLOPURINOL 300 MG TAB PO SCH (09:50)
[2018-07-14] MEDS: APIXABAN 5 MG TAB (ELIQUIS) PO SCH ×2 (09:50→20:52)
[2018-07-14] MEDS: DOCUSATE SODIUM 100 MG CAP PO SCH ×2 (09:50→20:52)
[2018-07-14] MEDS: predniSONE 20 MG TAB PO SCH (09:50)
[2018-07-14] MEDS: VITAMIN D 1,000 INTERNATIONAL UNITS TABLET PO SCH ×2 (09:50→20:53)
[2018-07-14] MEDS: MAGNESIUM CHLORIDE 64 MG TABCR (SLO MAG) PO SCH ×2 (09:52→20:53)
[2018-07-14] MEDS: METOPROLOL TART 25 MG TABLET PO SCH ×2 (09:52→20:53)
--- NOTE | 2018-07-14 09:53 | IPNPDOC ---
Subjective Date Seen The patient was seen on 07/14/18. Subjective Chief Complaint/HPI Patient seen and examined at bedside. Reports that her respiratory status is better today. She is scheduled to work with physical therapy today. Objective Physical Examination General Exam: Positive: Alert, Cooperative, No Acute Distress ENT Exam: Positive: Atraumatic, Mucous membr. moist/pink Chest Exam: Positive: Diminished Heart Exam: Positive: Rate Normal, Normal S1, Normal S2 Abdomen Exam: Positive: Soft; Negative: Tenderness Extremity Exam: Positive: Swelling (1+ pitting edema in the lower extremities bilaterally); Negative: Tenderness Psych Exam: Positive: Oriented x 3 Assessment /Plan Plan/VTE VTE Prophylaxis Ordered?: Yes Plan COPD Exacerbation 2/[address] Chest noted Cont inhaler therapy, serial nebs, PO steroids, and Levaquin as ordered Pulmonary input appreciated The patient's respiratory status continues to improve Hypercapnic respiratory failure 2/2 above The patient's hypercapnia has improved, and she is off BiPAP Acute on Chronic Hypoxia Patient requires 2L of oxygen at baseline, currently on 4L We will continue to down taper supplemental oxygen as tolerated. Acute Kidney Injury 2/2 Above, resolved Serum Cr near baseline Hx of Congestive Heart Failure with Preserved EF, compensated ECHO from 12/2017 also notable for severe mitral regurgitation, severe left atrial dilatation, severe tricuspid regurgitation Lasix on hold History of atrial fibrillation Cont Metoprolol, Eliquis Gout Cont allopurinol Gastroesophageal reflux disease (GERD). Continue Pepcid DVT prophylaxis On Eliquis Dispo- pending clinical improvement, functional optimization with PT. VS, I&O, 24H, Fishbone Vital Signs/I&O Vital Signs Date Time Temp Pulse Resp B/P (MAP) Pulse Ox O2 Delivery O2 Flow Rate FiO2 07/14/18 06:00 96.3 89 20 106/62 (77) 99 Nasal Cannula 4.0 07/10/18 08:00 50 I&O- Last 24 Hours up to 6 AM 07/14/18 06:00 Intake Total 1040 ml Output Total 940 ml Balance 100 ml Laboratory Data 24H LABS Laboratory Tests 2 07/14/18 05:33: Nucleated Red Blood Cells % (auto) 0.8H, Anion Gap 8, Glomerular Filtration Rate 40.9, Blood Urea Nitrogen 47H, Creatinine 1.32H, Sodium Level 134L, Potassium Level 5.2H, Chloride Level 92L, Carbon Dioxide Level 34H, Calcium Level 8.4L CBC/BMP Laboratory Tests 07/14/18 05:33 Red Blood Count 3.35 L, Mean Corpuscular Volume 92.2, Mean Corpuscular Hemoglobin 28.4, Mean Corpuscular Hemoglobin Concent 30.7 L, Red Cell Distribution Width 20.8 H, Calcium Level 8.4 L Microbiology Microbiology 07/10/18 Blood Culture - Preliminary, Resulted No Growth after 72 hours. All specime... 07/10/18 Blood Culture - Final, Complete Haemophilus Influenzae 07/10/18 Gram Stain - Final, Complete 07/10/18 Sputum Culture - Final, Complete Staphylococcus Aureus 07/10/18 Respiratory Virus Panel (PCR) ([facility]) - Final, Complete Coronavirus Oc43 YADIRA LAMAR MD Jul 14, 2018 09:53
[2018-07-14 14:00] VITALS: BP 113/62
[2018-07-14] MEDS: RAMELTEON 8 MG TAB (ROZEREM) PO SCH (20:53)
[2018-07-14 22:00] VITALS: BP 132/71
[2018-07-15] MEDS: LevoFLOXacin 250 MG TABLET PO SCH (05:33)
[2018-07-15] MEDS: SLF 3 ML SYR IV SCH ×3 (05:34→21:31)
[2018-07-15 06:00] VITALS: BP 125/77
[2018-07-15 06:11] LABS: HEMATOCRIT 33.8 % (36.0-47.0); HEMOGLOBIN 10.2 g/dl (12.0-15.5); MEAN CORPUSCULAR HEMOGLOBIN 28.4 pg (27.0-33.0); MEAN CORPUSCULAR HGB CONC 30.2 g/dl (32.0-36.5); MEAN CORPUSCULAR VOLUME 94.2 fl (80.0-96.0); PLATELET COUNT, AUTOMATED 414 10^3/uL (150-450); RED BLOOD COUNT 3.59 10^6/uL (4.00-5.40); WHITE BLOOD COUNT 9.8 10^3/uL (4.0-10.0)
[2018-07-15 06:37] LABS: CALCIUM LEVEL 8.8 MG/DL (8.8-10.2); CREATININE FOR GFR 1.33 MG/DL (0.55-1.30); GLOMERULAR FILTRATION RATE 40.6 (>32); POTASSIUM SERUM 5.2 MEQ/L (3.5-5.1)
[2018-07-15] MEDS: TIOTROPIUM INHALER/CAPSULE (SPIRIVA) INH SCH (08:30)
[2018-07-15] MEDS: SYMBICORT 80/4.5MCG INHALER 6GM INH SCH ×2 (08:31→21:28)
[2018-07-15 08:34] VITALS: BP 106/74
[2018-07-15] MEDS: MAGNESIUM CHLORIDE 64 MG TABCR (SLO MAG) PO SCH (09:00)
[2018-07-15] MEDS: APIXABAN 5 MG TAB (ELIQUIS) PO SCH ×2 (10:00→21:30)
[2018-07-15] MEDS: ALLOPURINOL 300 MG TAB PO SCH (10:00)
[2018-07-15] MEDS: predniSONE 20 MG TAB PO SCH (10:00)
[2018-07-15] MEDS: METOPROLOL TART 25 MG TABLET PO SCH ×2 (10:01→21:31)
[2018-07-15] MEDS: VITAMIN D 1,000 INTERNATIONAL UNITS TABLET PO SCH ×2 (10:01→21:31)
[2018-07-15] MEDS: DOCUSATE SODIUM 100 MG CAP PO SCH ×2 (10:01→21:30)
[2018-07-15 12:00] VITALS: BP 106/74
[2018-07-15 14:00] VITALS: BP 104/58
[2018-07-15] MEDS: FUROSEMIDE 40 MG TAB PO SCH (17:19)
--- NOTE | 2018-07-15 17:32 | IPN ---
DATE: 07/15/2018 SUBJECTIVE: Patient is seen and examined in the room. Patient continues to have difficulty breathing. The patient is still requiring at least 4 liters of oxygen support. There was an episode that patient decompensated to 70% in room air. According to the patient, the patient does not use oxygen frequently at home. The patient denies any fever or chills. OBJECTIVE: VITAL SIGNS: Temperature is 97, pulse is 75, respirations 20, blood pressure 106/74, pulse oximetry 90% with 4 liters nasal cannula. GENERAL: The patient is alert and awake, in no distress. HEENT: Normocephalic, atraumatic. Extraocular motor grossly intact. CARDIOVASCULAR: Positive S1, S2, regular rate. LUNGS: Diminished breath sounds. No symptoms of wheezing. ABDOMEN: Soft, nontender. EXTREMITIES: Positive edema bilaterally, most significant in the right lower extremity. Chronic venous stasis changes noted. LABORATORY DATA: WBC is 9.8, hemoglobin 10.2, hematocrit 33.8, platelet count is 414. Sodium is 133, potassium is 5.2, chloride 92, carbon dioxide is 34, BUN 57, creatinine is 1.33, GFR is 40.6, fasting glucose is 99, calcium is 8.8. ASSESSMENT AND PLAN: 1. Acute on chronic hypercapnic hypoxic respiratory failure. Patient tested positive for Coronavirus. Sputum culture is positive for Staphylococcus aureus. CT imaging demonstrates patient has consolidation in the right lower lobe and right middle lobe consistent with pneumonia, on antibiotics. Patient also has a history of congestive heart failure with a preserved ejection fraction (EF). Patient is on a diuretic. Previously patient was being treated for chronic obstructive pulmonary disease (COPD) exacerbation. Patient is on tapering steroids. 2. Right middle and right lower lobe pneumonia, on Levaquin. 3. Coronavirus infection. Continue conservative medical management. 4. Acute kidney injury. Diuretic was on hold previously. Renal function improving. Diuretic restarted. Continue to follow the patient's renal function. 5. History of atrial fibrillation. On Eliquis. On metoprolol. Heart rate in a satisfactory range. 6. Gout. On allopurinol. 7. Deep vein thrombosis (DVT) prophylaxis. On Eliquis.
[2018-07-15] MEDS: guaiFENesin SYRUP 200 MG/10 ML UDC PO PRN (21:31)
[2018-07-15] MEDS: RAMELTEON 8 MG TAB (ROZEREM) PO SCH (21:31)
[2018-07-15] MEDS: ACETAMINOPHEN TAB 650MG DOSE (2X325MG) PO PRN (21:32)
[2018-07-15 22:00] VITALS: BP 129/71
[2018-07-16] MEDS: MAGNESIUM CHLORIDE 64 MG TABCR (SLO MAG) PO SCH ×3 (00:21→21:15)
[2018-07-16 06:00] VITALS: BP 110/71
[2018-07-16 06:26] LABS: HEMATOCRIT 33.8 % (36.0-47.0); HEMOGLOBIN 10.1 g/dl (12.0-15.5); MEAN CORPUSCULAR HEMOGLOBIN 27.7 pg (27.0-33.0); MEAN CORPUSCULAR HGB CONC 29.9 g/dl (32.0-36.5); MEAN CORPUSCULAR VOLUME 92.9 fl (80.0-96.0); PLATELET COUNT, AUTOMATED 395 10^3/uL (150-450); RED BLOOD COUNT 3.64 10^6/uL (4.00-5.40); WHITE BLOOD COUNT 8.9 10^3/uL (4.0-10.0)
[2018-07-16] MEDS: SLF 3 ML SYR IV SCH ×3 (06:26→21:15)
[2018-07-16] MEDS: LevoFLOXacin 250 MG TABLET PO SCH (06:26)
[2018-07-16 06:32] LABS: CALCIUM LEVEL 8.5 MG/DL (8.8-10.2); CREATININE FOR GFR 1.32 MG/DL (0.55-1.30); GLOMERULAR FILTRATION RATE 40.9 (>32); POTASSIUM SERUM 5.2 MEQ/L (3.5-5.1)
[2018-07-16] MEDS: SYMBICORT 80/4.5MCG INHALER 6GM INH SCH ×2 (08:38→19:36)
[2018-07-16] MEDS: TIOTROPIUM INHALER/CAPSULE (SPIRIVA) INH SCH (08:38)
[2018-07-16] MEDS: DOCUSATE SODIUM 100 MG CAP PO SCH ×2 (10:03→21:14)
[2018-07-16] MEDS: ALLOPURINOL 300 MG TAB PO SCH (10:03)
[2018-07-16] MEDS: VITAMIN D 1,000 INTERNATIONAL UNITS TABLET PO SCH ×2 (10:03→21:15)
[2018-07-16] MEDS: APIXABAN 5 MG TAB (ELIQUIS) PO SCH ×2 (10:03→21:14)
[2018-07-16] MEDS: guaiFENesin SYRUP 200 MG/10 ML UDC PO PRN ×2 (10:03→23:07)
[2018-07-16] MEDS: predniSONE 20 MG TAB PO SCH (10:03)
[2018-07-16] MEDS: FUROSEMIDE 40 MG TAB PO SCH (10:03)
[2018-07-16] MEDS: METOPROLOL TART 25 MG TABLET PO SCH ×2 (10:08→21:14)
--- NOTE | 2018-07-16 13:45 | IPNPDOC ---
Text Note Date of Service The patient was seen on 07/16/18. NOTE SUBJECTIVE: Patient is seen and examined in the room. Patient continues requiring oxygen support. Patient also complains about increasing dependent edema. The patient denies any fever or chills. OBJECTIVE: VITAL SIGNS: Listed below. GENERAL: The patient is alert and awake. No distress. HEENT: Normocephalic, atraumatic. Extraocular motor grossly intact. CARDIOVASCULAR: Positive S1, S2, regular rate. LUNGS: Diminished breath sounds. No symptoms of wheezing. ABDOMEN: Soft, nontender. EXTREMITIES: Positive peripheral edema bilaterally. Chronic venous stasis changes noted. LABORATORY DATA: Listed below ASSESSMENT AND PLAN: #. Acute on chronic hypercapnic hypoxic respiratory failure. - Patient tested positive for Coronavirus. - CT imaging demonstrates patient has consolidation in the right lower lobe and right middle lobe consistent with pneumonia. Sputum culture is positive for Staphylococcus aureus. S/P antibiotic treatment. - Previously patient was being treated for chronic obstructive pulmonary disease (COPD) exacerbation. Patient is on tapering steroids. - History of congestive heart failure with a preserved ejection fraction (EF). Patient currently demonstrates signs of fluid overload. Patient is on a diuretic. #. Right middle and right lower lobe pneumonia - Sputum culture was positive for Staphylococcus aureus. S/P antibiotic treatment. #. Coronavirus infection. - Continue conservative medical management. #. Acute kidney injury. - Diuretic was on hold previously. Renal function improved. Diuretic restarted. Continue to follow the patient's renal function. #. History of atrial fibrillation. - On Eliquis. On metoprolol. Heart rate in a satisfactory range. #. Gout. On allopurinol. #. Deep vein thrombosis (DVT) prophylaxis. On Eliquis. VS,Fishbone, I+O VS, Fishbone, I+O Laboratory Tests 07/16/18 06:02 Red Blood Count 3.64 L, Mean Corpuscular Volume 92.9, Mean Corpuscular H emoglobin 27.7, Mean Corpuscular Hemoglobin Concent 29.9 L, Red Cell Distribution Width 20.4 H, Calcium Level 8.5 L Vital Signs Date Time Temp Pulse Resp B/P (MAP) Pulse Ox O2 Delivery O2 Flow Rate FiO2 07/16/18 11:01 92 Nasal Cannula 4.0 07/16/18 10:08 60 110/71 07/16/18 06:00 99.1 18 07/10/18 08:00 50 I&O- Last 24 Hours up to 6 AM 07/16/18 06:00 Intake Total 1260 ml Output Total 551 ml Balance 709 ml DEBBY YANES DO Jul 16, 2018 13:45
[2018-07-16 14:00] VITALS: BP 102/59
--- NOTE | 2018-07-16 14:45 | REP ---
Clinical: Shortness of breath. Technique: AP and lateral. Comparison: 07/10/2018. Findings: Cardiomegaly. Bibasilar opacities suggest atelectasis and pleural effusions. Associated pulmonary vascular congestion. Skeletal structures demonstrate osteopenia, degenerative changes, and old healed fractures. Impression: Findings suggest pulmonary edema including cardiomegaly with bibasilar opacities and pleural effusions. Differential diagnosis includes multifocal pneumonia. Electronically Signed by Juan Miguel Jensen MD 07/16/2018 02:36 P
[2018-07-16] MEDS ORDERED: FUROSEMIDE 40 MG/4 ML VIAL (J1940) IV ONE ×2 (16:00)
[2018-07-16] MEDS: RAMELTEON 8 MG TAB (ROZEREM) PO SCH (21:14)
[2018-07-16] MEDS: ACETAMINOPHEN TAB 650MG DOSE (2X325MG) PO PRN (21:16)
[2018-07-16 22:00] VITALS: BP 144/65
[2018-07-17] MEDS: SLF 3 ML SYR IV SCH ×3 (05:36→21:20)
[2018-07-17 06:00] VITALS: BP 110/61
[2018-07-17 06:20] LABS: HEMATOCRIT 34.3 % (36.0-47.0); HEMOGLOBIN 10.5 g/dl (12.0-15.5); MEAN CORPUSCULAR HEMOGLOBIN 28.7 pg (27.0-33.0); MEAN CORPUSCULAR HGB CONC 30.6 g/dl (32.0-36.5); MEAN CORPUSCULAR VOLUME 93.7 fl (80.0-96.0); PLATELET COUNT, AUTOMATED 386 10^3/uL (150-450); RED BLOOD COUNT 3.66 10^6/uL (4.00-5.40); WHITE BLOOD COUNT 6.7 10^3/uL (4.0-10.0)
[2018-07-17 06:39] LABS: CALCIUM LEVEL 8.3 MG/DL (8.8-10.2); CREATININE FOR GFR 1.27 MG/DL (0.55-1.30); GLOMERULAR FILTRATION RATE 42.8 (>32); POTASSIUM SERUM 4.3 MEQ/L (3.5-5.1)
[2018-07-17] MEDS: SYMBICORT 80/4.5MCG INHALER 6GM INH SCH ×2 (07:51→20:58)
[2018-07-17] MEDS: TIOTROPIUM INHALER/CAPSULE (SPIRIVA) INH SCH (07:51)
[2018-07-17] MEDS: DOCUSATE SODIUM 100 MG CAP PO SCH ×2 (08:29→21:18)
[2018-07-17] MEDS: APIXABAN 5 MG TAB (ELIQUIS) PO SCH ×2 (08:29→21:19)
[2018-07-17] MEDS: ALLOPURINOL 300 MG TAB PO SCH (08:29)
[2018-07-17] MEDS: VITAMIN D 1,000 INTERNATIONAL UNITS TABLET PO SCH ×2 (08:29→21:19)
[2018-07-17] MEDS: predniSONE 10 MG TAB PO SCH (08:29)
[2018-07-17] MEDS: MAGNESIUM CHLORIDE 64 MG TABCR (SLO MAG) PO SCH ×2 (08:30→21:19)
[2018-07-17] MEDS: METOPROLOL TART 25 MG TABLET PO SCH ×2 (08:30→21:19)
[2018-07-17] MEDS: FUROSEMIDE 40 MG TAB PO SCH ×2 (08:30→17:34)
[2018-07-17 14:00] VITALS: BP 119/54
--- NOTE | 2018-07-17 14:30 | IPNPDOC ---
Text Note Date of Service The patient was seen on 07/17/18. NOTE SUBJECTIVE: Patient is seen and examined in the room. Patient demonstrates significant oxygen desaturation during oxygen weaning process. Patient continues having significant dependent edema. The patient denies any fever or chills. OBJECTIVE: VITAL SIGNS: Listed below. GENERAL: The patient is alert and awake. No distress. HEENT: Normocephalic, atraumatic. Extraocular motor grossly intact. CARDIOVASCULAR: Positive S1, S2, regular rate. LUNGS: Diminished breath sounds. No symptoms of wheezing. ABDOMEN: Soft, nontender. EXTREMITIES: Positive peripheral edema bilaterally. Chronic venous stasis changes noted. LABORATORY DATA: Listed below. ASSESSMENT AND PLAN: #. Acute on chronic hypercapnic hypoxic respiratory failure. - Patient tested positive for Coronavirus. - CT imaging demonstrates patient has consolidation in the right lower lobe and right middle lobe consistent with pneumonia. Sputum culture is positive for Staphylococcus aureus. S/P antibiotic treatment. - Previously patient was treated for chronic obstructive pulmonary disease (COPD) exacerbation. Patient is on tapering steroids. - History of congestive heart failure with a preserved ejection fraction (EF). Patient still demonstrates signs of fluid overload. Patient is on a diuretic. #. Right middle and right lower lobe pneumonia. - Sputum culture was positive for Staphylococcus aureus. S/P antibiotic treatment. #. Coronavirus infection. - Continue conservative medical management. #. Acute kidney injury. - Diuretic was on hold previously. Renal function improved. Diuretic restarted. Continue to follow the patient's renal function. #. History of atrial fibrillation. - On Eliquis. On metoprolol. Heart rate in a satisfactory range. #. Gout. On allopurinol. #. Deep vein thrombosis (DVT) prophylaxis. On Eliquis. VS,Fishbone, I+O VS, Fishbone, I+O Laboratory Tests 07/17/18 06:00 Red Blood Count 3.66 L, Mean Corpuscular Volume 93.7, Mean Corpuscular Hemoglobin 28.7, Mean Corpuscular Hemoglobin Concent 30.6 L, Red Cell Distributi on Width 20.6 H, Calcium Level 8.3 L Vital Signs Date Time Temp Pulse Resp B/P (MAP) Pulse Ox O2 Delivery O2 Flow Rate FiO2 07/17/18 08:30 68 110/61 07/17/18 06:43 20 94 4.0 07/17/18 06:00 98.2 07/16/18 11:01 Nasal Cannula I&O- Last 24 Hours up to 6 AM 07/17/18 05:59 Intake Total 720 ml Output Total 800 ml Balance -80 ml DEBBY YANES DO Jul 17, 2018 14:30
[2018-07-17] MEDS: RAMELTEON 8 MG TAB (ROZEREM) PO SCH (21:19)
[2018-07-17] MEDS: guaiFENesin SYRUP 200 MG/10 ML UDC PO PRN (21:20)
[2018-07-17] MEDS: traMADol 50 MG TAB PO PRN (21:22)
[2018-07-17 22:00] VITALS: BP 115/62
[2018-07-18] MEDS: SLF 3 ML SYR IV SCH ×3 (05:11→21:24)
[2018-07-18 06:00] VITALS: BP 102/64
[2018-07-18 06:46] LABS: HEMATOCRIT 32.3 % (36.0-47.0); HEMOGLOBIN 9.7 g/dl (12.0-15.5); MEAN CORPUSCULAR VOLUME 93.1 fl (80.0-96.0); PLATELET COUNT, AUTOMATED 424 10^3/uL (150-450); RED BLOOD COUNT 3.47 10^6/uL (4.00-5.40); WHITE BLOOD COUNT 6.7 10^3/uL (4.0-10.0)
[2018-07-18 07:25] LABS: CALCIUM LEVEL 8.2 MG/DL (8.8-10.2); CREATININE FOR GFR 0.99 MG/DL (0.55-1.30); MAGNESIUM LEVEL 1.6 MG/DL (1.8-2.4); POTASSIUM SERUM 3.7 MEQ/L (3.5-5.1)
[2018-07-18] MEDS: TIOTROPIUM INHALER/CAPSULE (SPIRIVA) INH SCH (08:10)
[2018-07-18] MEDS: SYMBICORT 80/4.5MCG INHALER 6GM INH SCH ×2 (08:10→19:24)
[2018-07-18] MEDS: FUROSEMIDE 20 MG TAB PO SCH ×2 (09:00→17:15)
[2018-07-18] MEDS ORDERED: FUROSEMIDE 40 MG TAB PO SCH (09:00)
[2018-07-18] MEDS: METOPROLOL TART 25 MG TABLET PO SCH ×2 (09:00→21:22)
[2018-07-18] MEDS: ALLOPURINOL 300 MG TAB PO SCH (09:06)
[2018-07-18] MEDS: MAGNESIUM CHLORIDE 64 MG TABCR (SLO MAG) PO SCH ×2 (09:06→21:22)
[2018-07-18] MEDS: VITAMIN D 1,000 INTERNATIONAL UNITS TABLET PO SCH ×2 (09:09→21:22)
[2018-07-18] MEDS: APIXABAN 5 MG TAB (ELIQUIS) PO SCH ×2 (09:09→21:22)
[2018-07-18] MEDS: predniSONE 10 MG TAB PO SCH (09:09)
[2018-07-18] MEDS: DOCUSATE SODIUM 100 MG CAP PO SCH ×2 (09:09→21:22)
[2018-07-18 14:00] VITALS: BP 110/56
[2018-07-18 17:16] VITALS: BP 115/54
--- NOTE | 2018-07-18 17:37 | IPNPDOC ---
Text Note Date of Service The patient was seen on 07/18/18. NOTE SUBJECTIVE: Patient is seen and examined in the room. Patient had great output from Lasix. Patient starts to tolerate oxygen weaning better. Denies acute complaint. OBJECTIVE: VITAL SIGNS: Listed below. GENERAL: The patient is alert and awake. No distress. HEENT: Normocephalic, atraumatic. Extraocular motor grossly intact. CARDIOVASCULAR: Positive S1, S2, regular rate. LUNGS: Diminished breath sounds. No symptoms of wheezing. ABDOMEN: Soft, nontender. EXTREMITIES: Positive peripheral edema bilaterally. Chronic venous stasis changes noted. LABORATORY DATA: Listed below. ASSESSMENT AND PLAN: #. Acute on chronic hypercapnic hypoxic respiratory failure. - Patient tested positive for Coronavirus. - CT imaging demonstrates patient has consolidation in the right lower lobe and right middle lobe consistent with pneumonia. Sputum culture is positive for Staphylococcus aureus. S/P antibiotic treatment. - Previously patient was treated for chronic obstructive pulmonary disease (COPD) exacerbation. Patient is on tapering steroids. - History of congestive heart failure with a preserved ejection fraction (EF). Patient still demonstrates signs of fluid overload. Patient responses well to diuretic. Due to hypotension, diuretic dosage is being adjusted. #. Right middle and right lower lobe pneumonia. - Sputum culture was positive for Staphylococcus aureus. S/P antibiotic treatment. #. Coronavirus infection. - Continue conservative medical management. #. Acute kidney injury. - Diuretic was on hold previously. Renal function improved. Diuretic restarted. Continue to follow the patient's renal function. #. History of atrial fibrillation. - On Eliquis. On metoprolol. Heart rate in a satisfactory range. #. Gout. On allopurinol. #. Deep vein thrombosis (DVT) prophylaxis. On Eliquis. VS,Fishbone, I+O VS, Fishbone, I+O Laboratory Tests 07/18/18 06:29 Red Blood Count 3.47 L, Mean Corpuscular Volume 93.1, Mean Corpuscular Hemoglobin 28.0, Mean Corpuscular Hemoglobin Concent 30.0 L, Red Cell Distribution Width 20.6 H, Calcium Level 8.2 L Vital Signs Date Time Temp Pulse Resp B/P (MAP) Pulse Ox O2 Delivery O2 Flow Rate FiO2 07/18/18 14:00 96.8 57 20 110/56 (74) 96 20.0 07/16/18 11:01 Nasal Cannula I&O- Last 24 Hours up to 6 AM 07/18/18 06:00 Intake Total 1650 ml Output Total 3000 ml Balance -1350 ml DEBBY YANES DO Jul 18, 2018 17:37
[2018-07-18] MEDS: RAMELTEON 8 MG TAB (ROZEREM) PO SCH (21:22)
[2018-07-18] MEDS: guaiFENesin SYRUP 200 MG/10 ML UDC PO PRN (21:23)
[2018-07-18] MEDS: traMADol 50 MG TAB PO PRN (21:24)
[2018-07-18 22:00] VITALS: BP 118/57
[2018-07-19] MEDS: SLF 3 ML SYR IV SCH ×3 (05:13→22:32)
[2018-07-19 06:00] VITALS: BP 112/55
[2018-07-19 06:24] LABS: HEMATOCRIT 33.7 % (36.0-47.0); HEMOGLOBIN 9.9 g/dl (12.0-15.5); MEAN CORPUSCULAR HEMOGLOBIN 27.7 pg (27.0-33.0); MEAN CORPUSCULAR HGB CONC 29.4 g/dl (32.0-36.5); MEAN CORPUSCULAR VOLUME 94.4 fl (80.0-96.0); PLATELET COUNT, AUTOMATED 407 10^3/uL (150-450); RED BLOOD COUNT 3.57 10^6/uL (4.00-5.40); WHITE BLOOD COUNT 7.4 10^3/uL (4.0-10.0)
[2018-07-19 06:45] LABS: BLOOD UREA NITROGEN 40 MG/DL (7-18); CALCIUM LEVEL 8.1 MG/DL (8.8-10.2); CARBON DIOXIDE LEVEL 40 MEQ/L (21-32); CHLORIDE LEVEL 97 MEQ/L (98-107); CREATININE FOR GFR 0.93 MG/DL (0.55-1.30); GLOMERULAR FILTRATION RATE > 60.0 (>32); GLUCOSE, FASTING 81 MG/DL (70-100); MAGNESIUM LEVEL 1.7 MG/DL (1.8-2.4); POTASSIUM SERUM 3.4 MEQ/L (3.5-5.1); SODIUM LEVEL 141 MEQ/L (136-145)
[2018-07-19] MEDS ORDERED: POTASSIUM CHLORIDE 10 MEQ SR TABLET PO ONE (08:00)
[2018-07-19] MEDS: TIOTROPIUM INHALER/CAPSULE (SPIRIVA) INH SCH (08:32)
[2018-07-19] MEDS: SYMBICORT 80/4.5MCG INHALER 6GM INH SCH ×2 (08:32→20:54)
[2018-07-19] MEDS: FUROSEMIDE 20 MG TAB PO SCH ×2 (09:00→16:39)
[2018-07-19] MEDS: METOPROLOL TART 25 MG TABLET PO SCH ×2 (09:00→22:41)
[2018-07-19] MEDS: DOCUSATE SODIUM 100 MG CAP PO SCH ×2 (10:30→22:31)
[2018-07-19] MEDS: predniSONE 10 MG TAB PO SCH (10:30)
[2018-07-19] MEDS: VITAMIN D 1,000 INTERNATIONAL UNITS TABLET PO SCH ×2 (10:30→22:31)
[2018-07-19] MEDS: APIXABAN 5 MG TAB (ELIQUIS) PO SCH ×2 (10:30→22:31)
[2018-07-19] MEDS: ALLOPURINOL 300 MG TAB PO SCH (10:31)
[2018-07-19] MEDS: MAGNESIUM CHLORIDE 64 MG TABCR (SLO MAG) PO SCH ×2 (10:31→22:32)
--- NOTE | 2018-07-19 13:51 | IPNPDOC ---
Text Note Date of Service The patient was seen on 07/19/18. NOTE SUBJECTIVE: Patient is seen and examined in the room. Denies acute complaint. Patient feels her breathing is improving. OBJECTIVE: VITAL SIGNS: Listed below. GENERAL: The patient is alert and awake. No distress. HEENT: Normocephalic, atraumatic. Extraocular motor grossly intact. CARDIOVASCULAR: Positive S1, S2, regular rate. LUNGS: Diminished breath sounds. No symptoms of wheezing. ABDOMEN: Soft, nontender. EXTREMITIES: Positive peripheral edema bilaterally. Chronic venous stasis changes noted. LABORATORY DATA: Listed below. ASSESSMENT AND PLAN: #. Acute on chronic hypercapnic hypoxic respiratory failure. - Patient tested positive for Coronavirus. - CT imaging demonstrates patient has consolidation in the right lower lobe and right middle lobe consistent with pneumonia. Sputum culture is positive for Staphylococcus aureus. S/P antibiotic treatment. - Previously patient was treated for chronic obstructive pulmonary disease (COPD) exacerbation. Patient is on tapering steroids. - History of congestive heart failure with a preserved ejection fraction (EF). Patient still demonstrates signs of fluid overload. Patient responses well to diuretic. Due to hypotension, diuretic dosage is being adjusted. Patient was on home diuretic dosage and patient had significant output. #. Right middle and right lower lobe pneumonia. - Sputum culture was positive for Staphylococcus aureus. S/P antibiotic treatment. #. Coronavirus infection. - Continue conservative medical management. #. Acute kidney injury. - Diuretic was on hold previously. Renal function improved. Diuretic restarted. Continue to follow the patient's renal function. #. History of atrial fibrillation. - On Eliquis. On metoprolol. Heart rate in a satisfactory range. #. Gout. On allopurinol. #. Deep vein thrombosis (DVT) prophylaxis. On Eliquis. VS,Fishbone, I+O VS, Fishbone, I+O Laboratory Tests 07/19/18 05:42 Red Blood Count 3.57 L, Mean Corpuscular Volume 94.4, Mean Corpuscular Hemoglobin 27.7, Mean Corpuscular Hemoglobin Concent 29.4 L, Red Cell Distribution Width 20.7 H, Calcium Level 8.1 L Vital Signs Date Time Temp Pulse Resp B/P (MAP) Pulse Ox O2 Delivery O2 Flow Rate FiO2 07/19/18 09:00 98/54 07/19/18 09:00 1.0 07/19/18 06:00 96.9 68 17 97 07/18/18 19:22 Nasal Cannula I&O- Last 24 Hours up to 6 AM 07/19/18 06:00 Intake Total 1220 ml Output Total 1400 ml Balance -180 ml DEBBY YANES DO Jul 19, 2018 13:51
[2018-07-19 14:00] VITALS: BP 173/70
[2018-07-19 22:00] VITALS: BP 104/56
[2018-07-19] MEDS: RAMELTEON 8 MG TAB (ROZEREM) PO SCH (22:31)
[2018-07-19] MEDS: traMADol 50 MG TAB PO PRN (22:38)
[2018-07-19] MEDS: guaiFENesin SYRUP 200 MG/10 ML UDC PO PRN (22:41)
[2018-07-20] MEDS: SLF 3 ML SYR IV SCH ×3 (05:09→21:33)
[2018-07-20 06:00] VITALS: BP 99/58
[2018-07-20 06:19] LABS: HEMATOCRIT 33.6 % (36.0-47.0); HEMOGLOBIN 9.9 g/dl (12.0-15.5); MEAN CORPUSCULAR HEMOGLOBIN 27.8 pg (27.0-33.0); MEAN CORPUSCULAR HGB CONC 29.5 g/dl (32.0-36.5); MEAN CORPUSCULAR VOLUME 94.4 fl (80.0-96.0); PLATELET COUNT, AUTOMATED 390 10^3/uL (150-450); RED BLOOD COUNT 3.56 10^6/uL (4.00-5.40); WHITE BLOOD COUNT 8.9 10^3/uL (4.0-10.0)
[2018-07-20 06:44] LABS: CALCIUM LEVEL 8.4 MG/DL (8.8-10.2); CREATININE FOR GFR 0.97 MG/DL (0.55-1.30); GLOMERULAR FILTRATION RATE 58.4 (>32); MAGNESIUM LEVEL 2.1 MG/DL (1.8-2.4); POTASSIUM SERUM 4.2 MEQ/L (3.5-5.1)
[2018-07-20] MEDS: TIOTROPIUM INHALER/CAPSULE (SPIRIVA) INH SCH (08:28)
[2018-07-20] MEDS: SYMBICORT 80/4.5MCG INHALER 6GM INH SCH ×2 (08:28→21:38)
[2018-07-20] MEDS: METOPROLOL TART 25 MG TABLET PO SCH ×2 (09:00→21:32)
[2018-07-20] MEDS: VITAMIN D 1,000 INTERNATIONAL UNITS TABLET PO SCH ×2 (10:33→21:32)
[2018-07-20] MEDS: FUROSEMIDE 20 MG TAB PO SCH (10:33)
[2018-07-20] MEDS: MAGNESIUM CHLORIDE 64 MG TABCR (SLO MAG) PO SCH ×2 (10:33→21:32)
[2018-07-20] MEDS: predniSONE 10 MG TAB PO SCH (10:33)
[2018-07-20] MEDS: DOCUSATE SODIUM 100 MG CAP PO SCH ×2 (10:33→21:32)
[2018-07-20] MEDS: APIXABAN 5 MG TAB (ELIQUIS) PO SCH ×2 (10:34→21:32)
[2018-07-20] MEDS: ALLOPURINOL 300 MG TAB PO SCH (10:34)
[2018-07-20 14:00] VITALS: BP 116/56
--- NOTE | 2018-07-20 14:14 | IPNPDOC ---
Text Note Date of Service The patient was seen on 07/20/18. NOTE SUBJECTIVE: Patient is seen and examined in the room. Denies acute complaint. Denies fever or chill. OBJECTIVE: VITAL SIGNS: Listed below. GENERAL: The patient is alert and awake. No distress. HEENT: Normocephalic, atraumatic. Extraocular motor grossly intact. CARDIOVASCULAR: Positive S1, S2, regular rate. LUNGS: Diminished breath sounds. No symptoms of wheezing. ABDOMEN: Soft, nontender. EXTREMITIES: Positive peripheral edema bilaterally. Chronic venous stasis changes noted. LABORATORY DATA: Listed below. ASSESSMENT AND PLAN: #. Acute on chronic hypercapnic hypoxic respiratory failure. - Patient tested positive for Coronavirus. - CT imaging demonstrates patient has consolidation in the right lower lobe and right middle lobe consistent with pneumonia. Sputum culture is positive for few Staphylococcus aureus. S/P antibiotic treatment. - Previously patient was treated for chronic obstructive pulmonary disease (COPD) exacerbation. Patient is on tapering steroids. - History of congestive heart failure with a preserved ejection fraction (EF). Patient still demonstrates signs of fluid overload. Patient responses well to diuretic. Due to hypotension, diuretic dosage is being adjusted. Patient was on home diuretic dosage and patient had significant output. #. Coronavirus infection. - Continue conservative medical management. # CHF exacerbation - Diuretic is being adjusted. #. Right middle and right lower lobe pneumonia. - Sputum culture was positive for Staphylococcus aureus. S/P antibiotic treatment. #. Acute kidney injury. - Diuretic was on hold previously. Renal function improved. Diuretic restarted. Continue to follow the patient's renal function. #. History of atrial fibrillation. - On Eliquis. On metoprolol. Heart rate in a satisfactory range. #. Gout. On allopurinol. #. Deep vein thrombosis (DVT) prophylaxis. On Eliquis. VS,Fishbone, I+O VS, Fishbone, I+O Laboratory Tests 07/20/18 05:59 Red Blood Count 3.56 L, Mean Corpuscular Volume 94.4, Mean Corpuscular Hemoglobin 27.8, Mean Corpuscular Hemoglobin Concent 29.5 L, Red Cell Distribution Width 21.1 H, Calcium Level 8.4 L Vital Signs Date Time Temp Pulse Resp B/P (MAP) Pulse Ox O2 Delivery O2 Flow Rate FiO2 07/20/18 09:00 98/54 07/20/18 09:00 1.0 07/20/18 06:00 96.9 64 19 91 07/19/18 22:38 93 07/18/18 19:22 Nasal Cannula I&O- Last 24 Hours up to 6 AM 07/20/18 06:00 Intake Total 860 ml Output Total 600 ml Balance 260 ml DEBBY YANES DO Jul 20, 2018 14:14
[2018-07-20] MEDS: RAMELTEON 8 MG TAB (ROZEREM) PO SCH (21:32)
[2018-07-20] MEDS: ACETAMINOPHEN TAB 650MG DOSE (2X325MG) PO PRN (21:33)
[2018-07-20 22:00] VITALS: BP 127/58
[2018-07-21] MEDS: SLF 3 ML SYR IV SCH (05:03)
[2018-07-21 05:57] LABS: HEMATOCRIT 34.6 % (36.0-47.0); HEMOGLOBIN 9.9 g/dl (12.0-15.5); MEAN CORPUSCULAR HEMOGLOBIN 27.8 pg (27.0-33.0); MEAN CORPUSCULAR HGB CONC 28.6 g/dl (32.0-36.5); MEAN CORPUSCULAR VOLUME 97.2 fl (80.0-96.0); PLATELET COUNT, AUTOMATED 346 10^3/uL (150-450); RED BLOOD COUNT 3.56 10^6/uL (4.00-5.40)
[2018-07-21 06:00] VITALS: BP 105/59
[2018-07-21 06:25] LABS: BLOOD UREA NITROGEN 33 MG/DL (7-18); CALCIUM LEVEL 8.2 MG/DL (8.8-10.2); CARBON DIOXIDE LEVEL 32 MEQ/L (21-32); CHLORIDE LEVEL 100 MEQ/L (98-107); CREATININE FOR GFR 0.89 MG/DL (0.55-1.30); GLOMERULAR FILTRATION RATE > 60.0 (>32); GLUCOSE, FASTING 77 MG/DL (70-100); MAGNESIUM LEVEL 2.1 MG/DL (1.8-2.4); POTASSIUM SERUM 4.8 MEQ/L (3.5-5.1); SODIUM LEVEL 136 MEQ/L (136-145)
[2018-07-21] MEDS: SYMBICORT 80/4.5MCG INHALER 6GM INH SCH (07:37)
[2018-07-21] MEDS: TIOTROPIUM INHALER/CAPSULE (SPIRIVA) INH SCH (07:37)
[2018-07-21] MEDS: predniSONE 10 MG TAB PO SCH (08:27)
[2018-07-21] MEDS: MAGNESIUM CHLORIDE 64 MG TABCR (SLO MAG) PO SCH (08:27)
[2018-07-21] MEDS: APIXABAN 5 MG TAB (ELIQUIS) PO SCH (08:27)
[2018-07-21] MEDS: DOCUSATE SODIUM 100 MG CAP PO SCH (08:27)
[2018-07-21] MEDS: ALLOPURINOL 300 MG TAB PO SCH (08:27)
[2018-07-21] MEDS: VITAMIN D 1,000 INTERNATIONAL UNITS TABLET PO SCH (08:27)
[2018-07-21] MEDS: FUROSEMIDE 20 MG TAB PO SCH (08:29)
[2018-07-21 08:30] VITALS: BP 115/60
[2018-07-21] MEDS: METOPROLOL TART 25 MG TABLET PO SCH (08:30)
[2018-07-21] MEDS ORDERED: FURO20TA2 PO (10:09)
--- NOTE | 2018-07-21 17:43 | DSES ---
DATE OF ADMISSION: 07/10/2018 DATE OF DISCHARGE: 07/21/2018 PRIMARY CARE PROVIDER: Dr. Nicol Dominguez CONSULTANTS: [employer]. DISCHARGE DIAGNOSES: 1. Acute on chronic hypoxic respiratory failure. 2. Coronaviral infection. 3. Congestive heart failure exacerbation. 4. Right middle and right lower lobe pneumonia. 5. Acute kidney injury. 6. Atrial fibrillation. 7. Gout. 8. Pulmonary hypertension with chronic right-sided heart failure. 9. Severe mitral regurgitation. HOSPITAL COURSE: The patient is an 83-year-old female who was transferred from the subacute rehabilitation to [facility] on 07/10/2018 with a complaint of shortness of breath. The patient was admitted to the intensive care unit (ICU) under hospitalist service for acute on chronic hypoxic respiratory failure. The patient was started on the bilevel positive airway pressure (BiPAP) and [facility] hospital, Dr. Wong, was consulted. The patient has also been treated for chronic obstructive pulmonary disease (COPD) exacerbation, secondary to pneumonia, and the patient started on the antibiotics. Later, the patient's BiPAP was discontinued and continued with supplemental oxygen. Respiratory panel came back positive for Coronavirus. Continue conservative medical management. The patient was also found to have acute kidney injury. Nephrotoxic medication on hold and diuretics on hold. With medical management, the patient's respiratory status continued to improve very slowly. Later, the patient started to demonstrate signs of fluid overload and the diuretic restarted and the dosage has been adjusted actively based on the patient's presentation. The patient also seen by physical therapy. On 07/21/2018, the patient is determined stable for discharge with recommendation to continue subacute rehabilitation. The patient should also followup with her primary care provider in one week. The patient also needs to be on fluid restriction. The patient also needs to have active diuretic medication adjustments. OBJECTIVE: VITAL SIGNS: On the day of discharge, temperature 97.2, pulse is 65, respiratory rate 20, blood pressure 105/59, pulse oximetry is 92% with two liters nasal cannula. LABORATORY DATA: On the day of discharge, WBC 9, hemoglobin 9.9, hematocrit 34.6, platelet count is 346. Sodium is 136, potassium 4.8, chloride 100, carbon dioxide 32, BUN 33, creatinine 0.89, GFR greater than 60, fasting glucose 77, calcium 8.2, magnesium 2.1. MICROBIOLOGY: Respiratory panel on 07/10/2018 shows positive for Coronavirus. Sputum culture is positive for few Staphylococcus aureus. IMAGING STUDIES: CT of the chest without contrast on 07/10/2018 demonstrates minimal bilateral pleural effusion. Minimal diffuse bullous changes with scattered interstitial prominence and scars. Patchy bilateral pulmonary infiltrate with areas of consolidation. Suggestion of liver cirrhosis. DISCHARGE MEDICATIONS: - Lasix 20 mg by mouth daily - Tylenol 650 mg by mouth every four hours as needed - albuterol 2.5 mg inhalation four times a day - allopurinol 300 mg by mouth daily - Eliquis 5 mg by mouth twice a day - Dulcolax 10 mg per rectum daily as needed for constipation - Symbicort two puff inhalation twice a day - vitamin D 1000 units by mouth twice a day - Colace 100 mg by mouth twice a day - Pepcid 20 mg by mouth twice a day as needed for heartburn - magnesium chloride 64 mg by mouth twice a day - melatonin 5 mg by mouth at bedtime - metoprolol tartrate 25 mg by mouth twice a day - milk of magnesia 30 mL by mouth daily as needed for constipation - MiraLAX 17 grams by mouth daily as needed for constipation - enema per rectal daily as needed for constipation - tramadol 50 mg by mouth at bedtime as needed for pain DISCHARGE INSTRUCTIONS: Discharge the patient back to subacute rehabilitation. Activity per subacute rehabilitation instructions. Low-salt diet as tolerated. The patient should follow with fluid restrictions. The patient should followup with primary care provider in one week. The patient should be monitored closely for the fluid status for future diuretic adjustments. DISCHARGE TIME: Greater than 30 minutes. DISCHARGE CONDITION: Fair.
[2018-07-22] MEDS ORDERED: VITMTA PO (13:43)
[2018-07-22] MEDS ORDERED: FURO40TA2 PO ×2 (13:43)
[2018-07-22] MEDS ORDERED: SPIR-10 PO (13:43)
== END 2018-07-21 12:09 | DRG 193 ==
LOC: M ED 23:59 → EDBD 23:59 → M ED INP 07-10 03:24 → M ICU 07-10 04:42 → M MSPAV 07-13 14:57
PROVIDERS: ADMIT Hospitalist; ATTEND Internal Medicine
DX: J18.9 Pneumonia, unspecified organism (principal); J96.21 Acute and chronic respiratory failure with hypoxia; J96.22 Acute and chronic respiratory failure with hypercapnia; I50.33 Acute on chronic diastolic (congestive) heart failure; J44.0 Chronic obstructive pulmonary disease with (acute) lower respiratory infection; N17.9 Acute kidney failure, unspecified; J44.1 Chronic obstructive pulmonary disease with (acute) exacerbation; I11.0 Hypertensive heart disease with heart failure; M10.9 Gout, unspecified; I27.20 Pulmonary hypertension, unspecified; B97.29 Other coronavirus as the cause of diseases classified elsewhere; I50.812 Chronic right heart failure; I48.91 Unspecified atrial fibrillation; I34.0 Nonrheumatic mitral (valve) insufficiency; M19.90 Unspecified osteoarthritis, unspecified site; K21.9 Gastro-esophageal reflux disease without esophagitis; E78.5 Hyperlipidemia, unspecified; Z79.01 Long term (current) use of anticoagulants; Z79.899 Other long term (current) drug therapy; Z88.1 Allergy status to other antibiotic agents; Z87.891 Personal history of nicotine dependence

== ENCOUNTER → 2018-07-21 | Outpatient (REF) ==
[~2018-07-21] MED LIST changes: +DULC10SU2 PR; +ENEMENE4 PR; +MELA5TAB17 PO; +MILK120011 PO; +TUBE5INJ ID; +VITMTA PO
--- NOTE | 2018-07-21 16:26 | REP ---
Chest one-view HISTORY: Hypoxia Comparison: 07/16/2018 An increase in interstitial markings is present in the lungs. Bilateral pleural effusions are present. The cardiac silhouette is enlarged. The pulmonary vasculature is prominent. The pulmonary vasculature is normal in appearance. Impression: Findings consistent with interstitial edema or possibly pneumonia. Electronically Signed by Monty Sung MD 07/21/2018 04:17 P
--- NOTE | 2018-07-21 18:23 | REP ---
RIGHT TOE, TWO VIEWS: HISTORY: Gout. There is no acute fracture or dislocation. There is narrowing of the metatarsal phalangeal, proximal and distal interphalangeal joint spaces. There are erosions at the head of the 1st metatarsal and base of the first proximal phalange. Calcifications are present in the soft tissue medial to the first metatarsal phalangeal joint space. A linear metallic density is present in the soft tissue adjacent to the first metatarsal. IMPRESSION:The above findings are consistent with gout. Osteomyelitis can not be excluded. Electronically Signed by Monty Sung MD 07/22/2018 08:40 A
== END ==
PROVIDERS: ATTEND Internal Medicine
DX: I50.9 Heart failure, unspecified (principal); R09.02 Hypoxemia; M79.674 Pain in right toe(s); R91.8 Other nonspecific abnormal finding of lung field

== ENCOUNTER 2018-07-22 13:02 | Inpatient (IN) | payer MEDICARE ==
[~2018-07-22] VITALS: Ht 160 cm; Wt 64.1 kg
[~2018-07-22 13:02] MED LIST changes: -VITMTA PO
[2018-07-22] MEDS ORDERED: VITMTA PO (13:43)
[2018-07-22] MEDS ORDERED: FURO40TA2 PO ×2 (13:43)
[2018-07-22] MEDS ORDERED: SPIR-10 PO (13:43)
--- NOTE | 2018-07-22 14:26 | REP ---
CT chest without contrast: History: Dyspnea. Cough. Comparison chest CT study: July 10, 2018. This recent study showed new infiltrates in the right middle and lower lobe and small bilateral effusions. CT findings: There are small to moderate bilateral pleural effusions. These are increased in the interval since the July 10, 2018 study. There are compressive atelectatic changes in the lower lobes bilaterally. No pericardial effusion is seen. Previously noted right lower lobe and right middle lobe infiltrates are improved compared with July 10, 2018 study. No definite new infiltrate is seen. Cardiac enlargement is again observed. Impression: Small to moderate bilateral pleural effusions, increased in size from the July 10, 2018 study. Right lower lobe and right middle lobe infiltrates are somewhat improved. No new infiltrate is seen. Cardiomegaly persists. Electronically Signed by Thien Alvarado MD 07/22/2018 08:38 P
[2018-07-22] MEDS ORDERED: FUROSEMIDE 40 MG/4 ML VIAL (J1940) IV ONE (14:30)
[2018-07-22 15:15] LABS: VENOUS BASE EXCESS 14.8 (-2.0-2.0); VENOUS HCO3 42.2 MEQ/L (23.0-27.0); VENOUS PARTIAL PRESSURE CO2 68.7 mmHg (38.0-50.0); VENOUS PH 7.406 UNITS (7.330-7.430); VENOUS STANDARD HCO3 38.7 MEQ/L; VENOUS TOTAL CO2 44.3 MEQ/L (24.0-28.0)
[2018-07-22 15:23] LABS: BASO % 0.1 % (0.0-1.0); EOS % 0.4 % (0.0-3.0); HEMATOCRIT 32.9 % (36.0-47.0); HEMOGLOBIN 9.7 g/dl (12.0-15.5); LYMPH # 0.8 10^3/uL (1.5-4.5); LYMPH % 7.9 % (24.0-44.0); MEAN CORPUSCULAR HEMOGLOBIN 28.1 pg (27.0-33.0); MEAN CORPUSCULAR HGB CONC 29.5 g/dl (32.0-36.5); MEAN CORPUSCULAR VOLUME 95.4 fl (80.0-96.0); MONO # 0.8 10^3/uL (0.0-0.8); MONO % 7.9 % (0.0-5.0); NEUTROPHILS # 8.3 10^3/uL (1.8-7.7); NEUTROPHILS % 83.4 % (36.0-66.0); PLATELET COUNT, AUTOMATED 303 10^3/uL (150-450); RED BLOOD COUNT 3.45 10^6/uL (4.00-5.40); WHITE BLOOD COUNT 9.9 10^3/uL (4.0-10.0)
[2018-07-22 15:44] LABS: ALBUMIN 2.8 GM/DL (3.2-5.2); ALT/SGPT 25 U/L (12-78); BILIRUBIN,DIRECT 0.4 MG/DL (0.0-0.2); BILIRUBIN,TOTAL 0.8 MG/DL (0.2-1.0); BLOOD UREA NITROGEN 27 MG/DL (7-18); CARBON DIOXIDE LEVEL 39 MEQ/L (21-32); CHLORIDE LEVEL 98 MEQ/L (98-107); CPK CREATINE PHOSPHOKINASE 40 U/L (26-192); GLOMERULAR FILTRATION RATE > 60.0 (>32); GLUCOSE, FASTING 110 MG/DL (70-100); NT-PRO BNP 3259 PG/ML (<450); POTASSIUM SERUM 3.6 MEQ/L (3.5-5.1); SODIUM LEVEL 142 MEQ/L (136-145); TOTAL PROTEIN 5.3 GM/DL (6.4-8.2)
[2018-07-22] MEDS ORDERED: MORPHINE 4 MG/ML 1ML VIAL/SYRINGE (J2270) IV PRN (16:45)
[2018-07-22] MEDS ORDERED: BISACODYL 5 MG TAB PO PRN (16:45)
[2018-07-22] MEDS ORDERED: ONDANSETRON 4 MG TAB (S0181) PO PRN (16:45)
[2018-07-22] MEDS ORDERED: ACETAMINOPHEN TAB 650MG DOSE (2X325MG) PO PRN (16:45)
[2018-07-22 17:40] VITALS: BP 96/58
[2018-07-22 18:36] VITALS: BP 110/56
[2018-07-22 20:00] VITALS: BP 102/68
[2018-07-22] MEDS: ALBUTEROL SULFATE 2.5 MG/0.5 ML INH NEB SOLN INH SCH (20:00)
[2018-07-22] MEDS ORDERED: FAMOTIDINE 20 MG TAB PO PRN (20:15)
[2018-07-22] MEDS ORDERED: ALBUTEROL SULFATE 2.5 MG/0.5 ML INH NEB SOLN INH PRN (20:15)
[2018-07-22] MEDS: SYMBICORT 80/4.5MCG INHALER 6GM INH SCH (21:00)
[2018-07-22] MEDS: DOCUSATE SODIUM 100 MG CAP PO SCH (21:00)
[2018-07-22] MEDS: VITAMIN D 1,000 INTERNATIONAL UNITS TABLET PO SCH (21:00)
[2018-07-22] MEDS: METOPROLOL TART 25 MG TABLET PO SCH (21:00)
[2018-07-22] MEDS ORDERED: traMADol 50 MG TAB PO PRN (21:30)
[2018-07-22] MEDS: MAGNESIUM CHLORIDE 64 MG TABCR (SLO MAG) PO SCH (21:31)
[2018-07-22] MEDS: RAMELTEON 8 MG TAB (ROZEREM) PO SCH (21:31)
[2018-07-22] MEDS: SENOKOT S TAB PO SCH (21:31)
[2018-07-22] MEDS: SPIRONOLACTONE 12.5MG PER 1/2 TABLET PO SCH (21:31)
[2018-07-22] MEDS: APIXABAN 5 MG TAB (ELIQUIS) PO SCH (21:32)
--- NOTE | 2018-07-22 21:34 | HPEPDOC ---
[facility] Medical History & Physical Date of Admission Jul 22, 2018 History and Physical CHIEF COMPLAINT: desaturation and sob HISTORY OF PRESENT ILLNESS: This is an 83-year-old woman with pmhx of COPD, not on home oxygen, hypertension, gout, CHF, pulmonary hypertension with chronic right-sided heart failure, A. fib, on Eliquis, severe mitral regurg, osteoarthritis, who was recently admitted for similar symptoms and was treated for PNA and dc, but was sent back from the [place] for she sob, wheezing and desaturating to the 80s. Patient was on 4 L NC and saturating at 96% when I saw her. She denied fever, chills, chest pain, headache, nausea, vomiting or diarrhea . REVIEW OF SYSTEMS: All 14 points ROS is negative except what's stated in HPI PHYSICAL EXAMINATION: GEN: no acute disrtress CVS: Normal S1/s2, no murmurs, rubs or gallops, 3+ edema in upper and lower extremities b/l RESP: Lungs are clear to auscultation bilaterally, no crackles or rhonchi but poor air movement and mild basilar wheezes Abd: soft, nontender, nondistended, + BS MSK: full ROM, 5/5 strength in all extremities , except for left arm, with dec ROM due to chronic shoulder problem. Integumentary: no rash or bruises Neuro: AOAx3, no focal deficit psych: normal mood, good judgement and cooperative Past medical hx recent PNA, COPD, not on home oxygen, hypertension, gout, CHF, pulmonary hypertension with chronic right-sided heart failure, chronic bilateral pedal edema with chronic dermatitic skin changes, A. fib, on Eliquis, severe mitral regurg, gout, osteoarthritis, GERD, dyslipidemia PAST SURGICAL HISTORY: 1. Left femoral fracture surgery in 2017 2. EGD and colonoscopy. 3. Open reduction and internal fixation of right knee. 4. Multiple scrapings of the tophi. SOCIAL HISTORY: Denies smoking, denies alcohol use. Denies illicit drug use. She [place] in the [facility] [place] and ambulates with a walker at baseline. FAMILY HISTORY: No significant ischemic heart disease in the family ALLERGIES: Please see below. IMAGING - Small to moderate bilateral pleural effusions, increased in size from the July 10, 2018 study. Right lower lobe and right middle lobe infiltrates are somewhat improved. No new infiltrate is seen. Cardiomegaly persists. Assessment chf exacerabation copd - with chronic hypercapnia and acute hypoxemia Plan lasix 40mg iv bid duoneb q4h prn c/w home meds monitor off abx - pt was already treated for pna f/u procal f/u sputum gs and cx c/w oxygen supplement as needed c/w home meds f/.u echo dvt ppx Vital Signs Vital Signs Date Time Temp Pulse Resp B/P (MAP) Pulse Ox O2 Delivery O2 Flow Rate FiO2 07/22/18 16:30 75 18 133/56 (81) 100 Nasal Cannula 4.0 07/22/18 13:22 96.1 Laboratory Data Labs 24H Laboratory Tests 2 07/22/18 15:06: Immature Granulocyte % (Auto) 0.3, White Blood Count 9.9, Red Blood Count 3.45L, Hemoglobin 9.7L, Hematocrit 32.9L, Mean Corpuscular Volume 95.4, Mean Corpuscular Hemoglobin 28.1, Mean Corpuscular Hemoglobin Concent 29.5L, Red Cell Distribution Width 21.0H, Platelet Count 303, Neutrophils (%) (Auto) 83.4H, Lymp hocytes (%) (Auto) 7.9L, Monocytes (%) (Auto) 7.9H, Eosinophils (%) (Auto) 0.4, Basophils (%) (Auto) 0.1, Neutrophils # (Auto) 8.3H, Lymphocytes # (Auto) 0.8L, Monocytes # (Auto) 0.8, Eosinophils # (Auto) 0.0, Basophils # (Auto) 0.0, Nucleated Red Blood Cells % (auto) 0.2H, Blood Gas Bicarbonate Standard 38.7, Venous Blood pH 7.406, Venous Blood Partial Pressure CO2 68.7H, Venous Blood Partial Pressure O2 107.0H, Venous Blood Total Carbon Dioxide 44.3H, Venous Blood HCO3 42.2H, Venous Blood Oxygen Saturation 98.0H, Venous Blood Base Excess 14.8H, Anion Gap 5L, Glomerular Filtration Rate > 60.0, Calcium Level 8.0L, Aspartate Amino Transf (AST/SGOT) 24, Alanine Aminotransferase (ALT/SGPT) 25, Alkaline Phosphatase 89, Total Bilirubin 0.8, Direct Bilirubin 0.4H, Total Creatine Kinase 40, Creatine Kinase MB 3.0, Creatine Kinase MB Relative Index 7.50H, Troponin I 0.10, MF-Jbt-T-Type Natriuretic Peptide 3259H, Total Protein 5.3L, Albumin 2.8L, Albumin/Globulin Ratio 1.12 CBC/BMP Laboratory Tests 07/22/18 15:06 Red Blood Count 3.45 L, Mean Corpuscular Volume 95.4, Mean Corpuscular Hemoglobin 28.1, Mean Corpuscular Hemoglobin Concent 29.5 L, Red Cell Distribution Width 21.0 H, Neutrophils (%) (Auto) 83.4 H, Lymphocytes (%) (Auto) 7.9 L, Monocytes (%) (Auto) 7.9 H, Eosinophils (%) (Auto) 0.4, Basophils (%) (Auto) 0.1, Neutrophils # (Auto) 8.3 H, Lymphocytes # (Auto) 0.8 L, Monocytes # (Auto) 0.8, Eosinophils # (Auto) 0.0, Basophils # (Auto) 0.0 Microbiology Microbiology 07/22/18 Blood Culture, Received Pending 07/22/18 Blood Culture, Received Pending 07/22/18 Respiratory Virus Panel (PCR) ([facility]) - Final, Complete Home Medications Scheduled (Tubersol) 5 Unit/0.1 Ml Inj, 5 UNIT ID ASDIRECTED EVERY MON FOR 8 DAYS, START 07/28/18-08/04/18 Albuterol Sulfate (Albuterol Sulfate) 2.5 Mg/3 Ml Nebu, 2.5 MG INH QID Allopurinol (Zyloprim) 300 Mg Tab, 300 MG PO DAILY Apixaban Base (Eliquis) 5 Mg Tab, 5 MG PO BID Budesonide/Formoterol (Symbicort 80-4.5 Mcg/Act) 60 Puff/Inhaler Aers, 2 PUFF INH BID Cholecalciferol (Vitamin D) 1,000 Unit Tab, 1,000 UNIT PO BID Docusate Sodium (Colace) 100 Mg Cap, 100 MG PO BID Furosemide (Furosemide) 40 Mg Tab, 40 MG PO BID BID FOR 3 DAYS 07/22-07/24, RESUME 40MG DAILY DOSING AFTER. TAKES AT 0800/1300 Furosemide (Furosemide) 40 Mg Tab, 40 MG PO DAILY START 07/25/18 AFTER BID DOSING Magnesium Chloride (Mag64) 64 Mg Tabcr, 64 MG PO BID Melatonin (Melatonin) 5 Mg Tab, 5 MG PO QHS Metoprolol Tartrate (Metoprolol Tartrate) 25 Mg Tab, 25 MG PO BID HOLD IF AP<60 OR SBP<100 Multivitamins *[facility] STOCKED* (Thera M Plus *[facility] STOCKED*) 1 Tab Tab, 1 TAB PO DAILY Spironolactone (Spironolactone) 25 Mg Tab, 12.5 MG PO DAILY Scheduled PRN Acetaminophen (Tylenol) 325 Mg Tab, 650 MG PO Q4H PRN for PAIN / FEVER Albuterol Sulfate (Albuterol Sulfate) 2.5 Mg/3 Ml Nebu, 2.5 MG INH Q2H PRN for SHORTNESS OF BREATH Bisacodyl (Dulcolax) 10 Mg Sup, 10 MG ND DAILY PRN for CONSTIPATION Famotidine (Pepcid) 20 Mg Tab, 20 MG PO BID PRN for HEARTBURN Milk Of Magnesia (Milk of Magnesia) 1,200 Mg/15 Ml Judith, 30 ML PO DAILY PRN for CONSTIPATION Polyethylene Glycol (Miralax) 1 Pow Pow, 17 GM PO DAILY PRN for CONSTIPATION Sodium Phosphate/Biphosphate (Enema 7-19 gm/118Ml) 1 Vanda Vanda, 1 VANDA ND DAILY PRN for CONSTIPATION Tramadol HCl (Tramadol HCl) 50 Mg Tab, 50 MG PO QHS PRN for PAIN Allergies Coded Allergies: Clarithromycin (Verified Allergy, Intermediate, RASH, 07/22/18) AIME ROBERTS MD Jul 22, 2018 16:46
[2018-07-22] MEDS ORDERED: HEPARIN SOD (PORCINE) 5000 UNITS/ML VIAL SC SCH (22:00)
[2018-07-22] MEDS ORDERED: FUROSEMIDE 40 MG/4 ML VIAL (J1940) IV SCH (23:00)
[2018-07-22] MEDS: FUROSEMIDE 40 MG/4 ML VIAL (J1940) IV SCH (23:00)
[2018-07-23] VITALS: BP 124/72
[2018-07-23 04:00] VITALS: BP 109/53
[2018-07-23 05:05] LABS: BASO % 0.1 % (0.0-1.0); EOS # 0.1 10^3/uL (0.0-0.50); EOS % 0.4 % (0.0-3.0); HEMATOCRIT 31.9 % (36.0-47.0); HEMOGLOBIN 9.4 g/dl (12.0-15.5); LYMPH # 1.2 10^3/uL (1.5-4.5); MEAN CORPUSCULAR HEMOGLOBIN 28.2 pg (27.0-33.0); MEAN CORPUSCULAR HGB CONC 29.5 g/dl (32.0-36.5); MEAN CORPUSCULAR VOLUME 95.8 fl (80.0-96.0); MONO # 0.8 10^3/uL (0.0-0.8); MONO % 7.2 % (0.0-5.0); NEUTROPHILS # 9.5 10^3/uL (1.8-7.7); PLATELET COUNT, AUTOMATED 278 10^3/uL (150-450); RED BLOOD COUNT 3.33 10^6/uL (4.00-5.40); WHITE BLOOD COUNT 11.6 10^3/uL (4.0-10.0)
[2018-07-23 05:35] LABS: BLOOD UREA NITROGEN 20 MG/DL (7-18); CALCIUM LEVEL 7.6 MG/DL (8.8-10.2); CARBON DIOXIDE LEVEL 39 MEQ/L (21-32); CHLORIDE LEVEL 97 MEQ/L (98-107); CREATININE FOR GFR 0.75 MG/DL (0.55-1.30); GLOMERULAR FILTRATION RATE > 60.0 (>32); GLUCOSE, FASTING 84 MG/DL (70-100); MAGNESIUM LEVEL 1.7 MG/DL (1.8-2.4); POTASSIUM SERUM 3.1 MEQ/L (3.5-5.1); SODIUM LEVEL 141 MEQ/L (136-145)
[2018-07-23] MEDS ORDERED: MAG SULF 1GM/100ML (MAG RUN) 1 GM in APPROPRIATE DILUENT 1 EA IV ONE (06:00)
[2018-07-23] MEDS ORDERED: POTASSIUM CHLORIDE 10 MEQ SR TABLET PO ONE (06:00)
[2018-07-23] MEDS: FUROSEMIDE 40 MG/4 ML VIAL (J1940) IV SCH ×3 (06:10→21:19)
[2018-07-23 07:30] VITALS: BP 113/53
[2018-07-23] MEDS: ALBUTEROL SULFATE 2.5 MG/0.5 ML INH NEB SOLN INH SCH ×4 (08:00→20:00)
[2018-07-23] MEDS: MAGNESIUM CHLORIDE 64 MG TABCR (SLO MAG) PO SCH ×2 (08:42→20:26)
[2018-07-23] MEDS: APIXABAN 5 MG TAB (ELIQUIS) PO SCH ×2 (08:44→20:26)
[2018-07-23] MEDS: VITAMIN D 1,000 INTERNATIONAL UNITS TABLET PO SCH ×2 (08:44→20:26)
[2018-07-23] MEDS: METOPROLOL TART 25 MG TABLET PO SCH ×2 (08:44→20:29)
[2018-07-23] MEDS: DOCUSATE SODIUM 100 MG CAP PO SCH ×2 (08:44→20:26)
[2018-07-23] MEDS: ALLOPURINOL 300 MG TAB PO SCH (08:44)
[2018-07-23] MEDS: MULTIVITAMINS/MINERALS THERAP 1 TAB PO SCH (08:44)
[2018-07-23] MEDS: SENOKOT S TAB PO SCH ×2 (08:44→20:26)
--- NOTE | 2018-07-23 09:00 | ECGEPIP ---
Stationary ECG Study [facility] - ED Test Date: 2018-07-22 Pat Name: GIN DEVINE Department: Room: - Gender: F Administrative Support Clerk: edgard : 1935 Requested By: JAME Giron Order Number: [id number] Reading MD: Ricco Mari Measurements Intervals [place] Rate: 76 P: ND: 0 QRS: 67 QRSD: 96 T: -12 QT: 363 QTc: 410 Interpretive Statements ATRIAL FIBRILLATION LOW QRS VOLTAGE IN EXTREMITY LEADS INCOMPLETE RIGHT BUNDLE BRANCH BLOCK MODERATE ST DEPRESSION SIMILAR TO 07/10/18 Electronically Signed On 07-23-2018 9:00:11 EST by Ricco Mari
[2018-07-23] MEDS: SPIRONOLACTONE 12.5MG PER 1/2 TABLET PO SCH (09:36)
[2018-07-23] MEDS: SYMBICORT 80/4.5MCG INHALER 6GM INH SCH ×2 (10:00→20:47)
[2018-07-23] MEDS: guaiFENesin 200 MG TAB PO SCH ×2 (11:23→20:25)
[2018-07-23 12:00] VITALS: BP 95/50
[2018-07-23 16:00] VITALS: BP 98/56
[2018-07-23 20:00] VITALS: BP 110/54
[2018-07-23] MEDS: RAMELTEON 8 MG TAB (ROZEREM) PO SCH (20:25)
--- NOTE | 2018-07-23 20:54 | IPNPDOC ---
Date Seen The patient was seen on 07/23/18. Progress Note SUBJECTIVE: Examined sitting upright in ICU chair. Pleasantly conversant and feels much better today compared to admission. No new complaints. Is still feeling short of breath compared to baseline, and swelling in legs present. No events overnight. PHYSICAL EXAMINATION: GEN: no acute distress, A&Ox3, resting comfortably CVS: Normal S1/s2, no murmurs, rubs or gallops, 1+ LE edema b/l RESP: Mild crackles b/l bases, diminished breath sounds overall, otherwise clear. Equal chest rise Abd: soft, nontender, nondistended, + BS Integumentary: no visible lesions Neuro: no focal deficit Assessment/Plan --Acutely decompensated chf has hx of underlying pulm htn & chronic rt-sided heart failure continue lasix, i/o, and 1800cc fluid restriction procal, echo, & Cxs pending continue home spironolactone --COPD exacerbation with hypoxemia and hypercapnia multifactorial: likely 2/2 to recent PNA and chf at baseline, is on RA, but currently require supplemental O2 continue duonebs and solumedrol afebrile, and recently treated with abx for PNA. Will continue withholding abx and assess for improvement Hypertension controlled on home regimen Gout stable on allopurinol A. fib stable. Rate controlled on Lopressor. Continue Eliquis Severe mitral regurg Osteoarthritis, continue Tylenol GERD continue home Famotidine Dyslipidemia not on statin, likely 2/2 age DVT ppx: chronically Eliquis DISPO: pending clinical improvement and PT clearance. VS, I&O, 24H, Fishbone Vital Signs/I&O Vital Signs Date Time Temp Pulse Resp B/P (MAP) Pulse Ox O2 Delivery O2 Flow Rate FiO2 07/23/18 16:10 85 20 07/23/18 16:00 2.0 07/23/18 16:00 98.7 98/56 (70) 95 07/23/18 04:00 98 07/22/18 16:30 Nasal Cannula I&O- Last 24 Hours up to 6 AM 07/23/18 06:00 Intake Total 340 ml Output Total 2100 ml Balance -1760 ml Laboratory Data 24H LABS Laboratory Tests 2 07/23/18 04:53: Immature Granulocyte % (Auto) 0.3, White Blood Count 11.6H, Red Blood Count 3.33L, Hemoglobin 9.4L, Hematocrit 31.9L, Mean Corpuscular Volume 95.8, Mean Corpuscular Hemoglobin 28.2, Mean Corpuscular Hemoglobin Concent 29.5L, Red Cell Distribution Width 20.9H, Platelet Count 278, Neutrophils (%) (Auto) 82.0H, Lymphocytes (%) (Auto) 10.0L, Monocytes (%) (Auto) 7.2H, Eosinophils (%) (Auto) 0.4, Basophils (%) (Auto) 0.1, Neutrophils # (Auto) 9.5H, Lymphocytes # (Auto) 1.2L, Monocytes # (Auto) 0.8, Eosinophils # (Auto) 0.1, Basophils # (Auto) 0.0, Nucleated Red Blood Cells % (auto) 0.0, Anion Gap 5L, Glomerular Filtration Rate > 60.0, Blood Urea Nitrogen 20H, Creatinine 0.75, Sodium Level 141, Potassium Level 3.1L, Chloride Level 97L, Carbon Dioxide Level 39H, Calcium Level 7.6L, Magnesium Level 1.7L CBC/BMP Laboratory Tests 07/23/18 04:53 Red Blood Count 3.33 L, Mean Corpuscular Volume 95.8, Mean Corpuscular Hemoglobin 28.2, Mean Corpuscular Hemoglobin Concent 29.5 L, Red Cell Distribution Width 20.9 H, Neutrophils (%) (Auto) 82.0 H, Lymphocytes (%) (Auto) 10.0 L, Monocytes (%) (Auto) 7.2 H, Eosinophils (%) (Auto) 0.4, Basophils (%) (Auto) 0.1, Neutrophils # (Auto) 9.5 H, Lymphocytes # (Auto) 1.2 L, Monocytes # (Auto) 0.8, Eosinophils # (Auto) 0.1, Basophils # (Auto) 0.0, Calcium Level 7.6 L Microbiology Microbiology 07/22/18 Blood Culture - Preliminary, Resulted No growth after 24 hours . All specim... 07/22/18 Blood Culture - Preliminary, Resulted No growth after 24 hours . All specim... 07/22/18 Respiratory Virus Panel (PCR) ([facility]) - Final, Complete GME ATTESTATION GME ATTESTATION My faculty preceptor for this patient encounter was physically present during the encounter and was fully available. All aspects of the patient interview, examination, medical decision making process, and medical care plan development were reviewed and approved by the faculty preceptor. The faculty preceptor is aware and concurs with the plan as stated in the body of this note and will attest to such by his/her cosignature. JOSE ARMANDO OSORIO DO Jul 23, 2018 19:04
[2018-07-24] VITALS: BP 99/56
[2018-07-24 04:00] VITALS: BP 105/67
[2018-07-24 05:04] LABS: BASO % 0.2 % (0.0-1.0); EOS # 0.1 10^3/uL (0.0-0.50); EOS % 0.5 % (0.0-3.0); HEMATOCRIT 34.3 % (36.0-47.0); HEMOGLOBIN 9.8 g/dl (12.0-15.5); LYMPH # 1.1 10^3/uL (1.5-4.5); LYMPH % 10.9 % (24.0-44.0); MEAN CORPUSCULAR HEMOGLOBIN 27.7 pg (27.0-33.0); MEAN CORPUSCULAR HGB CONC 28.6 g/dl (32.0-36.5); MEAN CORPUSCULAR VOLUME 96.9 fl (80.0-96.0); MONO # 0.9 10^3/uL (0.0-0.8); MONO % 8.3 % (0.0-5.0); NEUTROPHILS # 8.3 10^3/uL (1.8-7.7); NEUTROPHILS % 79.5 % (36.0-66.0); PLATELET COUNT, AUTOMATED 241 10^3/uL (150-450); RED BLOOD COUNT 3.54 10^6/uL (4.00-5.40); WHITE BLOOD COUNT 10.4 10^3/uL (4.0-10.0)
[2018-07-24 05:16] LABS: BLOOD UREA NITROGEN 27 MG/DL (7-18); CALCIUM LEVEL 7.9 MG/DL (8.8-10.2); CARBON DIOXIDE LEVEL 38 MEQ/L (21-32); CHLORIDE LEVEL 98 MEQ/L (98-107); GLOMERULAR FILTRATION RATE > 60.0 (>32); GLUCOSE, FASTING 92 MG/DL (70-100); MAGNESIUM LEVEL 1.8 MG/DL (1.8-2.4); POTASSIUM SERUM 3.8 MEQ/L (3.5-5.1); SODIUM LEVEL 140 MEQ/L (136-145)
--- NOTE | 2018-07-24 07:01 | ECHO ---
DATE OF STUDY: 07/23/2018 REFERRING PHYSICIAN: Dr. Pauline Goodrich INDICATION: Dyspnea. HEIGHT: 160 cm. WEIGHT: 67 kg. 2-D MEASUREMENTS: Left ventricle diastole: 3.7 cm Ventricular septum: 0.94 cm Posterior wall: 0.99 cm Aortic root: 2.1 cm Left atrium: 4.9 cm Left atrial volume index: 65 Inferior vena cava: 2.4 cm DOPPLER MEASUREMENTS: Aortic valve velocity: 154 cm/sec LVOT velocity: 96.3 cm/sec Moderate mitral regurgitation Severe tricuspid regurgitation Estimated right ventricular systolic pressure at least 72 mmHg assuming a right atrial pressure of at least 20 mmHg Mild pulmonic regurgitation DESCRIPTION: The rhythm was atrial fibrillation with controlled ventricular response. Image quality was fair. No pericardial effusion. This was a 2-D, M-mode, color flow Doppler and pulse wave Doppler examination and included mitral annular tissue Doppler. CONCLUSIONS: 1. Nonspecific focal thickening involving the distal portion of the mitral leaflets. Mild mitral annular calcification. Moderate mitral regurgitation. 2. Normal left ventricle internal dimensions and wall thickness. Normal regional LV wall motion and wall thickening. LVEF 70% by visual estimate. Unable to determine LV diastolic function in the setting of atrial fibrillation. 3. Severe right atrial dilatation. 4. Suggestive of severe elevation of estimated right ventricle systolic pressure (at least 72 mmHg). Severe tricuspid regurgitation. Probably mild right ventricle dilatation. Normal right ventricle systolic function. Severe right atrial dilatation. 5. Moderate aortic valve sclerosis of a 3-cuspid aortic valve. No aortic stenosis or regurgitation.
[2018-07-24] MEDS: SYMBICORT 80/4.5MCG INHALER 6GM INH SCH ×2 (07:29→20:03)
[2018-07-24] MEDS: ALBUTEROL SULFATE 2.5 MG/0.5 ML INH NEB SOLN INH SCH ×4 (07:30→20:00)
[2018-07-24] MEDS: FUROSEMIDE 40 MG/4 ML VIAL (J1940) IV SCH ×3 (07:52→23:23)
[2018-07-24 08:00] VITALS: BP 100/67
[2018-07-24] MEDS: DOCUSATE SODIUM 100 MG CAP PO SCH ×2 (08:02→20:34)
[2018-07-24] MEDS: SENOKOT S TAB PO SCH ×2 (08:02→20:34)
[2018-07-24] MEDS: guaiFENesin 200 MG TAB PO SCH ×2 (08:03→20:36)
[2018-07-24] MEDS: ALLOPURINOL 300 MG TAB PO SCH (08:04)
[2018-07-24] MEDS: METOPROLOL TART 25 MG TABLET PO SCH ×2 (08:04→20:36)
[2018-07-24] MEDS: MULTIVITAMINS/MINERALS THERAP 1 TAB PO SCH (08:04)
[2018-07-24] MEDS: VITAMIN D 1,000 INTERNATIONAL UNITS TABLET PO SCH ×2 (08:04→20:35)
[2018-07-24] MEDS: APIXABAN 5 MG TAB (ELIQUIS) PO SCH ×2 (08:04→20:35)
[2018-07-24] MEDS: MAGNESIUM CHLORIDE 64 MG TABCR (SLO MAG) PO SCH ×2 (08:05→20:36)
[2018-07-24] MEDS: SPIRONOLACTONE 12.5MG PER 1/2 TABLET PO SCH (08:21)
--- NOTE | 2018-07-24 09:39 | IPNPDOC ---
Date Seen The patient was seen on 07/24/18. Progress Note SUBJECTIVE: Examined at bedside in ICU. Is feeling almost back to normal. Breathing is improving. No other complaints or events overnight. PHYSICAL EXAMINATION: GEN: no acute distress, A&Ox3, resting comfortably CVS: irregular rhythm, in afib on monitor, rate controlled. Normal S1/s2, no murmurs, rubs or gallops, 1-2+ LE edema b/l RESP: diminished breath sounds overall, otherwise clear. Equal chest rise Abd: soft, nontender, nondistended, + BS Integumentary: no visible lesions. Lipodermatoscleorsis present b/l LE Neuro: no focal deficit Assessment/Plan --Acutely decompensated chf with preserved EF has hx of underlying pulm htn & chronic rt-sided heart failure. Might have been precipitated by recent PNA continue lasix, i/o, and 1800cc fluid restriction echo on this admission reveals mod mitral regurg, EF 70%, severely elevated rt side pressures continue home spironolactone --COPD exacerbation with hypoxemia and hypercapnia multifactorial: likely 2/2 to recent PNA and chf at baseline, is on RA, but currently require supplemental O2, on 2L this am continue duonebs afebrile, and recently treated with abx for PNA. Cxs neg. Unlikely infectious. Will continue withholding abx, especially given her improvement Hypertension controlled on home regimen Gout stable on allopurinol A. fib stable. Rate controlled on Lopressor. Continue Eliquis Severe mitral regurg Osteoarthritis continue Tylenol GERD continue home Famotidine Dyslipidemia not on statin, likely 2/2 age DVT ppx: chronically Eliquis DISPO: pending clinical improvement and PT clearance. VS, I&O, 24H, Fishbone Vital Signs/I&O Vital Signs Date Time Temp Pulse Resp B/P (MAP) Pulse Ox O2 Delivery O2 Flow Rate FiO2 07/24/18 08:04 100/67 07/24/18 08:00 2.0 07/24/18 08:00 98.8 73 19 91 07/23/18 04:00 98 07/22/18 16:30 Nasal Cannula I&O- Last 24 Hours up to 6 AM 07/24/18 06:00 Intake Total 1114 ml Output Total 2105 ml Balance -991 ml Laboratory Data 24H LABS Laboratory Tests 2 07/24/18 04:49: Immature Granulocyte % (Auto) 0.6, White Blood Count 10.4H, Red Blood Count 3.54L, Hemoglobin 9.8L, Hematocrit 34.3L, Mean Corpuscular Volume 96.9H, Mean Corpuscular Hemoglobin 27.7, Mean Corpuscular Hemoglobin Concent 28.6L, Red Cell Distribution Width 20.8H, Platelet Count 241, Neutrophils (%) (Auto) 79.5H, Lymphocytes (%) (Auto) 10.9L, Monocytes (%) (Auto) 8.3H, Eosinophils (%) (Auto) 0.5, Basophils (%) (Auto) 0.2, Neutrophils # (Auto) 8.3H, Lymphocytes # (Auto) 1.1L, Monocytes # (Auto) 0.9H, Eosinophils # (Auto) 0.1, Basophils # (Auto) 0.0, Nucleated Red Blood Cells % (auto) 0.0, Anion Gap 4L, Glomerular Filtration Rate > 60.0, Blood Urea Nitrogen 27H, Creatinine 0.80, Sodium Level 140, Potassium Level 3.8#, Chloride Level 98, Carbon Dioxide Level 38H, Calcium Level 7.9L, Magnesium Level 1.8 CBC/BMP Laboratory Tests 07/24/18 04:49 Red Blood Count 3.54 L, Mean Corpuscular Volume 96.9 H, Mean Corpuscular Hemoglobin 27.7, Mean Corpuscular Hemoglobin Concent 28.6 L, Red Cell Distribution Width 20.8 H, Neutrophils (%) (Auto) 79.5 H, Lymphocytes (%) (Auto) 10.9 L, Monocytes (%) (Auto) 8.3 H, Eosinophils (%) (Auto) 0.5, Basophils (%) (Auto) 0.2, Neutrophils # (Auto) 8.3 H, Lymphocytes # (Auto) 1.1 L, Monocytes # (Auto) 0.9 H, Eosinophils # (Auto) 0.1, Basophils # (Auto) 0.0, Calcium Level 7.9 L Microbiology Microbiology 07/22/18 Blood Culture - Preliminary, Resulted No growth after 24 hours . All specim... 07/22/18 Blood Culture - Preliminary, Resulted No growth after 24 hours . All specim... 07/22/18 Respiratory Virus Panel (PCR) ([facility]) - Final, Complete GME ATTESTATION GME ATTESTATION My faculty preceptor for this patient encounter was physically present during the encounter and was fully available. All aspects of the patient interview, examination, medical decision making process, and medical care plan development were reviewed and approved by the faculty preceptor. The faculty preceptor is aware and concurs with the plan as stated in the body of this note and will attest to such by his/her cosignature. JOSE ARMANDO OSORIO DO Jul 24, 2018 09:39
[2018-07-24] MEDS: IPRATROPIUM 0.5MG/ALBUTEROL 2.5MG INH SOL UD 3ML (DUONEB)(J7620) NEB PRN ×2 (11:38→22:40)
[2018-07-24 12:00] VITALS: BP 104/51
[2018-07-24 16:00] VITALS: BP 103/52
[2018-07-24 20:00] VITALS: BP 105/52
[2018-07-24] MEDS: RAMELTEON 8 MG TAB (ROZEREM) PO SCH (20:34)
[2018-07-25] VITALS: BP 97/54
[2018-07-25 04:00] VITALS: BP 101/51
[2018-07-25 04:49] LABS: BASO % 0.2 % (0.0-1.0); EOS # 0.1 10^3/uL (0.0-0.50); EOS % 0.8 % (0.0-3.0); HEMATOCRIT 31.4 % (36.0-47.0); HEMOGLOBIN 9.1 g/dl (12.0-15.5); LYMPH # 1.3 10^3/uL (1.5-4.5); LYMPH % 13.3 % (24.0-44.0); MEAN CORPUSCULAR HEMOGLOBIN 27.6 pg (27.0-33.0); MEAN CORPUSCULAR VOLUME 95.2 fl (80.0-96.0); MONO # 0.8 10^3/uL (0.0-0.8); MONO % 8.3 % (0.0-5.0); NEUTROPHILS # 7.5 10^3/uL (1.8-7.7); NEUTROPHILS % 77.2 % (36.0-66.0); PLATELET COUNT, AUTOMATED 243 10^3/uL (150-450); WHITE BLOOD COUNT 9.7 10^3/uL (4.0-10.0)
[2018-07-25 05:51] LABS: BLOOD UREA NITROGEN 36 MG/DL (7-18); CALCIUM LEVEL 8.1 MG/DL (8.8-10.2); CARBON DIOXIDE LEVEL 39 MEQ/L (21-32); CHLORIDE LEVEL 96 MEQ/L (98-107); GLOMERULAR FILTRATION RATE > 60.0 (>32); GLUCOSE, FASTING 101 MG/DL (70-100); MAGNESIUM LEVEL 1.9 MG/DL (1.8-2.4); POTASSIUM SERUM 3.7 MEQ/L (3.5-5.1); SODIUM LEVEL 140 MEQ/L (136-145)
[2018-07-25] MEDS: IPRATROPIUM 0.5MG/ALBUTEROL 2.5MG INH SOL UD 3ML (DUONEB)(J7620) NEB PRN (06:21)
[2018-07-25] MEDS: FUROSEMIDE 40 MG/4 ML VIAL (J1940) IV SCH ×2 (06:30→14:56)
[2018-07-25] MEDS: ALBUTEROL SULFATE 2.5 MG/0.5 ML INH NEB SOLN INH SCH ×4 (07:45→20:00)
[2018-07-25] MEDS: SYMBICORT 80/4.5MCG INHALER 6GM INH SCH ×2 (07:45→20:44)
[2018-07-25 08:00] VITALS: BP 99/62
--- NOTE | 2018-07-25 10:00 | IPNPDOC ---
Date Seen The patient was seen on 07/25/18. Progress Note SUBJECTIVE: Examined at bedside in ICU. Is feeling about the same as yesterday. Breathing is slightly better. No other complaints or events overnight. PHYSICAL EXAMINATION: GEN: no acute distress, A&Ox3, resting comfortably CVS: irregular rhythm, in afib on monitor, rate controlled. Normal S1/s2, no murmurs, rubs or gallops, 1-2+ LE edema b/l RESP: diminished breath sounds overall, mild crackles on left base. Equal chest rise Abd: soft, nontender, nondistended, + BS Integumentary: no visible lesions. Lipodermatoscleorsis present b/l LE Neuro: no focal deficit Assessment/Plan --Acutely decompensated chf with preserved EF has hx of underlying pulm htn & chronic rt-sided heart failure. Might have been precipitated by recent PNA Still has 2+ LE edema and feeling sob continue lasix, i/o, and 1800cc fluid restriction echo reveals mod mitral regurg, EF 70%, severely elevated rt side pressures continue home spironolactone --COPD exacerbation with hypoxemia and hypercapnia multifactorial: likely 2/2 to recent PNA and decompensated chf at baseline, is on RA, but currently require supplemental O2, on 2L this am continue duonebs afebrile, and recently treated with abx for PNA. Cxs neg. Unlikely infectious. Will continue withholding abx, especially given her improvement Hypertension controlled on home regimen Gout stable on allopurinol A. fib stable. Rate controlled on Lopressor. Continue Eliquis Severe mitral regurg Osteoarthritis continue Tylenol GERD continue home Famotidine Dyslipidemia not on statin, likely 2/2 age DVT ppx: chronically Eliquis DISPO: pending clinical improvement and PT clearance. VS, I&O, 24H, Fishbone Vital Signs/I&O Vital Signs Date Time Temp Pulse Resp B/P (MAP) Pulse Ox O2 Delivery O2 Flow Rate FiO2 07/25/18 06:18 76 07/25/18 04:00 3.0 07/25/18 04:00 98.7 20 101/51 (68) 94 07/23/18 04:00 98 07/22/18 16:30 Nasal Cannula I&O- Last 24 Hours up to 6 AM 07/25/18 06:00 Intake Total 1308 ml Output Total 1650 ml Balance -342 ml Laboratory Data 24H LABS Laboratory Tests 2 07/25/18 04:28: Immature Granulocyte % (Auto) 0.2, White Blood Count 9.7, Red Blood Count 3.30L, Hemoglobin 9.1L, Hematocrit 31.4L, Mean Corpuscular Volume 95.2, Mean Corpuscular Hemoglobin 27.6, Mean Corpuscular Hemoglobin Concent 29.0L, Red Cell Distribution Width 21.2H, Platelet Count 243, Neutrophils (%) (Auto) 77.2H, Lymphocytes (%) (Auto) 13.3L, Monocytes (%) (Auto) 8.3H, Eosinophils (%) (Auto) 0.8, Basophils (%) (Auto) 0.2, Neutrophils # (Auto) 7.5, Lymphocytes # (Auto) 1.3L, Monocytes # (Auto) 0.8, Eosinophils # (Auto) 0.1, Basophils # (Auto) 0.0, Nucleated Red Blood Cells % (auto) 0.0, Anion Gap 5L, Glomerular Filtration Rate > 60.0, Blood Urea Nitrogen 36H, Creatinine 0.80, Sodium Level 140, Potassium Level 3.7, Chloride Level 96L, Carbon Dioxide Level 39H, Calcium Level 8.1L, Magnesium Level 1.9 CBC/BMP Laboratory Tests 07/25/18 04:28 Red Blood Count 3.30 L, Mean Corpuscular Volume 95.2, Mean Corpuscular Hemoglob in 27.6, Mean Corpuscular Hemoglobin Concent 29.0 L, Red Cell Distribution Width 21.2 H, Neutrophils (%) (Auto) 77.2 H, Lymphocytes (%) (Auto) 13.3 L, Monocytes (%) (Auto) 8.3 H, Eosinophils (%) (Auto) 0.8, Basophils (%) (Auto) 0.2, Neutrophils # (Auto) 7.5, Lymphocytes # (Auto) 1.3 L, Monocytes # (Auto) 0.8, Eosinophils # (Auto) 0.1, Basophils # (Auto) 0.0, Calcium Level 8.1 L Microbiology Microbiology 07/22/18 Blood Culture - Preliminary, Resulted No Growth after 48 hours. All Specime... 07/22/18 Blood Culture - Preliminary, Resulted No Growth after 48 hours. All Specime... 07/22/18 Respiratory Virus Panel (PCR) ([facility]) - Final, Complete GME ATTESTATION GME ATTESTATION My faculty preceptor for this patient encounter was physically present during the encounter and was fully available. All aspects of the patient interview, examination, medical decision making process, and medical care plan development were reviewed and approved by the faculty preceptor. The faculty preceptor is aware and concurs with the plan as stated in the body of this note and will attest to such by his/her cosignature. JOSE ARMANDO OSORIO DO Jul 25, 2018 10:00
[2018-07-25] MEDS: MAGNESIUM CHLORIDE 64 MG TABCR (SLO MAG) PO SCH ×2 (10:02→20:25)
[2018-07-25] MEDS: DOCUSATE SODIUM 100 MG CAP PO SCH ×2 (10:03→20:24)
[2018-07-25] MEDS: ALLOPURINOL 300 MG TAB PO SCH (10:03)
[2018-07-25] MEDS: MULTIVITAMINS/MINERALS THERAP 1 TAB PO SCH (10:03)
[2018-07-25] MEDS: SPIRONOLACTONE 12.5MG PER 1/2 TABLET PO SCH (10:03)
[2018-07-25] MEDS: VITAMIN D 1,000 INTERNATIONAL UNITS TABLET PO SCH ×2 (10:03→20:24)
[2018-07-25] MEDS: SENOKOT S TAB PO SCH ×2 (10:04→20:24)
[2018-07-25] MEDS: METOPROLOL TART 25 MG TABLET PO SCH ×2 (10:06→20:24)
[2018-07-25] MEDS: APIXABAN 5 MG TAB (ELIQUIS) PO SCH ×2 (10:06→20:24)
[2018-07-25] MEDS: guaiFENesin ER 600 MG TAB PO SCH ×2 (10:11→20:24)
[2018-07-25 12:00] VITALS: BP 118/73
[2018-07-25 16:00] VITALS: BP 93/52
[2018-07-25 20:00] VITALS: BP 101/56
[2018-07-25] MEDS: RAMELTEON 8 MG TAB (ROZEREM) PO SCH (20:24)
[2018-07-26] VITALS: BP 93/54
[2018-07-26] MEDS: FUROSEMIDE 40 MG/4 ML VIAL (J1940) IV SCH ×4 (00:16→23:00)
[2018-07-26 04:00] VITALS: BP 104/55
[2018-07-26 04:34] LABS: BASO % 0.3 % (0.0-1.0); EOS # 0.1 10^3/uL (0.0-0.50); EOS % 0.5 % (0.0-3.0); HEMATOCRIT 31.2 % (36.0-47.0); LYMPH # 1.3 10^3/uL (1.5-4.5); LYMPH % 12.2 % (24.0-44.0); MEAN CORPUSCULAR HEMOGLOBIN 27.7 pg (27.0-33.0); MEAN CORPUSCULAR HGB CONC 28.8 g/dl (32.0-36.5); MONO # 1.2 10^3/uL (0.0-0.8); MONO % 11.7 % (0.0-5.0); NEUTROPHILS # 7.8 10^3/uL (1.8-7.7); PLATELET COUNT, AUTOMATED 237 10^3/uL (150-450); RED BLOOD COUNT 3.25 10^6/uL (4.00-5.40); WHITE BLOOD COUNT 10.4 10^3/uL (4.0-10.0)
[2018-07-26 04:55] LABS: BLOOD UREA NITROGEN 33 MG/DL (7-18); CALCIUM LEVEL 8.3 MG/DL (8.8-10.2); CARBON DIOXIDE LEVEL 38 MEQ/L (21-32); CHLORIDE LEVEL 95 MEQ/L (98-107); CREATININE FOR GFR 0.76 MG/DL (0.55-1.30); GLOMERULAR FILTRATION RATE > 60.0 (>32); GLUCOSE, FASTING 100 MG/DL (70-100); MAGNESIUM LEVEL 1.9 MG/DL (1.8-2.4); POTASSIUM SERUM 3.3 MEQ/L (3.5-5.1); SODIUM LEVEL 137 MEQ/L (136-145)
[2018-07-26] MEDS ORDERED: POTASSIUM CHLORIDE 10 MEQ SR TABLET PO ONE (05:15)
[2018-07-26] MEDS: ALBUTEROL SULFATE 2.5 MG/0.5 ML INH NEB SOLN INH SCH ×4 (08:14→20:54)
[2018-07-26 08:15] VITALS: BP 119/56
[2018-07-26] MEDS: SYMBICORT 80/4.5MCG INHALER 6GM INH SCH ×2 (08:15→21:00)
[2018-07-26] MEDS: DOCUSATE SODIUM 100 MG CAP PO SCH ×2 (08:25→21:03)
[2018-07-26] MEDS: SENOKOT S TAB PO SCH ×2 (08:25→21:02)
[2018-07-26] MEDS: MULTIVITAMINS/MINERALS THERAP 1 TAB PO SCH (08:25)
[2018-07-26] MEDS: VITAMIN D 1,000 INTERNATIONAL UNITS TABLET PO SCH ×2 (08:25→21:03)
[2018-07-26] MEDS: ALLOPURINOL 300 MG TAB PO SCH (09:19)
[2018-07-26] MEDS: MAGNESIUM CHLORIDE 64 MG TABCR (SLO MAG) PO SCH ×2 (09:19→21:00)
[2018-07-26] MEDS: SPIRONOLACTONE 12.5MG PER 1/2 TABLET PO SCH (09:19)
[2018-07-26] MEDS: guaiFENesin ER 600 MG TAB PO SCH ×2 (09:19→21:03)
[2018-07-26] MEDS: APIXABAN 5 MG TAB (ELIQUIS) PO SCH ×2 (09:19→21:03)
[2018-07-26] MEDS: METOPROLOL TART 25 MG TABLET PO SCH ×2 (09:20→21:03)
[2018-07-26 12:14] VITALS: BP 101/52
--- NOTE | 2018-07-26 12:59 | IPNPDOC ---
Date Seen The patient was seen on 07/26/18. Progress Note SUBJECTIVE: Examined at bedside in ICU. No other complaints or events overnight. She refuses a physical exam this am. LE edema is slightly better today than yesterday. PHYSICAL EXAMINATION: GEN: no acute distress, A&Ox3, resting comfortably CVS: pt refused RESP: pt refused Abd: pt refused Integumentary: no visible lesions. Lipodermatoscleorsis present b/l LE Neuro: no focal deficit Assessment/Plan --Acutely decompensated chf with preserved EF has hx of underlying pulm htn & chronic rt-sided heart failure. Might have been precipitated by recent PNA LE edema is improving from previous days, but reportedly still sob and requiring1-2L NC, whereas she is on RA at baseline continue lasix, i/o, and 1800cc fluid restriction. Renal function stable echo reveals mod mitral regurg, EF 70%, severely elevated rt side pressures continue home spironolactone --COPD exacerbation with hypoxemia and hypercapnia multifactorial: likely 2/2 to recent PNA and decompensated chf at baseline, is on RA, but currently require supplemental O2 continue duonebs afebrile, and recently treated with abx for PNA. Cxs neg. Unlikely infectious --Hypokalemia level 3.3 this am, likely 2/2 lasix doses supplemented, recheck tomorrow Hypertension controlled on home regimen Gout stable on allopurinol A. fib stable. Rate controlled on Lopressor. Continue Eliquis Severe mitral regurg Osteoarthritis continue Tylenol GERD continue home Famotidine Dyslipidemia not on statin, likely 2/2 age DVT ppx: chronically Eliquis DISPO: Has cleared PT, but pending clinical improvement. Still on O2 and sob with edema. VS, I&O, 24H, Fishbone Vital Signs/I&O Vital Signs Date Time Temp Pulse Resp B/P (MAP) Pulse Ox O2 Delivery O2 Flow Rate FiO2 07/26/18 09:20 78 119/56 07/26/18 08:15 97.3 20 94 2.0 07/23/18 04:00 98 07/22/18 16:30 Nasal Cannula I&O- Last 24 Hours up to 6 AM 07/26/18 06:00 Intake Total 1500 ml Output Total 1700 ml Balance -200 ml Laboratory Data 24H LABS Laboratory Tests 2 07/26/18 04:21: Immature Granulocyte % (Auto) 0.3, White Blood Count 10.4H, Red Blood Count 3.25L, Hemoglobin 9.0L, Hematocrit 31.2L, Mean Corpuscular Volume 96.0, Mean Corpuscular Hemoglobin 27.7, Mean Corpuscular Hemoglobin Concent 28.8L, Red Cell Distribution Width 21.1H, Platelet Count 237, Neutrophils (%) (Auto) 75.0H, Lymphocytes (%) (Auto) 12.2L, Monocytes (%) (Auto) 11.7H, Eosinophils (%) (Auto) 0.5, Basophils (%) (Auto) 0.3, Neutrophils # (Auto) 7.8H, Lymphocytes # (Auto) 1.3L, Monocytes # (Auto) 1.2H, Eosinophils # (Auto) 0.1, Basophils # (Auto) 0.0, Nucleated Red Blood Cells % (auto) 0.0, Anion Gap 4L, Glomerular Filtration Rate > 60.0, Blood Urea Nitrogen 33H, Creatinine 0.76, Sodium Level 137, Potassium Level 3.3L, Chloride Level 95L, Carbon Dioxide Level 38H, Calcium Level 8.3L, Magnesium Level 1.9 CBC/BMP Laboratory Tests 07/26/18 04:21 Red Blood Count 3.25 L, Mean Corpuscular Volume 96.0, Mean Corpuscular Hemoglobin 27.7, Mean Corpuscular Hemoglobin Concent 28.8 L, Red Cell Distribution Width 21.1 H, Neutrophils (%) (Auto) 75.0 H, Lymphocytes (%) (Auto) 12.2 L, Monocytes (%) (Auto) 11.7 H, Eosinophils (%) (Auto) 0.5, Basophils (%) (Auto) 0.3, Neutrophils # (Auto) 7.8 H, Lymphocytes # (Auto) 1.3 L, Monocytes # (Auto) 1.2 H, Eosinophils # (Auto) 0.1, Basophils # (Auto) 0.0, Calcium Level 8.3 L Microbiology Microbiology 07/22/18 Blood Culture - Preliminary, Resulted No Growth after 72 hours. All specime... 07/22/18 Blood Culture - Preliminary, Resulted No Growth after 72 hours. All specime... 07/22/18 Respiratory Virus Panel (PCR) ([facility]) - Final, Complete GME ATTESTATION GME ATTESTATION My faculty preceptor for this patient encounter was physically present during th e encounter and was fully available. All aspects of the patient interview, examination, medical decision making process, and medical care plan development were reviewed and approved by the faculty preceptor. The faculty preceptor is aware and concurs with the plan as stated in the body of this note and will attest to such by his/her cosignature. JOSE ARMANDO OSORIO DO Jul 26, 2018 12:59
[2018-07-26 16:14] VITALS: BP 96/51
[2018-07-26 20:00] VITALS: BP 106/53
[2018-07-26] MEDS: RAMELTEON 8 MG TAB (ROZEREM) PO SCH (21:03)
[2018-07-26] MEDS: SCOPOLAMINE 1MG TRANSDERMAL PATCH TOP SCH (22:06)
[2018-07-27] VITALS: BP 90/51
[2018-07-27 04:00] VITALS: BP 100/53
[2018-07-27 04:37] LABS: BASO % 0.2 % (0.0-1.0); EOS # 0.1 10^3/uL (0.0-0.50); HEMATOCRIT 30.9 % (36.0-47.0); HEMOGLOBIN 8.9 g/dl (12.0-15.5); LYMPH # 1.1 10^3/uL (1.5-4.5); MEAN CORPUSCULAR HEMOGLOBIN 27.6 pg (27.0-33.0); MEAN CORPUSCULAR HGB CONC 28.8 g/dl (32.0-36.5); MONO # 1.2 10^3/uL (0.0-0.8); MONO % 12.2 % (0.0-5.0); NEUTROPHILS # 7.5 10^3/uL (1.8-7.7); NEUTROPHILS % 75.2 % (36.0-66.0); PLATELET COUNT, AUTOMATED 226 10^3/uL (150-450); RED BLOOD COUNT 3.22 10^6/uL (4.00-5.40)
[2018-07-27 04:51] LABS: BLOOD UREA NITROGEN 38 MG/DL (7-18); CALCIUM LEVEL 8.2 MG/DL (8.8-10.2); CARBON DIOXIDE LEVEL 37 MEQ/L (21-32); CHLORIDE LEVEL 95 MEQ/L (98-107); CREATININE FOR GFR 0.94 MG/DL (0.55-1.30); GLOMERULAR FILTRATION RATE > 60.0 (>32); GLUCOSE, FASTING 105 MG/DL (70-100); MAGNESIUM LEVEL 2.1 MG/DL (1.8-2.4); POTASSIUM SERUM 3.8 MEQ/L (3.5-5.1); SODIUM LEVEL 135 MEQ/L (136-145)
[2018-07-27] MEDS: FUROSEMIDE 40 MG/4 ML VIAL (J1940) IV SCH ×3 (06:09→23:07)
--- NOTE | 2018-07-27 07:04 | IPNPDOC ---
Text Note Date of Service The patient was seen on 07/27/18. NOTE SUBJECTIVE: Patient seen and examined at bedside. No acute overnight events reported. No new medical complaints this morning. Objective: Vital signs: see below GEN: NAD, elderly, frail, lying comfortably in bed, kyphotic Lungs: b/l basilar crackles, mild wheezing Heart: +S1S2 Abd: soft, NT, +BS Ext: peripheral edema A/P: 83 yo female with PMHx of COPD not on home O2, HTN, gout, HFpEF, pHTN, chronic right hear failure, a-fib/Eliquis, severe MR, OA, very recently discharged from [facility] for PNA, returns one day later for SOB. #SOB - multifactorial #decompensated HFpEF - continue diuresis with IV lasix - limited with low blood pressure - strict I/O's, daily weights - fluid restriction - wean O2 - target 88-92% #COPD exacerbation - continue respiratory treatments, steroid therapy #anemia - slowly trending down - continue to follow #Hypokalemia - WNL today - continue to follow #Hypertension - as above, has been running low - continue to follow clinically #Gout - continue allopurinol #A. fib - rate controlled on Lopressor. Continue Eliquis #Severe mitral regurg #Osteoarthritis continue Tylenol #GERD continue home Famotidine #Dyslipidemia #DVT ppx: chronically Eliquis DISPO: still SOB requiring supplemental O2, continue diuresis as tolerated VS,Fishbone, I+O VS, Fishbone, I+O Laboratory Tests 07/27/18 04:22 Red Blood Count 3.22 L, Mean Corpuscular Volume 96.0, Mean Corpuscular Hemoglobin 27.6, Mean Corpuscular Hemoglobin Concent 28.8 L, Red Cell Distribution Width 21.5 H, Neutrophils (%) (Auto) 75.2 H, Lymphocytes (%) (Auto) 11.0 L, Monocytes (%) (Auto) 12.2 H, Eosinophils (%) (Auto) 1.0, Basophils (%) (Auto) 0.2, Neutrophils # (Auto) 7.5, Lymphocytes # (Auto) 1.1 L, Monocytes # (Auto) 1.2 H, Eosinophils # (Auto) 0.1, Basophils # (Auto) 0.0, Calcium Level 8.2 L Vital Signs Date Time Temp Pulse Resp B/P (MAP) Pulse Ox O2 Delivery O2 Flow Rate FiO2 07/27/18 04:00 2.0 07/27/18 04:00 97.9 76 20 100/53 (69) 97 07/23/18 04:00 98 07/22/18 16:30 Nasal Cannula I&O- Last 24 Hours up to 6 AM 07/27/18 06:00 Intake Total 1800 ml Output Total 1450 ml Balance 350 ml WILLIAM SALDIVAR MD Jul 27, 2018 05:49
[2018-07-27 07:30] VITALS: BP 115/57
[2018-07-27] MEDS: ALBUTEROL SULFATE 2.5 MG/0.5 ML INH NEB SOLN INH SCH ×4 (08:00→20:00)
[2018-07-27] MEDS: SYMBICORT 80/4.5MCG INHALER 6GM INH SCH ×2 (08:01→20:31)
[2018-07-27] MEDS: SENOKOT S TAB PO SCH ×2 (08:42→20:04)
[2018-07-27] MEDS: MULTIVITAMINS/MINERALS THERAP 1 TAB PO SCH (08:42)
[2018-07-27] MEDS: DOCUSATE SODIUM 100 MG CAP PO SCH ×2 (08:42→20:04)
[2018-07-27] MEDS: VITAMIN D 1,000 INTERNATIONAL UNITS TABLET PO SCH ×2 (08:42→20:03)
[2018-07-27] MEDS: guaiFENesin ER 600 MG TAB PO SCH ×2 (08:42→20:05)
[2018-07-27] MEDS: SPIRONOLACTONE 12.5MG PER 1/2 TABLET PO SCH (08:42)
[2018-07-27] MEDS: APIXABAN 5 MG TAB (ELIQUIS) PO SCH ×2 (08:42→20:04)
[2018-07-27] MEDS: ALLOPURINOL 300 MG TAB PO SCH (08:42)
[2018-07-27] MEDS: MAGNESIUM CHLORIDE 64 MG TABCR (SLO MAG) PO SCH ×2 (08:43→20:05)
[2018-07-27] MEDS: METOPROLOL TART 25 MG TABLET PO SCH (08:43)
[2018-07-27 12:17] VITALS: BP 90/54
[2018-07-27 15:39] VITALS: BP 88/47
[2018-07-27 20:00] VITALS: BP 110/53
[2018-07-27] MEDS: RAMELTEON 8 MG TAB (ROZEREM) PO SCH (20:03)
[2018-07-27] MEDS: PERCOCET 5MG/325MG TAB PO PRN (20:04)
[2018-07-27] MEDS: METOPROLOL TART 12.5 MG PER 1/2 TAB PO SCH (20:05)
[2018-07-28] VITALS: BP 99/62
[2018-07-28 04:00] VITALS: BP 98/52
[2018-07-28] MEDS: FUROSEMIDE 40 MG/4 ML VIAL (J1940) IV SCH ×3 (07:00→23:00)
[2018-07-28 07:27] LABS: BASO % 0.2 % (0.0-1.0); EOS # 0.1 10^3/uL (0.0-0.50); EOS % 0.6 % (0.0-3.0); HEMATOCRIT 27.4 % (36.0-47.0); HEMOGLOBIN 7.9 g/dl (12.0-15.5); LYMPH # 1.3 10^3/uL (1.5-4.5); LYMPH % 15.8 % (24.0-44.0); MEAN CORPUSCULAR HEMOGLOBIN 27.9 pg (27.0-33.0); MEAN CORPUSCULAR HGB CONC 28.8 g/dl (32.0-36.5); MEAN CORPUSCULAR VOLUME 96.8 fl (80.0-96.0); MONO # 0.9 10^3/uL (0.0-0.8); MONO % 11.3 % (0.0-5.0); NEUTROPHILS # 5.8 10^3/uL (1.8-7.7); NEUTROPHILS % 71.7 % (36.0-66.0); PLATELET COUNT, AUTOMATED 192 10^3/uL (150-450); RED BLOOD COUNT 2.83 10^6/uL (4.00-5.40); WHITE BLOOD COUNT 8.1 10^3/uL (4.0-10.0)
[2018-07-28 07:51] LABS: ALBUMIN 2.3 GM/DL (3.2-5.2); ALT/SGPT 22 U/L (12-78); BILIRUBIN,TOTAL 0.6 MG/DL (0.2-1.0); BLOOD UREA NITROGEN 55 MG/DL (7-18); CALCIUM LEVEL 8.3 MG/DL (8.8-10.2); CARBON DIOXIDE LEVEL 39 MEQ/L (21-32); CHLORIDE LEVEL 96 MEQ/L (98-107); CREATININE FOR GFR 0.87 MG/DL (0.55-1.30); GLOMERULAR FILTRATION RATE > 60.0 (>32); GLUCOSE, FASTING 90 MG/DL (70-100); NT-PRO BNP 3118 PG/ML (<450); POTASSIUM SERUM 3.5 MEQ/L (3.5-5.1); SODIUM LEVEL 139 MEQ/L (136-145); TOTAL PROTEIN 5.5 GM/DL (6.4-8.2)
[2018-07-28] MEDS: SYMBICORT 80/4.5MCG INHALER 6GM INH SCH ×2 (07:56→22:01)
[2018-07-28] MEDS: ALBUTEROL SULFATE 2.5 MG/0.5 ML INH NEB SOLN INH SCH ×4 (07:58→20:00)
[2018-07-28 08:17] VITALS: BP 92/50
[2018-07-28] MEDS: APIXABAN 5 MG TAB (ELIQUIS) PO SCH ×2 (09:18→20:06)
[2018-07-28] MEDS: SENOKOT S TAB PO SCH ×2 (09:18→20:06)
[2018-07-28] MEDS: METOPROLOL TART 12.5 MG PER 1/2 TAB PO SCH ×2 (09:18→20:07)
[2018-07-28] MEDS: ALLOPURINOL 300 MG TAB PO SCH (09:19)
[2018-07-28] MEDS: DOCUSATE SODIUM 100 MG CAP PO SCH ×2 (09:19→20:05)
[2018-07-28] MEDS: MAGNESIUM CHLORIDE 64 MG TABCR (SLO MAG) PO SCH ×2 (09:19→20:04)
[2018-07-28] MEDS: MULTIVITAMINS/MINERALS THERAP 1 TAB PO SCH (09:19)
[2018-07-28] MEDS: guaiFENesin ER 600 MG TAB PO SCH ×2 (09:19→20:06)
[2018-07-28] MEDS: VITAMIN D 1,000 INTERNATIONAL UNITS TABLET PO SCH ×2 (09:19→20:04)
[2018-07-28 12:03] VITALS: BP 92/53
[2018-07-28 15:55] VITALS: BP 116/56
[2018-07-28] MEDS: methylPREDNISolone INJ 40 MG/1 ML VIAL (J2920) IV SCH (17:00)
[2018-07-28 20:00] VITALS: BP 113/74
[2018-07-28] MEDS: RAMELTEON 8 MG TAB (ROZEREM) PO SCH (20:04)
[2018-07-28] MEDS: PERCOCET 5MG/325MG TAB PO PRN (20:06)
[2018-07-29] VITALS (16 sets, daily range): BP systolic 106–135; BP diastolic 47–79
[2018-07-29] MEDS: methylPREDNISolone INJ 40 MG/1 ML VIAL (J2920) IV SCH ×2 (05:00→17:53)
[2018-07-29 05:14] LABS: HEMATOCRIT 26.6 % (36.0-47.0); HEMOGLOBIN 7.7 g/dl (12.0-15.5); MEAN CORPUSCULAR HEMOGLOBIN 28.6 pg (27.0-33.0); MEAN CORPUSCULAR HGB CONC 28.9 g/dl (32.0-36.5); MEAN CORPUSCULAR VOLUME 98.9 fl (80.0-96.0); PLATELET COUNT, AUTOMATED 200 10^3/uL (150-450); RED BLOOD COUNT 2.69 10^6/uL (4.00-5.40); WHITE BLOOD COUNT 7.5 10^3/uL (4.0-10.0)
[2018-07-29 05:35] LABS: CALCIUM LEVEL 8.4 MG/DL (8.8-10.2); CREATININE FOR GFR 0.96 MG/DL (0.55-1.30); GLOMERULAR FILTRATION RATE 59.1 (>32); POTASSIUM SERUM 4.2 MEQ/L (3.5-5.1)
[2018-07-29] MEDS: FUROSEMIDE 40 MG/4 ML VIAL (J1940) IV SCH ×3 (06:39→22:14)
[2018-07-29] MEDS: ALBUTEROL SULFATE 2.5 MG/0.5 ML INH NEB SOLN INH SCH ×4 (07:30→20:00)
[2018-07-29] MEDS: SYMBICORT 80/4.5MCG INHALER 6GM INH SCH ×2 (07:30→20:52)
[2018-07-29 08:10] LABS: PERCENT SATURATION 6.6 % (13.2-45.0)
[2018-07-29 09:18] LABS: FOLATE 16.4 NG/ML (>5.4)
[2018-07-29] MEDS: DOCUSATE SODIUM 100 MG CAP PO SCH ×2 (09:52→19:54)
[2018-07-29] MEDS: SENOKOT S TAB PO SCH ×2 (09:52→19:53)
[2018-07-29] MEDS: APIXABAN 5 MG TAB (ELIQUIS) PO SCH ×2 (09:52→19:55)
[2018-07-29] MEDS: VITAMIN D 1,000 INTERNATIONAL UNITS TABLET PO SCH ×2 (09:52→19:54)
[2018-07-29] MEDS: ALLOPURINOL 300 MG TAB PO SCH (09:52)
[2018-07-29] MEDS: guaiFENesin ER 600 MG TAB PO SCH ×2 (09:52→19:55)
[2018-07-29] MEDS: MULTIVITAMINS/MINERALS THERAP 1 TAB PO SCH (09:52)
[2018-07-29] MEDS: MAGNESIUM CHLORIDE 64 MG TABCR (SLO MAG) PO SCH ×2 (09:53→19:53)
[2018-07-29] MEDS: METOPROLOL TART 12.5 MG PER 1/2 TAB PO SCH ×2 (09:53→19:57)
--- NOTE | 2018-07-29 13:57 | IPN ---
DATE: 07/28/2018 SUBJECTIVE: Patient is examined at bedside in the ICU. She is currently PCU status. She was noted to be hypotensive overnight, however is asymptomatic. Her spironolactone has been discontinued due to the hypotension and her Lopressor dose has been cut in half. Otherwise, she has no complaints, and is doing well this morning. OBJECTIVE: VITALS: Temperature 98.2, pulse 71, respirations 20, blood pressure 103/50, pulse oximetry 93% on 2 liters nasal cannula. GENERAL: No acute distress. Elderly and frail appearing, sitting up in chair eating breakfast. Fully conversant. LUNGS: Bibasilar crackles present with mild wheezing throughout and coughing intermittently throughout the exam with no sputum production. CARDIAC: Irregular rhythm, regular rate. It in atrial fibrillation on the monitor. ABDOMEN: Soft, nontender. Positive bowel sounds present. EXTREMITIES: 2+ radial pulses bilaterally. 2+ pitting edema bilateral lower extremities, greater on the left than the right. Lipodermatosclerosis is present. LABS: WBC 8.1, hemoglobin and hematocrit 7.9/27.4, platelets 192, sodium 139, potassium 3.5, BUN and creatinine 55 and 0.87. Liver panel negative. ProBNP 3118. ASSESSMENT/PLAN: 83-year-old female who was recently discharged from [facility] for pneumonia and returned one day later for shortness of breath. 1. Shortness of breath, multifactorial. Likely secondary to her acutely decompensated congestive heart failure (CHF) as well as the recent pneumonia and chronic obstructive pulmonary disease (COPD) exacerbation. She continues to improve. 2. Decompensated CHF with preserved ejection fraction. Echo on this admission reveals moderate mitral regurg with an EF of 70% with severely elevated right sided pressures. She does have a history of underlying pulmonary hypertension and chronic right sided heart failure. Recent episode may have been triggered by the recent pneumonia. Continue diuresing. She is still short of breath and requiring 1-2 liters of nasal cannula, but is on room air at baseline. Continue strict intake and output and 1800 mL fluid restriction. Renal function continues to be stable. Spironolactone has been discontinued given her hypotension. 3. COPD exacerbation with hypoxemia and hypercapnia. Continue DuoNebs. She continues to be afebrile and is clinically improving. Cultures have been negative, unlikely to be infectious, especially given that she was recently treated for pneumonia a day prior to admission. 4. Asymptomatic hypotension. Blood pressures have been soft from the previous day, however has improved after eliminating spironolactone and reducing her Lopressor by half. Continue monitoring. 5. Anemia. Hemoglobin is 7.9 this a.m. however she is asymptomatic and there is no overt source of bleed. Continue to monitor. If it continues to trend down will do an anemia workup. 6. History of hypertension. As above, medications have been adjusted given her hypotension during admission. 7. Gout. Continue allopurinol if stable. 8. Chronic atrial fibrillation. Rate is controlled on Lopressor and she is chronically anticoagulated on Eliquis. 9. Severe mitral regurg. 10. Osteoarthritis. Continue Tylenol. 11. GERD. Continue home famotidine. 12. Dyslipidemia. 13. Deep vein thrombosis (DVT) prophylaxis. Chronically on Eliquis. DISPOSITION: Has cleared physical therapy, however is pending clinical improvement. Continue diuresing. She is still on oxygen supplementation and experiencing shortness of breath and edema. My faculty preceptor for this patient encounter was physically present during the encounter and was fully available. All aspects of the patient interview, examination, medical decision making process, and medical care plan development were reviewed and approved by the faculty preceptor. The faculty preceptor is aware and concurs with the plan as stated in the body of this note and will attest to such by his/her co-signature.
[2018-07-29] MEDS: PERCOCET 5MG/325MG TAB PO PRN (19:54)
[2018-07-29] MEDS: RAMELTEON 8 MG TAB (ROZEREM) PO SCH (19:55)
--- NOTE | 2018-07-29 21:15 | IPNPDOC ---
Date Seen The patient was seen on 07/29/18. Progress Note SUBJECTIVE: Patient is examined at bedside in the ICU. She is currently PCU status. Overall feeling better. No reported events overnight. States she is feeling better. Still noted to be requiring 2-3L NC, whereas she is on RA at baseline. Also noted to be have gradual decrease in H&H this admission, but no occult bleed. OBJECTIVE: VITALS: see below GENERAL: No acute distress. Elderly and frail appearing. Fully conversant. LUNGS: Bibasilar crackles present with wheezing throughout CARDIAC: Irregular rhythm, regular rate. It in atrial fibrillation on the monitor. ABDOMEN: Soft, nontender. Positive bowel sounds present. EXTREMITIES: 2+ radial pulses bilaterally. 2+ pitting edema bilateral lower extremities, greater on the left than the right. Lipodermatosclerosis is presen t. ASSESSMENT/PLAN: 83-year-old female who was recently discharged from [facility] for pneumonia and retur alee one day later for shortness of breath. 1. Shortness of breath, multifactorial. Likely secondary to her acutely decompensated congestive heart failure (CHF) as well as the recent pneumonia and chronic obstructive pulmonary disease (COPD) exacerbation. She continues to improve very gradually with diuresis and breathing tx. May also be 2/2 symptomatic anemia. 2. Symptomatic Anemia H&H gradually declined this admission, from baseline Hgb 9-10, down to 7.7 today. Anemia w/u pending, FOBT pending. Pt consented to transfusion-form in chart. Will transfuse 1U PRBC and reassess in am. 3. Decompensated CHF with preserved ejection fraction. Echo this admission: moderate mitral regurg with EF 70%, severely elevated right sided pressures. Also has hx of underlying pulmonary hypertension and chronic right sided heart failure. Recent episode may have been triggered by recent pneumonia & COPD. Continue diuresing. She is still short of breath and requiring 1-2 liters of nasal cannula, but is on room air at baseline. Continue strict intake and output and 1800 mL fluid restriction. Renal function continues to be stable. Spironolactone on hold due to soft bp. 4. COPD exacerbation with hypoxemia and hypercapnia. Continue DuoNebs & IV Solumedrol. She continues to be afebrile and is clinically improving. Cultures have been negative, unlikely to be infectious, especially given that she was recently treated for pneumonia a day prior to admission. 5. Elevated BUN level at 58 this am, but Cr stable. She still is hypervolemic and requiring supplemental O2. Continue diuresis with close monitoring. -Asymptomatic hypotension. resolved after eliminating spironolactone and reducing her Lopressor by half. Continue monitoring. -History of hypertension. As above, medications have been adjusted given her hypotension during admission. -Gout. Continue allopurinol, is stable. -Chronic atrial fibrillation. Rate is controlled on Lopressor and she is chronically anticoagulated on Eliquis. -Severe mitral regurg. -Osteoarthritis Continue Tylenol. -GERD Continue home famotidine. -Dyslipidemia. DVT ppx: chronically on Eliquis. DISPOSITION: Pending clinical improvement. Continue diuresing & monitor H&H. VS, I&O, 24H, Fishbone Vital Signs/I&O Vital Signs Date Time Temp Pulse Resp B/P (MAP) Pulse Ox O2 Delivery O2 Flow Rate FiO2 07/29/18 20:24 18 07/29/18 19:57 89 116/58 07/29/18 19:00 98.7 95 3.0 07/23/18 04:00 98 I&O- Last 24 Hours up to 6 AM 07/29/18 05:59 Intake Total 1320 ml Output Total 2120 ml Balance -800 ml Laboratory Data 24H LABS Laboratory Tests 2 07/29/18 05:00: Nucleated Red Blood Cells % (auto) 0.0, Anion Gap 5L, Glomerular Filtration Rate 59.1, Blood Urea Nitrogen 58H, Creatinine 0.96, Sodium Level 137, Potassium Level 4.2, Chloride Level 95L, Carbon Dioxide Level 37H, Calcium Level 8.4L, Iron Level 18L, Total Iron Binding Capacity 274, Transferrin % Saturation 6.6L, Ferritin 77 07/29/18 07:54: Folate 16.4 CBC/BMP Laboratory Tests 07/29/18 05:00 Red Blood Count 2.69 L, Mean Corpuscular Volume 98.9 H, Mean Corpuscular Hemoglobin 28.6, Mean Corpuscular Hemoglobin Concent 28.9 L, Red Cell D istribution Width 22.2 H, Calcium Level 8.4 L Microbiology Microbiology 07/22/18 Blood Culture - Final, Complete NO GROWTH AFTER 5 DAYS 07/22/18 Blood Culture - Final, Complete NO GROWTH AFTER 5 DAYS 07/22/18 Respiratory Virus Panel (PCR) ([facility]) - Final, Complete GME ATTESTATION GME ATTESTATION My faculty preceptor for this patient encounter was physically present during the encounter and was fully available. All aspects of the patient interview, examination, medical decision making process, and medical care plan development were reviewed and approved by the faculty preceptor. The faculty preceptor is a klein and concurs with the plan as stated in the body of this note and will attest to such by his/her cosignature. JOSE ARMANDO OSORIO DO Jul 29, 2018 21:14
[2018-07-29] MEDS: SCOPOLAMINE 1MG TRANSDERMAL PATCH TOP SCH (22:00)
[2018-07-30] VITALS (8 sets, daily range): BP systolic 116–151; BP diastolic 60–75
[2018-07-30] MEDS: methylPREDNISolone INJ 40 MG/1 ML VIAL (J2920) IV SCH ×2 (04:28→16:54)
[2018-07-30 06:19] LABS: HEMATOCRIT 30.7 % (36.0-47.0); HEMOGLOBIN 9.3 g/dl (12.0-15.5); MEAN CORPUSCULAR HEMOGLOBIN 28.2 pg (27.0-33.0); MEAN CORPUSCULAR HGB CONC 30.3 g/dl (32.0-36.5); PLATELET COUNT, AUTOMATED 212 10^3/uL (150-450); WHITE BLOOD COUNT 10.9 10^3/uL (4.0-10.0)
[2018-07-30] MEDS: FUROSEMIDE 40 MG/4 ML VIAL (J1940) IV SCH ×3 (06:31→23:09)
[2018-07-30 06:41] LABS: BLOOD UREA NITROGEN 60 MG/DL (7-18); CALCIUM LEVEL 8.7 MG/DL (8.8-10.2); CARBON DIOXIDE LEVEL 36 MEQ/L (21-32); CHLORIDE LEVEL 96 MEQ/L (98-107); CREATININE FOR GFR 0.94 MG/DL (0.55-1.30); GLOMERULAR FILTRATION RATE > 60.0 (>32); GLUCOSE, FASTING 138 MG/DL (70-100); POTASSIUM SERUM 3.7 MEQ/L (3.5-5.1); SODIUM LEVEL 138 MEQ/L (136-145)
[2018-07-30] MEDS: ALBUTEROL SULFATE 2.5 MG/0.5 ML INH NEB SOLN INH SCH ×4 (07:21→20:00)
[2018-07-30] MEDS: SYMBICORT 80/4.5MCG INHALER 6GM INH SCH ×2 (07:21→20:08)
[2018-07-30] MEDS: ALLOPURINOL 300 MG TAB PO SCH (09:02)
[2018-07-30] MEDS: APIXABAN 5 MG TAB (ELIQUIS) PO SCH ×2 (09:02→21:10)
[2018-07-30] MEDS: DOCUSATE SODIUM 100 MG CAP PO SCH ×2 (09:02→21:10)
[2018-07-30] MEDS: guaiFENesin ER 600 MG TAB PO SCH ×2 (09:02→21:10)
[2018-07-30] MEDS: VITAMIN D 1,000 INTERNATIONAL UNITS TABLET PO SCH ×2 (09:02→21:10)
[2018-07-30] MEDS: MULTIVITAMINS/MINERALS THERAP 1 TAB PO SCH (09:02)
[2018-07-30] MEDS: SENOKOT S TAB PO SCH ×2 (09:02→21:10)
[2018-07-30] MEDS: METOPROLOL TART 12.5 MG PER 1/2 TAB PO SCH ×2 (09:03→21:09)
[2018-07-30] MEDS: FERROUS SULFATE 325MG TAB PO SCH (11:28)
[2018-07-30] MEDS: MAGNESIUM CHLORIDE 64 MG TABCR (SLO MAG) PO SCH ×2 (11:28→21:00)
[2018-07-30] MEDS: RAMELTEON 8 MG TAB (ROZEREM) PO SCH (21:10)
--- NOTE | 2018-07-30 21:52 | IPNPDOC ---
Date Seen The patient was seen on 07/30/18. Progress Note SUBJECTIVE: Patient is examined sitting in chair in PCU. Overall feeling better, edema improving. No reported events overnight. Still requiring 2-3L NC, whereas she is on RA at baseline. Was transfused 1U yesterday for hgb 7.7, responded well, up to 9.3 today. Anemia w/u shows iron deficiency, for which she has been started on po iron supplement. OBJECTIVE: VITALS: see below GENERAL: No acute distress. Elderly and frail appearing. Fully conversant. LUNGS: Bibasilar crackles present with wheezing throughout CARDIAC: Irregular rhythm, regular rate. It in atrial fibrillation on the monitor. ABDOMEN: Soft, nontender. Positive bowel sounds present. EXTREMITIES: 2+ radial pulses bilaterally. 2+ pitting edema bilateral lower extremities, greater on the left than the right. Lipodermatosclerosis is present. ASSESSMENT/PLAN: 83-year-old female who was recently discharged from [facility] for pneumonia and returned one day later for shortness of breath. 1. Shortness of breath, multifactorial. Likely 2/2 decompensated CHF, and recent pneumonia and COPD exacerbation. She continues to improve very gradually with diuresis and breathing tx. 2. Symptomatic Anemia H&H responded well to 1U transfused yesterday. Started on po iron supplement. Still awaiting FOBT ordered 07/28. 3. Decompensated CHF with preserved ejection fraction. Echo this admission: moderate mitral regurg with EF 70%, severely elevated right sided pressures. Also has hx of underlying pulmonary hypertension and chronic right sided heart failure. Recent episode may have been triggered by recent pneumonia & COPD. Continue diuresing. Edema is improving, has put out 2+ liters yesterday. She is still short of breath and requiring 2-4 liters of nasal cannula, but is on room air at baseline. Continue strict intake and output and 1800 mL fluid restriction. Renal function continues to be stable. S pironolactone on hold due to soft bp. 4. COPD exacerbation with hypoxemia and hypercapnia. Continue DuoNebs & IV Solumedrol. She continues to be afebrile and is clinically improving. Cultures have been negative, unlikely to be infectious, especially given that she was recently treated for pneumonia a day prior to admission. 5. Delirium Pt has a hx of delirium in the hospital. Continue re-orientation and supportive care. Given risk of self-harm due to reports of her trying to jump out of chair and getting entangled in her IV, will place a sitter. 6. Elevated BUN maintaining ~60, but Cr stable. She still is hypervolemic and requiring supplemental O2. Continue diuresis with close monitoring. -Asymptomatic hypotension. resolved after eliminating spironolactone and reducing her Lopressor by half. Continue monitoring. -History of hypertension. As above, medications have been adjusted given her hypotension during admission. -Gout. Continue allopurinol, is stable. -Chronic atrial fibrillation. Rate is controlled on Lopressor and she is chronically anticoagulated on Eliquis. -Severe mitral regurg. -Osteoarthritis Continue Tylenol. -GERD Continue home famotidine. -Dyslipidemia. DVT ppx: chronically on Eliquis. DISPOSITION: Pending clinical improvement. Continue diuresing. Back to rehab when d/c. VS, I&O, 24H, Fishbone Vital Signs/I&O Vital Signs Date Time Temp Pulse Resp B/P (MAP) Pulse Ox O2 Delivery O2 Flow Rate FiO2 07/30/18 21:09 128/68 07/30/18 20:00 98.6 77 18 93 3.0 I&O- Last 24 Hours up to 6 AM 07/30/18 06:00 Intake Total 1220 ml Output Total 1925 ml Balance -705 ml Laboratory Data 24H LABS Laboratory Tests 2 07/30/18 05:43: Nucleated Red Blood Cells % (auto) 0.4H, Anion Gap 6L, Glomerular Filtration Rate > 60.0, Blood Urea Nitrogen 60H, Creatinine 0.94, Sodium Level 138, Potassium Level 3.7, Chloride Level 96L, Carbon Dioxide Level 36H, Calcium Level 8.7L CBC/BMP Laboratory Tests 07/30/18 05:43 Red Blood Count 3.30 L, Mean Corpuscular Volume 93.0, Mean Corpuscular Hemoglobin 28.2, Mean Corpuscular Hemoglobin Concent 30.3 L, Red Cell Dis tribution Width 23.8 H, Calcium Level 8.7 L Microbiology Microbiology 07/22/18 Blood Culture - Final, Complete NO GROWTH AFTER 5 DAYS 07/22/18 Blood Culture - Final, Complete NO GROWTH AFTER 5 DAYS 07/22/18 Respiratory Virus Panel (PCR) ([facility]) - Final, Complete GME ATTESTATION GME ATTESTATION My faculty preceptor for this patient encounter was physically present during the encounter and was fully available. All aspects of the patient interview, examination, medical decision making process, and medical care plan development were reviewed and approved by the faculty preceptor. The faculty preceptor is aware and concurs with the plan as stated in the body of this note and will attest to such by his/her cosignature. JOSE ARMANDO OSORIO DO Jul 30, 2018 21:52
[2018-07-31] VITALS (8 sets, daily range): BP systolic 113–138; BP diastolic 59–77
[2018-07-31] MEDS: methylPREDNISolone INJ 40 MG/1 ML VIAL (J2920) IV SCH ×2 (04:25→17:27)
[2018-07-31 06:07] LABS: HEMATOCRIT 28.4 % (36.0-47.0); HEMOGLOBIN 8.5 g/dl (12.0-15.5); MEAN CORPUSCULAR HEMOGLOBIN 28.5 pg (27.0-33.0); MEAN CORPUSCULAR HGB CONC 29.9 g/dl (32.0-36.5); MEAN CORPUSCULAR VOLUME 95.3 fl (80.0-96.0); PLATELET COUNT, AUTOMATED 193 10^3/uL (150-450); RED BLOOD COUNT 2.98 10^6/uL (4.00-5.40); WHITE BLOOD COUNT 8.9 10^3/uL (4.0-10.0)
[2018-07-31] MEDS: FUROSEMIDE 40 MG/4 ML VIAL (J1940) IV SCH ×3 (06:17→23:37)
[2018-07-31 06:34] LABS: CALCIUM LEVEL 8.4 MG/DL (8.8-10.2); CREATININE FOR GFR 0.95 MG/DL (0.55-1.30); GLOMERULAR FILTRATION RATE 59.8 (>32); POTASSIUM SERUM 3.4 MEQ/L (3.5-5.1)
[2018-07-31] MEDS: SYMBICORT 80/4.5MCG INHALER 6GM INH SCH ×2 (07:41→19:51)
[2018-07-31] MEDS: ALBUTEROL SULFATE 2.5 MG/0.5 ML INH NEB SOLN INH SCH ×4 (07:41→19:51)
[2018-07-31] MEDS ORDERED: POTASSIUM CHLORIDE 10 MEQ SR TABLET PO ONE (09:00)
[2018-07-31] MEDS: ALLOPURINOL 300 MG TAB PO SCH (09:42)
[2018-07-31] MEDS: MULTIVITAMINS/MINERALS THERAP 1 TAB PO SCH (09:42)
[2018-07-31] MEDS: APIXABAN 5 MG TAB (ELIQUIS) PO SCH ×2 (09:42→21:28)
[2018-07-31] MEDS: DOCUSATE SODIUM 100 MG CAP PO SCH ×2 (09:42→21:28)
[2018-07-31] MEDS: guaiFENesin ER 600 MG TAB PO SCH ×2 (09:42→21:27)
[2018-07-31] MEDS: METOPROLOL TART 12.5 MG PER 1/2 TAB PO SCH ×2 (09:42→21:28)
[2018-07-31] MEDS: FERROUS SULFATE 325MG TAB PO SCH (09:43)
[2018-07-31] MEDS: SENOKOT S TAB PO SCH ×2 (09:43→21:28)
[2018-07-31] MEDS: MAGNESIUM CHLORIDE 64 MG TABCR (SLO MAG) PO SCH ×2 (09:43→21:27)
[2018-07-31] MEDS: VITAMIN D 1,000 INTERNATIONAL UNITS TABLET PO SCH ×2 (09:43→21:27)
[2018-07-31] MEDS ORDERED: MIRALAX *UNIT DOSE* 17GM PACKET PO PRN (11:00)
--- NOTE | 2018-07-31 15:40 | REP ---
CT Head without contrast HISTORY: Mental status change COMPARISON: 02/03/2018 Areas of decreased attenuation are present in the periventricular white matter. This represents small-vessel ischemic disease. There is no intraparenchymal hemorrhage, acute infarct, mass or midline shift. The ventricular system and cortical sulci as well as subarachnoid space in the posterior fossa are dilated consistent with mild volume loss. There is no extra cerebral collection. There is no fracture. The visualized sinuses are clear. Mucosal thickening is present in the right mastoid air cells. IMPRESSION: 1. Small vessel ischemic disease. 2. Mild volume loss. Electronically Signed by Monty Sung MD 07/31/2018 03:31 P
--- NOTE | 2018-07-31 19:58 | IPNPDOC ---
Date Seen The patient was seen on 07/31/18. Progress Note SUBJECTIVE: Patient is examined bedside. States "I feel much better." LE edema improving. No reported events overnight. Still requiring sitter due to delirium, but noted to be A&O and interactive today. Still requiring 3L NC, whereas she is on RA at baseline. H&H remain stable s/p 1U transfused. OBJECTIVE: VITALS: see below GENERAL: No acute distress. Elderly and frail appearing. Fully conversant. A&Ox2, not to the year LUNGS: Bibasilar crackles. No wheezing today. Equal chest rise b/l CARDIAC: Irregular rhythm, regular rate. It in atrial fibrillation on the monitor. ABDOMEN: Soft, nontender. Positive bowel sounds present. EXTREMITIES: 2+ radial pulses bilaterally. 1-2+ pitting edema bilateral lower extremities, greater on the left than the right. Lipodermatosclerosis is present. ASSESSMENT/PLAN: 83-year-old female who was recently discharged from [facility] for pneumonia and returned one day later for shortness of breath. 1. Shortness of breath, multifactorial. Likely 2/2 decompensated CHF, and recent pneumonia and COPD exacerbation. She c ontinues to improve gradually with diuresis, IV steroids, breathing tx. 2. Iron deficiency anemia H&H remain stable. She is s/p 1U transfused 07/30. Continue po iron supplement. No overt signs of bleed. Awaiting FOBT ordered 07/28. 3. Decompensated CHF with preserved ejection fraction. Echo this admission: moderate mitral regurg with EF 70%, severely elevated right sided pressures. Also has hx of underlying pulmonary hypertension and chronic right sided heart failure. Recent episode may have been triggered by recent pneumonia & COPD. Continue diuresing. Renal fxn remaining stable. Edema is improving, and continues having good urine o/p. Still requiring 3L NC, but is on room air at baseline. Continue strict intake and output and 1800 mL fluid restriction. BP maintaining well since Spironolactone was d/c'd. 4. COPD exacerbation with hypoxemia and hypercapnia. Continue DuoNebs & IV Solumedrol. She continues to be afebrile and is clinically improving. Cultures have been negative, unlikely to be infectious, especially given that she was recently treated for pneumonia a day prior to admission. Blood cxs neg. 5. Delirium Pt has a hx of delirium in the hospital. Continue re-orientation and supportive care. Continue sitter. 6. Elevated BUN maintaining ~60, but Cr stable. She still is hypervolemic and requiring supplemental O2. Continue diuresis with close monitoring. 7. Hypokalemia supplemented -Asymptomatic hypotension. resolved after eliminating spironolactone and reducing her Lopressor by half. Continue monitoring. -History of hypertension. As above, medications have been adjusted given her hypotension during admission. -Gout. Continue allopurinol, is stable. -Chronic atrial fibrillation. Rate is controlled on Lopressor and she is chronically anticoagulated on Eliquis. -Severe mitral regurg. -Osteoarthritis Continue Tylenol. -GERD Continue home famotidine. -Dyslipidemia. DVT ppx: chronically on Eliquis. DISPOSITION: Pending clinical improvement. Continue diuresing. Back to rehab when d/c. VS, I&O, 24H, Fishbone Vital Signs/I&O Vital Signs Date Time Temp Pulse Resp B/P (MAP) Pulse Ox O2 Delivery O2 Flow Rate FiO2 07/31/18 09:42 91 128/69 07/31/18 08:00 97.9 18 90 3.0 I&O- Last 24 Hours up to 6 AM 07/31/18 06:00 Intake Total 600 ml Output Total 1550 ml Balance -950 ml Laboratory Data 24H LABS Laboratory Tests 2 07/31/18 05:27: Nucleated Red Blood Cells % (auto) 1.5H, Anion Gap 9, Glomerular Filtration Rate 59.8, Blood Urea Nitrogen 65H, Creatinine 0.95, Sodium Level 138, Potassium Level 3.4L, Chloride Level 95L, Carbon Dioxide Level 34H, Calcium Level 8.4L CBC/BMP Laboratory Tests 07/31/18 05:27 Red Blood Count 2.98 L, Mean Corpuscular Volume 95.3, Mean Corpuscular Hemoglobin 28.5, Mean Corpuscular Hemoglobin Concent 29.9 L, Red Cell Distribution Width 23.6 H, Calcium Level 8.4 L Microbiology Microbiology 07/22/18 Blood Culture - Final, Complete NO GROWTH AFTER 5 DAYS 07/22/18 Blood Culture - Final, Complete NO GROWTH AFTER 5 DAYS 07/22/18 Respiratory Virus Panel (PCR) (MUSHTAQ) - Final, Complete GME ATTESTATION GME ATTESTATION My faculty preceptor for this patient encounter was physically present during the encounter and was fully available. All aspects of the patient interview, examination, medical decision making process, and medical care plan development were reviewed and approved by the faculty preceptor. The faculty preceptor is aware and concurs with the plan as stated in the body of this note and will attest to such by his/her cosignature. JOSE ARMANDO OSORIO DO Jul 31, 2018 11:21
[2018-07-31] MEDS: RAMELTEON 8 MG TAB (ROZEREM) PO SCH (21:27)
[2018-08-01 04:41] VITALS: BP 134/71
[2018-08-01 05:05] LABS: HEMATOCRIT 27.8 % (36.0-47.0); HEMOGLOBIN 8.1 g/dl (12.0-15.5); MEAN CORPUSCULAR HEMOGLOBIN 28.4 pg (27.0-33.0); MEAN CORPUSCULAR HGB CONC 29.1 g/dl (32.0-36.5); MEAN CORPUSCULAR VOLUME 97.5 fl (80.0-96.0); PLATELET COUNT, AUTOMATED 183 10^3/uL (150-450); RED BLOOD COUNT 2.85 10^6/uL (4.00-5.40); WHITE BLOOD COUNT 10.7 10^3/uL (4.0-10.0)
[2018-08-01] MEDS: methylPREDNISolone INJ 40 MG/1 ML VIAL (J2920) IV SCH (05:18)
[2018-08-01 05:26] LABS: CREATININE FOR GFR 1.32 MG/DL (0.55-1.30); GLOMERULAR FILTRATION RATE 40.9 (>32); POTASSIUM SERUM 4.9 MEQ/L (3.5-5.1)
[2018-08-01] MEDS: FUROSEMIDE 40 MG/4 ML VIAL (J1940) IV SCH (06:28)
[2018-08-01 06:29] VITALS: BP 119/70
[2018-08-01 08:00] VITALS: BP 127/84
[2018-08-01] MEDS: ALBUTEROL SULFATE 2.5 MG/0.5 ML INH NEB SOLN INH SCH ×3 (08:00→15:16)
[2018-08-01] MEDS: SYMBICORT 80/4.5MCG INHALER 6GM INH SCH (08:09)
[2018-08-01] MEDS: VITAMIN D 1,000 INTERNATIONAL UNITS TABLET PO SCH (09:00)
[2018-08-01] MEDS: SENOKOT S TAB PO SCH (09:00)
[2018-08-01] MEDS: MULTIVITAMINS/MINERALS THERAP 1 TAB PO SCH (09:00)
[2018-08-01] MEDS: FERROUS SULFATE 325MG TAB PO SCH (09:00)
[2018-08-01] MEDS: ALLOPURINOL 300 MG TAB PO SCH (09:00)
[2018-08-01] MEDS: DOCUSATE SODIUM 100 MG CAP PO SCH (09:00)
[2018-08-01] MEDS: METOPROLOL TART 12.5 MG PER 1/2 TAB PO SCH (09:00)
[2018-08-01] MEDS: MAGNESIUM CHLORIDE 64 MG TABCR (SLO MAG) PO SCH (09:00)
[2018-08-01] MEDS: guaiFENesin ER 600 MG TAB PO SCH (09:00)
[2018-08-01 10:45] VITALS: BP 105/60
[2018-08-01 11:06] LABS: ABG HCO3 24.1 MEQ/L (22.0-26.0); ABG O2 SATURATION 97.5 % (95.0-99.0); ABG PARTIAL PRESSURE CO2 53.9 mmHg (35.0-45.0); ABG PARTIAL PRESSURE O2 119.4 mmHg (75.0-100.0); ABG STANDARD HCO3 21.9 MEQ/L (22.0-26.0); ABG TOTAL CO2 25.7 MEQ/L (23.0-31.0); ABG pH (ARTERIAL) 7.268 UNITS (7.350-7.450)
--- NOTE | 2018-08-01 11:19 | REP ---
Portable chest, 10:55 a.m., single AP view, the patient semi upright: Comparisons are 07/21/2018 and 06/26/2018. There is cardiomegaly, unchanged from both prior studies. There is diffuse interstitial coarsening, significantly increased from 06/26/2018. A slightly increased from 07/21/2018, compatible with interstitial infiltrates. I suspect there are small bilateral pleural effusions. There is chronic deforming arthropathy of the shoulders bilaterally, unchanged. Impression: Findings are compatible with interstitial infiltrates and bilateral pleural effusions. There is cardiomegaly, unchanged. Electronically Signed by Roberth Pace MD 08/01/2018 11:10 A
[2018-08-01 11:52] LABS: MAGNESIUM LEVEL 2.8 MG/DL (1.8-2.4); MB/CK RELATIVE INDEX 5.6 (< OR =4); TROPONIN I 0.08 NG/ML (< 0.10)
[2018-08-01 12:00] VITALS: BP 119/65
[2018-08-01 12:44] LABS: ALBUMIN 3.2 GM/DL (3.2-5.2); BILIRUBIN,DIRECT 1.1 MG/DL (0.0-0.2); BILIRUBIN,TOTAL 1.6 MG/DL (0.2-1.0); TOTAL PROTEIN 5.9 GM/DL (6.4-8.2)
--- NOTE | 2018-08-01 13:08 | REP ---
CT of the chest without IV contrast: Comparison is 07/22/2018. There are moderate to large bilateral pleural effusions, not significantly changed. On the comparison study there were focal infiltrates in the right lower lobe and right middle lobe. The right middle lobe infiltrate has resolved. Right lower lobe infiltrate has decreased in size. There are no new infiltrates. There is compression atelectasis of the lung adjacent to the pleural effusions. There is cardiomegaly, unchanged. There is no pericardial effusion. No mediastinal adenopathy is identified. The study is insensitive for hilar adenopathy in the absence of IV contrast. Thoracic aorta is unremarkable. The visualized upper abdominal contents are unremarkable. Impression: [id number] bilateral pleural effusions, not significantly changed. The previous right middle lobe infiltrate has resolved. The previous right lower lobe infiltrate has decreased. Cardiomegaly without pericardial effusion, unchanged. Electronically Signed by Roberth Pace MD 08/01/2018 12:59 P
--- NOTE | 2018-08-01 13:18 | REP ---
CT of the abdomen pelvis without IV and oral contrast: Comparison is 01/12/2018. There are moderate to large bilateral pleural effusions in the visualized lung miller, increased in size from the comparison abdominal/pelvis CT. There is cardiomegaly, unchanged. There is a imaged degradation from motion artifact, likely from patient breathing. The hepatic parenchyma is grossly unremarkable. The gallbladder is nondistended. There are gallbladder calculi, as previously. There is no biliary duct dilatation. The pancreas and spleen are normal size, and unremarkable. There is circumferential subcutaneous soft tissue edema compatible with anasarca. The adrenals are unremarkable. There is a nonobstructive right renal calculus and a nonobstructive left renal calculus. There is no hydronephrosis. Abdominal aorta is unremarkable except for calcified atheroma. There is no bowel distension or obstruction. Pelvis: There is no ascites. There is a Lockwood catheter in the bladder. There is sigmoid colon diverticulosis. No definite evidence of diverticulitis. Uterus and adnexa are unremarkable. Impression: The bilateral pleural effusions, increased from the comparison abdomen/pelvis CT. Bilateral nonobstructive renal calculi. Cholelithiasis. Diverticulosis, no definite diverticulitis. Circumferential subcutaneous edema compatible with anasarca. Image degradation from motion artifact, likely from patient breathing. Electronically Signed by Roberth Pace MD 08/01/2018 01:09 P
[2018-08-01] MEDS ORDERED: FUROSEMIDE 100 MG/10 ML VIAL (J1940) IV ONE (13:45)
[2018-08-01] MEDS ORDERED: FUROSEMIDE injection 250 MG in D5W 225 ML IV SCH (14:00)
[2018-08-01] MEDS ORDERED: FLEET ENEMA PR PRN (14:45)
[2018-08-01] MEDS ORDERED: LIDOCAINE 1% MDV 20ML VIAL As Ordered ONE (15:52)
--- NOTE | 2018-08-01 21:29 | DS.PDOC ---
Discharge Summary General Date of Admission Jul 22, 2018 at 16:44 Discharge Summary PROCEDURES PERFORMED DURING STAY: [None]. ADMITTING DIAGNOSES: 1. . DISCHARGE DIAGNOSES: 1. . COMPLICATIONS/CHIEF COMPLAINT: Chf,Copd W/ Acute Exacerbation, Respiratoy Failure. HISTORY OF PRESENT ILLNESS: . HOSPITAL COURSE: . DISCHARGE MEDICATIONS: Please see below. ALLERGIES: Please see below. PHYSICAL EXAMINATION ON DISCHARGE: VITAL SIGNS: Please see below. GENERAL: HEENT: NECK: CARDIOVASCULAR EXAMINATION: RESPIRATORY EXAMINATION: ABDOMINAL EXAMINATION: EXTREMITIES: SKIN: NEUROLOGICAL EXAMINATION: PSYCHIATRIC EXAMINATION: LABORATORY DATA: Please see below. IMAGING: PROGNOSIS: ACTIVITY: [As tolerated]. DIET: DISCHARGE PLAN: DISPOSITION: 20 . DISCHARGE INSTRUCTIONS: 1. . ITEMS TO FOLLOWUP ON ON OUTPATIENT: 1. . DISCHARGE CONDITION: [Stable]. TIME SPENT ON DISCHARGE: Greater than minutes. Vital Signs/I&Os Vital Signs Date Time Temp Pulse Resp B/P (MAP) Pulse Ox O2 Delivery O2 Flow Rate FiO2 08/01/18 14:12 91 30 91 5.0 08/01/18 12:00 97.6 119/65 (83) I&O- Last 24 Hours up to 6 AM 08/01/18 06:00 Intake Total 620 ml Output Total 1500 ml Balance -880 ml Laboratory Data Labs 24H Laboratory Tests 2 08/01/18 04:48: Nucleated Red Blood Cells % (auto) 1.7H, Anion Gap 11, Glomerular Filtration Rate 40.9, Blood Urea Nitrogen 73H, Creatinine 1.32H, Sodium Level 139, Potassium Level 4.9#, Chloride Level 97L, Carbon Dioxide Level 31, Calcium Level 9.0 08/01/18 10:58: Blood Gas Bicarbonate Standard 21.9L, Arterial Blood pH 7.268L, Arterial Blood Partial Pressure CO2 53.9H, Arterial Blood Partial Pressure O2 119.4H, Arterial Blood Total CO2 25.7, Arterial Blood HCO3 24.1, Arterial Blood Base Excess - 3.0L, Arterial Blood Oxygen Saturation 97.5 08/01/18 11:09: Magnesium Level 2.8H, Aspartate Amino Transf (AST/SGOT) 57H, Alanine Aminotransferase (ALT/SGPT) 54, Alkaline Phosphatase 94, Total Bilirubin 1.6H, Direct Bilirubin 1.1H, Ammonia 94H, Total Creatine Kinase 50, Creatine Kinase MB 3.0, Creatine Kinase MB Relative Index 5.60H, Troponin I 0.08, Total Protein 5.9L, Albumin 3.2, Albumin/Globulin Ratio 1.19 CBC/BMP Laboratory Tests 08/01/18 04:48 Red Blood Count 2.85 L, Mean Corpuscular Volume 97.5 H, Mean Corpuscular Hemoglobin 28.4, Mean Corpuscular Hemoglobin Concent 29.1 L, Red Cell Distribution Width 24.0 H, Calcium Level 9.0 Microbiology Microbiology 07/22/18 Blood Culture - Final, Complete NO GROWTH AFTER 5 DAYS 07/22/18 Blood Culture - Final, Complete NO GROWTH AFTER 5 DAYS 07/22/18 Respiratory Virus Panel (PCR) (MUSHTAQ) - Final, Complete Discharge Medications Scheduled (Tubersol) 5 Unit/0.1 Ml Inj, 5 UNIT ID ASDIRECTED, (Reported) EVERY MON FOR 8 DAYS, START 07/28/18-08/04/18 Albuterol Sulfate (Albuterol Sulfate) 2.5 Mg/3 Ml Nebu, 2.5 MG INH QID, (Reported) Allopurinol (Zyloprim) 300 Mg Tab, 300 MG PO DAILY, (Reported) Apixaban Base (Eliquis) 5 Mg Tab, 5 MG PO BID, (Reported) Budesonide/Formoterol (Symbicort 80-4.5 Mcg/Act) 60 Puff/Inhaler Aers, 2 PUFF INH BID, (Reported) Cholecalciferol (Vitamin D) 1,000 Unit Tab, 1,000 UNIT PO BID, (Reported) Docusate Sodium (Colace) 100 Mg Cap, 100 MG PO BID, (Reported) Furosemide (Furosemide) 40 Mg Tab, 40 MG PO BID, (Reported) BID FOR 3 DAYS 07/22-07/24, RESUME 40MG DAILY DOSING AFTER. TAKES AT 0800/1300 Furosemide (Furosemide) 40 Mg Tab, 40 MG PO DAILY, (Reported) START 07/25/18 AFTER BID DOSING Magnesium Chloride (Mag64) 64 Mg Tabcr, 64 MG PO BID, (Reported) Melatonin (Melatonin) 5 Mg Tab, 5 MG PO QHS, (Reported) Metoprolol Tartrate (Metoprolol Tartrate) 25 Mg Tab, 25 MG PO BID, (Reported) HOLD IF AP<60 OR SBP<100 Multivitamins *[facility] STOCKED* (Thera M Plus *[facility] STOCKED*) 1 Tab Tab, 1 TAB PO DAILY, (Reported) Spironolactone (Spironolactone) 25 Mg Tab, 12.5 MG PO DAILY, (Reported) Scheduled PRN Acetaminophen (Tylenol) 325 Mg Tab, 650 MG PO Q4H PRN for PAIN / FEVER, (Reported) Albuterol Sulfate (Albuterol Sulfate) 2.5 Mg/3 Ml Nebu, 2.5 MG INH Q2H PRN for SHORTNESS OF BREATH, (Reported) Bisacodyl (Dulcolax) 10 Mg Sup, 10 MG VA DAILY PRN for CONSTIPATION, (Reported) Famotidine (Pepcid) 20 Mg Tab, 20 MG PO BID PRN for HEARTBURN, (Reported) Milk Of Magnesia (Milk of Magnesia) 1,200 Mg/15 Ml Judith, 30 ML PO DAILY PRN for CONSTIPATION, (Reported) Polyethylene Glycol (Miralax) 1 Pow Pow, 17 GM PO DAILY PRN for CONSTIPATION, (Reported) Sodium Phosphate/Biphosphate (Enema 7-19 gm/118Ml) 1 Mart Mart, 1 MART VA DAILY PRN for CONSTIPATION, (Reported) Tramadol HCl (Tramadol HCl) 50 Mg Tab, 50 MG PO QHS PRN for PAIN, (Reported) Allergies Coded Allergies: Clarithromycin (Verified Allergy, Intermediate, RASH, 07/22/18) GME ATTESTATION GME ATTESTATION My faculty preceptor for this patient encounter was physically present during the encounter and was fully available. All aspects of the patient interview, examination, medical decision making process, and medical care plan development were reviewed and approved by the faculty preceptor. The faculty preceptor is aware and concurs with the plan as stated in the body of this note and will attest to such by his/her cosignature. JOSE ARMANDO OSORIO DO Aug 01, 2018 21:29
--- NOTE | 2018-08-02 09:35 | CR ---
DATE OF CONSULTATION: 08/01/2018 I was asked by Dr. Leblanc to evaluate Ms. Estrada for acute and chronic hypoxic respiratory (cut off). Ms. Estrada is an 83-year-old female whom I first met in June of this year for acute hypoxemic respiratory failure. She has a past medical history significant for congestive heart failure (CHF), pulmonary hypertension with chronic right sided heart failure, chronic bilateral pedal edema, atrial fibrillation, severe mitral regurgitation, chronic obstructive pulmonary disease (COPD) per chart and hypertension who was discharged from June admission that I met her on (07/10/2018), on 07/22/2018. She was only out of the hospital for about 24 hours when she was re-admitted again in heart failure. Since her re-admission on 07/22/2018, she has been diuresed. There was a question as to whether or not she had chronic obstructive pulmonary disease (COPD) exacerbation as part of this admission. She had been on systemic corticosteroids. Additional difficulties have been decrease in hemoglobin despite the diuresis to which she was given 1 unit of packed cells on the . Despite her treatment, her respiratory status did not improve. Pulmonary was consulted in part to comment on her chest x-ray/CT findings as well as to comment as to whether some of the interstitial infiltrates could be hemorrhage. When I saw Ms. Estrada, she was very lethargic. However, if you called her name, she opened her eyes and looked at you. She could not offer any further history. OBJECTIVE: PHYSICAL EXAMINATION: General: Ms. Estrada is lying in bed. She does not appear in distress. She will respond to voice but then rapidly will close her eyes. Vital signs: Temperature 97.6, pulse 91, respiratory rate high 20s, blood pressure 119/65 with a map of 83, SpO2 89-91% on 3-5 liters. HENT: Anicteric, pupils equal, round, and reactive to light. Nares: Patent bilaterally, oropharynx extremely dry mucosa. Neck: Supple, trachea is midline. Lymph: Without cervical or supraclavicular lymphadenopathy. Lungs: Symmetric excursion, absent breath sounds at the bases bilaterally. No wheeze, rhonchi or significant crackles. Normal I:E. No accessory muscle usage or retractions. Cardiovascular: Irregular irregular, normal S1, S2, no murmur, rub or gallop appreciated. Abdomen: Positive bowel sounds, soft, nondistended, appeared very tender particularly in the lower right quadrant. No hepatosplenomegaly or masses appreciated. Extremities: 2+ pitting edema in the lower extremities bilaterally without clubbing or cyanosis. LABORATORY DATA: Hemoglobin 8.1, hematocrit 27.8, platelet count 183,000. White blood cell count 10,700. Chemistries from this morning showed a sodium 139, potassium 4.9, chloride 97, bicarbonate 31, anion gap 11, BUN 73, creatinine 1.3, glucose 117, magnesium 2.8, total bilirubin 1.6, direct bilirubin 1.1, AST 57, ALT 54, alkaline phosphatase 94, ammonia 94, CK 50, troponin I 0.08, total protein 5.9, albumin 3.2. Arterial blood gas was 7.27/54/119 with a measured saturation 98% and a base excess of -3. I reviewed her chest CT scan as well as a report from earlier today. CT scan showed cardiomegaly as well as small to moderate bilateral pleural effusions. There were increased interstitial markings. The right middle lobe infiltrate seen earlier had resolved and the right lower lobe infiltrate decreased. IMPRESSION: 1. Acute hypoxemic respiratory failure. This is most likely due to decompensated congestive heart failure. No evidence of chronic obstructive pulmonary disease (COPD) exacerbation. The CT findings regarding the infiltrates seen earlier this year show that one has resolved and the other is decreased and is likely inflammatory so I do not feel infection is part of her difficulties. 2. Decompensated congestive heart failure. 3. Anemia. Based on her examination and decrease in hemoglobin when it should be been theoretically increasing with the diuresis, I am suspicious of a gastrointestinal (GI) source. Lung infiltrates are not consistent with pulmonary hemorrhage. 4. Decreased mental status. She has an elevated ammonia level which is likely playing a significant role in her changes. I also question whether being on systemic corticosteroid may be causing some of her mental status changes. This is probably most predominately secondary to elevated ammonia level. There may be a contribution from the systemic corticosteroids. 5. Atrial fibrillation. 6. Severe mitral regurgitation. RECOMMENDATIONS: 1. (cut off). I do not feel there is any chronic obstructive pulmonary disease (COPD) exacerbation and therefore would discontinue the systemic corticosteroids. 2. Would continue her outpatient pulmonary medications. 3. Chest CT scan findings is not consistent with pulmonary hemorrhage and I am most suspicious of a GI source. Thank you for this consultation. Please reconsult pulmonary service if there are further questions.
--- NOTE | 2018-08-05 10:26 | CR ---
DATE OF CONSULTATION: 08/01/2018 REQUESTING PHYSICIAN: Dr. Analisa Leblanc REASON FOR CONSULTATION: Diuretic management in this patient with acute kidney injury superimposed on CKD stage II. HISTORY OF PRESENT ILLNESS: History is obtained from chart review and discussion with healthcare provider. Patient is unable to provide any history at present due to clinical condition. Geraldine Estrada is an 83-year-old female with a past medical history of hypertension, gout, chronic obstructive pulmonary disease (COPD), congestive heart failure (CHF) (with preserved ejection fraction), pulmonary hypertension, right heart dysfunction, atrial fibrillation on Eliquis, valvular heart disease, osteoarthritis (OA). She is a prison patient. She was recently admitted for hypoxia and shortness of breath, and was treated for pneumonia and [facility] back to [facility]; however, she was quickly readmitted back to the hospital on July 22 for ongoing respiratory issues. The patient has apparently been requiring a bedside sitter due to delirium. She continues to have significant oxygen requirements. Primary team has been diuresing her, however, today her creatinine increased from 0.9 to 1.3 and nephrology evaluation was subsequently requested. PAST MEDICAL HISTORY: As mentioned above. PAST SURGICAL HISTORY: Left femoral fracture surgery in 2017. EGD and colonoscopy. Open reduction internal fixation (ORIF) of right knee. Multiple scrapings of gout tophi. SOCIAL HISTORY: snf patient. She ambulates with a walker at baseline. There is no reported alcohol, drug, or tobacco. FAMILY HISTORY: No significant ischemic heart disease in the family. ALLERGIES: 1. CLARITHROMYCIN. HOME MEDICATIONS: Reviewed. REVIEW OF SYSTEMS: Unable to obtain secondary to her clinical condition. VITAL SIGNS: Temperature 97.3, pulse 96, respiratory rate 36, blood pressure 105/60, saturating 88% on 5 liters nasal cannula. INTAKE AND OUTPUT: Intake yesterday was 620 mL. Urine output yesterday was 2 liters. Net negative 1.4 liters. Weight on the bed scale today is 64.1 kg. PHYSICAL EXAMINATION: GENERAL: The patient is seen lying in bed, head of bed elevated. She is in moderate respiratory distress, significantly tachypneic, does not make eye contact. She is restless. One to one sitter is present. Her tongue is dry. The neck veins are elevated. Heart sounds are irregularly irregular, mild tachycardia. Lung sounds are significantly diminished at the bottom one-third of each lung. There is increased work of breathing. She is on 5 liters nasal cannula. Abdomen is soft and nontender. She did not grimace with moderate palpation. There is an odor of GI bleed in the room, however there are no stools noted. Extremities show 2+ pitting edema bilaterally. Neurologic the patient is unable to converse. She is altered, she is restless. She is moving her extremities. LABORATORIES: Sodium 139, potassium 4.9, bicarbonate 31, BUN 73, creatinine 1.3, magnesium 2.8, ammonia level 94, hemoglobin 8.1, platelets 183. IMAGING: CT chest August 01 without contrast, moderate to large bilateral pleural effusion with compressive atelectasis of the lung adjacent to the pleural effusion. CT abdomen and pelvis August 01, no ascites. There is circumferential subcutaneous edema compatible with anasarca. INPATIENT MEDICATIONS: I have ordered Lasix 60 mg IV times one and Lasix drip at 8 mg an hour. PROBLEMS: 1. Acute kidney injury, nonoliguric, superimposed on chronic kidney disease stage II. Please note, patient has a significant discrepancy between her BUN numbers and her serum creatinine. Yesterday, her blood urea nitrogen was almost 70 while her creatinine was less than 1. This is highly suspicious for a GI bleed. Other possibility is related to hypercatabolic state from steroids. I notice her hemoglobin is down trending and she is also on Eliquis. I discussed with the primary team regarding the probability of a GI bleed and her Eliquis should be discontinued if possible. She is significantly volume overloaded. She has moderate to large bilateral pleural effusions. She has peripheral edema and anasarca. I would continue to diurese her. A bolus of Lasix is ordered and then she will be started on a Lasix drip. 2. Acute hypoxic respiratory failure. Patient is in moderate respiratory distress. A pulmonary consult is pending. She is presently requiring 5 liters oxygen via nasal cannula at the time of my visit. The CT chest that she just went for did show moderate to large bilateral pleural effusions with compressive atelectasis. I have discussed this with hospitalist. I recommend patient go for urgent thoracentesis in view of her hypoxia, respiratory distress and it will be much quicker to treat her shortness of breath via thoracentesis. There is compressive atelectasis of the lungs as well. Certainly, diuresing her will help, but it will not help as quickly as relieving the pleural effusion will. Primary team is seeing if this can be coordinated. It may need to be done at the bedside if it cannot be done in interventional radiology. 3. Decompensated heart failure. Echo noted, preserved ejection fraction, right heart dysfunction. She is volume overloaded. She is going to be diuresed with Lasix push and Lasix drip. She needs to have a thoracentesis done because of her moderate to large bilateral pleural effusions and the attending shortness of breath. 4. Altered mental status. This is not secondary to uremia. Her BUN levels are only around 70. She is has hyperammonemia. This will be managed per the primary team. Thank you for involving me in the care of Ms. Geraldine Estrada. Recommendations for urgent thoracentesis were relayed to the resident service and to the hospitalist on board.
== END 2018-08-01 15:54 | disposition expired | DRG 291 ==
LOC: M ED 13:02 → EDBD 13:02 → M ED INP 16:44 → M ICU 19:34 → M PCU 07-29 23:23
PROVIDERS: ADMIT Internal Medicine; ATTEND Internal Medicine
PROC: 30233N1 Transfusion of Nonautologous Red Blood Cells into Peripheral Vein, Percutaneous Approach (ICD-10-PCS; principal; 2018-07-29)
DX: I11.0 Hypertensive heart disease with heart failure (principal); J96.01 Acute respiratory failure with hypoxia; J44.0 Chronic obstructive pulmonary disease with (acute) lower respiratory infection; N17.9 Acute kidney failure, unspecified; J90 Pleural effusion, not elsewhere classified; E72.20 Disorder of urea cycle metabolism, unspecified; I50.33 Acute on chronic diastolic (congestive) heart failure; M10.9 Gout, unspecified; I27.20 Pulmonary hypertension, unspecified; I95.9 Hypotension, unspecified; D50.9 Iron deficiency anemia, unspecified; I50.812 Chronic right heart failure; I48.2 Chronic atrial fibrillation; I34.0 Nonrheumatic mitral (valve) insufficiency; M19.90 Unspecified osteoarthritis, unspecified site; K21.9 Gastro-esophageal reflux disease without esophagitis; Z79.01 Long term (current) use of anticoagulants; Z79.899 Other long term (current) drug therapy; Z88.1 Allergy status to other antibiotic agents